=== PATIENT | male | born 1960 | race African-American/Black ===

== ENCOUNTER 2017-02-06 19:17 | Emergency (ER) | payer MEDICAID ==
[~2017-02-06] VITALS: Ht 180.3 cm; Wt 126.6 kg
[~2017-02-06 19:17] MED LIST: NKM
[2017-02-06] MEDS ORDERED: Solu-MEDROL 125mg Inj IVP ONE (19:30)
--- NOTE | 2017-02-06 19:35 | Emergency Room Report ---
History of Present Illness General Chief Complaint: Dyspnea/Respdistress Source: Patient Present Illness HPI Patient is a 56 -year-old male who presented after having increased difficulty breathing. Patient was noted to have recently quit smoking. Patient reported having increased difficulty breathing. The patient denied any fever. He reported having some sore throat. He denied any leg pain or swelling. Allergies: Coded Allergies: No Known Allergies (Unverified , 02/06/17) Patient History Past Medical History: see triage record Reviewed Nursing Documentation: PMH: Agreed, PSxH: Agreed Nursing Documentation-PMH Past Medical History: No Stated History Review of Systems All Other Systems: negative except mentioned in HPI Physical Exam Vital Signs Date Time Temp Pulse Resp B/P Pulse Ox O2 Delivery O2 Flow Rate FiO2 02/06/17 19:13 100.2 121 16 220/119 95 Room Air Sp02 EP Interpretation: reviewed, normal General Appearance: normal inspection, alert, moderate distress, obese Head: atraumatic ENT: normal ENT inspection, hearing grossly normal, normal voice Neck: normal inspection, full range of motion, supple, no bony tend Respiratory: normal inspection, no retraction, wheezing Cardiovascular #1: regular rate, rhythm, no edema Gastrointestinal: normal inspection, normal bowel sounds, non tender, soft, no guarding, no hernia Genitourinary: no CVA tenderness Musculoskeletal: normal inspection, back normal, normal range of motion Neurologic: normal inspection, alert, oriented x3, responsive, physics technician III-XII nml as tested, speech normal Psychiatric: normal inspection, judgement/insight normal, mood/affect normal Skin: normal inspection, normal color, no rash Medical Decision Making Diagnostic Impression: Primary Impression: UTI (urinary tract infection) Additional Impression: COPD (chronic obstructive pulmonary disease) with emphysema ER Course Patient is a 56 -year-old male who presented after having increased difficulty breathing. Differential included but was not limited to anemia, pneumonia, pneumothorax, myocardial infarction, pericardial effusion, congestive heart failure, acidosis. Because of complexity of patient's case laboratory testing and imaging studies were ordered.Patient noted have a normal white blood count. Patient noted have marked wheezing with difficulty breathing. Patient was given IV Solu-Medrol. Patient was given Rocephin for urinary tract infection. Btype naturietic peptide was noted to be elevated. Patient's troponin was negative. Chest x-ray one view interpreted by me showed a right lung scarring versus pneumonia.HMO from [facility] was contacted for transfer to [facility] doctor to facility Labs Test 02/06/17 19:30 02/06/17 20:45 White Blood Count 8.6 K/UL (4.8-10.8) Red Blood Count 5.26 M/UL (4.70-6.10) Hemoglobin 16.7 G/DL (14.2-18.0) Hematocrit 47.6 % (42.0-52.0) Mean Corpuscular Volume 90 FL (80-99) Mean Corpuscular Hemoglobin 31.8 PG (27.0-31.0) Mean Corpuscular Hemoglobin Concent 35.2 G/DL (32.0-36.0) Red Cell Distribution Width 13.3 % (11.6-14.8) Platelet Count 221 K/UL (150-450) Mean Platelet Volume 6.8 FL (6.5-10.1) Neutrophils (%) (Auto) 75.3 % (45.0-75.0) Lymphocytes (%) (Auto) 12.4 % (20.0-45.0) Monocytes (%) (Auto) 9.3 % (1.0-10.0) Eosinophils (%) (Auto) 0.2 % (0.0-3.0) Basophils (%) (Auto) 2.8 % (0.0-2.0) Sodium Level 137 mEQ/L (135-145) Potassium Level 4.3 mEQ/L (3.4-4.9) Chloride Level 98 mEQ/L (98-107) Carbon Dioxide Level 24 mEQ/L (20-30) Anion Gap 15 (5-15) Blood Urea Nitrogen 10 mg/dL (7-23) Creatinine 0.8 mg/dL (0.7-1.2) Estimat Glomerular Filtration Rate > 60 mL/min (>60) Glucose Level 107 mg/dL (74-106) Lactic Acid Level 0.90 mmol/L (0.66-2.22) Calcium Level 9.4 mg/dL (8.6-10.2) Total Bilirubin 1.2 mg/dL (0.0-1.2) Direct Bilirubin 0.2 mg/dL (0.1-0.3) Aspartate Amino Transf (AST/SGOT) 21 U/L (5-40) Alanine Aminotransferase (ALT/SGPT) 32 U/L (3-41) Alkaline Phosphatase 56 U/L (40-129) Total Creatine Kinase 66 U/L (38-174) Creatine Kinase MB 2.6 ng/mL (< 6.7) Creatine Kinase MB Relative Index 3.9 Troponin I < 0.30 ng/mL (<=0.30) Pro-B-Type Natriuretic Peptide 570 pg/mL (0-125) Total Protein 7.7 g/dL (6.6-8.7) Albumin 4.1 g/dL (3.5-5.2) Globulin 3.6 g/dL Albumin/Globulin Ratio 1.1 (1.0-2.7) Urine Color Brown Urine Appearance Slightly cloudy Urine pH 7 (4.5-8.0) Urine Specific Ackley 1.005 (1.005-1.035) Urine Protein 2+ (NEGATIVE) Urine Glucose (UA) Negative (NEGATIVE) Urine Ketones 1+ (NEGATIVE) Urine Occult Blood Negative (NEGATIVE) Urine Nitrite Negative (NEGATIVE) Urine Bilirubin Negative (NEGATIVE) Urine Urobilinogen 4 MG/DL (0.0-1.0) Urine Leukocyte Esterase 1+ (NEGATIVE) Urine RBC 0-2 /HPF (0 - 0) Urine WBC 20-30 /HPF (0 - 0) Urine Squamous Epithelial Cells None /LPF (NONE/OCC) Urine Bacteria Occasional /HPF (NONE) Last Vital Signs Date Time Temp Pulse Resp B/P Pulse Ox O2 Delivery O2 Flow Rate FiO2 02/06/17 19:13 100.2 121 16 220/119 95 Room Air Status: unchanged Disposition: ADMITTED INPATIENT Condition: Serious Abel Salas Feb 06, 2017 19:35
[2017-02-06 19:40] VITALS: BP 220/119
[2017-02-06] MEDS: DuoNeb 0.5-3(2.5)mg/3ml neb HHN SCH ×3 (19:45→19:48)
[2017-02-06 20:00] VITALS: BP 162/146
[2017-02-06 20:00] LABS: BASOPHILS % (AUTO) 2.8 % (0.0-2.0); EOSINOPHILS % (AUTO) 0.2 % (0.0-3.0); LYMPHOCYTES % (AUTO) 12.4 % (20.0-45.0); MEAN CORPUSCULAR HEMOGLOBIN 31.8 PG (27.0-31.0); MEAN CORPUSCULAR HGB CONC 35.2 G/DL (32.0-36.0); MEAN CORPUSCULAR VOLUME 90 FL (80-99); MEAN PLATELET VOLUME 6.8 FL (6.5-10.1); MONOCYTES % (AUTO) 9.3 % (1.0-10.0); NEUTROPHILS % (AUTO) 75.3 % (45.0-75.0); PLATELET COUNT 221 K/UL (150-450); RED BLOOD COUNT 5.26 M/UL (4.70-6.10); RED CELL DISTRIBUTION WIDTH 13.3 % (11.6-14.8); WHITE BLOOD COUNT 8.6 K/UL (4.8-10.8)
[2017-02-06 20:04] LABS: ALANINE AMINOTRANSFERASE 32 U/L (3-41); ALBUMIN/GLOBULIN RATIO 1.1 (1.0-2.7); ANION GAP 15 (5-15); ASPARTATE AMINO TRANSFERASE 21 U/L (5-40); CALCIUM 9.4 mg/dL (8.6-10.2); CARBON DIOXIDE 24 mEQ/L (20-30); CHLORIDE 98 mEQ/L (98-107); CREATININE 0.8 mg/dL (0.7-1.2); GLOMERULAR FILTRATION RATE > 60 mL/min (>60); HEMOLYSIS 2; POTASSIUM 4.3 mEQ/L (3.4-4.9); SODIUM 137 mEQ/L (135-145); TOTAL PROTEIN 7.7 g/dL (6.6-8.7)
[2017-02-06 20:41] LABS: TROPONIN I < 0.30 ng/mL (<=0.30)
[2017-02-06 20:45] LABS: CKMB 2.6 ng/mL (< 6.7)
[2017-02-06 20:55] LABS: BILIRUBIN,DIRECT 0.2 mg/dL (0.1-0.3)
[2017-02-06 21:00] VITALS: BP 154/84
[2017-02-06 21:45] LABS: APPEARANCE,URINE SLIGHTLY CLOUDY; KETONES,URINE 1+ (NEGATIVE); LEUKOCYTE ESTERASE ,URINE 1+ (NEGATIVE); NITRITE,URINE NEGATIVE (NEGATIVE); PH,URINE 7 (4.5-8.0); PROTEIN,URINE 2+ (NEGATIVE); UROBILINOGEN,URINE 4 MG/DL (0.0-1.0)
[2017-02-06 22:00] VITALS: BP 146/93
[2017-02-06] MEDS ORDERED: cefTRIAXone 1 GM in NS 55 ML IVPB ONE (22:00)
[2017-02-06 22:05] LABS: RBC,URINE 0-2 /HPF (0 - 0); WBC,URINE 20-30 /HPF (0 - 0)
[2017-02-06 22:06] LABS: BACTERIA,URINE OCCASIONAL /HPF
[2017-02-06] MEDS ORDERED: Morphine Sulfate 2mg/ml Inj IVP PRN (22:30)
[2017-02-06] MEDS ORDERED: Nitroglycerin Subl 0.4mg tab (Bottle Of 25) SL PRN (22:30)
[2017-02-06] MEDS ORDERED: Promethazine/Codeine 5ml UD ORAL PRN (22:30)
[2017-02-06] MEDS ORDERED: LORazepam Inj 2mg/ml 1ml IV PRN (22:30)
[2017-02-06] MEDS ORDERED: DuoNeb 0.5-3(2.5)mg/3ml neb HHN PRN (22:30)
[2017-02-06] MEDS ORDERED: Ketorolac 30mg Inj IV PRN (22:30)
[2017-02-06 23:00] VITALS: BP 145/88
[2017-02-07] MEDS ORDERED: Solu-MEDROL 125mg Inj IV SCH
[2017-02-07 00:45] VITALS: BP 156/81
[2017-02-07 00:53] VITALS: BP 156/81
[2017-02-07] MEDS ORDERED: Piperacillin/Tazobactam 2.25 GM in D5W 55 ML IV SCH (06:00)
[2017-02-07] MEDS ORDERED: NovoLOG Insulin Flexpen SUBQ SCH (06:30)
[2017-02-07] MEDS ORDERED: Heparin 5000 units/ml inj SUBQ SCH (09:00)
[2017-02-07] MEDS ORDERED: Theophylline ER 100mg ORAL SCH (09:00)
--- NOTE | 2017-02-07 10:20 | Diagnostic Imaging Report ---
Indication: SOB Technique: One view of the chest Comparison: none Findings: The heart is borderline enlarged. Lungs and pleural spaces are clear. Impression: Borderline cardiomegaly. No acute process
--- NOTE | 2017-02-08 15:48 | Cardiology Report ---
APPROVED REPORT EKG Measurement Heart [id number] Sinus tachycardia with fusion complexes Otherwise normal ECG
== END 2017-02-07 00:55 | disposition short-term general hospital (02) ==
LOC: EDBD 19:17 → EMR 19:55
DX: J44.9 Chronic obstructive pulmonary disease, unspecified (principal); J43.9 Emphysema, unspecified; N39.0 Urinary tract infection, site not specified; Z87.891 Personal history of nicotine dependence; R07.0 Pain in throat
CPT/HCPCS: 36415; 71010; 80053; 81003; 82248; 82550; 82553; 83605; 83880; 84484; 85025; 86710; 87040; 87086; 93005; 94640; 94664; 96360; 96374; 96375; 99285; J0696; J1885; J2930; J7620

== ENCOUNTER 2018-04-04 15:14 | Emergency (ER) | payer MEDICAID ==
[~2018-04-04] VITALS: Ht 180.3 cm; Wt 128.8 kg
[2018-04-04] MEDS ORDERED: Ampicillin/Sulbactam Sod 3 GM in NS 110 ML IVPB ONE (15:45)
[2018-04-04] MEDS ORDERED: Tetanus/Diptheria/Pertussis Vaccine 0.5ml Syr IM ONE (15:45)
--- NOTE | 2018-04-04 16:26 | Emergency Room Report ---
History of Present Illness General Chief Complaint: Animal Bite Source: Patient Present Illness HPI Patient presents emergency department today complaining of right upper thigh dog bite. Patient states that he was attacked by a dog after a altercation. The dog bit him in the right upper thigh. There is deep lacerations. This occurred 2 days ago. Bleeding is controlled. No other injuries were noted. Patient denies any fever chest pain shortness of breath. Patient states that he does not remember his last tetanus shot.No other modifying factors. No other associated signs and symptoms. No other complaints were noted. Allergies: Coded Allergies: No Known Allergies (Unverified , 02/06/17) Patient History Past Medical History: none Past Surgical History: none Pertinent Family History: none Social History: Denies: smoking, alcohol use, drug use Reviewed Nursing Documentation: PMH: Agreed; PSxH: Agreed Nursing Documentation-PMH Past Medical History: No Stated History Review of Systems All Other Systems: negative except mentioned in HPI Physical Exam Vital Signs Date Time Temp Pulse Resp B/P (MAP) Pulse Ox O2 Delivery O2 Flow Rate FiO2 04/04/18 15:22 98.8 94 18 179/102 95 Room Air 98.8 Sp02 EP Interpretation: reviewed, normal General Appearance: normal inspection, well appearing, no apparent distress, alert Head: atraumatic Eyes: bilateral eye normal inspection ENT: normal ENT inspection, hearing grossly normal, normal voice Neck: normal inspection, full range of motion, supple, no bony tend Respiratory: normal inspection, lungs clear, normal breath sounds, no respiratory distress, no retraction, no wheezing Cardiovascular #1: regular rate, rhythm, no edema Gastrointestinal: normal inspection, normal bowel sounds, non tender, soft, no guarding, no hernia Genitourinary: no CVA tenderness Musculoskeletal: back normal, normal range of motion, other - Right thigh laceration dog bite Neurologic: normal inspection, alert, responsive, speech normal Psychiatric: normal inspection, judgement/insight normal, mood/affect normal Skin: other - Right lower extremity dog bite laceration bleeding controlled over right thigh Medical Decision Making Diagnostic Impression: Primary Impression: Bite by animal ER Course Patient presents emergency department today complaining of dog bite to the right thigh 2 days ago. Differential considerations include muscle injury or tendon injury, blood vessel injury. Patient's exam does not show any evidence of deep tissue injury. No evidence of neurovascular involvement. However, the laceration is gaping a rather deep. Unfortunately because this has been greater than 2 days and is a dog bite has a high risk for infection I felt the patient's wound required healing by secondary intention. Wound was packed with wet-to-dry dressing. Patient was given instructions on how to care care for the wound. Patient's given a prescription for antibiotics. Patient was given one dose of Unasyn and will be given a prescription for Augmentin.Patient is advised to follow up with primary doctor in 2-3 days and return the emergency room for any worsening symptoms and as needed. Last Vital Signs Date Time Temp Pulse Resp B/P (MAP) Pulse Ox O2 Delivery O2 Flow Rate FiO2 04/04/18 15:22 98.8 94 18 179/102 95 Room Air 98.8 Status: improved Disposition: HOME, SELF-CARE Condition: Stable Scripts Amoxicillin/Potassium Clav 875-125* (AUGMENTIN 875-125 TABLET*) 1 Each Tablet 1 TAB ORAL TWICE A DAY for 10 Days, TAB Prov: Tremaine Marc MD 04/04/18 Referrals: NON PHYSICIAN (PCP) Tremaine Marc MD Apr 04, 2018 16:26
[2018-04-04] MEDS ORDERED: AUGMENTIN 875-1 EAC1 ORAL (16:27)
[2018-04-04] MEDS ORDERED: Unasyn 3gm Inj IM ONE (16:45)
[2018-04-04 16:46] VITALS: BP 158/98
[2018-04-04 17:52] VITALS: BP 158/98
== END 2018-04-04 16:58 | disposition home or self-care (01) ==
LOC: EMR 16:22
DX: S71.111A Laceration without foreign body, right thigh, initial encounter (principal); W54.0XXA Bitten by dog, initial encounter; Y92.9 Unspecified place or not applicable; Z23 Encounter for immunization
CPT/HCPCS: 90471; 90715; 96365; 96372; 99283; J0295

== ENCOUNTER 2019-05-08 12:38 | Inpatient (IN) | payer MEDICAID ==
[~2019-05-08] VITALS: Ht 180.3 cm; Wt 123.4 kg
[~2019-05-08 12:38] MED LIST changes: +AUGMENTIN 875-1 EAC1 ORAL
[2019-05-08 12:44] VITALS: BP 121/69
--- NOTE | 2019-05-08 12:48 | NUR ---
ED Nurse Note: pt brought in to ER by ambulance from home due to SOB. pt aao x4 and ambulatory but weak. skin think and edematous but pale. calm and cooperative. shallow and labored breathing noted. pt is on 4L/min via NC and saturating 98%-100%. 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
--- NOTE | 2019-05-08 13:39 | NUR ---
ED Nurse Note: x-ray at bedside.
--- NOTE | 2019-05-08 13:41 | Emergency Room Report ---
History of Present Illness General Chief Complaint: Dyspnea/Respdistress Source: Patient Present Illness HPI Patient presents emergency department today with acute onset of shortness of breath. Patient states that he has a history of weak heart and was recently hospitalized at an outside facility. He states that over the last 2 to 3 days he has had worsening shortness of breath especially with ambulation and exertion. He also has orthopnea and bilateral lower extreme swelling. He denies any fever nausea. He states that he does have a history of pneumonia. Denies any definite chest pain. Patient is unaware that he has any rhythm issues. No other complaints were noted. Symptoms are noted to be severe. Patient arrived here via EMS because of severity of symptoms requiring transport. No other modifying factors. No other associated signs and symptoms. No other complaints were noted. Allergies: Coded Allergies: No Known Allergies (Unverified , 02/06/17) Patient History Past Medical History: HTN, CAD, CHF, COPD Past Surgical History: none Pertinent Family History: none Social History: Reports: smoking, alcohol use Reviewed Nursing Documentation: PMH: Agreed; PSxH: Agreed Nursing Documentation-PMH Hx Cardiac Problems: Yes Hx COPD: Yes Review of Systems All Other Systems: negative except mentioned in HPI Physical Exam Vital Signs Date Time Temp Pulse Resp B/P (MAP) Pulse Ox O2 Delivery O2 Flow Rate FiO2 05/08/19 12:33 97.3 110 20 140/90 (107) 98 Room Air 05/08/19 12:44 4.0 Sp02 EP Interpretation: reviewed, normal General Appearance: alert, moderate distress, obese Head: atraumatic Eyes: bilateral eye normal inspection ENT: normal ENT inspection, hearing grossly normal, normal voice Neck: normal inspection, full range of motion, supple, no bony tend Respiratory: normal inspection, no retraction, decreased breath sounds, accessory muscle use, crackles - At the bases Cardiovascular #1: no edema, irregularly irregular, edema - Bilateral lower extremity Gastrointestinal: normal inspection, normal bowel sounds, non tender, soft, no guarding, no hernia Genitourinary: no CVA tenderness Musculoskeletal: back normal, normal range of motion, swelling - Bilateral lower extremity Neurologic: normal inspection, alert, responsive, speech normal Psychiatric: normal inspection, judgement/insight normal, mood/affect normal Skin: no rash Medical Decision Making Diagnostic Impression: Primary Impression: Dyspnea Additional Impressions: Respiratory distress Acute CHF ER Course Patient presents emergency department today complaining of shortness of breath. Differential diagnoses include acute pneumonia, CHF, acute coronary syndrome, pneumothorax, asthma, COPD flare, just to name a few. Given the severity of the patient's presentation I felt this is a highly complex patient. This patient required extensive workup. Patient laboratory work-up presentation is consistent to CHF. Patient was given Lasix. Given patient's presentation felt that patient require admission. Case was discussed with admitting physician . Pt will be placed on observation status. Labs Test 05/08/19 13:45 White Blood Count 10.9 K/UL (4.8-10.8) Red Blood Count 5.79 M/UL (4.70-6.10) Hemoglobin 16.6 G/DL (14.2-18.0) Hematocrit 52.7 % (42.0-52.0) Mean Corpuscular Volume 91 FL (80-99) Mean Corpuscular Hemoglobin 28.7 PG (27.0-31.0) Mean Corpuscular Hemoglobin Concent 31.6 G/DL (32.0-36.0) Red Cell Distribution Width 14.6 % (11.6-14.8) Platelet Count 233 K/UL (150-450) Mean Platelet Volume 6.5 FL (6.5-10.1) Neutrophils (%) (Auto) 73.4 % (45.0-75.0) Lymphocytes (%) (Auto) 17.2 % (20.0-45.0) Monocytes (%) (Auto) 7.1 % (1.0-10.0) Eosinophils (%) (Auto) 0.9 % (0.0-3.0) Basophils (%) (Auto) 1.3 % (0.0-2.0) Sodium Level 141 MMOL/L (136-145) Potassium Level 5.4 MMOL/L (3.5-5.1) Chloride Level 105 MMOL/L (98-107) Carbon Dioxide Level 25 MMOL/L (21-32) Anion Gap 11 mmol/L (5-15) Blood Urea Nitrogen 17 mg/dL (7-18) Creatinine 1.4 MG/DL (0.55-1.30) Estimat Glomerular Filtration Rate > 60 mL/min (>60) Glucose Level 119 MG/DL (74-106) Calcium Level 9.4 MG/DL (8.5-10.1) Total Bilirubin 4.3 MG/DL (0.2-1.0) Direct Bilirubin 1.8 MG/DL (0.0-0.3) Aspartate Amino Transf (AST/SGOT) 270 U/L (15-37) Alanine Aminotransferase (ALT/SGPT) 157 U/L (12-78) Alkaline Phosphatase 162 U/L (46-116) Total Creatine Kinase 159 U/L (26-308) Creatine Kinase MB 2.7 NG/ML (0.0-3.6) Creatine Kinase MB Relative Index 1.6 Troponin I 0.034 ng/mL (0.000-0.056) Pro-B-Type Natriuretic Peptide 4102 pg/mL (0-125) Total Protein 7.0 G/DL (6.4-8.2) Albumin 3.6 G/DL (3.4-5.0) Globulin 3.4 g/dL Albumin/Globulin Ratio 1.1 (1.0-2.7) EKG Diagnostic Results Rate: normal Rhythm: other - Irregularly irregular ST Segments: other - Nonspecific ST segment changes Rhythm Strip Diag. Results EP Interpretation: yes Rate: 99 Rhythm: other - Atrial fibrillation. No evidence of any other ectopy. No evidence of PVCs. Chest X-Ray Diagnostic Results Chest X-Ray Diagnostic Results : Chest X-Ray Ordered: Yes # of Views/Limited/Complete: 1 View Indication: Shortness of Breath EP Interpretation: No Impression: Other - Cardiomegaly Last Vital Signs Date Time Temp Pulse Resp B/P (MAP) Pulse Ox O2 Delivery O2 Flow Rate FiO2 05/08/19 12:44 103 31 Room Air 4.0 05/08/19 12:44 97.3 121/69 100 Status: improved Disposition: PLACE IN OBSERVATION Condition: Serious Tremaine Marc MD May 08, 2019 13:41
[2019-05-08 14:12] LABS: BASOPHILS % (AUTO) 1.3 % (0.0-2.0); EOSINOPHILS % (AUTO) 0.9 % (0.0-3.0); HEMATOCRIT 52.7 % (42.0-52.0); HEMOGLOBIN 16.6 G/DL (14.2-18.0); LYMPHOCYTES % (AUTO) 17.2 % (20.0-45.0); MEAN CORPUSCULAR VOLUME 91 FL (80-99); MONOCYTES % (AUTO) 7.1 % (1.0-10.0); NEUTROPHILS % (AUTO) 73.4 % (45.0-75.0); PLATELET COUNT 233 K/UL (150-450); RED BLOOD COUNT 5.79 M/UL (4.70-6.10); RED CELL DISTRIBUTION WIDTH 14.6 % (11.6-14.8); WHITE BLOOD COUNT 10.9 K/UL (4.8-10.8)
[2019-05-08 14:29] LABS: ANION GAP 11 mmol/L (5-15); BLOOD UREA NITROGEN 17 mg/dL (7-18); CALCIUM 9.4 MG/DL (8.5-10.1); CARBON DIOXIDE 25 MMOL/L (21-32); CHLORIDE 105 MMOL/L (98-107); CREATININE 1.4 MG/DL (0.55-1.30); POTASSIUM 5.4 MMOL/L (3.5-5.1); SODIUM 141 MMOL/L (136-145)
[2019-05-08 14:44] VITALS: BP 110/72
[2019-05-08 14:45] LABS: ALANINE AMINOTRANSFERASE 157 U/L (12-78); ALBUMIN 3.6 G/DL (3.4-5.0); ALBUMIN/GLOBULIN RATIO 1.1 (1.0-2.7); ALKALINE PHOSPHATASE 162 U/L (46-116); ASPARTATE AMINO TRANSFERASE 270 U/L (15-37); BILIRUBIN,DIRECT 1.8 MG/DL (0.0-0.3); BILIRUBIN,TOTAL 4.3 MG/DL (0.2-1.0); CKMB 2.7 NG/ML (0.0-3.6); CREATINE KINASE 159 U/L (26-308)
--- NOTE | 2019-05-08 15:05 | Diagnostic Imaging Report ---
Indication: Dyspnea Technique: One view of the chest Comparison: 02/06/2017 Findings: Body habitus limits evaluation. The heart is enlarged. There is borderline interstitial congestive change. There is central bronchial wall thickening. Impression: Cardiomegaly. Borderline interstitial congestion-correlate with clinical findings
--- NOTE | 2019-05-08 16:08 | NUR ---
ED Nurse Note: ERMD at bedside discussing with pt about treatment plan.
[2019-05-08] MEDS ORDERED: HYDROmorphone 1mg/ml Carpuject IVP PRN (16:30)
--- NOTE | 2019-05-08 16:34 | History and Physical ---
History of Present Illness General Date patient seen: May 08, 2019 Reason for Hospitalization: Dyspnea/Respdistress Present Illness HPI 58 year old male with pmh of CHF (recently diagnosed, unknown EF), COPD and HTN presented with complaints of acute onset SOB since last night. States he was admitted to OSH 2 weeks ago and was told he had a weak heart, started on a water pill and antiHTN medications (does not recall name), he has been complaint with water pill and antiHTN, however not with diet nor water restriction. Pt also complains of b/l LE swelling, ESCALERA and orthopnea, denies PND. Pt denies n/v/c/d, abdominal complaints, chest pain, urinary complaints, falls, headaches, blurry vision, fevers, chills or SOB. Allergies: Coded Allergies: No Known Allergies (Unverified , 02/06/17) Medication History Scheduled Amoxicillin/Potassium Clav 875-125* (Augmentin 875-125 Tablet*), 1 TAB ORAL TWICE A DAY No Known Medications* (NKM - No Known Medications*), 0 ., (Reported) Patient History History Provided By: Patient Healthcare decision maker Resuscitation status Advanced Directive on File Review of Systems ROS Narrative General ROS:~no weight loss or fever Psychological ROS:~no depression or mood changes, no memory loss Ophthalmic ROS:~no visual changes or eye irritation ENT ROS:~no nasal congestion, hearing loss, dizziness Allergy and Immunology ROS:~no allergic symptoms or urticaria Hematological and Lymphatic ROS:~no swollen glands, unusual bleeding or bruising Endocrine ROS:~no polyuria, polydipsia, weight changes, temperature intolerance Respiratory ROS:c/o shortness of breath, denies wheezing Cardiovascular ROS:c/o ESCALERA, orthopnea, Gastrointestinal ROS:~no abdominal pain, change in bowel habits, or black or bloody stools~c/o constipation~ Musculoskeletal ROS:~no myalgias or arthralgias, c/o BL LE edema Neurological ROS:~no TIA or stroke symptoms Dermatological ROS:~no new or changing skin lesions, rashes or pruritis Physical Exam Last 24 Hour Vital Signs Date Time Temp Pulse Resp B/P (MAP) Pulse Ox O2 Delivery O2 Flow Rate FiO2 05/08/19 14:44 98.1 99 18 110/72 100 Nasal Cannula 2.0 7/10/19 12:44 103 31 Room Air 4.0 05/08/19 12:44 97.3 105 18 121/69 100 Nasal Cannula 4.0 05/08/19 12:33 97.3 110 20 140/90 (107) 98 Room Air Laboratory Tests Test 05/08/19 13:45 White Blood Count 10.9 K/UL (4.8-10.8) H Red Blood Count 5.79 M/UL (4.70-6.10) Hemoglobin 16.6 G/DL (14.2-18.0) Hematocrit 52.7 % (42.0-52.0) H Mean Corpuscular Volume 91 FL (80-99) Mean Corpuscular Hemoglobin 28.7 PG (27.0-31.0) Mean Corpuscular Hemoglobin Concent 31.6 G/DL (32.0-36.0) L Red Cell Distribution Width 14.6 % (11.6-14.8) Platelet Count 233 K/UL (150-450) Mean Platelet Volume 6.5 FL (6.5-10.1) Neutrophils (%) (Auto) 73.4 % (45.0-75.0) Lymphocytes (%) (Auto) 17.2 % (20.0-45.0) L Monocytes (%) (Auto) 7.1 % (1.0-10.0) Eosinophils (%) (Auto) 0.9 % (0.0-3.0) Basophils (%) (Auto) 1.3 % (0.0-2.0) Sodium Level 141 MMOL/L (136-145) Potassium Level 5.4 MMOL/L (3.5-5.1) H Chloride Level 105 MMOL/L (98-107) Carbon Dioxide Level 25 MMOL/L (21-32) Anion Gap 11 mmol/L (5-15) Blood Urea Nitrogen 17 mg/dL (7-18) Creatinine 1.4 MG/DL (0.55-1.30) H Estimat Glomerular Filtration Rate > 60 mL/min (>60) Glucose Level 119 MG/DL (74-106) H Calcium Level 9.4 MG/DL (8.5-10.1) Total Bilirubin 4.3 MG/DL (0.2-1.0) H Direct Bilirubin 1.8 MG/DL (0.0-0.3) H Aspartate Amino Transf (AST/SGOT) 270 U/L (15-37) H Alanine Aminotransferase (ALT/SGPT) 157 U/L (12-78) H Alkaline Phosphatase 162 U/L (46-116) H Total Creatine Kinase 159 U/L (26-308) Creatine Kinase MB 2.7 NG/ML (0.0-3.6) Creatine Kinase MB Relative Index 1.6 Troponin I 0.034 ng/mL (0.000-0.056) Pro-B-Type Natriuretic Peptide 4102 pg/mL (0-125) H Total Protein 7.0 G/DL (6.4-8.2) Albumin 3.6 G/DL (3.4-5.0) Globulin 3.4 g/dL Albumin/Globulin Ratio 1.1 (1.0-2.7) Height (Feet): 5 Height (Inches): 10.00 Weight (Pounds): 250 Objective Narrative General appearance:~~alert, cooperative, mild distress, appears stated age Head:~~Normocephalic, without obvious abnormality, atraumatic Eyes:~~conjunctivae/corneas clear. PERRL, EOM's intact. Fundi benign Throat:~~Lips, mucosa, and tongue normal. Teeth and gums normal Neck:~~supple, symmetrical, trachea midline, no adenopathy, thyroid: not enlarged, symmetric, no tenderness/mass/nodules, no carotid bruit and no JVD Lungs:~~good air entry, mild wheezing, no crackles noted Heart:~~irregular, S1, S2 normal, no murmur, click, rub or gallop Abdomen:~~soft, non-tender. Bowel sounds normal. No masses, ~no organomegaly Extremities:~~extremities normal, atraumatic, +1 edema Pulses:~~2+ and symmetric Skin:~~Skin color, texture, turgor normal. No rashes or lesions Neurologic:~~Grossly normal Assessment/Plan Assessment/Plan: 58 year old male with pmh of CHF (recently diagnosed, unknown EF), COPD and HTN presented with complaints of acute onset SOB since last night admitted for CHF exacerbation. #acute on chronic CHF likely systolic dysfunction -Cardiology consulted -Cont IV lasix -NA restriction -Fluid restriction -strict I/O -daily weights -Cont metoprolol -admit to tele -serial troponins and EKG #MARI vs CKD - possible cardiorenal -CTM -Cont lasix #Transaminitis likely 2/2 hepatic congestion 2/2 CHF -cont lasix -CTM #COPD with mild exacerbation -pulmonary consulted -duonebs Q4PRN for SOB #HTN -cont metoprolol Angélica Meraz MD May 08, 2019 16:34
[2019-05-08 16:44] VITALS: BP 116/89
--- NOTE | 2019-05-08 17:18 | NUR ---
ED Nurse Note: CALLED FOR REPORT. PER ANNA ALMANZA TELE CN HAS NOT ASSIGNED NURSE YET. WILL CALL BACK IN 10 MINUTES REQUESTED.
--- NOTE | 2019-05-08 17:30 | NUR ---
ED Nurse Note: PER JEREMY, RN ROOM AND NURSE HAVE NOT BEEN ASSIGNED YET. THEY WILL CALL BACK.
--- NOTE | 2019-05-08 17:40 | NUR ---
ED Nurse Note: REPORT GIVEN TO ANNA LUNA. PER NURSE, ROOM WILL BE READY IN 10 MINUTES.
--- NOTE | 2019-05-08 17:50 | NUR ---
ED Nurse Note: pt left unit with 1 RN and 1 certified dialysis technician in stable condition.
--- NOTE | 2019-05-08 18:10 | NUR ---
NURSE NOTES: Patient transferred safely to from ER. Pt belongings verified. Phone at bedside. Pt on monitor is A-flutter 108. aware. Pt is in stable condition. A+Ox4, denies pain. Pt has SOB with exertion. IV site is patent and intact. Respirations are even. Pt is in stable condition at this time; admission orders in.
--- NOTE | 2019-05-08 18:29 | NUR ---
NURSE NOTES: Pt asking for breathing treatment. Spoke with Dr. Meraz who ordered Duoneb. She also ordered to change MD to christa Monte.
[2019-05-08] MEDS: Albuterol/Ipratropium 3ml neb HHN PRN (19:12)
--- NOTE | 2019-05-08 19:26 | NUR ---
HAND-OFF: Report given to ANNA Yeung. Pt is in stable condition; plan of care endorsed.
--- NOTE | 2019-05-08 19:30 | NUR ---
NURSE NOTES: Received report from Manjit Chávez RN. Patient in bed AAO X4 with no complaints of acute pain or distress noted at this time. Kept clean, dry, and comfortable in bed. IV line intact and patent SL, placed on continuous cardiac monitoring per protocol and noted A-flutter. Able to ambulate with minimal assist to the bathroom and offered urinal at bedside. On 2L NC, 02 sat at 93-94% with no S/S of resp. distress or SOB noted. Safety precaution in place; siderails X2 up, call light within reach, bed in lowest position, brakes and alarm on at all times. Needs and wants anticipated and attended, will continue plan of care and monitor for any changes noted.
[2019-05-08 20:00] VITALS: BP 108/78
--- NOTE | 2019-05-08 20:03 | NUR ---
NURSE NOTES: Noted K level at 5.4. Notified MD Mell. awaiting call back. Will continue to monitor.
--- NOTE | 2019-05-08 20:22 | General Progress Note ---
Advance Care Planning Advance Care Planning Advance Care Planning [facility] An independent Hospitalist group, where every patient is our [facility] Internal Medicine Hospitalist Advanced Care Planning Note Please contact us at Date of Discussion: A [id number] discussion with the pt regarding the patient's advanced care planning took place during this hospitalization on the above date. The discussion included the explanation and discussion of advance directives and associated forms/documents, as well as the patient's current code status. We also discussed at length the patient's medical conditions (both acute and chronic), general prognosis, treatment options, and goals of care. The following summarizes the discussion: Advance Care Planning/Goals of Care: - Will attempt to fill out an AD and/or POLST with the patient prior to discharge, if not already completed - Continue current evaluation and management of any acute and chronic medical issues - Will continue to support the patient/family - Will continue to discuss both short- and long-term goals of care DPOA-HC/Surrogate Decision Maker: None currently appointed Code Status: Full Code Advanced Care Planning Forms/Documents Completed: Deferred until later encounter/visit A total of 18 minutes was spent on this discussion, including counseling, answering questions, and completing, if any, pertinent advanced care planning forms/documents. Time of note may not reflect time of encounter. Angélica Meraz MD May 08, 2019 20:22
[2019-05-08 20:58] LABS: ANION GAP 8 mmol/L (5-15); BLOOD UREA NITROGEN 21 mg/dL (7-18); CARBON DIOXIDE 26 MMOL/L (21-32); CHLORIDE 105 MMOL/L (98-107); CREATININE 1.4 MG/DL (0.55-1.30); POTASSIUM 4.9 MMOL/L (3.5-5.1); SODIUM 139 MMOL/L (136-145)
[2019-05-08] MEDS: Heparin 5000 units/ml inj SUBQ SCH ×2 (21:00→21:10)
--- NOTE | 2019-05-08 21:00 | NUR ---
NURSE NOTES: BMP redrawn. K levels at 4.9. No new orders
[2019-05-08 21:02] LABS: ALANINE AMINOTRANSFERASE 142 U/L (12-78); ALBUMIN 3.4 G/DL (3.4-5.0); ALKALINE PHOSPHATASE 135 U/L (46-116); ASPARTATE AMINO TRANSFERASE 219 U/L (15-37); BILIRUBIN,DIRECT 1.1 MG/DL (0.0-0.3)
[2019-05-08] MEDS: Metoprolol Tartrate 12.5mg TAB ORAL SCH (21:08)
[2019-05-08] MEDS: Zolpidem 5mg tab ORAL PRN (22:13)
[2019-05-08] MEDS ORDERED: POTASSIUM99 M3 PO (22:52)
[2019-05-08] MEDS ORDERED: CARVEDILOL3.125 MG ORAL (22:52)
[2019-05-08] MEDS ORDERED: FUROSEMIDE20 M1 ORAL (22:52)
[2019-05-08] MEDS ORDERED: SPIRONOLACTONE25 MG ORAL (22:52)
[2019-05-09] VITALS: BP 111/71
[2019-05-09] MEDS: Albuterol/Ipratropium 3ml neb HHN PRN ×4 (02:07→20:38)
[2019-05-09 04:00] VITALS: BP 121/71
[2019-05-09 07:00] LABS: BASOPHILS % (AUTO) 1.2 % (0.0-2.0); EOSINOPHILS % (AUTO) 0.1 % (0.0-3.0); HEMATOCRIT 49.1 % (42.0-52.0); LYMPHOCYTES % (AUTO) 12.1 % (20.0-45.0); MEAN CORPUSCULAR VOLUME 91 FL (80-99); MONOCYTES % (AUTO) 8.2 % (1.0-10.0); NEUTROPHILS % (AUTO) 78.4 % (45.0-75.0); PLATELET COUNT 231 K/UL (150-450); RED BLOOD COUNT 5.42 M/UL (4.70-6.10); RED CELL DISTRIBUTION WIDTH 15.2 % (11.6-14.8); WHITE BLOOD COUNT 11.7 K/UL (4.8-10.8)
[2019-05-09 07:34] LABS: BLOOD UREA NITROGEN 26 mg/dL (7-18); CALCIUM 9.2 MG/DL (8.5-10.1); CARBON DIOXIDE 22 MMOL/L (21-32); CREATININE 1.6 MG/DL (0.55-1.30)
--- NOTE | 2019-05-09 07:37 | NUR ---
HAND-OFF: Report given to Sandeep Peña RN. Patient in bed with no S/S of distress. Endorsed plan of care.
--- NOTE | 2019-05-09 07:38 | NUR ---
NURSE NOTES: Received patient in bed. In no apparent distress. Awake, alert, on nasal cannula at 2LPM. Denies any pain. Call light within reach. Will continue plan of care.
[2019-05-09 07:45] LABS: CHLORIDE 105 MMOL/L (98-107); POTASSIUM 5.3 MMOL/L (3.5-5.1); SODIUM 137 MMOL/L (136-145)
[2019-05-09 08:00] VITALS: BP 136/79
[2019-05-09] MEDS: Heparin 5000 units/ml inj SUBQ SCH (09:00)
[2019-05-09] MEDS: Metoprolol Tartrate 12.5mg TAB ORAL SCH (09:07)
[2019-05-09 12:00] VITALS: BP 123/86
--- NOTE | 2019-05-09 13:07 | NUR ---
*-* INSURANCE *-* ALL CLINICALS AND REVIEWS HAVE BEEN FAXED TO: [employer] F:[phone]
--- NOTE | 2019-05-09 13:53 | NUR ---
CASE MANAGEMENT: INITIAL REVIEW 58 YO M BIBA FROM HOME CC: DYSPNEA PMHx: HTN. CAD. CHF. COPD. SI:A FIB T 97.3 HR 110 RR 20 B/P 140/90 SATS 98% ON RA WBC 10.9 K 5.4 CR 1.4 GLU 119 TBILI 4.3 DBILI 1.8 AST 270 ALT 157 ALP 162 BNP 4102 IS: ASA PO X1 LASIX IV X1 CXR Impression: Cardiomegaly. Borderline interstitial congestion-correlate with clinical findings. PATIENT ADMITTED TO TELE 05/08/2019 @ 1556 DCP: PATIENT TO BE DISCHARGED TO HOME ONCE MEDICALLY CLEARED. PLAN OF CARE: -Cardiology consulted -Cont IV lasix -NA restriction -Fluid restriction -strict I/O -daily weights -Cont metoprolol -admit to tele -serial troponins and EKG 05/09/2019 SI:A FIB T 98.4 HR 56 RR 25 B/P 123/86 SATS 98% ON 2L/NC WBC 11.7 K 5.3 BUN 26 CR 1.6 GLU 112 IS: LASIX IV QD LOPRESSOR PO Q12H TELE STATUS DCP: PATIENT TO BE DISCHARGED TO HOME ONCE MEDICALLY CLEARED. Addendum: 05/10/19 at 0828 by Fransisca Santiago CM INTERQUAL
[2019-05-09 16:00] VITALS: BP 129/97
--- NOTE | 2019-05-09 16:00 | Cardiac Electrophysiology PN ---
Subjective Subjective [id number] Objective Last 24 Hour Vital Signs Date Time Temp Pulse Resp B/P (MAP) Pulse Ox O2 Delivery O2 Flow Rate FiO2 05/09/19 12:50 90 24 98 Nasal Cannula 2.0 28 05/09/19 12:42 92 28 96 Nasal Cannula 2.0 28 05/09/19 12:00 98.4 56 25 123/86 (98) 92 05/09/19 11:40 88 05/09/19 09:07 84 136/79 05/09/19 09:00 Nasal Cannula 2.0 05/09/19 08:12 84 22 98 Nasal Cannula 2.0 28 05/09/19 08:02 84 24 96 Nasal Cannula 2.0 28 05/09/19 08:01 96 Nasal Cannula 2.0 28 05/09/19 08:00 84 24 96 Nasal Cannula 2.0 28 05/09/19 08:00 98.4 60 19 136/79 (98) 99 05/09/19 07:38 91 05/09/19 04:00 98.0 67 24 121/71 (88) 100 05/09/19 04:00 90 05/09/19 02:20 78 18 99 Nasal Cannula 2.0 28 05/09/19 02:08 81 18 97 Nasal Cannula 2.0 28 05/09/19 00:00 98.1 73 20 111/71 (84) 97 05/09/19 00:00 87 05/08/19 21:08 109 108/78 05/08/19 21:00 Nasal Cannula 2.0 05/08/19 20:00 98.3 109 20 108/78 (88) 97 05/08/19 20:00 104 05/08/19 19:12 67 18 97 Nasal Cannula 2.0 28 05/08/19 19:12 97 Nasal Cannula 2.0 28 05/08/19 19:12 67 18 97 Nasal Cannula 2.0 28 05/08/19 18:18 Room Air 05/08/19 17:50 98.1 97 18 131/82 97 Nasal Cannula 2.0 05/08/19 16:44 98.1 98 18 116/89 100 Nasal Cannula 2.0 Intake and Output 05/08/19 05/09/19 19:00 07:00 Intake Total 0 ml Output Total 801 ml Balance 0 ml -801 ml Intake Oral 0 ml Output Urine Total 800 ml Emesis 1 ml Laboratory Tests Test 05/08/19 20:15 05/09/19 06:24 Sodium Level 139 MMOL/L (136-145) 137 MMOL/L (136-145) Potassium Level 4.9 MMOL/L (3.5-5.1) 5.3 MMOL/L (3.5-5.1) H Chloride Level 105 MMOL/L (98-107) 105 MMOL/L (98-107) Carbon Dioxide Level 26 MMOL/L (21-32) 22 MMOL/L (21-32) Anion Gap 8 mmol/L (5-15) Blood Urea Nitrogen 21 mg/dL (7-18) H 26 mg/dL (7-18) H Creatinine 1.4 MG/DL (0.55-1.30) H 1.6 MG/DL (0.55-1.30) H Estimat Glomerular Filtration Rate > 60 mL/min (>60) 53.7 mL/min (>60) Glucose Level 136 MG/DL (74-106) H 112 MG/DL (74-106) H Calcium Level 9.0 MG/DL (8.5-10.1) 9.2 MG/DL (8.5-10.1) Total Bilirubin 3.0 MG/DL (0.2-1.0) H Direct Bilirubin 1.1 MG/DL (0.0-0.3) H Aspartate Amino Transf (AST/SGOT) 219 U/L (15-37) H Alanine Aminotransferase (ALT/SGPT) 142 U/L (12-78) H Alkaline Phosphatase 135 U/L (46-116) H Troponin I 0.040 ng/mL (0.000-0.056) Total Protein 6.0 G/DL (6.4-8.2) L Albumin 3.4 G/DL (3.4-5.0) White Blood Count 11.7 K/UL (4.8-10.8) H Red Blood Count 5.42 M/UL (4.70-6.10) Hemoglobin 16.0 G/DL (14.2-18.0) Hematocrit 49.1 % (42.0-52.0) Mean Corpuscular Volume 91 FL (80-99) Mean Corpuscular Hemoglobin 29.4 PG (27.0-31.0) Mean Corpuscular Hemoglobin Concent 32.5 G/DL (32.0-36.0) Red Cell Distribution Width 15.2 % (11.6-14.8) H Platelet Count 231 K/UL (150-450) Mean Platelet Volume 6.3 FL (6.5-10.1) L Neutrophils (%) (Auto) 78.4 % (45.0-75.0) H Lymphocytes (%) (Auto) 12.1 % (20.0-45.0) L Monocytes (%) (Auto) 8.2 % (1.0-10.0) Eosinophils (%) (Auto) 0.1 % (0.0-3.0) Basophils (%) (Auto) 1.2 % (0.0-2.0) Vipul Stock MD May 09, 2019 16:00
--- NOTE | 2019-05-09 16:33 | NUR ---
P.T EVALUATION: LATE ENTRY 929 P.T EVALUATION COMPLETED. BASED ON P.T EVALUATION, PATIENT IS BASELINE INDEPENDENT IN FUNCTIONAL MOBILITIES THEREFORE SKILLED P.T SERVICE IS NOT WARRANTED. PATIENT EDUCATED ON ENERGY CONSERVATION AND PROPER BREATHING TECH I.E PLB AND DEEP BREATHING TECH TO MANAGE FATIGUE AND SOB WITH GOOD RETURN DEMONSTRATION. NO FURTHER P.T FOLLOW UP NEEDED. D/C P.T SERVICES. Addendum: 05/09/19 at 1633 by YOAN BALLESTEROS PT Amended: Links added.
[2019-05-09] MEDS: HydrALAZINE 10mg Tab ORAL SCH (17:06)
[2019-05-09] MEDS: Eliquis 5mg tablet ORAL SCH (17:06)
--- NOTE | 2019-05-09 17:45 | Consultation ---
DATE OF CONSULTATION: 05/09/2019 CARDIOLOGY CONSULTATION CONSULTING PHYSICIAN: Vipul Stock M.D. REFERRING PHYSICIAN: Esteban Valladares M.D. REASON FOR CONSULTATION: Congestive heart failure and atrial flutter. HISTORY OF PRESENT ILLNESS: The patient is a 58-year-old gentleman with history of hypertension and congestive heart failure who was diagnosed about 2 years ago as well as history of COPD presented to emergency room with acute onset of shortness of breath. The patient apparently was admitted to an outside facility about 2 weeks ago and was told he had weak heart and was started on a water pill and a blood pressure medication. The patient presented to emergency room with increased bilateral lower extremity edema and was also found to be in atrial flutter with rapid ventricular response. A Cardiology consultation was requested for further evaluation and management. REVIEW OF SYSTEMS: Negative other than what was mentioned in history of present illness. PAST MEDICAL HISTORY: As mentioned above. FAMILY HISTORY: Noncontributory. SOCIAL HISTORY: Denies smoking or drinking alcohol. PHYSICAL EXAMINATION: VITAL SIGNS: Show blood pressure of 122/86, pulse is 110, respirations 18, and he is afebrile. HEAD AND NECK: Shows no JVD. LUNGS: Clear. CARDIOVASCULAR: Shows irregular S1 and S2 with no gallop. ABDOMEN: Soft. EXTREMITIES: 2+ pitting edema. LABORATORY AND DIAGNOSTIC DATA: His EKG showed atrial flutter with rapid ventricular response, rate 110. Labs show white count of 11.7, hemoglobin of 16, hematocrit of 49, and platelet count is 231. Sodium is 137, potassium 5.3, BUN 26, creatinine 1.6. His troponin negative x2. His BNP is . His echocardiogram is still pending. ASSESSMENT AND PLAN: 1. Exacerbation of congestive heart failure. We will get an echocardiogram for further evaluation. In the meantime, increase the Lasix to 40 mg IV b.i.d. Change metoprolol to Coreg. I will add hydralazine and nitrates to his medical regimen and avoid GLORIA inhibitors and Aldactone in view of rise in creatinine to 1.6. 2. Hypertension. 3. Heart failure therapy. 4. Renal failure. Creatinine 1.6. 5. Hyperbilirubinemia, could be secondary to heart failure. 6. Atrial flutter with rapid ventricular response. Maximize his Coreg and start him on anticoagulation. 7. COPD, on nebulizers. Thank you very much for allowing me to participate in the care of this patient. Please do not hesitate to contact me for any questions regarding my evaluation. Vipul Stock M.D. DR: DAYLIN JOB#: [id number] CC:
--- NOTE | 2019-05-09 19:28 | NUR ---
HAND-OFF: Report given to ANNA MOSS.
[2019-05-09 20:00] VITALS: BP 151/99
--- NOTE | 2019-05-09 20:26 | General Progress Note ---
Assessment/Plan Assessment/Plan: 58 year old male with pmh of CHF (recently diagnosed, unknown EF), COPD and HTN presented with complaints of acute onset SOB since last night admitted for CHF exacerbation. #acute on chronic CHF likely systolic dysfunction -Cardiology consulted -Cont IV lasix - increased to 40mg IV BID -pending ECHO -NA restriction -Fluid restriction -strict I/O -daily weights -Cont Coreg -Cont to tele -serial troponins and EKG - unremarkable #MARI vs CKD - possible cardiorenal -CTM -Cont lasix -avoid aceI #Transaminitis likely 2/2 hepatic congestion 2/2 CHF -cont lasix -CTM #COPD with mild exacerbation -pulmonary consulted -duonebs Q4PRN for SOB #HTN -cont metoprolol Code: [employer] Manager of note may not reflect time of encounter Subjective Date patient seen: May 09, 2019 Allergies: Coded Allergies: No Known Allergies (Unverified , 02/06/17) Subjective No acute overnight events, states SOB has improved, has no complaints. Objective Last 24 Hour Vital Signs Date Time Temp Pulse Resp B/P (MAP) Pulse Ox O2 Delivery O2 Flow Rate FiO2 05/09/19 17:06 129/97 05/09/19 16:00 98.5 108 17 129/97 (108) 97 05/09/19 15:32 99 05/09/19 12:50 90 24 98 Nasal Cannula 2.0 28 05/09/19 12:42 92 28 96 Nasal Cannula 2.0 28 05/09/19 12:00 98.4 56 25 123/86 (98) 92 05/09/19 11:40 88 05/09/19 09:07 84 136/79 05/09/19 09:00 Nasal Cannula 2.0 05/09/19 08:12 84 22 98 Nasal Cannula 2.0 28 05/09/19 08:02 84 24 96 Nasal Cannula 2.0 28 05/09/19 08:01 96 Nasal Cannula 2.0 28 05/09/19 08:00 84 24 96 Nasal Cannula 2.0 28 05/09/19 08:00 98.4 60 19 136/79 (98) 99 05/09/19 07:38 91 05/09/19 04:00 98.0 67 24 121/71 (88) 100 05/09/19 04:00 90 05/09/19 02:20 78 18 99 Nasal Cannula 2.0 28 05/09/19 02:08 81 18 97 Nasal Cannula 2.0 28 05/09/19 00:00 98.1 73 20 111/71 (84) 97 05/09/19 00:00 87 05/08/19 21:08 109 108/78 05/08/19 21:00 Nasal Cannula 2.0 Intake and Output 05/08/19 05/09/19 19:00 07:00 Intake Total 0 ml Output Total 801 ml Balance 0 ml -801 ml Intake Oral 0 ml Output Urine Total 800 ml Emesis 1 ml Laboratory Tests 05/09/19 06:24: White Blood Count 11.7H, Red Blood Count 5.42, Hemoglobin 16.0, Hematocrit 49.1 , Mean Corpuscular Volume 91, Mean Corpuscular Hemoglobin 29.4, Mean Corpuscular Hemoglobin Concent 32.5, Red Cell Distribution Width 15.2H, Platelet Count 231, Mean Platelet Volume 6.3L, Neutrophils (%) (Auto) 78.4H, Lymphocytes (%) (Auto) 12.1L, Monocytes (%) (Auto) 8.2, Eosinophils (%) (Auto) 0.1, Basophils (%) (Auto) 1.2, Sodium Level 137, Potassium Level 5.3H, Chloride Level 105, Carbon Dioxide Level 22, Blood Urea Nitrogen 26H, Creatinine 1.6H, Estimat Glomerular Filtration Rate 53.7, Glucose Level 112H, Calcium Level 9.2 Height (Feet): 5 Height (Inches): 11.00 Weight (Pounds): 272 Objective General appearance: alert, cooperative, no distress, appears stated age Head: Normocephalic, without obvious abnormality, atraumatic Eyes: conjunctivae/corneas clear. PERRL, EOM's intact. Fundi benign Throat: Lips, mucosa, and tongue normal. Teeth and gums normal Neck: supple, symmetrical, trachea midline, no adenopathy, thyroid: not enlarged, symmetric, no tenderness/mass/nodules, no carotid bruit and no JVD Lungs: clear to auscultation bilaterally Heart: regular rate and rhythm, S1, S2 normal, no murmur, click, rub or gallop Abdomen: soft, non-tender. Bowel sounds normal. No masses, no organomegaly Extremities: extremities normal, atraumatic, no cyanosis, +2 edema Pulses: 2+ and symmetric Skin: Skin color, texture, turgor normal. No rashes or lesions Neurologic: Grossly normal Angélica Meraz MD May 09, 2019 20:26
--- NOTE | 2019-05-09 20:40 | NUR ---
NURSE NOTES: received pt from day shift nurse, airborne isolation in place. no acute distress noted, no c/o pain. education provided to pt about using call light when needing help, pt verbalized understanding. safety precaution in place: bed locked and lowest position, bed side rail up x2, call light and personal belongings within reach, will continue to monitor for any change of condition. Addendum: 05/10/19 at 0258 by Roslyn Acuña RN sputum collection pending, pt said she has no sputum. explained pt the importance of sputum collection, pt verbalized understanding.
[2019-05-09] MEDS: Carvedilol 12.5mg tab ORAL SCH (21:45)
[2019-05-09] MEDS: Zolpidem 5mg tab ORAL PRN (22:27)
[2019-05-10] VITALS: BP 145/99
--- NOTE | 2019-05-10 | NUR ---
NURSE NOTES: pt sleeping, no change in condition. will continue to monitor for any change in condition.
[2019-05-10] MEDS: HydrALAZINE 10mg Tab ORAL SCH ×4 (01:08→20:54)
[2019-05-10 04:00] VITALS: BP 129/90
--- NOTE | 2019-05-10 04:00 | NUR ---
NURSE NOTES: pt sleeping, no change in condition. will continue to monitor for any change in condition.
--- NOTE | 2019-05-10 06:45 | NUR ---
NURSE NOTES: pt remains stable, no acute distress, no change of condition, fall precaution in place: bed locked and lowest position, bedside rail x2, call light and personal belongings within reach. all needs met during my shift. will endorse plan of care to incoming nurse.
--- NOTE | 2019-05-10 07:30 | NUR ---
NURSE NOTES: Pt in bed awake and AOx4. Pt on 2L oxygen. Pt on banker mason no signs of cardiac or respiratory distress. IV patent and intact. Bed is locked and in lowest position. Call light is within reach. Will continue to follow plan of care and monitor lab values.
--- NOTE | 2019-05-10 07:38 | NUR ---
HAND-OFF: Report given to ANNA Perales.
[2019-05-10 07:41] LABS: ALANINE AMINOTRANSFERASE 223 U/L (12-78); ALBUMIN 3.9 G/DL (3.4-5.0); ALBUMIN/GLOBULIN RATIO 1.1 (1.0-2.7); ALKALINE PHOSPHATASE 145 U/L (46-116); ANION GAP 12 mmol/L (5-15); ASPARTATE AMINO TRANSFERASE 248 U/L (15-37); BILIRUBIN,TOTAL 3.9 MG/DL (0.2-1.0); BLOOD UREA NITROGEN 37 mg/dL (7-18); CALCIUM 9.4 MG/DL (8.5-10.1); CARBON DIOXIDE 24 MMOL/L (21-32); CHLORIDE 101 MMOL/L (98-107); CREATININE 2.6 MG/DL (0.55-1.30); SODIUM 136 MMOL/L (136-145)
[2019-05-10 07:44] LABS: POTASSIUM 7.6 MMOL/L (3.5-5.1)
--- NOTE | 2019-05-10 07:45 | NUR ---
NURSE NOTES: potassium lab 7.6, notified Dr. Meraz. Per doctor repeat test.
[2019-05-10 07:47] LABS: BILIRUBIN,DIRECT 1.9 MG/DL (0.0-0.3)
[2019-05-10 08:51] VITALS: BP 125/88
[2019-05-10] MEDS ORDERED: Calcium Gluconate 1gm/10ml vial IVP SCH (09:15)
[2019-05-10] MEDS ORDERED: Insulin Human Regular 100units/ml 3ml IV SCH (09:15)
[2019-05-10] MEDS ORDERED: Sodium Polystyrene Sulfonate 15gm Powder ORAL SCH ×2 (09:15→12:30)
--- NOTE | 2019-05-10 09:44 | NUR ---
CASE MANAGEMENT: REVIEW 05/10/2019 SI:A FIB T 97 HR 95 RR 20 B/P 129/90 SATS 96% ON 2L/NC K 7.6 AND 7.3 BUN 37 CR 2.6 TBILI 3.9 DBILI 1.9 AST 248 ALT 23 ALP 145 BNP 4772 IS: LASIX IV BID LOPRESSOR PO Q12H COREG PO Q12H ELIQUIS PO BID IMDUR PO QD INSULIN REGULAR IV X1 CALCIUM GLUCONATE IV X1 HYDRALAZINE PO Q6H TELE STATUS DCP: PATIENT TO BE DISCHARGED TO HOME ONCE MEDICALLY CLEARED. PLAN OF CARE 2D ECHO
--- NOTE | 2019-05-10 09:49 | NUR ---
INSURANCE REVIEWS FAXED TO [facility] Metcalf:[phone]
[2019-05-10] MEDS: Imdur 30mg tab ORAL SCH (10:36)
[2019-05-10] MEDS: Carvedilol 12.5mg tab ORAL SCH ×2 (10:36→20:55)
[2019-05-10] MEDS: Eliquis 5mg tablet ORAL SCH ×2 (10:37→17:40)
--- NOTE | 2019-05-10 11:15 | NUR ---
NURSE NOTES: pt refuse Garcia.
--- NOTE | 2019-05-10 11:45 | NUR ---
NURSE NOTES: Dr. Villareal spoke to pt about the cao insertion, pt agreed.
[2019-05-10 12:00] VITALS: BP 125/80
--- NOTE | 2019-05-10 12:19 | NUR ---
NURSE NOTES: pt refusing cao "he feels uncomfortable with it, he says friends are coming to visit and he doesn't want to be without an underware while his hospital stay or have the catheter showing.
--- NOTE | 2019-05-10 12:29 | Consultation ---
Consult Note Consult Note asked to eval for rising serum Cr and hyperkalemia patient examined discussed with RESERVE OFFICER: Patient presents emergency department today with acute onset of shortness of breath. Patient states that he has a history of weak heart and was recently hospitalized at an outside facility. He states that over the last 2 to 3 days he has had worsening shortness of breath especially with ambulation and exertion. He also has orthopnea and bilateral lower extreme swelling. He denies any fever nausea. He states that he does have a history of pneumonia. Denies any definite chest pain. Patient is unaware that he has any rhythm issues. No other complaints were noted. Symptoms are noted to be severe. Patient arrived here via EMS because of severity of symptoms requiring transport. No other modifying factors. No other associated signs and symptoms. No other complaints were noted. No Known Allergies (Unverified , 02/06/17) Past Medical History: HTN, CAD, CHF, COPD Social History: Reports: smoking, alcohol use Reviewed Nursing Documentation: PMH: Agreed; PSxH: Agreed Hx Cardiac Problems: Yes Hx COPD: Yes . Assessment/Plan Acute renal failure- HyperKalemia ?Underlying CKD Cardiomyopathy Low Ej fx 30% Obesity abnormal elevated LFTs Plan: Garcia Kayexelate Optimize cardiac and pulmonary status Kidney and Liver HARLEEN Urine studies monitor Lytes avoid Nephrotoxics Javier Villareal MD May 10, 2019 12:29
--- NOTE | 2019-05-10 12:31 | NUR ---
NURSE NOTES: pt spoke to DIRECTOR OF EMPLOYER SERVICES [employer], she convinced pt to have aco insertion.
[2019-05-10] MEDS: Metoclopramide 10mg/2ml Inj IVP SCH ×2 (13:22→20:54)
[2019-05-10 14:49] LABS: APPEARANCE,URINE CLEAR; BILIRUBIN, URINE NEGATIVE (NEGATIVE); COLOR,URINE PALE YELLOW; GLUCOSE, URINE (UA) NEGATIVE (NEGATIVE); KETONES,URINE NEGATIVE (NEGATIVE); LEUKOCYTE ESTERASE ,URINE 1+ (NEGATIVE); NITRITE,URINE NEGATIVE (NEGATIVE); PH,URINE 5 (4.5-8.0); PROTEIN,URINE NEGATIVE (NEGATIVE); UROBILINOGEN,URINE NORMAL MG/DL (0.0-1.0)
--- NOTE | 2019-05-10 15:06 | Diagnostic Imaging Report ---
Indication:Elevated Bun and Creatinine. Technique: Grayscale and duplex Doppler imaging of the kidneys performed. Comparison: None Findings: The size, contour, and echogenicity of both kidneys are within normal limits. There is no hydronephrosis. The IVC and urinary bladder are unremarkable. Garcia catheter is present. Right kidney is 11.4 cm in length and the left 10.9 cm in length. IMPRESSION: Negative evaluation
--- NOTE | 2019-05-10 15:33 | Cardiology Report ---
APPROVED REPORT EXAM: Two-dimensional and M-mode echocardiogram with Doppler and color Doppler. INDICATION Congestive Heart Failure M-Mode DIMENSIONS IVSd1.7 (0.7-1.1cm)Left Atrium (MM)3.6 (1.6-4.0cm) LVDd5.2 (3.5-5.6cm)Aortic Root2.8 (2.0-3.7cm) PWd1.5 (0.7-1.1cm)Aortic Cusp Exc.1.9 (1.5-2.0cm) IVSs1.9 cm LVDs4.2 (2.5-4.0cm) PWs1.3 cm Technically difficult study due to poor acoustic windows. Study quality precludes accurate assessment of regional wall motion. Normal left ventricular chamber size. Global left ventricular hypokinesis. Left ventricular ejection fraction is estimated to be 30%. Diastolic septal flattening suggestive of right ventricular volume/pressure overload. Mild left ventricular hypertrophy. Anterior Echo-free space, may be due to pericardial fat or effusion. Severe right atrial enlargement. Moderate right ventricular enlargement with reduced RV systolic function. Left atrial chamber size is within normal limits. Focal aortic valve sclerosis with adequate cusp excursion. Mildly thickened mitral valve leaflets with normal excursion. Mild mitral annulus and aortic root calcification. Pulmonic valve not well visualized. Normal tricuspid valve structure. IVC dilated at 2.6 cm without physiological collapse, estimated RAP is 15 mmHg. A color flow and spectral Doppler study was performed and revealed: No aortic regurgitation. Mild mitral regurgitation. Left ventricular diastolic function could not be determined due to A-Fib. Trace tricuspid regurgitation. Tricuspid systolic velocities suggests peak right ventricular systolic pressure of 40 mmHg, consistent with mild pulmonary hypertension. No pulmonic regurgitation present.
[2019-05-10 16:00] VITALS: BP 111/80
--- NOTE | 2019-05-10 16:04 | Cardiology Report ---
APPROVED REPORT EKG Measurement Heart [id number] Atrial flutter with variable AV block Rightward axis Nonspecific T wave abnormality Prolonged QT Abnormal ECG
[2019-05-10] MEDS: Albuterol/Ipratropium 3ml neb HHN PRN ×2 (16:55→21:27)
--- NOTE | 2019-05-10 17:29 | Cardiac Electrophysiology PN ---
Assessment/Plan Assessment/Plan 1. Exacerbation of CHF. Echocardiogram EF 30%. On Lasix 40 mg IV b.i.d, Coreg 12.5 bid, hydralazine 10 bid and Imdur 30 daily . Avoid GLORIA inhibitors and Aldactone in view of renal failure and hyperkalemia 2. Hypertension. 3. Heart failure therapy. 4. Acute Renal failure. Creatinine 2.6. 5. Hyperbilirubinemia, could be secondary to heart failure. 6. Atrial flutter with rapid ventricular response. On Coreg 7. COPD, on nebulizers. 8. Hyperkalemia K 7.6! Got Kayoxalate and Lasix and D50 and insulin DW RN Subjective Subjective Diuresing well with the new Garcia. In atrial fib rate 98. Objective Last 24 Hour Vital Signs Date Time Temp Pulse Resp B/P (MAP) Pulse Ox O2 Delivery O2 Flow Rate FiO2 05/10/19 17:02 94 22 98 Room Air 21 05/10/19 16:50 90 22 96 Room Air 21 05/10/19 16:00 98.5 66 20 111/80 (90) 98 05/10/19 16:00 88 05/10/19 12:45 Nasal Cannula 2.0 05/10/19 12:00 96.6 71 20 125/80 (95) 98 05/10/19 12:00 92 05/10/19 11:51 125/80 05/10/19 10:36 125/88 05/10/19 10:36 57 125/88 05/10/19 09:00 Nasal Cannula 2.0 05/10/19 08:51 97.6 57 18 125/88 (100) 92 05/10/19 08:00 70 05/10/19 07:00 60 16 96 Nasal Cannula 2.0 28 05/10/19 07:00 96 Nasal Cannula 2.0 28 05/10/19 05:43 129/90 05/10/19 04:00 79 05/10/19 04:00 97.0 95 20 129/90 (103) 96 05/10/19 01:08 129/91 05/10/19 00:00 99 05/10/19 00:00 98.0 109 19 145/99 (114) 98 05/09/19 21:45 111 151/99 05/09/19 21:00 Nasal Cannula 2.0 05/09/19 20:44 111 24 97 Nasal Cannula 2.0 28 05/09/19 20:35 118 24 98 Nasal Cannula 2.0 28 05/09/19 20:34 98 Nasal Cannula 2.0 28 05/09/19 20:33 118 24 98 Nasal Cannula 2.0 28 05/09/19 20:00 113 05/09/19 20:00 97.3 118 19 151/99 (116) 99 Intake and Output 05/09/19 05/10/19 19:00 07:00 Intake Total 200 ml Balance 200 ml Intake Oral 200 ml # Voids 2 Laboratory Tests Test 05/10/19 05:50 05/10/19 08:05 05/10/19 14:00 Sodium Level 136 MMOL/L (136-145) Potassium Level 7.6 MMOL/L (3.5-5.1) *H 7.3 MMOL/L (3.5-5.1) *H Chloride Level 101 MMOL/L (98-107) Carbon Dioxide Level 24 MMOL/L (21-32) Anion Gap 12 mmol/L (5-15) Blood Urea Nitrogen 37 mg/dL (7-18) H Creatinine 2.6 MG/DL (0.55-1.30) #H Estimat Glomerular Filtration Rate 30.7 mL/min (>60) Glucose Level 78 MG/DL (74-106) Calcium Level 9.4 MG/DL (8.5-10.1) Total Bilirubin 3.9 MG/DL (0.2-1.0) H Direct Bilirubin 1.9 MG/DL (0.0-0.3) H Aspartate Amino Transf (AST/SGOT) 248 U/L (15-37) H Alanine Aminotransferase (ALT/SGPT) 223 U/L (12-78) H Alkaline Phosphatase 145 U/L (46-116) H Pro-B-Type Natriuretic Peptide 4772 pg/mL (0-125) H Total Protein 7.5 G/DL (6.4-8.2) Albumin 3.9 G/DL (3.4-5.0) Globulin 3.6 g/dL Albumin/Globulin Ratio 1.1 (1.0-2.7) Urine Color Pale yellow Urine Appearance Clear Urine pH 5 (4.5-8.0) Urine Specific Goodwin 1.015 (1.005-1.035) Urine Protein Negative (NEGATIVE) Urine Glucose (UA) Negative (NEGATIVE) Urine Ketones Negative (NEGATIVE) Urine Blood 5+ (NEGATIVE) H Urine Nitrite Negative (NEGATIVE) Urine Bilirubin Negative (NEGATIVE) Urine Urobilinogen Normal MG/DL (0.0-1.0) Urine Leukocyte Esterase 1+ (NEGATIVE) H Urine RBC 5-10 /HPF (0 - 0) H Urine WBC 0-2 /HPF (0 - 0) Urine Squamous Epithelial Cells Occasional /LPF Urine Bacteria Occasional /HPF (NONE) Objective HEAD AND NECK: Shows no JVD. LUNGS: Clear. CARDIOVASCULAR: Shows irregular S1 and S2 with no gallop. ABDOMEN: Soft. EXTREMITIES: 2+ pitting edema. Vipul Stock MD May 10, 2019 17:29
--- NOTE | 2019-05-10 17:40 | NUR ---
NURSE NOTES: per doctor Bebo, change hydralazine to 10mg BID PO starting today.
--- NOTE | 2019-05-10 19:12 | NUR ---
pt just had 13 beats of VTACH, and was reported to Dr. De La Paz.
--- NOTE | 2019-05-10 19:31 | General Progress Note ---
Assessment/Plan Assessment/Plan: 58 year old male with pmh of CHF (recently diagnosed, unknown EF), COPD and HTN presented with complaints of acute onset SOB since last night admitted for CHF exacerbation. #acute on chronic CHF likely systolic dysfunction -Cardiology consult appreciated -Cont IV lasix - increased to 40mg IV BID -ECHO reviewed -NA restriction -Fluid restriction -strict I/O -daily weights -Cont Coreg -Cont to tele -serial troponins and EKG - unremarkable #MARI vs CKD - possible cardiorenal -CTM -Cont lasix -avoid layla -Nephrology consulted -Creatinine trending up -cao ordered #Hyperkalemia -kayaxalate, albuterol, lasix and insulin given -pending repeat -ctm -nephrology consulted #Transaminitis likely 2/2 hepatic congestion 2/2 CHF -cont lasix -CTM #COPD with mild exacerbation -pulmonary consulted -duonebs Q4PRN for SOB #HTN -cont metoprolol Code: Pump Installer of note may not reflect time of encounter Subjective Date patient seen: May 10, 2019 ROS Limited/Unobtainable: No Allergies: Coded Allergies: No Known Allergies (Unverified , 02/06/17) Subjective No acute overnight events, states SOB has improved, has no complaints. Hyperkalemia and worsening renal function, kayexalate, albuterol, lasix and CaGluc given, nephrology consulted, cao ordered Objective Last 24 Hour Vital Signs Date Time Temp Pulse Resp B/P (MAP) Pulse Ox O2 Delivery O2 Flow Rate FiO2 05/10/19 17:02 94 22 98 Room Air 21 05/10/19 16:50 90 22 96 Room Air 21 05/10/19 16:00 98.5 66 20 111/80 (90) 98 05/10/19 16:00 88 05/10/19 12:45 Nasal Cannula 2.0 05/10/19 12:00 96.6 71 20 125/80 (95) 98 05/10/19 12:00 92 05/10/19 11:51 125/80 05/10/19 10:36 125/88 05/10/19 10:36 57 125/88 05/10/19 09:00 Nasal Cannula 2.0 05/10/19 08:51 97.6 57 18 125/88 (100) 92 05/10/19 08:00 70 05/10/19 07:00 60 16 96 Nasal Cannula 2.0 28 05/10/19 07:00 96 Nasal Cannula 2.0 28 05/10/19 05:43 129/90 05/10/19 04:00 79 05/10/19 04:00 97.0 95 20 129/90 (103) 96 05/10/19 01:08 129/91 05/10/19 00:00 99 05/10/19 00:00 98.0 109 19 145/99 (114) 98 05/09/19 21:45 111 151/99 05/09/19 21:00 Nasal Cannula 2.0 05/09/19 20:44 111 24 97 Nasal Cannula 2.0 28 05/09/19 20:35 118 24 98 Nasal Cannula 2.0 28 05/09/19 20:34 98 Nasal Cannula 2.0 28 05/09/19 20:33 118 24 98 Nasal Cannula 2.0 28 05/09/19 20:00 113 05/09/19 20:00 97.3 118 19 151/99 (116) 99 Intake and Output 05/09/19 05/10/19 19:00 07:00 Intake Total 200 ml Balance 200 ml Intake Oral 200 ml # Voids 2 Laboratory Tests 05/10/19 05:50: Sodium Level 136, Potassium Level 7.6*H, Chloride Level 101, Carbon Dioxide Level 24, Anion Gap 12, Blood Urea Nitrogen 37H, Creatinine 2.6#H, Estimat Glomerular Filtration Rate 30.7, Glucose Level 78, Calcium Level 9.4, Total Bilirubin 3.9H, Direct Bilirubin 1.9H, Aspartate Amino Transf (AST/SGOT) 248H, Alanine Aminotransferase (ALT/SGPT) 223H, Alkaline Phosphatase 145H, Pro-B-Type Natriuretic Peptide 4772H, Total Protein 7.5, Albumin 3.9, Globulin 3.6, Albumin /Globulin Ratio 1.1 05/10/19 08:05: Potassium Level 7.3*H 05/10/19 14:00: Urine Color Pale yellow, Urine Appearance Clear, Urine pH 5, Urine Specific [place] 1.015, Urine Protein Negative, Urine Glucose (UA) Negative, Urine Ketones Negative, Urine Blood 5+H, Urine Nitrite Negative, Urine Bilirubin Negative, Urine Urobilinogen Normal, Urine Leukocyte Esterase 1+H, Urine RBC 5- 10H, Urine WBC 0-2, Urine Squamous Epithelial Cells Occasional, Urine Bacteria Occasional Height (Feet): 5 Height (Inches): 11.00 Weight (Pounds): 272 Objective General appearance: alert, cooperative, no distress, appears stated age Head: Normocephalic, without obvious abnormality, atraumatic Eyes: conjunctivae/corneas clear. PERRL, EOM's intact. Fundi benign Throat: Lips, mucosa, and tongue normal. Teeth and gums normal Neck: supple, symmetrical, trachea midline, no adenopathy, thyroid: not enlarged, symmetric, no tenderness/mass/nodules, no carotid bruit and no JVD Lungs: clear to auscultation bilaterally Heart: regular rate and rhythm, S1, S2 normal, no murmur, click, rub or gallop Abdomen: soft, non-tender. Bowel sounds normal. No masses, no organomegaly Extremities: extremities normal, atraumatic, no cyanosis, +2 edema Pulses: 2+ and symmetric Skin: Skin color, texture, turgor normal. No rashes or lesions Neurologic: Grossly normal Angélica Meraz MD May 10, 2019 19:31
--- NOTE | 2019-05-10 19:33 | NUR ---
NURSE NOTES: Report received from ANNA Perales. Pt is in stable condition lying comfortably in bed. Bed in the lowest position, bed brakes engaged, side rails up x 3 and call light within reach. Will continue to monitor.
--- NOTE | 2019-05-10 19:59 | NUR ---
HAND-OFF: Report given to Yamini CASTILLO pt in stable condition. new Iv was inserted 18g on R F/A.
[2019-05-10 20:00] VITALS: BP 108/56
[2019-05-10 20:13] LABS: ANION GAP 12 mmol/L (5-15); BLOOD UREA NITROGEN 44 mg/dL (7-18); CALCIUM 7.3 MG/DL (8.5-10.1); CARBON DIOXIDE 22 MMOL/L (21-32); CHLORIDE 103 MMOL/L (98-107); CREATININE 2.2 MG/DL (0.55-1.30); POTASSIUM 3.8 MMOL/L (3.5-5.1); SODIUM 137 MMOL/L (136-145)
[2019-05-10] MEDS: Zolpidem 5mg tab ORAL PRN (20:53)
[2019-05-10] MEDS: Pantoprazole Inj IVP SCH (20:54)
--- NOTE | 2019-05-10 22:17 | CDS Physician Query ---
PLEASE COMPLETE DOCUMENT BEFORE SIGNING Dear Dr. Meraz Date: 05/10/19 CDS Name: Ovidioangiedavis Exercise your independent professional judgment when responding to the query. Questions asked do not imply a particular answer is desired or expected. We greatly appreciate your clarification on this issue. MARI VS CKD is documented in H&P and PNs. Creatinine level since admission: 05/08/19: 1.4 05/09/19: 1.6 05/10/19: 2.2, 2.6 Please clarify if patient has: [ ] MARI [ ] CKD [ ] MARI on CKD Present on Admission: [ ] Yes [ ] No [ ] Clinically Undeterminable Physician signature Date Please also document in your Progress Notes and/or Discharge Summary and indicate if the condition was present on admission. ROSA
[2019-05-11] VITALS: BP 110/59
[2019-05-11 04:00] VITALS: BP 123/57
[2019-05-11] MEDS: Metoclopramide 10mg/2ml Inj IVP SCH (05:24)
--- NOTE | 2019-05-11 07:44 | NUR ---
NURSE NOTES: notified of frequent PVCs. notified of pt refusing cao.
--- NOTE | 2019-05-11 07:46 | NUR ---
HAND-OFF: Report given to ANNA Perales. Plan of care endorsed.
[2019-05-11 07:52] LABS: CREATINE KINASE 76 U/L (26-308); GAMMA GLUTAMYL TRANSPEPTIDASE 401 U/L (5-85); PHOSPHORUS 4.3 MG/DL (2.5-4.9)
[2019-05-11 08:00] VITALS: BP 123/74
[2019-05-11 08:02] LABS: ALANINE AMINOTRANSFERASE 720 U/L (12-78); ALBUMIN 3.1 G/DL (3.4-5.0); ALKALINE PHOSPHATASE 114 U/L (46-116); ANION GAP 10 mmol/L (5-15); ASPARTATE AMINO TRANSFERASE 780 U/L (15-37); BILIRUBIN,TOTAL 2.4 MG/DL (0.2-1.0); BLOOD UREA NITROGEN 43 mg/dL (7-18); CALCIUM 8.7 MG/DL (8.5-10.1); CARBON DIOXIDE 26 MMOL/L (21-32); CHLORIDE 101 MMOL/L (98-107); POTASSIUM 3.6 MMOL/L (3.5-5.1); SODIUM 137 MMOL/L (136-145)
[2019-05-11 08:04] LABS: BILIRUBIN,DIRECT 1.3 MG/DL (0.0-0.3)
--- NOTE | 2019-05-11 08:19 | NUR ---
pt. is awake and just had breakfast. Last BM today. Bed is locked and in lowest position. Call light with in reach. phototypesetting equipment monitor on pt is not on any cardiac or respiratory distress. Pt is complaining that cao was bothering when he used the restroom so he attempted to pull it out during director diabetes and it was painful. Nurse advised pt not to pull out cao because it will continue to cause him pain. Cao is still in place but pt insists on not having cao catheter and wants it removed WICHO. He claims that ever since cao insertion he is urinating less.
[2019-05-11 08:29] LABS: CHOLESTEROL 110 MG/DL (< 200); HDL CHOLESTEROL 36 MG/DL (40-60); TRIGLYCERIDES 61 MG/DL (30-150)
[2019-05-11] MEDS: Carvedilol 12.5mg tab ORAL SCH ×2 (09:25→21:54)
[2019-05-11] MEDS: Pantoprazole Inj IVP SCH (09:25)
[2019-05-11] MEDS: Eliquis 5mg tablet ORAL SCH ×2 (09:25→17:46)
[2019-05-11] MEDS: Imdur 30mg tab ORAL SCH (09:26)
[2019-05-11] MEDS: HydrALAZINE 10mg Tab ORAL SCH ×3 (09:26→21:54)
[2019-05-11] MEDS ORDERED: HYDROmorphone 1mg/ml Carpuject IVP PRN (10:40)
--- NOTE | 2019-05-11 10:42 | Nephrology Progress Note ---
Assessment/Plan Problem List: (1) MARI (acute kidney injury) (2) Hyperkalemia (3) Cardiomyopathy (4) Elevated LFTs Assessment: likely hepatic congestion Assessment Acute renal failure- Cr lower HyperKalemia- resolved ?Underlying CKD Cardiomyopathy Low Ej fx 30% Obesity abnormal elevated LFTs Plan Plan: add flomax DC Garcia per request Kayexelate as needed Optimize cardiac and pulmonary status Kidney and Liver HARLEEN Urine studies monitor Lytes avoid Nephrotoxics Subjective ROS Limited/Unobtainable: No Constitutional: Reports: malaise Objective Objective Last 24 Hour Vital Signs Date Time Temp Pulse Resp B/P (MAP) Pulse Ox O2 Delivery O2 Flow Rate FiO2 05/11/19 09:26 123/74 05/11/19 09:26 123/74 05/11/19 09:25 65 123/74 05/11/19 08:19 97 Nasal Cannula 2.0 28 05/11/19 08:19 65 20 97 Nasal Cannula 2.0 28 05/11/19 08:00 98.2 62 20 123/74 (90) 96 05/11/19 05:54 98.0 05/11/19 04:00 100 05/11/19 04:00 98.0 103 20 123/57 (79) 97 05/11/19 00:00 98.3 80 19 110/59 (76) 96 05/11/19 00:00 94 05/10/19 21:36 92 22 98 Nasal Cannula 2.0 28 05/10/19 21:30 97 Room Air 2.0 28 05/10/19 21:29 89 20 95 Nasal Cannula 2.0 28 05/10/19 21:27 88 20 95 Room Air 21 05/10/19 21:00 Nasal Cannula 2.0 05/10/19 20:55 105 97/63 05/10/19 20:54 97/63 05/10/19 20:00 97.3 78 19 108/56 (73) 94 05/10/19 20:00 89 05/10/19 17:02 94 22 98 Room Air 21 05/10/19 16:50 90 22 96 Room Air 21 05/10/19 16:00 98.5 66 20 111/80 (90) 98 05/10/19 16:00 88 05/10/19 12:45 Nasal Cannula 2.0 05/10/19 12:00 96.6 71 20 125/80 (95) 98 05/10/19 12:00 92 05/10/19 11:51 125/80 Intake and Output 05/10/19 05/11/19 18:59 06:59 Intake Total 260 ml Output Total 1210 ml 700 ml Balance -950 ml -700 ml Intake Oral 260 ml Output Urine Total 1210 ml 700 ml Laboratory Tests 05/10/19 14:00: Urine Color Pale yellow, Urine Appearance Clear, Urine pH 5, Urine Specific [place] 1.015, Urine Protein Negative, Urine Glucose (UA) Negative, Urine Ketones Negative, Urine Blood 5+H, Urine Nitrite Negative, Urine Bilirubin Negative, Urine Urobilinogen Normal, Urine Leukocyte Esterase 1+H, Urine RBC 5- 10H, Urine WBC 0-2, Urine Squamous Epithelial Cells Occasional, Urine Bacteria Occasional 05/10/19 19:55: Sodium Level 137, Potassium Level 3.8, Chloride Level 103, Carbon Dioxide Level 22, Anion Gap 12, Blood Urea Nitrogen 44H, Creatinine 2.2H, Estimat Glomerular Filtration Rate 37.2, Glucose Level 141H, Calcium Level 7.3#L 05/11/19 06:00: Urine Eosinophils [Pending] 05/11/19 06:49: Sodium Level 137, Potassium Level 3.6, Chloride Level 101, Carbon Dioxide Level 26, Anion Gap 10, Blood Urea Nitrogen 43H, Creatinine 2.0H, Estimat Glomerular Filtration Rate 41.6, Glucose Level 178H, Calcium Level 8.7, Hemoglobin A1c 6.2H , Uric Acid 13.9H, Phosphorus Level 4.3, Magnesium Level 1.7L, Total Bilirubin 2.4H, Direct Bilirubin 1.3H, Gamma Glutamyl Transpeptidase 401H, Aspartate Amino Transf (AST/SGOT) 780H, Alanine Aminotransferase (ALT/SGPT) 720H, Alkaline Phosphatase 114, Ammonia 43H, Total Creatine Kinase 76, C-Reactive Protein, Quantitative 3.5H, Pro-B-Type Natriuretic Peptide 1164H, Total Protein 6.3L, Albumin 3.1L, Globulin 3.2, Albumin/Globulin Ratio 1.0, Triglycerides Level 61, Cholesterol Level 110, LDL Cholesterol 63, HDL Cholesterol 36L, Cholesterol/HDL Ratio 3.1L, Lipase 150 05/11/19 08:17: Arterial Blood pH 7.405, Arterial Blood Partial Pressure CO2 40.0, Arterial Blood Partial Pressure O2 101.0H, Arterial Blood HCO3 24.5, Arterial Blood Oxygen Saturation 97.1, Arterial Blood Base Excess -0.1, Colin Test Positive Height (Feet): 5 Height (Inches): 11.00 Weight (Pounds): 272 General Appearance: no apparent distress Cardiovascular: normal rate Respiratory/Chest: decreased breath sounds Abdomen: distended Extremities: pitting Javier Villareal MD May 11, 2019 10:42
[2019-05-11 12:00] VITALS: BP 109/51
--- NOTE | 2019-05-11 12:15 | NUR ---
NURSE NOTES: pt continuously keeps folding arm preventing Magnesium to run. Due to this the 2nd bag hasn't been started. When attempting to pull out 2nd bag of Mg from the pixes it wasn't available anymore. So I, non-admit 2nd bag of Mg because 1st is still running AAand reentered a 1 time order of Mg to administer once 1st bag is finished. Advised Pharmacy of situation.
--- NOTE | 2019-05-11 12:30 | NUR ---
Pt wants cao DC, he does not want cao he complains that it hurts, Dr. Villareal was notified and spoke to pt. he advised pt to keep cao for another day but pt. refused.
--- NOTE | 2019-05-11 12:44 | NUR ---
CASE MANAGEMENT: REVIEW 05/11/2019 SI:A FIB T 98 HR 103 RR 20 B/P 123/57 SATS 97% ON 2L/NC BUN 43 CR 2 GLU 178 TBILI 2.4 DBILI 1.3 AST 780 ALT 720 AMMONIA 43 BNP 1164 ABGs pO2 101 IS: LASIX IV BID LOPRESSOR PO Q12H COREG PO Q12H ELIQUIS PO BID IMDUR PO QD PROTONIX PO Q12H MAG SULFATE IV Q12H HYDRALAZINE PO Q8H TELE STATUS DCP: PATIENT TO BE DISCHARGED TO HOME ONCE MEDICALLY CLEARED. PLAN OF CARE 2D ECHO >> EF 30% US ABD NPO FLUID RESTRICTION
--- NOTE | 2019-05-11 14:14 | Cardiac Electrophysiology PN ---
Assessment/Plan Assessment/Plan 1. Exacerbation of CHF with EF 30%. On Lasix 40 mg IV b.i.d, Coreg 12.5 bid, hydralazine 10 bid and Imdur 30 daily . Avoid GLORIA inhibitors and Aldactone in view of renal failure and hyperkalemia 2. 13 beats of nonsustained VT at 19.05 on 05/10/19 Due to CMP 2. Hypertension. 3. Heart failure therapy. 4. Acute Renal failure. Creatinine 2.6. Improved to 2.0 5. Hyperbilirubinemia, could be secondary to heart failure. 6. Atrial flutter with rapid ventricular response. On Coreg 7. COPD, on nebulizers. 8. Hyperkalemia K 7.6! Got Kayoxalate and Lasix and D50 and insulin DW RN Subjective Subjective Diuresing well. Garcia removed today. In atrial flutter rate 80s. Objective Last 24 Hour Vital Signs Date Time Temp Pulse Resp B/P (MAP) Pulse Ox O2 Delivery O2 Flow Rate FiO2 05/11/19 13:17 109/51 05/11/19 12:00 98.3 61 20 109/51 (70) 95 05/11/19 12:00 92 05/11/19 09:26 123/74 05/11/19 09:26 123/74 05/11/19 09:25 65 123/74 05/11/19 08:19 97 Nasal Cannula 2.0 28 05/11/19 08:19 65 20 97 Nasal Cannula 2.0 28 05/11/19 08:00 98.2 62 20 123/74 (90) 96 05/11/19 08:00 117 05/11/19 05:54 98.0 05/11/19 04:00 100 05/11/19 04:00 98.0 103 20 123/57 (79) 97 05/11/19 00:00 98.3 80 19 110/59 (76) 96 05/11/19 00:00 94 05/10/19 21:36 92 22 98 Nasal Cannula 2.0 28 05/10/19 21:30 97 Room Air 2.0 28 05/10/19 21:29 89 20 95 Nasal Cannula 2.0 28 05/10/19 21:27 88 20 95 Room Air 21 05/10/19 21:00 Nasal Cannula 2.0 05/10/19 20:55 105 97/63 05/10/19 20:54 97/63 05/10/19 20:00 97.3 78 19 108/56 (73) 94 05/10/19 20:00 89 05/10/19 17:02 94 22 98 Room Air 21 05/10/19 16:50 90 22 96 Room Air 21 05/10/19 16:00 98.5 66 20 111/80 (90) 98 05/10/19 16:00 88 Intake and Output 05/10/19 05/11/19 19:00 07:00 Intake Total 260 ml 120 ml Output Total 1210 ml 700 ml Balance -950 ml -580 ml Intake Oral 260 ml 120 ml Output Urine Total 1210 ml 700 ml Laboratory Tests Test 05/10/19 19:55 05/11/19 06:00 05/11/19 06:49 05/11/19 08:17 Sodium Level 137 MMOL/L (136-145) 137 MMOL/L (136-145) Potassium Level 3.8 MMOL/L (3.5-5.1) 3.6 MMOL/L (3.5-5.1) Chloride Level 103 MMOL/L (98-107) 101 MMOL/L (98-107) Carbon Dioxide Level 22 MMOL/L (21-32) 26 MMOL/L (21-32) Anion Gap 12 mmol/L (5-15) 10 mmol/L (5-15) Blood Urea Nitrogen 44 mg/dL (7-18) H 43 mg/dL (7-18) H Creatinine 2.2 MG/DL (0.55-1.30) H 2.0 MG/DL (0.55-1.30) H Estimat Glomerular Filtration Rate 37.2 mL/min (>60) 41.6 mL/min (>60) Glucose Level 141 MG/DL (74-106) H 178 MG/DL (74-106) H Calcium Level 7.3 MG/DL (8.5-10.1) #L 8.7 MG/DL (8.5-10.1) Urine Eosinophils None seen (NONE SEEN) Hemoglobin A1c 6.2 % (4.3-6.0) H Uric Acid 13.9 MG/DL (2.6-7.2) H Phosphorus Level 4.3 MG/DL (2.5-4.9) Magnesium Level 1.7 MG/DL (1.8-2.4) L Total Bilirubin 2.4 MG/DL (0.2-1.0) H Direct Bilirubin 1.3 MG/DL (0.0-0.3) H Gamma Glutamyl Transpeptidase 401 U/L (5-85) H Aspartate Amino Transf (AST/SGOT) 780 U/L (15-37) H Alanine Aminotransferase (ALT/SGPT) 720 U/L (12-78) H Alkaline Phosphatase 114 U/L (46-116) Ammonia 43 umol/L (11-32) H Total Creatine Kinase 76 U/L (26-308) C-Reactive Protein, Quantitative 3.5 mg/dL (0.00-0.90) H Pro-B-Type Natriuretic Peptide 1164 pg/mL (0-125) H Total Protein 6.3 G/DL (6.4-8.2) L Albumin 3.1 G/DL (3.4-5.0) L Globulin 3.2 g/dL Albumin/Globulin Ratio 1.0 (1.0-2.7) Triglycerides Level 61 MG/DL (30-150) Cholesterol Level 110 MG/DL (< 200) LDL Cholesterol 63 mg/dL (<100) HDL Cholesterol 36 MG/DL (40-60) L Cholesterol/HDL Ratio 3.1 (3.3-4.4) L Lipase 150 U/L (73-393) Arterial Blood pH 7.405 (7.350-7.450) Arterial Blood Partial Pressure CO2 40.0 mmHg (35.0-45.0) Arterial Blood Partial Pressure O2 101.0 mmHg (75.0-100.0) H Arterial Blood HCO3 24.5 mmol/L (22.0-26.0) Arterial Blood Oxygen Saturation 97.1 % (95-100) Arterial Blood Base Excess -0.1 (-2-2) Colin Test Positive Objective HEAD AND NECK: Shows no JVD. LUNGS: Clear. CARDIOVASCULAR: Shows irregular S1 and S2 with no gallop. ABDOMEN: Soft. EXTREMITIES: 2+ pitting edema. Vipul Stock MD May 11, 2019 14:14
[2019-05-11] MEDS: Albuterol/Ipratropium 3ml neb HHN PRN ×2 (15:09→20:53)
[2019-05-11 16:00] VITALS: BP 102/61
--- NOTE | 2019-05-11 19:40 | NUR ---
HAND-OFF: Report given to Roslyn Barragan, pt in stable condition, NPO after midnigt may have ABD US tomorrow.
--- NOTE | 2019-05-11 19:45 | NUR ---
NURSE NOTES: pt in bed watching tv. family at bedside, education provided about NPO after midnight, pt verbalized understanding. no acute distress noted, no c/o pain. fall precaution in place: bed locked and lowest position, call light and personal belonging within reach, will continue to monitor pt for any change in condition.
[2019-05-11 20:00] VITALS: BP 125/81
[2019-05-11] MEDS: Zolpidem 5mg tab ORAL PRN (21:57)
--- NOTE | 2019-05-11 22:33 | General Progress Note ---
Assessment/Plan Assessment/Plan: 58 year old male with pmh of CHF (recently diagnosed, unknown EF), COPD and HTN presented with complaints of acute onset SOB since last night admitted for CHF exacerbation. #acute on chronic CHF likely systolic dysfunction -Cardiology consult appreciated -Cont IV lasix - increased to 40mg IV BID -ECHO reviewed -NA restriction -Fluid restriction -strict I/O -daily weights -Cont Coreg, imdur -Cont to tele -serial troponins and EKG - unremarkable #MARI vs CKD - possible cardiorenal - improved -CTM -Cont lasix -avoid layla -Nephrology consulted -Creatinine improved -dc cao #Hyperkalemia - resolved -kayaxalate, albuterol, lasix and insulin given -ctm -nephrology consulted #Transaminitis likely 2/2 hepatic congestion 2/2 CHF -cont lasix -CTM -GI consulted -pending abd us #COPD with mild exacerbation -pulmonary consulted -duonebs Q4PRN for SOB #HTN -cont metoprolol Code: Installer Molding And Trim of note may not reflect time of encounter Subjective Date patient seen: May 11, 2019 Allergies: Coded Allergies: No Known Allergies (Unverified , 02/06/17) All Systems: reviewed and negative except above Subjective No acute overnight events, states SOB has improved, has no complaints. Hyperkalemia improved, requesting to have cao removed 2/2 discomfort Objective Last 24 Hour Vital Signs Date Time Temp Pulse Resp B/P (MAP) Pulse Ox O2 Delivery O2 Flow Rate FiO2 05/11/19 21:54 125/81 05/11/19 21:54 88 125/81 05/11/19 21:02 88 18 97 Room Air 21 05/11/19 21:00 95 Nasal Cannula 2.0 28 05/11/19 20:57 96 18 95 Room Air 21 05/11/19 20:53 96 18 95 Room Air 21 05/11/19 20:00 98.2 92 19 125/81 (96) 97 05/11/19 16:00 98.2 57 18 102/61 (75) 98 05/11/19 16:00 86 05/11/19 15:16 90 22 99 Nasal Cannula 2.0 28 05/11/19 15:00 84 22 97 Nasal Cannula 2.0 05/11/19 13:17 109/51 05/11/19 12:00 98.3 61 20 109/51 (70) 95 05/11/19 12:00 92 05/11/19 09:26 123/74 05/11/19 09:26 123/74 05/11/19 09:25 65 123/74 05/11/19 09:00 Nasal Cannula 2.0 05/11/19 08:19 97 Nasal Cannula 2.0 28 05/11/19 08:19 65 20 97 Nasal Cannula 2.0 28 05/11/19 08:00 98.2 62 20 123/74 (90) 96 05/11/19 08:00 117 05/11/19 05:54 98.0 05/11/19 04:00 100 05/11/19 04:00 98.0 103 20 123/57 (79) 97 05/11/19 00:00 98.3 80 19 110/59 (76) 96 05/11/19 00:00 94 Intake and Output 05/10/19 05/11/19 19:00 07:00 Intake Total 260 ml 120 ml Output Total 1210 ml 700 ml Balance -950 ml -580 ml Intake Oral 260 ml 120 ml Output Urine Total 1210 ml 700 ml Laboratory Tests 05/11/19 06:00: Urine Eosinophils None seen 05/11/19 06:49: Sodium Level 137, Potassium Level 3.6, Chloride Level 101, Carbon Dioxide Level 26, Anion Gap 10, Blood Urea Nitrogen 43H, Creatinine 2.0H, Estimat Glomerular Filtration Rate 41.6, Glucose Level 178H, Hemoglobin A1c 6.2H, Uric Acid 13.9H, Calcium Level 8.7, Phosphorus Level 4.3, Magnesium Level 1.7L, Total Bilirubin 2.4H, Direct Bilirubin 1.3H, Gamma Glutamyl Transpeptidase 401H, Aspartate Amino Transf (AST/SGOT) 780H, Alanine Aminotransferase (ALT/SGPT) 720H, Alkaline Phosphatase 114, Ammonia 43H, Total Creatine Kinase 76, C-Reactive Protein, Quantitative 3.5H, Pro-B-Type Natriuretic Peptide 1164H, Total Protein 6.3L, Albumin 3.1L, Globulin 3.2, Albumin/Globulin Ratio 1.0, Triglycerides Level 61, Cholesterol Level 110, LDL Cholesterol 63, HDL Cholesterol 36L, Cholesterol/HDL Ratio 3.1L, Lipase 150 05/11/19 08:17: Arterial Blood pH 7.405, Arterial Blood Partial Pressure CO2 40.0, Arterial Blood Partial Pressure O2 101.0H, Arterial Blood HCO3 24.5, Arterial Blood Oxygen Saturation 97.1, Arterial Blood Base Excess -0.1, Colin Test Positive Height (Feet): 5 Height (Inches): 11.00 Weight (Pounds): 272 Objective General appearance: alert, cooperative, no distress, appears stated age Head: Normocephalic, without obvious abnormality, atraumatic Eyes: conjunctivae/corneas clear. PERRL, EOM's intact. Fundi benign Throat: Lips, mucosa, and tongue normal. Teeth and gums normal Neck: supple, symmetrical, trachea midline, no adenopathy, thyroid: not enlarged, symmetric, no tenderness/mass/nodules, no carotid bruit and no JVD Lungs: clear to auscultation bilaterally Heart: regular rate and rhythm, S1, S2 normal, no murmur, click, rub or gallop Abdomen: soft, non-tender. Bowel sounds normal. No masses, no organomegaly Extremities: extremities normal, atraumatic, no cyanosis, +2 edema Pulses: 2+ and symmetric Skin: Skin color, texture, turgor normal. No rashes or lesions Neurologic: Grossly normal Angélica Meraz MD May 11, 2019 22:33
[2019-05-12] VITALS: BP 132/80
--- NOTE | 2019-05-12 00:24 | NUR ---
NURSE NOTES: pt sleeping, no change in condition. will continue to monitor for any change in condition.
[2019-05-12 04:00] VITALS: BP 125/75
--- NOTE | 2019-05-12 04:00 | NUR ---
NURSE NOTES: pt stable, no change in condition. will continue to monitor for any change in condition.
[2019-05-12] MEDS: HydrALAZINE 10mg Tab ORAL SCH ×3 (06:00→21:01)
--- NOTE | 2019-05-12 06:54 | NUR ---
NURSE NOTES: 06:30 AM pt experienced A Flutter with 16 beat run of ventricular tachycardia, Dr Stock aware, no new orders received. pt remains stable, no change in condition. pt NPO. fall precautions in place: bed locked and lowest position. bedside rail up x 2, call light and personal belongings within pt's reach. all needs met during my shift. will endorse plan of care to incoming nurse.
--- NOTE | 2019-05-12 07:12 | NUR ---
HAND-OFF: Report given to ANNA Perales.
--- NOTE | 2019-05-12 07:39 | NUR ---
NURSE NOTES: pt, sleeping and has been NPO since 05/11 because he will have a ABD US this morning. Pt on quality assurance monitor body no signs of cardiac or respiratory distress at this time. Bed is locked and in lowest position. Call light is within reach. Will continue plan of care
--- NOTE | 2019-05-12 07:46 | NUR ---
NURSE NOTES: Called US @ Ext 106 to confirm Ultra sound will be done this morning for pt. but was unable to leave message. Will follow continue to follow up. Pt is aware that study may delayed for tomorrow if technicians are not here today.
[2019-05-12 07:52] LABS: BASOPHILS % (AUTO) 1.3 % (0.0-2.0); EOSINOPHILS % (AUTO) 1.3 % (0.0-3.0); HEMATOCRIT 44.1 % (42.0-52.0); HEMOGLOBIN 14.4 G/DL (14.2-18.0); LYMPHOCYTES % (AUTO) 16.1 % (20.0-45.0); MEAN CORPUSCULAR VOLUME 91 FL (80-99); MONOCYTES % (AUTO) 13.7 % (1.0-10.0); NEUTROPHILS % (AUTO) 67.8 % (45.0-75.0); PLATELET COUNT 189 K/UL (150-450); RED BLOOD COUNT 4.86 M/UL (4.70-6.10); WHITE BLOOD COUNT 9.7 K/UL (4.8-10.8)
[2019-05-12 08:13] VITALS: BP 125/75
[2019-05-12 08:18] LABS: ANION GAP 8 mmol/L (5-15); BLOOD UREA NITROGEN 32 mg/dL (7-18); CALCIUM 8.5 MG/DL (8.5-10.1); CARBON DIOXIDE 28 MMOL/L (21-32); CHLORIDE 106 MMOL/L (98-107); CREATININE 1.4 MG/DL (0.55-1.30); POTASSIUM 4.1 MMOL/L (3.5-5.1); SODIUM 142 MMOL/L (136-145)
[2019-05-12 08:22] LABS: ALANINE AMINOTRANSFERASE 497 U/L (12-78); ALBUMIN 2.8 G/DL (3.4-5.0); ALBUMIN/GLOBULIN RATIO 0.8 (1.0-2.7); ALKALINE PHOSPHATASE 119 U/L (46-116); ANION GAP 8 mmol/L (5-15); ASPARTATE AMINO TRANSFERASE 272 U/L (15-37); BILIRUBIN,TOTAL 1.8 MG/DL (0.2-1.0); BLOOD UREA NITROGEN 31 mg/dL (7-18); CALCIUM 8.5 MG/DL (8.5-10.1); CARBON DIOXIDE 28 MMOL/L (21-32); CHLORIDE 105 MMOL/L (98-107); CREATININE 1.4 MG/DL (0.55-1.30); PHOSPHORUS 2.4 MG/DL (2.5-4.9); SODIUM 141 MMOL/L (136-145)
[2019-05-12 08:24] LABS: CREATINE KINASE 55 U/L (26-308); GAMMA GLUTAMYL TRANSPEPTIDASE 359 U/L (5-85)
[2019-05-12 08:26] LABS: BILIRUBIN,DIRECT 0.9 MG/DL (0.0-0.3)
[2019-05-12] MEDS: Albuterol/Ipratropium 3ml neb HHN PRN ×2 (08:46→20:47)
[2019-05-12] MEDS: Carvedilol 12.5mg tab ORAL SCH ×2 (09:43→20:21)
[2019-05-12] MEDS: Imdur 30mg tab ORAL SCH (09:43)
[2019-05-12] MEDS: Eliquis 5mg tablet ORAL SCH ×2 (09:43→18:42)
[2019-05-12 12:00] VITALS: BP 105/63
--- NOTE | 2019-05-12 12:26 | NUR ---
per Doctor Javan Berg to DC pt with home meds. since pt wants to go home and there is no tech to do Hida scan.
--- NOTE | 2019-05-12 13:38 | Nephrology Progress Note ---
Assessment/Plan Problem List: (1) MARI (acute kidney injury) (2) Hyperkalemia (3) Cardiomyopathy (4) Elevated LFTs Assessment: likely hepatic congestion Assessment Acute renal failure- Cr lower HyperKalemia- resolved ?Underlying CKD Cardiomyopathy Low Ej fx 30% Obesity abnormal elevated LFTs Plan Plan: add flomax DC Garcia per request Kayexelate as needed Optimize cardiac and pulmonary status Kidney and Liver HARLEEN Urine studies monitor Lytes avoid Nephrotoxics Subjective ROS Limited/Unobtainable: No Constitutional: Reports: malaise Objective Objective Last 24 Hour Vital Signs Date Time Temp Pulse Resp B/P (MAP) Pulse Ox O2 Delivery O2 Flow Rate FiO2 05/12/19 09:43 125/75 05/12/19 09:43 86 125/75 05/12/19 09:00 Nasal Cannula 2.0 05/12/19 08:47 86 18 98 Room Air 21 05/12/19 08:47 97 20 83 Room Air 21 05/12/19 08:13 98.1 72 18 125/75 (92) 98 05/12/19 08:00 86 05/12/19 07:55 95 Nasal Cannula 2.0 28 05/12/19 07:55 86 18 95 Room Air 21 05/12/19 06:00 125/75 05/12/19 04:00 106 05/12/19 04:00 98.2 70 19 125/75 (92) 98 05/12/19 00:00 95 05/12/19 00:00 98.3 89 20 132/80 (97) 95 05/11/19 21:54 125/81 05/11/19 21:54 88 125/81 05/11/19 21:02 88 18 97 Room Air 21 05/11/19 21:00 95 Nasal Cannula 2.0 28 05/11/19 21:00 Nasal Cannula 2.0 05/11/19 20:57 96 18 95 Room Air 21 05/11/19 20:53 96 18 95 Room Air 21 05/11/19 20:00 98.2 92 19 125/81 (96) 97 05/11/19 20:00 94 05/11/19 16:00 98.2 57 18 102/61 (75) 98 05/11/19 16:00 86 05/11/19 15:16 90 22 99 Nasal Cannula 2.0 28 05/11/19 15:00 84 22 97 Nasal Cannula 2.0 28 Intake and Output 05/11/19 05/12/19 18:59 06:59 Intake Total 1180 ml Output Total 600 ml Balance 1180 ml -600 ml Intake Oral 1180 ml Output Urine Total 600 ml # Voids 3 5 # Bowel Movements 1 Laboratory Tests 05/12/19 07:30: White Blood Count 9.7, Red Blood Count 4.86, Hemoglobin 14.4, Hematocrit 44.1, Mean Corpuscular Volume 91, Mean Corpuscular Hemoglobin 29.6, Mean Corpuscular Hemoglobin Concent 32.6, Red Cell Distribution Width 16.0H, Platelet Count 189, Mean Platelet Volume 6.2L, Neutrophils (%) (Auto) 67.8, Lymphocytes (%) (Auto) 16.1L, Monocytes (%) (Auto) 13.7H, Eosinophils (%) (Auto) 1.3, Basophils (%) ( Auto) 1.3, Sodium Level 142, Potassium Level 4.1, Chloride Level 106, Carbon Dioxide Level 28, Anion Gap 8, Blood Urea Nitrogen 32H, Creatinine 1.4H, Estimat Glomerular Filtration Rate > 60, Glucose Level 134H, Uric Acid 10.2H, Calcium Level 8.5, Phosphorus Level 2.4L, Magnesium Level 2.0, Total Bilirubin 1.8H, Direct Bilirubin 0.9H, Gamma Glutamyl Transpeptidase 359H, Aspartate Amino Transf (AST/SGOT) 272H, Alanine Aminotransferase (ALT/SGPT) 497H, Alkaline Phosphatase 119H, Total Creatine Kinase 55, C-Reactive Protein, Quantitative 2.7H, Pro-B-Type Natriuretic Peptide 793H, Total Protein 6.1L, Albumin 2.8L, Globulin 3.3, Albumin/Globulin Ratio 0.8L Height (Feet): 5 Height (Inches): 11.00 Weight (Pounds): 272 General Appearance: no apparent distress Cardiovascular: normal rate Respiratory/Chest: lungs clear Javier Villareal MD May 12, 2019 13:38
--- NOTE | 2019-05-12 14:00 | NUR ---
Tech will come in to do Hida scan but pt needs to be NPO 4-5 hrs. He will be by around 1700.
[2019-05-12 14:32] VITALS: BP 110/73
--- NOTE | 2019-05-12 15:30 | NUR ---
Pt, urine is pink in color due to pt trying to pull cao out yesterday. STEREO OPERATOR Vuu was notified today.
--- NOTE | 2019-05-12 15:32 | General Progress Note ---
Assessment/Plan Assessment/Plan: 58 year old male with pmh of CHF (recently diagnosed, unknown EF), COPD and HTN presented with complaints of acute onset SOB since last night admitted for CHF exacerbation. #acute on chronic CHF systolic dysfunction (EF30%) -Cardiology consult appreciated -Cont IV lasix 40mg BID -ECHO reviewed -NA restriction -Fluid restriction -strict I/O -daily weights -Cont Coreg, imdur -Cont to tele -serial troponins and EKG - unremarkable #MARI - possible cardiorenal - improved -CTM -Cont lasix -avoid layla -Nephrology consulted -Creatinine improved -dc cao #Hyperkalemia - resolved -kayaxalate, albuterol, lasix and insulin given -ctm -nephrology consulted #Transaminitis likely 2/2 hepatic congestion 2/2 CHF - improving -cont lasix -CTM -GI consult appreciated -abd us #COPD with mild exacerbation -pulmonary consult appreciated -duonebs Q4PRN for SOB #HTN -cont metoprolol Code: Nurse Head of note may not reflect time of encounter Subjective Date patient seen: May 12, 2019 Allergies: Coded Allergies: No Known Allergies (Unverified , 02/06/17) Subjective No acute overnight events, states SOB has improved, has no complaints. Hyperkalemia and renal function improved, LFT trending down Objective Last 24 Hour Vital Signs Date Time Temp Pulse Resp B/P (MAP) Pulse Ox O2 Delivery O2 Flow Rate FiO2 05/12/19 14:32 110/73 (85) 05/12/19 14:29 110/73 05/12/19 12:00 98.3 68 20 105/63 (77) 97 05/12/19 09:43 125/75 05/12/19 09:43 86 125/75 05/12/19 09:00 Nasal Cannula 2.0 05/12/19 08:47 86 18 98 Room Air 21 05/12/19 08:47 97 20 83 Room Air 21 05/12/19 08:13 98.1 72 18 125/75 (92) 98 05/12/19 08:00 86 05/12/19 07:55 95 Nasal Cannula 2.0 28 05/12/19 07:55 86 18 95 Room Air 21 05/12/19 06:00 125/75 05/12/19 04:00 106 05/12/19 04:00 98.2 70 19 125/75 (92) 98 05/12/19 00:00 95 05/12/19 00:00 98.3 89 20 132/80 (97) 95 05/11/19 21:54 125/81 05/11/19 21:54 88 125/81 05/11/19 21:02 88 18 97 Room Air 21 05/11/19 21:00 95 Nasal Cannula 2.0 28 05/11/19 21:00 Nasal Cannula 2.0 05/11/19 20:57 96 18 95 Room Air 21 05/11/19 20:53 96 18 95 Room Air 21 05/11/19 20:00 98.2 92 19 125/81 (96) 97 05/11/19 20:00 94 05/11/19 16:00 98.2 57 18 102/61 (75) 98 05/11/19 16:00 86 Intake and Output 05/11/19 05/12/19 18:59 06:59 Intake Total 1180 ml Output Total 600 ml Balance 1180 ml -600 ml Intake Oral 1180 ml Output Urine Total 600 ml # Voids 3 5 # Bowel Movements 1 Laboratory Tests 05/12/19 07:30: White Blood Count 9.7, Red Blood Count 4.86, Hemoglobin 14.4, Hematocrit 44.1, Mean Corpuscular Volume 91, Mean Corpuscular Hemoglobin 29.6, Mean Corpuscular Hemoglobin Concent 32.6, Red Cell Distribution Width 16.0H, Platelet Count 189, Mean Platelet Volume 6.2L, Neutrophils (%) (Auto) 67.8, Lymphocytes (%) (Auto) 16.1L, Monocytes (%) (Auto) 13.7H, Eosinophils (%) (Auto) 1.3, Basophils (%) ( Auto) 1.3, Sodium Level 142, Potassium Level 4.1, Chloride Level 106, Carbon Dioxide Level 28, Anion Gap 8, Blood Urea Nitrogen 32H, Creatinine 1.4H, Estimat Glomerular Filtration Rate > 60, Glucose Level 134H, Uric Acid 10.2H, Calcium Level 8.5, Phosphorus Level 2.4L, Magnesium Level 2.0, Total Bilirubin 1.8H, Direct Bilirubin 0.9H, Gamma Glutamyl Transpeptidase 359H, Aspartate Amino Transf (AST/SGOT) 272H, Alanine Aminotransferase (ALT/SGPT) 497H, Alkaline Phosphatase 119H, Total Creatine Kinase 55, C-Reactive Protein, Quantitative 2.7H, Pro-B-Type Natriuretic Peptide 793H, Total Protein 6.1L, Albumin 2.8L, Globulin 3.3, Albumin/Globulin Ratio 0.8L 05/12/19 13:48: Urine Eosinophils None seen Height (Feet): 5 Height (Inches): 11.00 Weight (Pounds): 272 Objective General appearance: alert, cooperative, no distress, appears stated age Head: Normocephalic, without obvious abnormality, atraumatic Eyes: conjunctivae/corneas clear. PERRL, EOM's intact. Fundi benign Throat: Lips, mucosa, and tongue normal. Teeth and gums normal Neck: supple, symmetrical, trachea midline, no adenopathy, thyroid: not enlarged, symmetric, no tenderness/mass/nodules, no carotid bruit and no JVD Lungs: clear to auscultation bilaterally Heart: regular rate and rhythm, S1, S2 normal, no murmur, click, rub or gallop Abdomen: soft, non-tender. Bowel sounds normal. No masses, no organomegaly Extremities: extremities normal, atraumatic, no cyanosis, +2 edema Pulses: 2+ and symmetric Skin: Skin color, texture, turgor normal. No rashes or lesions Neurologic: Grossly normal Angélica Meraz MD May 12, 2019 15:32
--- NOTE | 2019-05-12 18:10 | NUR ---
pt unable to stay in bed for Hida scan, she is too agitated and crying. doct. Javan ordered 1 dose of ativan 1mg IV stat. Pt family and automotive service technician will bring pt down to continue scan once she is less agitated.
--- NOTE | 2019-05-12 18:47 | Cardiac Electrophysiology PN ---
Assessment/Plan Assessment/Plan 1. Exacerbation of CHF with EF 30%. On Lasix 40 mg IV bid, Coreg 12.5 bid, hydralazine 10 bid and Imdur 30 daily . Avoid GLORIA inhibitors and Aldactone in view of renal failure and hyperkalemia 2. 13 beats of nonsustained VT at 19.05 on 05/10/19 and 16 beats at 6.30 today Due to CMP. May need cardiac cath 2. Hypertension. 3. Heart failure therapy. 4. Acute Renal failure. Creatinine 2.6. Improved to 1.4 5. Hyperbilirubinemia, could be secondary to heart failure. 6. Atrial flutter with rapid ventricular response. On Coreg and Eliquis 5 bid May benefit from ablation 7. COPD, on nebulizers. 8. Hyperkalemia resolved after Kayoxalate DW RN Subjective Subjective Diuresing well. In atrial flutter rate 80s.Had another 16 beats of VT today Objective Last 24 Hour Vital Signs Date Time Temp Pulse Resp B/P (MAP) Pulse Ox O2 Delivery O2 Flow Rate FiO2 05/12/19 14:32 110/73 (85) 05/12/19 14:29 110/73 05/12/19 12:00 98.3 68 20 105/63 (77) 97 05/12/19 12:00 72 05/12/19 09:43 125/75 05/12/19 09:43 86 125/75 05/12/19 09:00 Nasal Cannula 2.0 05/12/19 08:47 86 18 98 Room Air 21 05/12/19 08:47 97 20 83 Room Air 21 05/12/19 08:13 98.1 72 18 125/75 (92) 98 05/12/19 08:00 86 05/12/19 07:55 95 Nasal Cannula 2.0 28 05/12/19 07:55 86 18 95 Room Air 21 05/12/19 06:00 125/75 05/12/19 04:00 106 05/12/19 04:00 98.2 70 19 125/75 (92) 98 05/12/19 00:00 95 05/12/19 00:00 98.3 89 20 132/80 (97) 95 05/11/19 21:54 125/81 05/11/19 21:54 88 125/81 05/11/19 21:02 88 18 97 Room Air 21 05/11/19 21:00 95 Nasal Cannula 2.0 28 05/11/19 21:00 Nasal Cannula 2.0 05/11/19 20:57 96 18 95 Room Air 21 05/11/19 20:53 96 18 95 Room Air 21 05/11/19 20:00 98.2 92 19 125/81 (96) 97 05/11/19 20:00 94 Intake and Output 05/11/19 05/12/19 19:00 07:00 Intake Total 1060 ml Output Total 600 ml Balance 1060 ml -600 ml Intake Oral 1060 ml Output Urine Total 600 ml # Voids 3 5 # Bowel Movements 1 Laboratory Tests Test 05/12/19 07:30 05/12/19 13:48 White Blood Count 9.7 K/UL (4.8-10.8) Red Blood Count 4.86 M/UL (4.70-6.10) Hemoglobin 14.4 G/DL (14.2-18.0) Hematocrit 44.1 % (42.0-52.0) Mean Corpuscular Volume 91 FL (80-99) Mean Corpuscular Hemoglobin 29.6 PG (27.0-31.0) Mean Corpuscular Hemoglobin Concent 32.6 G/DL (32.0-36.0) Red Cell Distribution Width 16.0 % (11.6-14.8) H Platelet Count 189 K/UL (150-450) Mean Platelet Volume 6.2 FL (6.5-10.1) L Neutrophils (%) (Auto) 67.8 % (45.0-75.0) Lymphocytes (%) (Auto) 16.1 % (20.0-45.0) L Monocytes (%) (Auto) 13.7 % (1.0-10.0) H Eosinophils (%) (Auto) 1.3 % (0.0-3.0) Basophils (%) (Auto) 1.3 % (0.0-2.0) Sodium Level 142 MMOL/L (136-145) Potassium Level 4.1 MMOL/L (3.5-5.1) Chloride Level 106 MMOL/L (98-107) Carbon Dioxide Level 28 MMOL/L (21-32) Anion Gap 8 mmol/L (5-15) Blood Urea Nitrogen 32 mg/dL (7-18) H Creatinine 1.4 MG/DL (0.55-1.30) H Estimat Glomerular Filtration Rate > 60 mL/min (>60) Glucose Level 134 MG/DL (74-106) H Uric Acid 10.2 MG/DL (2.6-7.2) H Calcium Level 8.5 MG/DL (8.5-10.1) Phosphorus Level 2.4 MG/DL (2.5-4.9) L Magnesium Level 2.0 MG/DL (1.8-2.4) Total Bilirubin 1.8 MG/DL (0.2-1.0) H Direct Bilirubin 0.9 MG/DL (0.0-0.3) H Gamma Glutamyl Transpeptidase 359 U/L (5-85) H Aspartate Amino Transf (AST/SGOT) 272 U/L (15-37) H Alanine Aminotransferase (ALT/SGPT) 497 U/L (12-78) H Alkaline Phosphatase 119 U/L (46-116) H Total Creatine Kinase 55 U/L (26-308) C-Reactive Protein, Quantitative 2.7 mg/dL (0.00-0.90) H Pro-B-Type Natriuretic Peptide 793 pg/mL (0-125) H Total Protein 6.1 G/DL (6.4-8.2) L Albumin 2.8 G/DL (3.4-5.0) L Globulin 3.3 g/dL Albumin/Globulin Ratio 0.8 (1.0-2.7) L Urine Eosinophils None seen (NONE SEEN) Objective HEAD AND NECK: No JVD. LUNGS: Clear. CARDIOVASCULAR: Shows irregular S1 and S2 with no gallop. ABDOMEN: Soft. EXTREMITIES: 2+ pitting edema. Vipul Stock MD May 12, 2019 18:47
--- NOTE | 2019-05-12 19:27 | NUR ---
NURSE NOTES: Received report from ANNA perez. Patient seen in bed in leach position. On oxygen 2L/min via NC. no acute respiratory distress is noted. IV site is to right wrist and is intact. Patient is alert, verbally responsive able to make needs known. Denies any pain at this time. Bed is in lowest position. Call light is within easy reach while in bed. Will continue to monitor.
[2019-05-12 20:00] VITALS: BP 130/82
--- NOTE | 2019-05-12 20:41 | NUR ---
HAND-OFF: Report given to Charis CASTILLO. new order of lasic 40mg inputed per Dr. De La Paz's T/O.
[2019-05-12] MEDS ORDERED: Furosemide 40mg tab ORAL SCH (20:45)
[2019-05-13] VITALS: BP 128/75
[2019-05-13 04:00] VITALS: BP 120/70
[2019-05-13] MEDS: HydrALAZINE 10mg Tab ORAL SCH ×3 (05:21→20:45)
[2019-05-13 07:23] LABS: PHOSPHORUS 2.5 MG/DL (2.5-4.9)
--- NOTE | 2019-05-13 07:30 | NUR ---
NURSE NOTES: Received report from ANNA Staples. Patient is AAO x 4. Patient is sitting in chair. Patient is on room air. No acute respiratory distress is noted. New IV on right hand 22 g. Patient denies any pain at this time. Patient on campus monitor. Call light is within easy reach while in bed. Will continue to monitor.
--- NOTE | 2019-05-13 07:37 | NUR ---
NURSE NOTES: Report given to ANNA Benton
[2019-05-13 08:00] VITALS: BP_SYST 120; BP_SYST 130; BP_DIAS 70; BP_DIAS 90
[2019-05-13] MEDS: Albuterol/Ipratropium 3ml neb HHN PRN ×3 (08:48→21:09)
[2019-05-13] MEDS: Furosemide 40mg tab ORAL SCH (09:01)
[2019-05-13] MEDS: Eliquis 5mg tablet ORAL SCH ×2 (09:01→18:07)
[2019-05-13] MEDS: Imdur 30mg tab ORAL SCH ×2 (09:02→09:58)
[2019-05-13] MEDS: Carvedilol 12.5mg tab ORAL SCH ×3 (09:03→20:44)
--- NOTE | 2019-05-13 10:36 | GI Initial Consult Note ---
History of Present Illness General Date patient seen: May 13, 2019 Time patient seen: 10:31 Reason for Hospitalization: Dyspnea/Respdistress Referring physician: TAMMY Reason for Consultation: ABRNORMAL LFTs Present Illness HPI Patient presents emergency department today with acute onset of shortness of breath. Patient states that he has a history of weak heart and was recently hospitalized at an outside facility. He states that over the last 2 to 3 days he has had worsening shortness of breath especially with ambulation and exertion. He also has orthopnea and bilateral lower extreme swelling. He denies any fever nausea. He states that he does have a history of pneumonia. Denies any definite chest pain. Patient is unaware that he has any rhythm issues. No other complaints were noted. Symptoms are noted to be severe. Patient arrived here via EMS because of severity of symptoms requiring transport. No other modifying factors. No other associated signs and symptoms. No other complaints were noted. GI consulted for abnormal LFTs. Patient seen, awake alert and oriented x4 no apparent distress. Denies any abdominal pain. Had complaint of nausea secondary to narcotic administration, Which is improved. Denies any vomiting. Denies any constipation or diarrhea. Patient initially admitted for shortness of breath. Patient has no history of endoscopic or colonoscopy. Patient presents today with a AST of 272, ALT of 497, total bilirubin 1.8, total alkaline phosphatase of 119. Patient denies any heavy EtOH use, states she has a social drinker. Home Meds Active Scripts Amoxicillin/Potassium Clav 875-125* (AUGMENTIN 875-125 TABLET*) 1 Each Tablet, 1 TAB ORAL TWICE A DAY for 10 Days, TAB Prov:Tremaine Marc MD 04/04/18 Reported Medications Furosemide* (LASIX*) 20 Mg Tablet, ORAL DAILY, TAB 05/08/19 Spironolactone* (ALDACTONE*) 25 Mg Tablet, 25 MG ORAL DAILY, TAB 05/08/19 Carvedilol* (CARVEDILOL*) 3.125 Mg Tablet, 3.125 MG ORAL EVERY 12 HOURS, TAB 05/08/19 Potassium Gluconate (POTASSIUM) 99 Mg Tablet, 25 MG PO DAILY, TAB 05/08/19 No Known Medications* (NKM - No Known Medications*) ., 0 ., 0 Refills 02/06/17 Med list reviewed/reconciled: Yes Allergies: Coded Allergies: No Known Allergies (Unverified , 02/06/17) Patient History History Provided By: Patient, Medical Record PMH Narrative Past Medical History: HTN, CAD, CHF, COPD Past Surgical History: none Pertinent Family History: none Social History: Reports: smoking, alcohol use Reviewed Nursing Documentation: PMH: Agreed; PSxH: Agreed Nursing Documentation-PMH Hx Cardiac Problems: Yes Hx COPD: Yes Social History: Reports: alcohol use - social Review of Systems All Other Systems: negative except mentioned in HPI Physical Exam Vital Signs Date Time Temp Pulse Resp B/P (MAP) Pulse Ox O2 Delivery O2 Flow Rate FiO2 05/09/19 07:38 91 05/09/19 08:00 98.4 19 136/79 (98) 99 05/09/19 08:00 Nasal Cannula 2.0 28 Sp02 EP Interpretation: reviewed, normal Labs Laboratory Tests Test 05/12/19 13:48 05/13/19 06:25 Urine Eosinophils None seen (NONE SEEN) Phosphorus Level 2.5 MG/DL (2.5-4.9) Magnesium Level 1.8 MG/DL (1.8-2.4) General Appearance: well appearing, no apparent distress, alert Head: normocephalic EENT: PERRL/EOMI, normal ENT inspection Neck: supple Respiratory: normal breath sounds, no respiratory distress Cardiovascular: normal rate Gastrointestinal: normal inspection, non tender, soft, normal bowel sounds, non -distended Rectal: deferred Genitourinary: deferred Musculoskeletal: normal inspection, back normal Neurologic: normal inspection, alert, oriented x3, responsive Psychiatric: normal inspection, judgement/insight normal, memory normal Skin: normal inspection, normal color, no rash, warm/dry, palpation normal, well hydrated Lymphatic: normal inspection, no adenopathy Current Medications Current Medications Medications (Trade) Dose Ordered Sig/Chitra Route PRN Reason Start Time Stop Time Status Last Admin Dose Admin Acetaminophen (Tylenol) 650 mg Q4H PRN ORAL Mild Pain (Pain Scale 1-3) 05/08/19 16:30 06/07/19 16:29 05/08/19 22:36 Albuterol/ Ipratropium (Albuterol/ Ipratropium) 3 ml Q4H PRN HHN Shortness of Breath 05/09/19 13:00 05/14/19 12:59 05/13/19 08:48 Apixaban (Eliquis) 5 mg BID ORAL 05/09/19 18:00 06/08/19 17:59 05/13/19 09:01 Carvedilol (Coreg) 12.5 mg EVERY 12 HOURS ORAL 05/09/19 21:00 06/08/19 20:59 05/13/19 09:58 Dextrose (Dextrose 50%) 25 ml Q30M PRN IV Hypoglycemia 05/08/19 16:30 06/07/19 16:29 Dextrose (Dextrose 50%) 50 ml Q30M PRN IV Hypoglycemia 05/08/19 16:30 06/07/19 16:29 Furosemide (Lasix) 40 mg DAILY ORAL 05/13/19 09:00 06/12/19 08:59 05/13/19 09:01 Hydralazine HCl (Apresoline) 10 mg Q8HR ORAL 05/11/19 14:00 06/09/19 20:59 05/13/19 05:21 Hydromorphone HCl (Dilaudid) 1 mg Q6H PRN IVP Severe Pain (Pain Scale 7-10) 05/11/19 10:40 05/18/19 10:39 05/13/19 05:27 Isosorbide Mononitrate (Imdur) 30 mg DAILY ORAL 05/10/19 09:00 06/09/19 08:59 05/13/19 09:58 Ondansetron HCl (Zofran) 4 mg Q6H PRN IVP Nausea & Vomiting 05/09/19 18:00 06/08/19 17:59 05/13/19 05:25 Pantoprazole (Protonix) 40 mg EVERY 12 HOURS ORAL 05/11/19 21:00 06/10/19 20:59 05/13/19 09:01 Zolpidem Tartrate (Ambien) 5 mg HSPRN PRN ORAL Insomnia 05/08/19 22:15 05/15/19 22:14 05/11/19 21:57 GI: Plan Problems: (1) Hepatitis (2) Elevated LFTs Plan Possible elevated LFTs secondary to hepatic congestion Obtain abdominal ultrasound to rule out any biliary obstruction Okay to advance diet after imaging study We will obtain a hepatitis panel PPI Zofran as needed Follow labs Discussed with Dr. Santos. Thank you for this patient referral, we will follow. The patient was seen and examined at bedside and all new and available data was reviewed in the patients chart. I agree with the above findings, impression and plan. (Patient seen earlier today. Signature stamp does not reflect patient encounter time.). - MD Jaja WallaceV[facility] PhoenixDarrius COOPER May 13, 2019 10:36
--- NOTE | 2019-05-13 10:41 | NUR ---
INSURANCE REVIEWS FAXED TO [facility] F:[phone] Addendum: 05/14/19 at 1519 by LUIZ GIPSON LVN LVN [facility] T: [phone] [id number] F: [phone] [facility] T: [phone] [id number] F: [phone]
--- NOTE | 2019-05-13 11:17 | Nephrology Progress Note ---
Assessment/Plan Problem List: (1) MARI (acute kidney injury) (2) Hyperkalemia (3) Cardiomyopathy (4) Elevated LFTs Assessment: likely hepatic congestion (5) Nonsustained ventricular tachycardia Assessment Acute renal failure- Cr lower HyperKalemia- resolved ?Underlying CKD Cardiomyopathy Low Ej fx 30% Obesity abnormal elevated LFTs Plan Plan: add flomax DC Garcia per request Kayexelate as needed Optimize cardiac and pulmonary status Kidney and Liver HARLEEN Urine studies monitor Lytes avoid Nephrotoxics up dose hydralazine Subjective ROS Limited/Unobtainable: No Constitutional: Reports: malaise Objective Objective Last 24 Hour Vital Signs Date Time Temp Pulse Resp B/P (MAP) Pulse Ox O2 Delivery O2 Flow Rate FiO2 05/13/19 09:58 130/90 05/13/19 09:58 72 130/90 05/13/19 09:00 Nasal Cannula 2.0 05/13/19 08:58 72 21 100 Room Air 21 05/13/19 08:48 72 24 97 Room Air 21 05/13/19 08:00 97.6 88 20 130/90 (103) 97 05/13/19 07:52 86 05/13/19 07:25 59 17 98 Room Air 21 05/13/19 07:25 Room Air 21 05/13/19 05:21 120/70 05/13/19 04:00 97.9 90 18 120/70 (87) 97 05/13/19 03:26 90 05/13/19 00:00 98.0 98 19 128/75 (92) 98 05/12/19 23:29 98 05/12/19 21:01 130/80 05/12/19 21:00 Nasal Cannula 2.0 05/12/19 20:51 102 18 100 Nasal Cannula 2.0 28 05/12/19 20:48 98 Nasal Cannula 2.0 28 05/12/19 20:40 98 20 98 Nasal Cannula 2.0 28 05/12/19 20:21 95 130/82 05/12/19 20:03 89 05/12/19 20:00 98.1 95 19 130/82 (98) 97 05/12/19 20:00 98 18 98 Room Air 21 05/12/19 16:00 75 05/12/19 14:32 110/73 (85) 05/12/19 14:29 110/73 7/14/19 12:00 98.3 68 20 105/63 (77) 97 05/12/19 12:00 72 Intake and Output 05/12/19 05/13/19 19:00 07:00 Intake Total 140 ml 600 ml Output Total 350 ml Balance -210 ml 600 ml Intake Oral 140 ml 600 ml Output Urine Total 350 ml # Voids 3 5 # Bowel Movements 1 Laboratory Tests 05/12/19 13:48: Urine Eosinophils None seen 05/13/19 06:25: Phosphorus Level 2.5, Magnesium Level 1.8 Height (Feet): 5 Height (Inches): 11.00 Weight (Pounds): 272 General Appearance: no apparent distress Respiratory/Chest: decreased breath sounds Abdomen: distended Extremities: moderate edema Javier Villareal MD May 13, 2019 11:17
--- NOTE | 2019-05-13 11:34 | NUR ---
RD ASSESSMENT & RECOMMENDATIONS SEE CARE ACTIVITY FOR COMPLETE ASSESSMENT DAILY ESTIMATED NEEDS: Needs based on cardiac 89.5kg adj 20-25 kcals/kg 3211-2055 total kcals 1-1.2 g protein/kg 90-107 g total protein Fluid per MD, on lasix NUTRITION DIAGNOSIS: Decreased sodium needs r/t CHF and AKF as evidenced by pt adm w. BL LE edema, elev BNP (now 793), elev Creat now trending down (1.4). (CURRENT DIET:NPO for [facility] US) PO DIET RECOMMENDATIONS-->> As ABLE LOW NA/ LOW FAT diet ADDITIONAL RECOMMENDATIONS: 1) Fluid per MD-> on 1.2 L restriction 2) Check lytes daily on lasix 3) Obtain daily STANDING WEIGHTS on lasix 4) A1C 6.2-> rec NISS + accuchceks
--- NOTE | 2019-05-13 11:41 | Diagnostic Imaging Report ---
Indication: Abdominal pain, abnormal liver function tests Technique: Maguire-scale and duplex images of the upper abdomen were obtained Comparison: Findings: Gallbladder demonstrates mild wall thickening, measuring up to 5 mm in diameter. It is incompletely distended, however. No stones. No pericholecystic fluid Sonographic Yeager's sign is negative. Common bile duct measures 4 mm in diameter. No intrahepatic biliary ductal dilatation. Liver is slightly enlarged, demonstrates normal echogenicity, no focal abnormality. No surface nodularity Portal vein and hepatic veins are patent. Pancreas is unremarkable. Spleen is unremarkable. Left kidney measures 11.8 cm in length. Right kidney measures 11.4 cm length. Both kidneys demonstrate normal echogenicity. There is no hydronephrosis. No focal abnormality . Abdominal aorta is partially obscured by bowel gas, visualized portions are non-aneurysmal . There is incidental finding of a right pleural effusion Impression: No gallstones. However, there is mild gallbladder wall thickening. Suspect artifact of under distention, could also be due to adjacent hepatocellular disease. Possibility of acute acalculous cholecystitis also be considered. Consider hepatobiliary nuclear scan for further evaluation if clinically indicated Negative for dilated bile ducts Right pleural effusion incidentally noted Note suboptimal visualization of the abdominal aorta
[2019-05-13 12:00] VITALS: BP 122/89
--- NOTE | 2019-05-13 12:14 | NUR ---
CASE MANAGEMENT:REVIEW 05/12/19 SI: AC/CHR CHF. MARI. COPD 98.1 72 18 125/75 98% ON RA BUN+31 CR+1.4 PHOS-2.4 TBILI+1.8 DBILI+0.9 AST/ALT+272/497 IS: LASIX PO X1 PROTONIX PO Q12 HYDRALAZINE PO Q8HR IMDUR PO QD COREG PO Q12 ELIQUIS PO BID DUONEB HHN Q4HRS PRN : TELEMETRY PLAN: ABDOMINAL US 05/13/19 SI: AC/CHR CHF. MARI. COPD. AFIB 97.6 88 20 130/90 100% ON RA IS: HYDRALAZINE PO Q8HRS LASIX PO QD PROTONIX PO Q1 IMDUR PO QD COREG PO Q12 ELIQUIS PO BID DUONEB HHN Q4HRS PRN IV DILAUDID Q6HRS PRN : TELEMETRY DCP: FROM HOME
--- NOTE | 2019-05-13 13:39 | General Progress Note ---
Assessment/Plan Assessment/Plan: Assessment/Plan: 58 year old male with pmh of CHF (recently diagnosed, unknown EF), COPD and HTN presented with complaints of acute onset SOB since last night admitted for CHF exacerbation. #acute on chronic CHF systolic dysfunction (EF30%) -Cardiology consult appreciated - PO lasix started 05/13 -ECHO reviewed -NA restriction -Fluid restriction -strict I/O -daily weights -Cont Coreg, imdur -Cont to tele -serial troponins and EKG - unremarkable #MARI - possible cardiorenal - improved -CTM -Cont lasix -avoid layla -Nephrology consulted -Creatinine improved #Hyperkalemia - resolved -kayaxalate, albuterol, lasix and insulin given -ctm -nephrology consulted #Transaminitis likely 2/2 hepatic congestion 2/2 CHF - improving -cont lasix oral dose -CTM -GI consult appreciated -abd us was cancelled and pending follow up LFT's in AM, will discuss the need for US new order with GI service. Hepatitis panel in AM - Negative history of alcohol, and most likely hepatic congestion due to CHF is the etiology. #COPD with mild exacerbation -pulmonary consult appreciated -duonebs Q4PRN for SOB #HTN -cont carvedilol and imdur - Suspect orthostatic hypotension as the patient is having lightheadedness after medications. - Add orthostatics q shift Code: Truss Designer of note may not reflect time of encounter Subjective ROS Limited/Unobtainable: No Constitutional: Reports: malaise Cardiovascular: Reports: lightheadedness Respiratory: Reports: no symptoms Gastrointestinal/Abdominal: Reports: no symptoms Genitourinary: Reports: no symptoms Neurologic/Psychiatric: Reports: no symptoms Hematologic/Lymphatic: Reports: no symptoms Allergies: Coded Allergies: No Known Allergies (Unverified , 02/06/17) Objective Last 24 Hour Vital Signs Date Time Temp Pulse Resp B/P (MAP) Pulse Ox O2 Delivery O2 Flow Rate FiO2 05/13/19 09:58 130/90 05/13/19 09:58 72 130/90 05/13/19 09:00 Nasal Cannula 2.0 05/13/19 08:58 72 21 100 Room Air 21 05/13/19 08:48 72 24 97 Room Air 21 05/13/19 08:00 97.6 88 20 130/90 (103) 97 05/13/19 07:52 86 05/13/19 07:25 59 17 98 Room Air 21 05/13/19 07:25 Room Air 21 05/13/19 05:21 120/70 05/13/19 04:00 97.9 90 18 120/70 (87) 97 05/13/19 03:26 90 05/13/19 00:00 98.0 98 19 128/75 (92) 98 05/12/19 23:29 98 05/12/19 21:01 130/80 05/12/19 21:00 Nasal Cannula 2.0 05/12/19 20:51 102 18 100 Nasal Cannula 2.0 28 05/12/19 20:48 98 Nasal Cannula 2.0 28 05/12/19 20:40 98 20 98 Nasal Cannula 2.0 28 05/12/19 20:21 95 130/82 05/12/19 20:03 89 05/12/19 20:00 98.1 95 19 130/82 (98) 97 05/12/19 20:00 98 18 98 Room Air 21 05/12/19 16:00 75 05/12/19 14:32 110/73 (85) 05/12/19 14:29 110/73 Intake and Output 05/12/19 05/13/19 18:59 06:59 Intake Total 140 ml 600 ml Output Total 350 ml Balance -210 ml 600 ml Intake Oral 140 ml 600 ml Output Urine Total 350 ml # Voids 3 5 # Bowel Movements 1 Laboratory Tests 05/12/19 13:48: Urine Eosinophils None seen 05/13/19 06:25: Phosphorus Level 2.5, Magnesium Level 1.8 Height (Feet): 5 Height (Inches): 11.00 Weight (Pounds): 272 General Appearance: WD/WN EENT: PERRL/EOMI Neck: non-tender Cardiovascular: normal peripheral pulses, normal rate Respiratory/Chest: chest wall non-tender, lungs clear Abdomen: normal bowel sounds Extremities: normal range of motion Edema: mild edema, pitting Neurologic: local driver II-XII grossly normal Skin: normal pigmentation Ermias Epps MD May 13, 2019 13:38
[2019-05-13 16:00] VITALS: BP 120/52
--- NOTE | 2019-05-13 17:48 | Cardiac Electrophysiology PN ---
Assessment/Plan Assessment/Plan 1. Exacerbation of CHF with EF 30%. On Lasix 40 mg IV daily, Coreg 12.5 bid, hydralazine 20 tid and Imdur 30 daily . Avoid GLORIA inhibitors and Aldactone in view of renal failure and hyperkalemia 2. 13 beats of nonsustained VT at 19.05 on 05/10/19 and 16 beats at 6.30 on Due to CMP. Will transfer for cardiac cath 2. Hypertension. 3. Heart failure therapy. 4. Acute Renal failure. Creatinine 2.6. Improved to 1.4 5. Hyperbilirubinemia, could be secondary to heart failure. 6. Atrial flutter with rapid ventricular response. On Coreg and Eliquis 5 bid May benefit from ablation 7. COPD, on nebulizers. 8. Hyperkalemia resolved after Kayoxalate DW RN Subjective Subjective Diuresing well. In atrial flutter rate 80s. No more VT overnight Objective Last 24 Hour Vital Signs Date Time Temp Pulse Resp B/P (MAP) Pulse Ox O2 Delivery O2 Flow Rate FiO2 05/13/19 16:00 98.5 89 20 120/52 (74) 98 05/13/19 15:14 88 23 97 Room Air 21 05/13/19 12:00 97.8 84 20 122/89 (100) 97 05/13/19 11:48 81 05/13/19 09:58 130/90 05/13/19 09:58 72 130/90 05/13/19 09:00 Nasal Cannula 2.0 05/13/19 08:58 72 21 100 Room Air 21 05/13/19 08:48 72 24 97 Room Air 21 05/13/19 08:00 97.6 88 20 130/90 (103) 97 05/13/19 07:52 86 05/13/19 07:25 59 17 98 Room Air 21 05/13/19 07:25 Room Air 21 05/13/19 05:21 120/70 05/13/19 04:00 97.9 90 18 120/70 (87) 97 05/13/19 03:26 90 05/13/19 00:00 98.0 98 19 128/75 (92) 98 05/12/19 23:29 98 05/12/19 21:01 130/80 05/12/19 21:00 Nasal Cannula 2.0 05/12/19 20:51 102 18 100 Nasal Cannula 2.0 28 05/12/19 20:48 98 Nasal Cannula 2.0 28 05/12/19 20:40 98 20 98 Nasal Cannula 2.0 28 05/12/19 20:21 95 130/82 05/12/19 20:03 89 05/12/19 20:00 98.1 95 19 130/82 (98) 97 05/12/19 20:00 98 18 98 Room Air 21 Intake and Output 05/12/19 05/13/19 18:59 06:59 Intake Total 140 ml 600 ml Output Total 350 ml Balance -210 ml 600 ml Intake Oral 140 ml 600 ml Output Urine Total 350 ml # Voids 3 5 # Bowel Movements 1 Laboratory Tests Test 05/13/19 06:25 Phosphorus Level 2.5 MG/DL (2.5-4.9) Magnesium Level 1.8 MG/DL (1.8-2.4) Objective HEAD AND NECK: No JVD. LUNGS: Clear. CARDIOVASCULAR: Shows irregular S1 and S2 with no gallop. ABDOMEN: Soft. EXTREMITIES: 2+ pitting edema. Vipul Stock MD May 13, 2019 17:47
--- NOTE | 2019-05-13 17:50 | NUR ---
NURSE NOTES: Spoke with Dr. Stock about the need for patient to have cardiac cath in the near future. A possible location is [facility]. Will endorsed to night shift manager nurse and charge nurse the need for case management to be invovled for the possible transfer.
--- NOTE | 2019-05-13 19:30 | NUR ---
HAND-OFF: Report given to ANNA Moe. Endorsed about the plan for possible transfer facility for cardiac cath.
--- NOTE | 2019-05-13 19:35 | NUR ---
NURSE NOTES: patient received. patient in no acute distress at this time. patient complains of no pain at this time. patient awake alert and oriented x4. patient IV intact patent and asymptomatic. patient on RA and sating 100%. urinal at bedside. patient skin intact. patient ambulatory and steady gait. patient bed in lowest position and locked. call light within reach. bed alarm on. will continue to monitor.
[2019-05-13 20:00] VITALS: BP 117/81
[2019-05-13] MEDS: Zolpidem 5mg tab ORAL PRN (20:48)
[2019-05-14] VITALS: BP 118/79
[2019-05-14 04:00] VITALS: BP 127/83
[2019-05-14] MEDS: HydrALAZINE 10mg Tab ORAL SCH ×2 (05:56→14:18)
[2019-05-14 07:15] LABS: EOSINOPHILS % (AUTO) 2.6 % (0.0-3.0); HEMATOCRIT 46.6 % (42.0-52.0); LYMPHOCYTES % (AUTO) 19.6 % (20.0-45.0); MEAN CORPUSCULAR VOLUME 93 FL (80-99); MONOCYTES % (AUTO) 15.2 % (1.0-10.0); NEUTROPHILS % (AUTO) 59.6 % (45.0-75.0); PLATELET COUNT 189 K/UL (150-450); RED BLOOD COUNT 5.03 M/UL (4.70-6.10); RED CELL DISTRIBUTION WIDTH 15.8 % (11.6-14.8); WHITE BLOOD COUNT 7.3 K/UL (4.8-10.8)
--- NOTE | 2019-05-14 07:26 | NUR ---
HAND-OFF: Report given to dorina warner.
--- NOTE | 2019-05-14 07:39 | NUR ---
NURSE NOTES: Patient is oriented x4. Patient is sitting at side of bed, eating breakfast. Side rails are upx2, bed is locked, and call light is within reach. Patient is on room air. No reports of discomfort at the moment. Will continue to monitor.
[2019-05-14 07:57] LABS: ALANINE AMINOTRANSFERASE 378 U/L (12-78); ALBUMIN 3.2 G/DL (3.4-5.0); ALBUMIN/GLOBULIN RATIO 0.8 (1.0-2.7); ALKALINE PHOSPHATASE 127 U/L (46-116); ANION GAP 7 mmol/L (5-15); ASPARTATE AMINO TRANSFERASE 158 U/L (15-37); BILIRUBIN,TOTAL 2.1 MG/DL (0.2-1.0); BLOOD UREA NITROGEN 18 mg/dL (7-18); CARBON DIOXIDE 27 MMOL/L (21-32); CHLORIDE 105 MMOL/L (98-107); CREATININE 1.3 MG/DL (0.55-1.30); PHOSPHORUS 2.5 MG/DL (2.5-4.9); POTASSIUM 4.1 MMOL/L (3.5-5.1); SODIUM 139 MMOL/L (136-145)
[2019-05-14 08:00] VITALS: BP 117/74
[2019-05-14] MEDS: Carvedilol 12.5mg tab ORAL SCH (08:36)
[2019-05-14] MEDS: Eliquis 5mg tablet ORAL SCH ×3 (08:37→18:00)
[2019-05-14] MEDS: Imdur 30mg tab ORAL SCH (08:37)
[2019-05-14] MEDS: Furosemide 40mg tab ORAL SCH (08:37)
[2019-05-14] MEDS: Albuterol/Ipratropium 3ml neb HHN PRN ×2 (08:50→14:20)
--- NOTE | 2019-05-14 08:53 | GI Progress Note ---
Assessment/Plan Problems: (1) Hepatitis ICD Codes: K75.9 - Inflammatory liver disease, unspecified SNOMED: 922987856 (2) Elevated LFTs ICD Codes: R94.5 - Abnormal results of liver function studies SNOMED: 138886726, 894217566 (3) Respiratory distress ICD Codes: R06.03 - Acute respiratory distress SNOMED: 101100943 Status: stable, unchanged Status Narrative Discussed with Dr. Santos Assessment/Plan Abdominal ultrasound reviewed noted with mild gallbladder wall thickening with the possibility of acute a calculus cholecystitis. Negative for dilated ducts. Possible elevated LFTs secondary to hepatic congestion follow up hepatitis panel advance diet as tolerated PPI Zofran as needed Follow labs The patient was seen and examined at bedside and all new and available data was reviewed in the patients chart. I agree with the above findings, impression and plan. (Patient seen earlier today. Signature stamp does not reflect patient encounter time.). - Peter Santos MD Subjective Subjective Nauseated Objective Last 24 Hour Vital Signs Date Time Temp Pulse Resp B/P (MAP) Pulse Ox O2 Delivery O2 Flow Rate FiO2 05/14/19 08:37 117/74 05/14/19 08:36 90 117/74 05/14/19 05:56 127/83 05/14/19 04:00 98.4 95 18 127/83 (98) 98 05/14/19 04:00 91 05/14/19 00:00 97.6 96 18 118/79 (92) 96 05/14/19 00:00 89 05/13/19 21:06 71 20 97 Room Air 21 05/13/19 21:00 100 99 109 05/13/19 21:00 Nasal Cannula 2.0 05/13/19 20:45 120/52 05/13/19 20:44 89 120/52 05/13/19 20:05 89 20 98 Room Air 21 05/13/19 20:05 97 Nasal Cannula 2.0 28 05/13/19 20:00 94 05/13/19 20:00 98.0 100 18 117/81 (93) 96 05/13/19 16:00 98.5 89 20 120/52 (74) 98 05/13/19 15:40 93 05/13/19 15:14 88 23 97 Room Air 21 7/15/19 12:00 97.8 84 20 122/89 (100) 97 05/13/19 11:48 81 05/13/19 09:58 130/90 05/13/19 09:58 72 130/90 05/13/19 09:00 Nasal Cannula 2.0 05/13/19 08:58 72 21 100 Room Air 21 Intake and Output 05/13/19 05/14/19 19:00 07:00 Intake Total 1080 ml Balance 1080 ml Intake Oral 1080 ml # Voids 6 4 Laboratory Tests Test 05/14/19 06:32 White Blood Count 7.3 K/UL (4.8-10.8) Red Blood Count 5.03 M/UL (4.70-6.10) Hemoglobin 15.0 G/DL (14.2-18.0) Hematocrit 46.6 % (42.0-52.0) Mean Corpuscular Volume 93 FL (80-99) Mean Corpuscular Hemoglobin 29.8 PG (27.0-31.0) Mean Corpuscular Hemoglobin Concent 32.1 G/DL (32.0-36.0) Red Cell Distribution Width 15.8 % (11.6-14.8) H Platelet Count 189 K/UL (150-450) Mean Platelet Volume 6.2 FL (6.5-10.1) L Neutrophils (%) (Auto) 59.6 % (45.0-75.0) Lymphocytes (%) (Auto) 19.6 % (20.0-45.0) L Monocytes (%) (Auto) 15.2 % (1.0-10.0) H Eosinophils (%) (Auto) 2.6 % (0.0-3.0) Basophils (%) (Auto) 3.0 % (0.0-2.0) H Sodium Level 139 MMOL/L (136-145) Potassium Level 4.1 MMOL/L (3.5-5.1) Chloride Level 105 MMOL/L (98-107) Carbon Dioxide Level 27 MMOL/L (21-32) Anion Gap 7 mmol/L (5-15) Blood Urea Nitrogen 18 mg/dL (7-18) Creatinine 1.3 MG/DL (0.55-1.30) Estimat Glomerular Filtration Rate > 60 mL/min (>60) Glucose Level 163 MG/DL (74-106) H Calcium Level 9.0 MG/DL (8.5-10.1) Phosphorus Level 2.5 MG/DL (2.5-4.9) Magnesium Level 1.8 MG/DL (1.8-2.4) Total Bilirubin 2.1 MG/DL (0.2-1.0) H Direct Bilirubin 1.0 MG/DL (0.0-0.3) H Aspartate Amino Transf (AST/SGOT) 158 U/L (15-37) H Alanine Aminotransferase (ALT/SGPT) 378 U/L (12-78) H Alkaline Phosphatase 127 U/L (46-116) H Total Protein 7.0 G/DL (6.4-8.2) Albumin 3.2 G/DL (3.4-5.0) L Globulin 3.8 g/dL Albumin/Globulin Ratio 0.8 (1.0-2.7) L Hepatitis A IgM Antibody Pending Hepatitis B Surface Antigen Pending Hepatitis B Core IgM Antibody Pending Hepatitis C Antibody Pending Height (Feet): 5 Height (Inches): 11.00 Weight (Pounds): 272 General Appearance: WD/WN, no apparent distress, alert Cardiovascular: normal rate Respiratory/Chest: normal breath sounds, no respiratory distress Abdominal Exam: normal bowel sounds, non tender, soft Extremities: normal range of motion, non-tender Batool Wilkinson NP May 14, 2019 08:53
--- NOTE | 2019-05-14 10:34 | Nephrology Progress Note ---
Assessment/Plan Problem List: (1) MARI (acute kidney injury) (2) Hyperkalemia (3) Cardiomyopathy (4) Elevated LFTs Assessment: likely hepatic congestion (5) Nonsustained ventricular tachycardia Assessment Acute renal failure- Cr lower HyperKalemia- resolved ?Underlying CKD Cardiomyopathy Low Ej fx 30% Obesity abnormal elevated LFTs Plan Plan: mag IV add flomax DC Garcia per request Kayexelate as needed Optimize cardiac and pulmonary status Kidney and Liver HARLEEN Urine studies monitor Lytes avoid Nephrotoxics up dose hydralazine Subjective ROS Limited/Unobtainable: No Constitutional: Reports: malaise Objective Objective Last 24 Hour Vital Signs Date Time Temp Pulse Resp B/P (MAP) Pulse Ox O2 Delivery O2 Flow Rate FiO2 05/14/19 09:00 90 89 76 05/14/19 08:51 71 22 100 Room Air 05/14/19 08:50 97 Nasal Cannula 2.0 28 05/14/19 08:50 78 22 97 Room Air 05/14/19 08:45 76 22 97 Room Air 05/14/19 08:37 117/74 05/14/19 08:36 90 117/74 05/14/19 08:15 Nasal Cannula 2.0 05/14/19 08:00 98.2 90 18 117/74 (88) 97 05/14/19 08:00 88 05/14/19 05:56 127/83 05/14/19 04:00 98.4 95 18 127/83 (98) 98 05/14/19 04:00 91 05/14/19 00:00 97.6 96 18 118/79 (92) 96 05/14/19 00:00 89 05/13/19 21:06 71 20 97 Room Air 21 05/13/19 21:00 100 99 109 05/13/19 21:00 Nasal Cannula 2.0 05/13/19 20:45 120/52 05/13/19 20:44 89 120/52 05/13/19 20:05 89 20 98 Room Air 21 05/13/19 20:05 97 Nasal Cannula 2.0 28 05/13/19 20:00 94 05/13/19 20:00 98.0 100 18 117/81 (93) 96 05/13/19 16:00 98.5 89 20 120/52 (74) 98 05/13/19 15:40 93 05/13/19 15:14 88 23 97 Room Air 21 05/13/19 12:00 97.8 84 20 122/89 (100) 97 05/13/19 11:48 81 Intake and Output 05/13/19 05/14/19 19:00 07:00 Intake Total 1080 ml Balance 1080 ml Intake Oral 1080 ml # Voids 6 4 Laboratory Tests 05/14/19 06:32: White Blood Count 7.3, Red Blood Count 5.03, Hemoglobin 15.0, Hematocrit 46.6, Mean Corpuscular Volume 93, Mean Corpuscular Hemoglobin 29.8, Mean Corpuscular Hemoglobin Concent 32.1, Red Cell Distribution Width 15.8H, Platelet Count 189, Mean Platelet Volume 6.2L, Neutrophils (%) (Auto) 59.6, Lymphocytes (%) (Auto) 19.6L, Monocytes (%) (Auto) 15.2H, Eosinophils (%) (Auto) 2.6, Basophils (%) ( Auto) 3.0H, Sodium Level 139, Potassium Level 4.1, Chloride Level 105, Carbon Dioxide Level 27, Anion Gap 7, Blood Urea Nitrogen 18, Creatinine 1.3, Estimat Glomerular Filtration Rate > 60, Glucose Level 163H, Calcium Level 9.0, Phosphorus Level 2.5, Magnesium Level 1.8, Total Bilirubin 2.1H, Direct Bilirubin 1.0H, Aspartate Amino Transf (AST/SGOT) 158H, Alanine Aminotransferase (ALT/SGPT) 378H, Alkaline Phosphatase 127H, Total Protein 7.0, Albumin 3.2L, Globulin 3.8, Albumin/Globulin Ratio 0.8L, Hepatitis A IgM Antibody [Pending], Hepatitis B Surface Antigen [Pending], Hepatitis B Core IgM Antibody [Pending], Hepatitis C Antibody [Pending] Height (Feet): 5 Height (Inches): 11.00 Weight (Pounds): 272 General Appearance: no apparent distress Respiratory/Chest: decreased breath sounds Abdomen: distended Extremities: moderate edema Objective no change Javier Villareal MD May 14, 2019 10:33
[2019-05-14 12:00] VITALS: BP 116/69
--- NOTE | 2019-05-14 12:16 | Cardiac Electrophysiology PN ---
Assessment/Plan Assessment/Plan 1. Exacerbation of CHF with EF 30%. On Lasix 40 mg IV daily, Coreg 12.5 bid, hydralazine 20 tid and Imdur 30 daily . Avoid GLORIA inhibitors and Aldactone in view of renal failure and hyperkalemia 2. 13 beats of nonsustained VT at 19.05 on 05/10/19 and 16 beats at 6.30 on Has had multiple runs of 10-12 beats overnight. Awaiting insurance authorization for transfer for cardiac cath and EP study Patient is agreeable 3. Atrial flutter with rapid ventricular response. On Coreg and Eliquis 5 bid May benefit from EPS and ablation 4. Hypertension. . 5. Acute Renal failure. Creatinine 2.6. Improved to 1.3 6. Hyperbilirubinemia, could be secondary to hepatic congestion due to heart failure. 7. COPD, on nebulizers. 8. Hyperkalemia resolved after Kayoxalate KATY RN,Case management, Dr Villareal and Dr. Epps Subjective Subjective Diuresing well. In atrial flutter rate 80s. Continues with frequent VTs overnight up to 12 beats Awaiting insurance authorization for transfer for cardiac cath and possible EP study Objective Last 24 Hour Vital Signs Date Time Temp Pulse Resp B/P (MAP) Pulse Ox O2 Delivery O2 Flow Rate FiO2 05/14/19 09:00 90 89 76 05/14/19 08:51 71 22 100 Room Air 21 05/14/19 08:50 97 Nasal Cannula 2.0 28 05/14/19 08:50 78 22 97 Room Air 21 05/14/19 08:45 76 22 97 Room Air 21 05/14/19 08:37 117/74 05/14/19 08:36 90 117/74 05/14/19 08:15 Nasal Cannula 2.0 05/14/19 08:00 98.2 90 18 117/74 (88) 97 05/14/19 08:00 88 05/14/19 05:56 127/83 05/14/19 04:00 98.4 95 18 127/83 (98) 98 05/14/19 04:00 91 05/14/19 00:00 97.6 96 18 118/79 (92) 96 05/14/19 00:00 89 05/13/19 21:06 71 20 97 Room Air 21 05/13/19 21:00 100 99 109 05/13/19 21:00 Nasal Cannula 2.0 05/13/19 20:45 120/52 05/13/19 20:44 89 120/52 05/13/19 20:05 89 20 98 Room Air 21 05/13/19 20:05 97 Nasal Cannula 2.0 28 05/13/19 20:00 94 05/13/19 20:00 98.0 100 18 117/81 (93) 96 05/13/19 16:00 98.5 89 20 120/52 (74) 98 05/13/19 15:40 93 05/13/19 15:14 88 23 97 Room Air 21 Intake and Output 05/13/19 05/14/19 19:00 07:00 Intake Total 1080 ml Balance 1080 ml Intake Oral 1080 ml # Voids 6 4 Laboratory Tests Test 05/14/19 06:32 White Blood Count 7.3 K/UL (4.8-10.8) Red Blood Count 5.03 M/UL (4.70-6.10) Hemoglobin 15.0 G/DL (14.2-18.0) Hematocrit 46.6 % (42.0-52.0) Mean Corpuscular Volume 93 FL (80-99) Mean Corpuscular Hemoglobin 29.8 PG (27.0-31.0) Mean Corpuscular Hemoglobin Concent 32.1 G/DL (32.0-36.0) Red Cell Distribution Width 15.8 % (11.6-14.8) H Platelet Count 189 K/UL (150-450) Mean Platelet Volume 6.2 FL (6.5-10.1) L Neutrophils (%) (Auto) 59.6 % (45.0-75.0) Lymphocytes (%) (Auto) 19.6 % (20.0-45.0) L Monocytes (%) (Auto) 15.2 % (1.0-10.0) H Eosinophils (%) (Auto) 2.6 % (0.0-3.0) Basophils (%) (Auto) 3.0 % (0.0-2.0) H Sodium Level 139 MMOL/L (136-145) Potassium Level 4.1 MMOL/L (3.5-5.1) Chloride Level 105 MMOL/L (98-107) Carbon Dioxide Level 27 MMOL/L (21-32) Anion Gap 7 mmol/L (5-15) Blood Urea Nitrogen 18 mg/dL (7-18) Creatinine 1.3 MG/DL (0.55-1.30) Estimat Glomerular Filtration Rate > 60 mL/min (>60) Glucose Level 163 MG/DL (74-106) H Calcium Level 9.0 MG/DL (8.5-10.1) Phosphorus Level 2.5 MG/DL (2.5-4.9) Magnesium Level 1.8 MG/DL (1.8-2.4) Total Bilirubin 2.1 MG/DL (0.2-1.0) H Direct Bilirubin 1.0 MG/DL (0.0-0.3) H Gamma Glutamyl Transpeptidase 382 U/L (5-85) H Aspartate Amino Transf (AST/SGOT) 158 U/L (15-37) H Alanine Aminotransferase (ALT/SGPT) 378 U/L (12-78) H Alkaline Phosphatase 127 U/L (46-116) H Total Protein 7.0 G/DL (6.4-8.2) Albumin 3.2 G/DL (3.4-5.0) L Globulin 3.8 g/dL Albumin/Globulin Ratio 0.8 (1.0-2.7) L Hepatitis A IgM Antibody Pending Hepatitis B Surface Antigen Pending Hepatitis B Core IgM Antibody Pending Hepatitis C Antibody Pending Objective HEAD AND NECK: No JVD. LUNGS: Clear. CARDIOVASCULAR: Shows irregular S1 and S2 with no gallop. ABDOMEN: Soft. EXTREMITIES: 2+ pitting edema. Vipul Stock MD May 14, 2019 12:16
--- NOTE | 2019-05-14 14:39 | Consultation ---
History of Present Illness General Date patient seen: May 14, 2019 Reason for Hospitalization: Dyspnea/Respdistress Present Illness HPI This is a very pleasant 4-year-old male who presented to [facility] with complaints of shortness of breath and respiratory insufficiency and was admitted for care and management. During admission identified to have a leukocytosis abnormal LFTs and initial work-up began by gastroenterology. Leukocytosis improved but LFTs remain elevated. Ultrasound performed identifying no gallstones but gallbladder wall thickening. Surgery was called to evaluate and assist with care and evaluation of possible acalculous cholecystitis. Patient seen, patient evaluate, chart reviewed. Patient denies any nausea vomiting fever chills. Patient denies any abdominal pain. tolerating diet. passing flatus Allergies: Coded Allergies: No Known Allergies (Unverified , 02/06/17) Medication History Scheduled Amoxicillin/Potassium Clav 875-125* (Augmentin 875-125 Tablet*), 1 TAB ORAL TWICE A DAY Carvedilol* (Carvedilol*), 3.125 MG ORAL EVERY 12 HOURS, (Reported) Furosemide* (Lasix*), Unknown Dose ORAL DAILY, (Reported) No Known Medications* (NKM - No Known Medications*), 0 ., (Reported) Potassium Gluconate (Potassium), 25 MG PO DAILY, (Reported) Spironolactone* (Aldactone*), 25 MG ORAL DAILY, (Reported) Patient History History Provided By: Medical Record, PMD Healthcare decision maker Resuscitation status Full Code Advanced Directive on File No Past Medical/Surgical History Past Medical/Surgical History: (1) Dyspnea (2) Acute CHF (3) MARI (acute kidney injury) (4) Hyperkalemia (5) Cardiomyopathy (6) Elevated LFTs (7) Hepatitis (8) Nonsustained ventricular tachycardia (9) Respiratory distress Review of Systems Review of Symptoms General ROS: no weight loss or fever Psychological ROS: no depression or mood changes, no memory loss Ophthalmic ROS: no visual changes or eye irritation ENT ROS: no nasal congestion, hearing loss, dizziness Allergy and Immunology ROS: no allergic symptoms or urticaria Hematological and Lymphatic ROS: no swollen glands, unusual bleeding or bruising Endocrine ROS: no polyuria, polydipsia, weight changes, temperature intolerance Respiratory ROS: no cough, shortness of breath, or wheezing Cardiovascular ROS: no chest pain or dyspnea on exertion Gastrointestinal ROS: denies abdominal pain, no bright red blood in stool. Musculoskeletal ROS: no myalgias or arthralgias Neurological ROS: no TIA or stroke symptoms Dermatological ROS: no new or changing skin lesions, rashes or pruritis Physical Exam Physical Exam General appearance: alert, cooperative, no distress, appears stated age Head: Normocephalic, without obvious abnormality, atraumatic Eyes: conjunctivae/corneas clear. PERRL, EOM's intact. Fundi benign Throat: Lips, mucosa, and tongue normal. Teeth and gums normal Neck: supple, symmetrical, trachea midline, no adenopathy, thyroid: not enlarged, symmetric, no tenderness/mass/nodules, no carotid bruit and no JVD Lungs: clear to auscultation bilaterally Heart: regular rate and rhythm, S1, S2 normal, no murmur, click, rub or gallop Abdomen: soft, non-tender. Bowel sounds normal. No masses, no organomegaly Extremities: extremities normal, atraumatic, no cyanosis or edema Pulses: 2+ and symmetric Skin: Skin color, texture, turgor normal. No rashes or lesions Neurologic: Grossly normal Last 24 Hour Vital Signs Date Time Temp Pulse Resp B/P (MAP) Pulse Ox O2 Delivery O2 Flow Rate FiO2 05/14/19 14:21 70 20 100 Room Air 05/14/19 14:18 132/78 05/14/19 14:15 72 26 97 Room Air 05/14/19 12:00 98.5 73 18 116/69 (85) 98 05/14/19 09:00 90 89 76 05/14/19 08:51 71 22 100 Room Air 05/14/19 08:50 97 Nasal Cannula 2.0 28 05/14/19 08:50 78 22 97 Room Air 05/14/19 08:45 76 22 97 Room Air 05/14/19 08:37 117/74 05/14/19 08:36 90 117/74 05/14/19 08:15 Nasal Cannula 2.0 05/14/19 08:00 98.2 90 18 117/74 (88) 97 05/14/19 08:00 88 05/14/19 05:56 127/83 05/14/19 04:00 98.4 95 18 127/83 (98) 98 05/14/19 04:00 91 05/14/19 00:00 97.6 96 18 118/79 (92) 96 05/14/19 00:00 89 05/13/19 21:06 71 20 97 Room Air 21 05/13/19 21:00 100 99 109 05/13/19 21:00 Nasal Cannula 2.0 05/13/19 20:45 120/52 05/13/19 20:44 89 120/52 05/13/19 20:05 89 20 98 Room Air 21 05/13/19 20:05 97 Nasal Cannula 2.0 28 05/13/19 20:00 94 05/13/19 20:00 98.0 100 18 117/81 (93) 96 05/13/19 16:00 98.5 89 20 120/52 (74) 98 05/13/19 15:40 93 05/13/19 15:14 88 23 97 Room Air 21 Intake and Output 05/13/19 05/14/19 19:00 07:00 Intake Total 1080 ml Balance 1080 ml Intake Oral 1080 ml # Voids 6 4 Laboratory Tests Test 05/14/19 06:32 White Blood Count 7.3 K/UL (4.8-10.8) Red Blood Count 5.03 M/UL (4.70-6.10) Hemoglobin 15.0 G/DL (14.2-18.0) Hematocrit 46.6 % (42.0-52.0) Mean Corpuscular Volume 93 FL (80-99) Mean Corpuscular Hemoglobin 29.8 PG (27.0-31.0) Mean Corpuscular Hemoglobin Concent 32.1 G/DL (32.0-36.0) Red Cell Distribution Width 15.8 % (11.6-14.8) H Platelet Count 189 K/UL (150-450) Mean Platelet Volume 6.2 FL (6.5-10.1) L Neutrophils (%) (Auto) 59.6 % (45.0-75.0) Lymphocytes (%) (Auto) 19.6 % (20.0-45.0) L Monocytes (%) (Auto) 15.2 % (1.0-10.0) H Eosinophils (%) (Auto) 2.6 % (0.0-3.0) Basophils (%) (Auto) 3.0 % (0.0-2.0) H Sodium Level 139 MMOL/L (136-145) Potassium Level 4.1 MMOL/L (3.5-5.1) Chloride Level 105 MMOL/L (98-107) Carbon Dioxide Level 27 MMOL/L (21-32) Anion Gap 7 mmol/L (5-15) Blood Urea Nitrogen 18 mg/dL (7-18) Creatinine 1.3 MG/DL (0.55-1.30) Estimat Glomerular Filtration Rate > 60 mL/min (>60) Glucose Level 163 MG/DL (74-106) H Calcium Level 9.0 MG/DL (8.5-10.1) Phosphorus Level 2.5 MG/DL (2.5-4.9) Magnesium Level 1.8 MG/DL (1.8-2.4) Total Bilirubin 2.1 MG/DL (0.2-1.0) H Direct Bilirubin 1.0 MG/DL (0.0-0.3) H Gamma Glutamyl Transpeptidase 382 U/L (5-85) H Aspartate Amino Transf (AST/SGOT) 158 U/L (15-37) H Alanine Aminotransferase (ALT/SGPT) 378 U/L (12-78) H Alkaline Phosphatase 127 U/L (46-116) H Total Protein 7.0 G/DL (6.4-8.2) Albumin 3.2 G/DL (3.4-5.0) L Globulin 3.8 g/dL Albumin/Globulin Ratio 0.8 (1.0-2.7) L Hepatitis A IgM Antibody Pending Hepatitis B Surface Antigen Pending Hepatitis B Core IgM Antibody Pending Hepatitis C Antibody Pending Height (Feet): 5 Height (Inches): 11.00 Weight (Pounds): 272 Medications Current Medications Medications (Trade) Dose Ordered Sig/Chitra Route PRN Reason Start Time Stop Time Status Last Admin Dose Admin Acetaminophen (Tylenol) 650 mg Q4H PRN ORAL Mild Pain (Pain Scale 1-3) 05/08/19 16:30 06/07/19 16:29 05/08/19 22:36 Apixaban (Eliquis) 5 mg BID ORAL 05/09/19 18:00 06/08/19 17:59 05/14/19 08:37 Carvedilol (Coreg) 12.5 mg EVERY 12 HOURS ORAL 05/09/19 21:00 8/10/19 20:59 05/14/19 08:36 Dextrose (Dextrose 50%) 25 ml Q30M PRN IV Hypoglycemia 05/08/19 16:30 06/07/19 16:29 Dextrose (Dextrose 50%) 50 ml Q30M PRN IV Hypoglycemia 05/08/19 16:30 06/07/19 16:29 Furosemide (Lasix) 40 mg DAILY ORAL 05/13/19 09:00 06/12/19 08:59 05/14/19 08:37 Hydralazine HCl (Apresoline) 20 mg Q8HR ORAL 05/13/19 14:00 06/09/19 20:59 05/14/19 14:18 Hydromorphone HCl (Dilaudid) 1 mg Q6H PRN IVP Severe Pain (Pain Scale 7-10) 05/11/19 10:40 05/18/19 10:39 05/13/19 05:27 Isosorbide Mononitrate (Imdur) 30 mg DAILY ORAL 05/10/19 09:00 06/09/19 08:59 05/14/19 08:37 Ondansetron HCl (Zofran) 4 mg Q6H PRN IVP Nausea & Vomiting 05/09/19 18:00 06/08/19 17:59 05/13/19 05:25 Pantoprazole (Protonix) 40 mg DAILY ORAL 05/15/19 09:00 06/10/19 20:59 Zolpidem Tartrate (Ambien) 5 mg HSPRN PRN ORAL Insomnia 05/08/19 22:15 05/15/19 22:14 05/13/19 20:48 Assessment/Plan Problem List: (1) MARI (acute kidney injury) ICD Codes: N17.9 - Acute kidney failure, unspecified SNOMED: 9510062, 34498624 (2) Hyperkalemia ICD Codes: E87.5 - Hyperkalemia SNOMED: 71849544 (3) Cardiomyopathy ICD Codes: I42.9 - Cardiomyopathy, unspecified SNOMED: 11708909 (4) Elevated LFTs Assessment & Plan: 58 year old male with abnormal LFT's afebrile, HD stable, no abdominal pain no n/v/f/c exam benign US noted and likely artifact Impression: No gallstones. However, there is mild gallbladder wall thickening. Suspect artifact of under distention, could also be due to adjacent hepatocellular disease. Possibility of acute acalculous cholecystitis also be considered. Consider hepatobiliary nuclear scan for further evaluation if clinically indicated Negative for dilated bile ducts Right pleural effusion incidentally noted Note suboptimal visualization of the abdominal aorta No acute surgical intervention planned okay for diet trend labs ?hepatitis pending labs thank you will follow with recs ICD Codes: R94.5 - Abnormal results of liver function studies SNOMED: 085973935, 773102506 (5) Hepatitis ICD Codes: K75.9 - Inflammatory liver disease, unspecified SNOMED: 992712497 (6) Nonsustained ventricular tachycardia ICD Codes: I47.2 - Ventricular tachycardia SNOMED: 866707409 (7) Respiratory distress ICD Codes: R06.03 - Acute respiratory distress SNOMED: 109701062 (8) Dyspnea ICD Codes: R06.00 - Dyspnea, unspecified SNOMED: 152174568 (9) Acute CHF ICD Codes: I50.9 - Heart failure, unspecified SNOMED: 91951319 Jayden Ochoa May 14, 2019 14:39
--- NOTE | 2019-05-14 14:57 | General Progress Note ---
Assessment/Plan Status: stable, unchanged Assessment/Plan: Assessment/Plan: 58 year old male with pmh of CHF (recently diagnosed, unknown EF), COPD and HTN presented with complaints of acute onset SOB since last night admitted for CHF exacerbation. #acute on chronic CHF systolic dysfunction (EF30%) -Cardiology consult appreciated and discussed today with Dr. chauhan regarding the NEED for Cardiac CATH and EP study this admission. NOT AVAILABLE at this Hospital and CM notified and working on HMO approval. - PO lasix started 05/13 -ECHO reviewed -NA restriction -Fluid restriction -strict I/O -daily weights -Cont Coreg, imdur, hydralazine -Cont to tele -serial troponins and EKG - unremarkable #MARI - possible cardiorenal - improved -CTM -Cont lasix -avoid layla -Nephrology consulted -Creatinine improved #Hyperkalemia - resolved -kayaxalate, albuterol, lasix and insulin given -ctm -nephrology consulted #Transaminitis likely 2/2 hepatic congestion 2/2 CHF - improving -cont lasix oral dose -CTM -GI consult appreciated -abd us witth possible artifact per Dr. Muse ( surgery ) consultation for possible achalculous cholecystitis. - Hepatitis panel PENDING - Trend LFT's, etiology not found yet. CHF related, hepatic congestion vs intrinsic liver disease. Will defer final work up of HIDA to GI service. #COPD with mild exacerbation -pulmonary consult appreciated -duonebs Q4PRN for SOB #HTN -cont carvedilol and imdur - Suspect orthostatic hypotension as the patient is having lightheadedness after medications. - orthostatics q shift Code: Registered Radiation Therapist of note may not reflect time of encounter Subjective ROS Limited/Unobtainable: No Constitutional: Reports: no symptoms HEENT: Reports: no symptoms Cardiovascular: Reports: palpitations Gastrointestinal/Abdominal: Reports: no symptoms, abdomen distended Genitourinary: Reports: no symptoms Neurologic/Psychiatric: Reports: no symptoms Endocrine: Reports: no symptoms Hematologic/Lymphatic: Reports: no symptoms Allergies: Coded Allergies: No Known Allergies (Unverified , 02/06/17) Objective Last 24 Hour Vital Signs Date Time Temp Pulse Resp B/P (MAP) Pulse Ox O2 Delivery O2 Flow Rate FiO2 05/14/19 14:21 70 20 100 Room Air 21 7/16/19 14:18 132/78 05/14/19 14:15 72 26 97 Room Air 21 05/14/19 12:00 88 05/14/19 12:00 98.5 73 18 116/69 (85) 98 05/14/19 09:00 90 89 76 05/14/19 08:51 71 22 100 Room Air 21 05/14/19 08:50 97 Nasal Cannula 2.0 28 05/14/19 08:50 78 22 97 Room Air 21 05/14/19 08:45 76 22 97 Room Air 21 05/14/19 08:37 117/74 05/14/19 08:36 90 117/74 05/14/19 08:15 Nasal Cannula 2.0 05/14/19 08:00 98.2 90 18 117/74 (88) 97 05/14/19 08:00 88 05/14/19 05:56 127/83 05/14/19 04:00 98.4 95 18 127/83 (98) 98 05/14/19 04:00 91 05/14/19 00:00 97.6 96 18 118/79 (92) 96 05/14/19 00:00 89 05/13/19 21:06 71 20 97 Room Air 21 05/13/19 21:00 100 99 109 05/13/19 21:00 Nasal Cannula 2.0 05/13/19 20:45 120/52 05/13/19 20:44 89 120/52 05/13/19 20:05 89 20 98 Room Air 21 05/13/19 20:05 97 Nasal Cannula 2.0 28 05/13/19 20:00 94 05/13/19 20:00 98.0 100 18 117/81 (93) 96 05/13/19 16:00 98.5 89 20 120/52 (74) 98 05/13/19 15:40 93 05/13/19 15:14 88 23 97 Room Air 21 Intake and Output 05/13/19 05/14/19 18:59 06:59 Intake Total 1080 ml Balance 1080 ml Intake Oral 1080 ml # Voids 6 4 Laboratory Tests 05/14/19 06:32: White Blood Count 7.3, Red Blood Count 5.03, Hemoglobin 15.0, Hematocrit 46.6, Mean Corpuscular Volume 93, Mean Corpuscular Hemoglobin 29.8, Mean Corpuscular Hemoglobin Concent 32.1, Red Cell Distribution Width 15.8H, Platelet Count 189, Mean Platelet Volume 6.2L, Neutrophils (%) (Auto) 59.6, Lymphocytes (%) (Auto) 19.6L, Monocytes (%) (Auto) 15.2H, Eosinophils (%) (Auto) 2.6, Basophils (%) ( Auto) 3.0H, Sodium Level 139, Potassium Level 4.1, Chloride Level 105, Carbon Dioxide Level 27, Anion Gap 7, Blood Urea Nitrogen 18, Creatinine 1.3, Estimat Glomerular Filtration Rate > 60, Glucose Level 163H, Calcium Level 9.0, Phosphorus Level 2.5, Magnesium Level 1.8, Total Bilirubin 2.1H, Direct Bilirubin 1.0H, Gamma Glutamyl Transpeptidase 382H, Aspartate Amino Transf (AST/ SGOT) 158H, Alanine Aminotransferase (ALT/SGPT) 378H, Alkaline Phosphatase 127H , Total Protein 7.0, Albumin 3.2L, Globulin 3.8, Albumin/Globulin Ratio 0.8L, Hepatitis A IgM Antibody [Pending], Hepatitis B Surface Antigen [Pending], Hepatitis B Core IgM Antibody [Pending], Hepatitis C Antibody [Pending] Height (Feet): 5 Height (Inches): 11.00 Weight (Pounds): 272 General Appearance: WD/WN EENT: PERRL/EOMI Neck: non-tender Cardiovascular: regular rhythm, tachycardia Respiratory/Chest: normal breath sounds Abdomen: normal bowel sounds, distended Neurologic: hose inspector II-XII grossly normal Ermias Epps MD May 14, 2019 14:57
--- NOTE | 2019-05-14 15:19 | NUR ---
CASE MANAGEMENT:REVIEW 05/14/19 SI: AC/CHR CHF. MARI. COPD. AFIB/FLUTTER RUNS OF SVT 98.5 73 18 116/69 98% ON RA IS: HYDRALAZINE PO Q8HRS LASIX PO QD PROTONIX PO Q1 IMDUR PO QD COREG PO Q12 ELIQUIS PO BID DUONEB HHN Q4HRS PRN IV DILAUDID Q6HRS PRN : TELEMETRY DCP: FROM HOME PLAN: TRANSFER TO HIGHER LEVEL OF CARE FOR CARDIAC CATH AND POSSIBLE ABLATION
--- NOTE | 2019-05-14 15:23 | NUR ---
TRANSFER UPDATE ORDER TO TRANSFER TO HIGHER LEVEL OF CARE NOTED SPOKE WITH DON RAMIREZ T: [phone] [id number] WITH [facility] AND ALSO DON CALDERON T: [phone] WITH [facility] ASHLEY AND [facility] HAVE BEEN WORKING ON SECURING AN ACCEPTING PHYSICIAN AND A BED AT A CONTRACTED HOSPITAL AWAIT CALL BACK REGARDING ARRANGEMENTS
[2019-05-14 16:00] VITALS: BP 138/94
[2019-05-14] MEDS ORDERED: ISOSORBIDE MONO30 M1 ORAL (17:39)
[2019-05-14] MEDS ORDERED: APRESOLINE10 MG ORAL (17:39)
[2019-05-14] MEDS ORDERED: COREG12.5 MG ORAL (17:39)
[2019-05-14] MEDS ORDERED: PANTOPRAZOLE SO40 MG ORAL (17:39)
[2019-05-14] MEDS ORDERED: FUROSEMIDE40 MG ORAL (17:39)
--- NOTE | 2019-05-14 17:49 | Discharge Summary ---
Discharge Summary Hospital Course Date of Admission May 08, 2019 at 16:33 Date of Discharge May 14, 2019 Admitting Diagnosis ATRIAL FIBRILATION HPI Jose Quinones is a 58 year old male who was admitted on May 08, 2019 at 16:33 for Atrial Fibrilation Hospital Course Assessment/Plan: 58 year old male with pmh of CHF (recently diagnosed, unknown EF), COPD and HTN presented with complaints of acute onset SOB admitted for CHF exacerbation. #acute on chronic CHF systolic dysfunction (EF30%) -Cardiology consult with Dr. Vipul Stock appreciated and discussed today regarding the NEED for Cardiac CATH and EP study this admission. NOT AVAILABLE at this Hospital and CM notified and working on HMO approval. Transfer to [facility] was approved and Dr. Stock is aware and should follow up with cardiology care in the [facility]. - PO lasix started 05/13 and tolering. -NA restriction -Fluid restriction -strict I/O -daily weights -Cont Coreg, imdur, hydralazine which he is tolerating after a bit of lightheadedness- now resolved. -Cont to telemetry -serial troponins and EKG - unremarkable #MARI - possible cardiorenal - improved -CTM -Cont lasix -avoid layla, avoid spironolactone -Nephrology consulted -Creatinine improved #Hyperkalemia - resolved -kayaxalate, albuterol, lasix and insulin given -ctm -nephrology consulted #Transaminitis likely 2/2 hepatic congestion 2/2 CHF - improving -cont lasix oral dose -GI consult appreciated -abd us with possible artifact per Dr. Muse ( surgery ) consultation for possible achalculous cholecystitis. - Hepatitis panel PENDING - Trend LFT's, etiology not found yet. CHF related, hepatic congestion vs intrinsic liver disease. Will defer final work up of HIDA to GI service if the LFT continue to be elevated. NEEDS FOLLOW UP. #COPD with mild exacerbation -pulmonary consult appreciated -duonebs Q4PRN for SOB #HTN -cont carvedilol and imdur - Suspect orthostatic hypotension as the patient is having lightheadedness after medications. - orthostatics q shift Code: Coding Auditor of note may not reflect time of encounter Discharge Medications New Medications: Apixaban (Eliquis) 5 Mg Tablet 5 MG ORAL BID for 30 Days, #60 TAB Carvedilol (Coreg) 12.5 Mg Tablet 12.5 MG ORAL EVERY 12 HOURS for 30 Days, #60 TAB Furosemide* (Lasix*) 40 Mg Tablet 40 MG ORAL DAILY for 60 Days, #60 TAB Hydralazine HCl (Hydralazine HCl) 10 Mg Tablet 20 MG ORAL Q8HR for 30 Days, #90 TAB Isosorbide Mononitrate (Isosorbide Mononitrate Er) 30 Mg Tab.er.24h 30 MG ORAL DAILY for 30 Days, #30 TAB Pantoprazole* (Pantoprazole*) 40 Mg Tablet.dr 40 MG ORAL DAILY for 30 Days, #30 TAB Discontinued Medications: Amoxicillin/Potassium Clav 875-125* (Augmentin 875-125 Tablet*) 1 Each Tablet 1 TAB ORAL TWICE A DAY for 10 Days, TAB Carvedilol* (Carvedilol*) 3.125 Mg Tablet 3.125 MG ORAL EVERY 12 HOURS, TAB Furosemide* (Lasix*) 20 Mg Tablet Unknown Dose ORAL DAILY, TAB No Known Medications* (NKM - No Known Medications*) . 0 ., 0 Refills Potassium Gluconate (Potassium) 99 Mg Tablet 25 MG PO DAILY, TAB Spironolactone* (Aldactone*) 25 Mg Tablet 25 MG ORAL DAILY, TAB Discharge Condition Upon Discharge: stable Discharge Disposition Patient was discharged to [facility] Discharge Diagnoses: (1) Acute CHF (2) Elevated LFTs (3) Cardiomyopathy (4) MARI (acute kidney injury) (5) Nonsustained ventricular tachycardia Ermias Epps MD May 14, 2019 17:49
--- NOTE | 2019-05-14 19:43 | NUR ---
NURSE NOTES: Paper Twister from [facility] called nurse's station. Authorization received to transport patient to [facility]. Face sheet and discharge order faxed to [facility] [phone]. Fransisca from admitting at [facility] called nurse's station with receiving bed [facility] 310. RN to RN report to be given at [phone]. Transportation arranged with [facility] [phone] with ETA [phone].
--- NOTE | 2019-05-14 19:54 | NUR ---
HAND-OFF: Report given to ANNA Moe.
--- NOTE | 2019-05-14 20:00 | NUR ---
patient received. patient awake alert and oriented x4. patient in no acute distress at this time. patient complains of no pain at this time. patient IV intact patient and asymptomatic urinal at bedside. bed in lowest position and locked. call light within reach. will continue to monitor
--- NOTE | 2019-05-14 20:40 | NUR ---
NURSE NOTES: patient was discharged to [facility] were he will be catheterized. he was taken by EMS on a gurney. his IV was removed and his heart monitor was removed. his vitals were stable upon discharge. he was released with discharge packet. report was given to ANNA HANNA at [facility]. he will be going to [facility] room 317.
--- NOTE | 2019-05-15 11:51 | NUR ---
INSURANCE UPDATED CLINICALS and REVIEW HAVE BEEN FAXED PLEASE FAX THE REVIEW AND CLINICAL TO: [facility] F:[phone]
--- NOTE | 2019-05-15 12:02 | NUR ---
*-* INSURANCE *-* DISCHARGE SUMMARY HAS BEEN FAXED TO: ZECHARIA[facility] Metcalf:[phone]
== END 2019-05-14 20:38 | disposition critical access hospital, planned readmission (94) | DRG 194 ==
LOC: EDBD 12:38 → EMR 14:10 → INTOOBSV 15:56 → 2E 15:56 → OBSVTOIN 16:33 → EDBEDREQ 17:05 → 2E 17:33
DX: I13.0 Hypertensive heart and chronic kidney disease with heart failure and stage 1 through stage 4 chronic kidney disease, or unspecified chronic kidney disease (principal); I47.2 Ventricular tachycardia; N17.9 Acute kidney failure, unspecified; I42.9 Cardiomyopathy, unspecified; I48.92 Unspecified atrial flutter; E87.5 Hyperkalemia; K76.1 Chronic passive congestion of liver; J44.1 Chronic obstructive pulmonary disease with (acute) exacerbation; I50.23 Acute on chronic systolic (congestive) heart failure; N18.9 Chronic kidney disease, unspecified; E66.9 Obesity, unspecified; K75.9 Inflammatory liver disease, unspecified
CPT/HCPCS: 36415; 36600; 71045; 76700; 76770; 80048; 80053; 80061; 80076; 81001; 82140; 82248; 82550; 82553; 82803; 82962; 82977; 83036; 83690; 83735; 83880; 84100; 84132; 84484; 84550; 85025; 86140; 86705; 86709; 86803; 87340; 89050; 93005; 93306; 94640; 94664; 96374; 99285; J2405; J2765; J7620

== ENCOUNTER 2019-07-20 09:05 | Inpatient (IN) | payer MEDICAID ==
[~2019-07-20] VITALS: Ht 180.3 cm; Wt 120.7 kg
[~2019-07-20 09:05] MED LIST changes: +APRESOLINE10 MG ORAL; +CARVEDILOL3.125 MG ORAL; +COREG12.5 MG ORAL; +FUROSEMIDE20 M1 ORAL; +FUROSEMIDE40 MG ORAL; +ISOSORBIDE MONO30 M1 ORAL; +PANTOPRAZOLE SO40 MG ORAL; +POTASSIUM99 M3 PO; +SPIRONOLACTONE25 MG ORAL
[2019-07-20 09:12] VITALS: BP 158/90
--- NOTE | 2019-07-20 09:12 | NUR ---
ED Nurse Note: pt brought by [facility] from home due to SOB since last night. 1 breathing tx given by EMS and pt took 1 breathing tx at home. tachycardia noted on heel painter. Dr. Uribe aware. labored breathing noted. wheezing on both. yellow phlegm noted with intermitten cough. pt able to clear the throat without any difficulty. AAO x4. respirations even. pt c/o chronic pain on right groin area. s/p heart sugery couple months ago. no active bleeding or swelling noted. skin warm to touch. no open wound noted. multiple scratches noted on both arms. on heel painter. RT called for breathing tx. will wait for the further order.
[2019-07-20] MEDS ORDERED: VENTOLIN HFA18 GM INH (09:13)
[2019-07-20] MEDS ORDERED: Ipratropium 0.02% Inh Soln 2.5ml UD HHN ONE (09:15)
[2019-07-20] MEDS ORDERED: Albuterol ud Inhalation HHN ONE ×2 (09:15→11:15)
--- NOTE | 2019-07-20 09:18 | Emergency Room Report ---
History of Present Illness General Source: Patient, EMS Present Illness HPI Patient is brought by paramedics. He started having shortness of breath last night with a cough with some thick yellow phlegm. He has congestive heart failure but also was a smoker. Paramedics found he was wheezing and gave the patient an albuterol treatment with some help. He does not know if he has had steroids in the past. He denies chest pain. A month ago the patient was hospitalized at [facility]. He says they did a catheterization where they might have burned a part of his heart because his heart rate was 30. His heart rate was increased to 50 after that. (This could be a ejection fraction.) They are evaluating whether he needs to have a pacemaker but he does not have one at this time. The patient does take a diuretic. He does have polyuria. He also has edema in his legs but denies any calf tenderness. The edema has improved recently. No dysuria or hematuria. No nausea, vomiting or diarrhea. He does have some itching of his skin in his lower legs. He denies headache or depression. The patient has chronic back pain. Admitted April of this year with these discharge diagnoses: #acute on chronic CHF systolic dysfunction (EF30%) #MARI - possible cardiorenal - improved #Hyperkalemia - resolved #Transaminitis likely 2/2 hepatic congestion 2/2 CHF - improving #COPD with mild exacerbation -#HTN - Allergies: Coded Allergies: SHELLFISH DERIVED (Verified Allergy, Unknown, 07/20/19) Patient History Past Medical History: see triage record Social History: Denies: smoking - Popped 2 years ago Social History Narrative From home Reviewed Nursing Documentation: PMH: Agreed; PSxH: Agreed Nursing Documentation-PMH Hx Cardiac Problems: Yes Hx Hypertension: Yes Hx COPD: Yes Hx Cancer: No Hx Gastrointestinal Problems: No Hx Neurological Problems: No Review of Systems All Other Systems: negative except mentioned in HPI Physical Exam Vital Signs Date Time Temp Pulse Resp B/P (MAP) Pulse Ox O2 Delivery O2 Flow Rate FiO2 07/20/19 09:09 98.6 107 28 158/90 (112) 98 Room Air 07/20/19 09:27 2.0 28 Sp02 EP Interpretation: reviewed, normal General Appearance: alert, GCS 15, non-toxic, mild distress - Minimal, obese, Chronically Ill Eyes: bilateral eye normal inspection, bilateral eye PERRL, bilateral eye EOMI ENT: normal pharynx, moist mucus membranes Neck: supple Respiratory: chest non-tender, no retraction, no accessory muscle use, respiratory distress - minimal, wheezing, expiration Cardiovascular #1: no JVD, tachycardia, edema - This bilaterally Cardiovascular #2: 2+ radial (R) Gastrointestinal: non tender, soft, decreased bowel sounds, overweight Genitourinary: no CVA tenderness Musculoskeletal: no calf tenderness, Jai's Sign negative Neurologic: alert, oriented x3, grossly normal Psychiatric: mood/affect normal Skin: warm/dry, other - Excoriations lower legs Medical Decision Making Diagnostic Impression: Primary Impression: COPD exacerbation Additional Impressions: Ventricular ectopy Cardiomyopathy Qualified Codes: I42.8 - Other cardiomyopathies Elevated brain natriuretic peptide (BNP) level ER Course Patient with a history of congestive heart failure presents with dyspnea and wheezing. Differential includes acute myocardial infarction, exacerbation of congestive heart failure, exacerbation of COPD, bronchitis, pneumonia amongst others. Clinically he does not have evidence of pulmonary embolus at this time although this is a consideration. Evaluation with EKG, chest x-ray and labs. He will be treated with breathing treatments. Also dose of Solu-Medrol might will be given. He was placed on a satellite project site monitor. EKG sinus tachycardia with occasional PVCs and fusion complexes with right axis deviation. No acute injury. Chest x-ray cardiomegaly no pulmonary edema. Labs with high and normal white count. Glucose minimally elevated. BNP elevated. Based on the x-ray Solu-Medrol will be given. Still with exp wheezes after Duoneb. Albuterol ordered. Still with wheezes and purulent sputum. BC and Rocephin ordered. Magnesium also ordered IV. Improved but still with wheezes exp. Patient with good urine output. Patient complains about back pain. [place] given. Examined by Dr. Hernandez in the ED. Patient admitted to the hospital for continued treatment. Laboratory Tests Test 07/20/19 09:10 07/20/19 09:56 White Blood Count 10.7 K/UL (4.8-10.8) Red Blood Count 5.58 M/UL (4.70-6.10) Hemoglobin 15.8 G/DL (14.2-18.0) Hematocrit 49.4 % (42.0-52.0) Mean Corpuscular Volume 89 FL (80-99) Mean Corpuscular Hemoglobin 28.4 PG (27.0-31.0) Mean Corpuscular Hemoglobin Concent 32.1 G/DL (32.0-36.0) Red Cell Distribution Width 14.9 % (11.6-14.8) H Platelet Count 260 K/UL (150-450) Mean Platelet Volume 7.1 FL (6.5-10.1) Neutrophils (%) (Auto) 81.3 % (45.0-75.0) H Lymphocytes (%) (Auto) 10.9 % (20.0-45.0) L Monocytes (%) (Auto) 6.2 % (1.0-10.0) Eosinophils (%) (Auto) 0.6 % (0.0-3.0) Basophils (%) (Auto) 1.0 % (0.0-2.0) Prothrombin Time 11.4 SEC (9.30-11.50) Prothrombin Time INR 1.1 (0.9-1.1) PTT 31 SEC (23-33) Sodium Level 137 MMOL/L (136-145) Potassium Level 4.5 MMOL/L (3.5-5.1) Chloride Level 103 MMOL/L (98-107) Carbon Dioxide Level 25 MMOL/L (21-32) Anion Gap 9 mmol/L (5-15) Blood Urea Nitrogen 13 mg/dL (7-18) Creatinine 1.1 MG/DL (0.55-1.30) Estimate Glomerular Filtration Rate > 60 mL/min (>60) Glucose Level 137 MG/DL (74-106) H Lactic Acid Level 1.00 mmol/L (0.4-2.0) Calcium Level 9.2 MG/DL (8.5-10.1) Total Bilirubin 2.6 MG/DL (0.2-1.0) H Direct Bilirubin 0.8 MG/DL (0.0-0.3) H Aspartate Amino Transferase (AST) 16 U/L (15-37) Alanine Aminotransferase (ALT) 16 U/L (12-78) Alkaline Phosphatase 86 U/L (46-116) Total Creatine Kinase 65 U/L (26-308) Troponin I 0.000 ng/mL (0.000-0.056) Pro-B-Type Natriuretic Peptide 1795 pg/mL (0-125) H Total Protein 8.0 G/DL (6.4-8.2) Albumin 3.8 G/DL (3.4-5.0) Globulin 4.2 g/dL Albumin/Globulin Ratio 0.9 (1.0-2.7) L Lipase 100 U/L (73-393) Urine Color Pale yellow Urine Appearance Clear Urine pH 5 (4.5-8.0) Urine Specific [place] 1.010 (1.005-1.035) Urine Protein 3+ (NEGATIVE) H Urine Glucose (UA) Negative (NEGATIVE) Urine Ketones Negative (NEGATIVE) Urine Blood Negative (NEGATIVE) Urine Nitrite Negative (NEGATIVE) Urine Bilirubin Negative (NEGATIVE) Urine Urobilinogen Normal MG/DL (0.0-1.0) Urine Leukocyte Esterase Negative (NEGATIVE) Urine RBC 0 /HPF (0 - 0) Urine WBC 0-2 /HPF (0 - 0) Urine Squamous Epithelial Cells Occasional /LPF Urine Bacteria Occasional /HPF (NONE) EKG Diagnostic Results Rate: tachycardiac Rhythm: NSR ST Segments: no acute changes Rhythm Strip Diag. Results EP Interpretation: yes Rhythm: other - Sinus tachycardia PVCs and fusion complexes Chest X-Ray Diagnostic Results Chest X-Ray Diagnostic Results : Chest X-Ray Ordered: Yes # of Views/Limited/Complete: 1 View Indication: Shortness of Breath EP Interpretation: Yes Interpretation: no consolidation, no effusion, no pneumothorax, other - Cardiomegaly Impression: Other Electronically Signed by: Electronically signed by Bryn Uribe MD Last Vital Signs Date Time Temp Pulse Resp B/P (MAP) Pulse Ox O2 Delivery O2 Flow Rate FiO2 07/20/19 19:20 89 24 98 Nasal Cannula 2.0 28 07/20/19 15:43 143/89 07/20/19 13:17 98.1 Status: improved Disposition: ADMITTED INPATIENT Condition: Serious Bryn Uribe MD Jul 20, 2019 09:18
--- NOTE | 2019-07-20 09:19 | NUR ---
ED Nurse Note: pt follow with Dr. 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
[2019-07-20] MEDS ORDERED: Solu-MEDROL 125mg Inj IVP ONE (09:30)
[2019-07-20 09:33] LABS: EOSINOPHILS % (AUTO) 0.6 % (0.0-3.0); HEMATOCRIT 49.4 % (42.0-52.0); HEMOGLOBIN 15.8 G/DL (14.2-18.0); LYMPHOCYTES % (AUTO) 10.9 % (20.0-45.0); MEAN CORPUSCULAR VOLUME 89 FL (80-99); MONOCYTES % (AUTO) 6.2 % (1.0-10.0); NEUTROPHILS % (AUTO) 81.3 % (45.0-75.0); PLATELET COUNT 260 K/UL (150-450); RED BLOOD COUNT 5.58 M/UL (4.70-6.10); RED CELL DISTRIBUTION WIDTH 14.9 % (11.6-14.8); WHITE BLOOD COUNT 10.7 K/UL (4.8-10.8)
[2019-07-20 09:38] LABS: INR 1.1 (0.9-1.1)
--- NOTE | 2019-07-20 09:48 | Diagnostic Imaging Report ---
EXAM: XR Chest, 1 View CLINICAL HISTORY: DYSPNEA TECHNIQUE: Frontal view of the chest. COMPARISON: No relevant prior studies available. FINDINGS: Lungs: No consolidation. Pleural space: Unremarkable. No pneumothorax. Heart: cardiomegaly. Mediastinum: Unremarkable. Bones joints: No acute fracture. IMPRESSION: No acute cardiopulmonary disease.
[2019-07-20] MEDS: Albuterol ud Inhalation HHN SCH ×10 (09:55→12:15)
[2019-07-20 10:00] VITALS: BP 138/86
[2019-07-20 10:06] LABS: ANION GAP 9 mmol/L (5-15); BLOOD UREA NITROGEN 13 mg/dL (7-18); CALCIUM 9.2 MG/DL (8.5-10.1); CARBON DIOXIDE 25 MMOL/L (21-32); CHLORIDE 103 MMOL/L (98-107); CREATININE 1.1 MG/DL (0.55-1.30); POTASSIUM 4.5 MMOL/L (3.5-5.1); SODIUM 137 MMOL/L (136-145)
[2019-07-20 10:16] LABS: APPEARANCE,URINE CLEAR; BILIRUBIN, URINE NEGATIVE (NEGATIVE); COLOR,URINE PALE YELLOW; GLUCOSE, URINE (UA) NEGATIVE (NEGATIVE); KETONES,URINE NEGATIVE (NEGATIVE); LEUKOCYTE ESTERASE ,URINE NEGATIVE (NEGATIVE); NITRITE,URINE NEGATIVE (NEGATIVE); PH,URINE 5 (4.5-8.0); PROTEIN,URINE 3+ (NEGATIVE); UROBILINOGEN,URINE NORMAL MG/DL (0.0-1.0)
[2019-07-20 10:17] LABS: ALANINE AMINOTRANSFERASE 16 U/L (12-78); ALBUMIN 3.8 G/DL (3.4-5.0); ALBUMIN/GLOBULIN RATIO 0.9 (1.0-2.7); ALKALINE PHOSPHATASE 86 U/L (46-116); ASPARTATE AMINO TRANSFERASE 16 U/L (15-37); BILIRUBIN,DIRECT 0.8 MG/DL (0.0-0.3); BILIRUBIN,TOTAL 2.6 MG/DL (0.2-1.0); CREATINE KINASE 65 U/L (26-308)
[2019-07-20 11:00] VITALS: BP 118/84
[2019-07-20] MEDS ORDERED: cefTRIAXone 1 GM in NS 55 ML IVPB ONE (11:30)
[2019-07-20 12:00] VITALS: BP 133/85
--- NOTE | 2019-07-20 12:00 | NUR ---
ED Nurse Note: IV removed on left hand due to malfunction.
--- NOTE | 2019-07-20 12:00 | NUR ---
ED Nurse Note: per pt, "I am having pain on by back, can I have some meds." Rn notified Dr. Uribe. will wait for the order.
--- NOTE | 2019-07-20 12:12 | NUR ---
ED Nurse Note: reports given to ANNA Munoz.
[2019-07-20] MEDS ORDERED: HYDROcodone/Acetamin 5/325 tab ORAL ONE (12:15)
[2019-07-20] MEDS ORDERED: Miralax 17gm pkt ORAL PRN (14:15)
[2019-07-20] MEDS ORDERED: Albuterol/Ipratropium 3ml neb HHN PRN ×2 (14:15→23:00)
[2019-07-20] MEDS: Albuterol/Ipratropium 3ml neb INH SCH ×2 (14:37→19:16)
[2019-07-20] MEDS: Carvedilol 12.5mg tab ORAL SCH ×2 (15:43→21:22)
[2019-07-20] MEDS: Oseltamivir 75mg cap ORAL SCH (16:01)
--- NOTE | 2019-07-20 19:50 | NUR ---
HAND-OFF: Report given to RN/Kinsey.
[2019-07-20 20:00] VITALS: BP 169/110
[2019-07-20] MEDS: Heparin 5000 units/ml inj SUBQ SCH (21:21)
[2019-07-20] MEDS: HydrALAZINE 10mg Tab ORAL SCH (21:22)
[2019-07-20 21:23] VITALS: BP 169/110
--- NOTE | 2019-07-20 21:50 | NUR ---
NURSE NOTES: Called and left a message with Dr. Chu regarding pts request for sleeping pill. She ordered the following: - Trazodone 50mg qhs prn Will input order and will continue to monitor.
[2019-07-20] MEDS: TraZODone 50mg tab ORAL PRN (22:04)
--- NOTE | 2019-07-20 23:03 | History and Physical ---
History of Present Illness General Date patient seen: Jul 20, 2019 Time patient seen: 14:00 Reason for Hospitalization: Acute Hypoxic Respiratory Failure 2/2 COPD exacerbation Present Illness HPI 58 year old male with PMHx COPD (not on home O2), Systolic heart failure ( recently diagnosed 04/2019 with EF 30%), hypertension, and GERD presenting with increased cough and SOB x 1 day. Last night went to sleep with productive cough of yellow sputum and woke up this morning with increased SOB and purulent cough. Sputum is yellow. No hemoptysis. No documented fevers, chills, muscle aches or myalgias. No rhinorrhea, sore throat, ear aches. No orthopnea or increased LE swelling. + sick contact from friend who had the "flu." Compliant with medications and diet. Denies chest pain. ED course: 98.6, BP 138-158/86-90, pulse 89-107, respirations 19-28, 96-100 on 2L (not on home O2). WBC 10.76, lactate 1.0, proBNP 1795. CXR negative for infiltrate. Troponin negative. EKG without ST elevations. Given Rocephin, solumedrol 125mg IV x1 and duonebs with improvement in symptoms FMhx Negative for DM or HTN Social Hx Tobacco: quite 2017, 7 pack years Etoh: 3 cans of beer per day for 10-12 years Drug use: none Allergies: Coded Allergies: SHELLFISH DERIVED (Verified Allergy, Unknown, 07/20/19) Medication History Scheduled Albuterol Sulfate (Ventolin Hfa), 2 PUFFS INH EVERY 6 HOURS, (Reported) Carvedilol (Coreg), 12.5 MG ORAL EVERY 12 HOURS Furosemide* (Lasix*), 40 MG ORAL DAILY Hydralazine HCl (Hydralazine HCl), 20 MG ORAL Q8HR Isosorbide Mononitrate (Isosorbide Mononitrate Er), 30 MG ORAL DAILY Pantoprazole* (Pantoprazole*), 40 MG ORAL DAILY Patient History Healthcare decision maker Resuscitation status Full Code Advanced Directive on File Past Medical/Surgical History Past Medical/Surgical History: (1) Hypertension (2) Systolic heart failure (3) Acute respiratory failure with hypoxia (4) Cardiomyopathy (5) COPD exacerbation (6) Acute CHF (7) Bite by animal (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 (9) Dyspnea (10) Respiratory distress Family History Family History: FH: diabetes mellitus Hypertension Review of Systems Constitutional: Reports: malaise; Denies: chills, sweats, fever, weakness Eye: Denies: eye pain, blurred vision, tearing, nose congestion, discharge, other ENT: Denies: ear pain, ear discharge, nose pain, nose congestion, throat pain, throat swelling, mouth pain Respiratory: Reports: cough, shortness of breath, ESCALERA, sputum, other; Denies: orthopnea, stridor, wheezing Cardiovascular: Denies: chest pain, edema, palpitations, syncope, PND, other Gastrointestinal: Denies: abdominal pain, constipation, diarrhea, nausea, vomiting, melena, hematemesis, other Genitourinary: Denies: discharge, dysuria, frequency, hematuria, pain, retention, incontinence, urgency, vag bleed/dc, other Musculoskeletal: Denies: back pain, gout, joint pain, joint swelling, muscle pain, muscle stiffness, other Skin: Reports: no symptoms; Denies: rash, change in color, change in hair/nails , dryness, lesions, other Psychiatric: Denies: prior hx, anxiety, depressed feelings, emotional problems , SI, HI, hallucinations, other Neurological: Denies: headache, numbness, paresthesia, seizure, tingling, tremors, focal weakness, syncope, dizziness, other Endocrine: Denies: excessive sweating, flushing, intolerance to temperature, increased thirst, increased urine, unexplained weight loss, other Hematologic/Lymphatic: Denies: anemia, blood clots, easy bleeding, easy bruising, swollen glands, diathesis, other Physical Exam General Appearance: WD/WN, no apparent distress, alert HEENT: normocephalic, atraumatic, anicteric, mucous membranes moist, PERRL, EOMI, no JVD Neck: non-tender, normal alignment Respiratory/Chest: chest wall non-tender, other - Coarse breath sounds with expiratory wheezing bilaterally. 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 grossly normal, no motor/sensory deficits, alert, oriented x 3 Musculoskeletal: normal muscle bulk, no effusion Last 24 Hour Vital Signs Date Time Temp Pulse Resp B/P (MAP) Pulse Ox O2 Delivery O2 Flow Rate FiO2 07/20/19 21:23 98.0 86 25 169/110 (129) 96 07/20/19 21:22 169/110 07/20/19 21:22 86 169/110 07/20/19 20:00 98.0 86 25 169/110 (129) 96 07/20/19 19:20 89 24 98 Nasal Cannula 2.0 28 07/20/19 19:16 89 22 97 Nasal Cannula 2.0 28 84 18 96 07/20/19 16:49 Nasal Cannula 1.0 Nasal Cannula 1.0 07/20/19 15:43 102 143/89 07/20/19 13:17 98.1 99 25 136/94 98 Nasal Cannula 1.0 28 07/20/19 12:00 96 20 133/85 98 Nasal Cannula 1.0 28 07/20/19 11:20 98 21 100 Nasal Cannula 2.0 96 19 96 07/20/19 11:00 98.3 93 25 118/84 96 Nasal Cannula 2.0 28 07/20/19 10:33 91 22 99 Nasal Cannula 2.0 94 24 99 07/20/19 10:00 90 23 138/86 100 Nasal Cannula 2.0 28 07/20/19 09:53 89 19 99 Nasal Cannula 2.0 91 21 98 07/20/19 09:28 96 19 100 Nasal Cannula 2.0 100 27 99 07/20/19 09:27 100 27 99 Nasal Cannula 2.0 28 07/20/19 09:12 105 26 158/90 100 Room Air 07/20/19 09:12 105 26 Room Air 07/20/19 09:09 98.6 107 28 158/90 (112) 98 Room Air Laboratory Tests Test 07/20/19 09:10 07/20/19 09:56 07/20/19 16:09 07/20/19 22:00 White Blood Count 10.7 K/UL (4.8-10.8) Red Blood Count 5.58 M/UL (4.70-6.10) Hemoglobin 15.8 G/DL (14.2-18.0) Hematocrit 49.4 % (42.0-52.0) Mean Corpuscular Volume 89 FL (80-99) Mean Corpuscular Hemoglobin 28.4 PG (27.0-31.0) Mean Corpuscular Hemoglobin Concent 32.1 G/DL (32.0-36.0) Red Cell Distribution Width 14.9 % (11.6-14.8) H Platelet Count 260 K/UL (150-450) Mean Platelet Volume 7.1 FL (6.5-10.1) Neutrophils (%) (Auto) 81.3 % (45.0-75.0) H Lymphocytes (%) (Auto) 10.9 % (20.0-45.0) L Monocytes (%) (Auto) 6.2 % (1.0-10.0) Eosinophils (%) (Auto) 0.6 % (0.0-3.0) Basophils (%) (Auto) 1.0 % (0.0-2.0) Prothrombin Time 11.4 SEC (9.30-11.50) Prothromb Time International Ratio 1.1 (0.9-1.1) Activated Partial Thromboplast Time 31 SEC (23-33) Sodium Level 137 MMOL/L (136-145) Potassium Level 4.5 MMOL/L (3.5-5.1) Chloride Level 103 MMOL/L (98-107) Carbon Dioxide Level 25 MMOL/L (21-32) Anion Gap 9 mmol/L (5-15) Blood Urea Nitrogen 13 mg/dL (7-18) Creatinine 1.1 MG/DL (0.55-1.30) Estimat Glomerular Filtration Rate > 60 mL/min (>60) Glucose Level 137 MG/DL (74-106) H Lactic Acid Level 1.00 mmol/L (0.4-2.0) Calcium Level 9.2 MG/DL (8.5-10.1) Total Bilirubin 2.6 MG/DL (0.2-1.0) H Direct Bilirubin 0.8 MG/DL (0.0-0.3) H Aspartate Amino Transf (AST/SGOT) 16 U/L (15-37) Alanine Aminotransferase (ALT/SGPT) 16 U/L (12-78) Alkaline Phosphatase 86 U/L (46-116) Total Creatine Kinase 65 U/L (26-308) Troponin I 0.000 ng/mL (0.000-0.056) 0.000 ng/mL (0.000-0.056) Pro-B-Type Natriuretic Peptide 1795 pg/mL (0-125) H Total Protein 8.0 G/DL (6.4-8.2) Albumin 3.8 G/DL (3.4-5.0) Globulin 4.2 g/dL Albumin/Globulin Ratio 0.9 (1.0-2.7) L Lipase 100 U/L (73-393) Urine Color Pale yellow Urine Appearance Clear Urine pH 5 (4.5-8.0) Urine Specific [place] 1.010 (1.005-1.035) Urine Protein 3+ (NEGATIVE) H Urine Glucose (UA) Negative (NEGATIVE) Urine Ketones Negative (NEGATIVE) Urine Blood Negative (NEGATIVE) Urine Nitrite Negative (NEGATIVE) Urine Bilirubin Negative (NEGATIVE) Urine Urobilinogen Normal MG/DL (0.0-1.0) Urine Leukocyte Esterase Negative (NEGATIVE) Urine RBC 0 /HPF (0 - 0) Urine WBC 0-2 /HPF (0 - 0) Urine Squamous Epithelial Cells Occasional /LPF Urine Bacteria Occasional /HPF (NONE) Urine Legionella Antigen Pending Microbiology Date/Time Source Procedure Growth Status 07/20/19 15:51 Nose - Final Complete 07/20/19 15:51 Nose - Final Complete Height (Feet): 5 Height (Inches): 11.00 Weight (Pounds): 269 Medications Current Medications Medications (Trade) Dose Ordered Sig/Chitra Route PRN Reason Start Time Stop Time Status Last Admin Dose Admin Acetaminophen (Tylenol) 650 mg Q4H PRN ORAL Mild Pain (Pain Scale 1-3) 07/20/19 14:15 08/19/19 14:14 Acetaminophen (Tylenol) 650 mg Q4H PRN ORAL fever 07/20/19 14:15 08/19/19 14:14 Albuterol Sulfate (Proventil) 5 mg Q15M HHN 07/20/19 10:00 07/25/19 09:59 07/20/19 10:33 Albuterol/ Ipratropium (Albuterol/ Ipratropium) 3 ml Q6H PRN HHN Shortness of Breath 07/20/19 14:15 07/25/19 14:14 Albuterol/ Ipratropium (Albuterol/ Ipratropium) 3 ml Q6HRT INH 07/20/19 14:37 07/25/19 14:36 07/20/19 19:16 Azithromycin (Zithromax) 500 mg DAILY ORAL 07/21/19 09:00 07/28/19 08:59 Carvedilol (Coreg) 12.5 mg EVERY 12 HOURS ORAL 07/20/19 14:37 08/19/19 14:36 07/20/19 21:22 Ceftriaxone Sodium 1 gm/ Dextrose 55 ml @ 110 mls/hr Q24H IVPB 07/21/19 09:00 07/28/19 08:59 Dextrose (Dextrose 50%) 25 ml Q30M PRN IV Hypoglycemia 07/20/19 14:15 08/19/19 14:14 Dextrose (Dextrose 50%) 50 ml Q30M PRN IV Hypoglycemia 07/20/19 14:15 08/19/19 14:14 Fluticasone Propionate (Flonase) 1 spray DAILY NASAL 07/21/19 09:00 08/20/19 08:59 Heparin Sodium (Porcine) (Heparin 5000 units/ml) 5,000 units EVERY 8 HOURS SUBQ 07/20/19 22:00 08/19/19 21:59 07/20/19 21:21 Hydralazine HCl (Apresoline) 10 mg Q4H PRN IV SBP >160 07/20/19 14:15 08/19/19 14:14 Hydralazine HCl (Apresoline) 20 mg Q8HR ORAL 07/20/19 22:00 08/19/19 21:59 07/20/19 21:22 Isosorbide Mononitrate (Imdur) 30 mg DAILY ORAL 07/21/19 09:00 08/20/19 08:59 Ondansetron HCl (Zofran) 4 mg Q6H PRN IVP Nausea & Vomiting 07/20/19 14:15 08/19/19 14:14 Oseltamivir Phosphate (Tamiflu) 75 mg DAILY ORAL 07/20/19 16:00 07/25/19 15:59 07/20/19 16:01 Pantoprazole (Protonix) 40 mg DAILY ORAL 07/21/19 09:00 08/20/19 08:59 Polyethylene Glycol (Miralax) 17 gm HSPRN PRN ORAL Constipation 07/20/19 14:15 08/19/19 14:14 Prednisone (predniSONE) 40 mg DAILY ORAL 07/20/19 14:37 08/19/19 14:36 07/20/19 15:46 Trazodone HCl (Desyrel) 50 mg BEDTIME PRN ORAL sleep aide 07/20/19 22:00 08/19/19 21:59 07/20/19 22:04 Assessment/Plan Problem List: (1) COPD exacerbation ICD Codes: J44.1 - Chronic obstructive pulmonary disease with (acute) exacerbation SNOMED: 498449205 (2) Hypertension ICD Codes: I10 - Essential (primary) hypertension SNOMED: 92263312 (3) Systolic heart failure ICD Codes: I50.20 - Unspecified systolic (congestive) heart failure SNOMED: 352414924 (4) Acute respiratory failure with hypoxia ICD Codes: J96.01 - Acute respiratory failure with hypoxia SNOMED: 61724362, 056934806 Status: stable Status Narrative 58 year old male with PMHx COPD, systolic heart failure, HTN, GERD p/w with acute hypoxic respiratory failure likely 2/2 COPD exacerbation from viral infection possible developing pneumonia Assessment/Plan: #Acute hypoxic respiratory failure 2/2 COPD exacerbation triggered by likely viral infection. Doubt pneumonia. No infiltrate on CXR but could still be developing. Less likely CHF exacerbation given patient has no orthopnea, LE swelling or JVD. Will need to monitor fluid status very closely #COPD exacerbation - monitor on telemetry - Duoneb Q6hr scheduled and PRN - Prednisone 40mg PO daily x 5 days - Ceftriaxone 1gm IV Q24hr for now - Azithromycin 500mg PO Qd for now - follow up on blood and sputum cultures - send for flu panel, legionella - will attempt to send procalcitonin if available - holding lasix for now. Daily fluid assessment - check troponin x 1 - negative #Systolic Heart Failure with EF 30% in 04/2019, newly diagnosed - holding lasix for now in the setting of possible infection. May need to restart tomorrow - Continue home Coreg 12.5mg PO BID - Continue Isosorbide 30mg PO daily - unclear why patient is not on GLORIA-I. Will need to investivate - Hydralazine 20mg PO Q8hr for afterload reduction #Hypertension, controlled - continue BP meds as above #GERD Continue home pantoprazole 40mg PO daily PPX DVT: Heparin SBQ PT/OT: Ordered, pending IV fluids: none Diet: Cardiac, 2L Fluid restriction Nikita Franco D.O. Jul 20, 2019 23:03
[2019-07-21] VITALS: BP 140/71
[2019-07-21] MEDS: Albuterol/Ipratropium 3ml neb INH SCH ×5 (00:41→20:01)
[2019-07-21 04:00] VITALS: BP 119/87
[2019-07-21] MEDS: HydrALAZINE 10mg Tab ORAL SCH ×3 (05:49→21:56)
[2019-07-21] MEDS: Heparin 5000 units/ml inj SUBQ SCH ×3 (05:51→21:45)
[2019-07-21 07:21] LABS: BASOPHILS % (AUTO) 0.8 % (0.0-2.0); HEMATOCRIT 45.8 % (42.0-52.0); LYMPHOCYTES % (AUTO) 8.5 % (20.0-45.0); MEAN CORPUSCULAR VOLUME 87 FL (80-99); NEUTROPHILS % (AUTO) 84.6 % (45.0-75.0); PLATELET COUNT 151 K/UL (150-450); RED BLOOD COUNT 5.23 M/UL (4.70-6.10); RED CELL DISTRIBUTION WIDTH 14.9 % (11.6-14.8); WHITE BLOOD COUNT 10.2 K/UL (4.8-10.8)
[2019-07-21 08:00] VITALS: BP 146/88
--- NOTE | 2019-07-21 08:09 | NUR ---
HAND-OFF: Report given to ANNA Perales. Pt stable.
[2019-07-21 08:13] LABS: ANION GAP 11 mmol/L (5-15); BLOOD UREA NITROGEN 17 mg/dL (7-18); CALCIUM 9.6 MG/DL (8.5-10.1); CARBON DIOXIDE 22 MMOL/L (21-32); CHLORIDE 104 MMOL/L (98-107); CREATININE 0.9 MG/DL (0.55-1.30); SODIUM 137 MMOL/L (136-145)
--- NOTE | 2019-07-21 08:48 | NUR ---
NURSE NOTES: pt alert and oriented X4. Pt on surveillance monitor no signs of cardiac distress. Pt on O2 @ 1L. Bed is locked and in lowest position. Call light within reach. Will continue to monitor pt and follow plan of care.
[2019-07-21] MEDS ORDERED: Azithromycin 250mg tab ORAL SCH (09:00)
[2019-07-21] MEDS: Guaifenesin/DM 10ml syrup ORAL PRN (09:41)
[2019-07-21] MEDS: Imdur 30mg tab ORAL SCH (09:43)
[2019-07-21] MEDS: Flonase Nasal Inhaler 16gm NASAL SCH (09:45)
[2019-07-21] MEDS: Oseltamivir 75mg cap ORAL SCH (09:45)
[2019-07-21] MEDS: Carvedilol 12.5mg tab ORAL SCH ×2 (09:45→21:00)
[2019-07-21] MEDS: cefTRIAXone 1gm/D5W 55ml IVPB SCH ×2 (09:46)
--- NOTE | 2019-07-21 11:10 | NUR ---
PT Note PT briana completed. Patient was instructed on proper pacing techniques and energy conservation techniques. He was also instructed on HEP. Patient demonstrated and verbalized his understanding. No further PT services needed at this time. Addendum: 07/21/19 at 1111 by DARLING HOOKER PT Amended: Links added.
[2019-07-21 12:00] VITALS: BP 116/78
[2019-07-21] MEDS: Furosemide 40mg tab ORAL SCH (14:08)
[2019-07-21 16:00] VITALS: BP 112/79
--- NOTE | 2019-07-21 17:22 | Cardiology Report ---
APPROVED REPORT EKG Measurement Heart [id number] Sinus tachycardia with occasional premature ventricular complexes and fusion complexes Rightward axis Borderline ECG
--- NOTE | 2019-07-21 18:26 | NUR ---
NURSE NOTES: L/M to report doctor pt has been having more frequent bigeminy and trigeminy PVC's.
--- NOTE | 2019-07-21 18:31 | NUR ---
NURSE NOTES: Dr. Beard is aware of more frequent PVC's only ordered to check electrolytes plus magnesium. Doctor is aware that there is no interlocker in the case.
--- NOTE | 2019-07-21 19:44 | NUR ---
HAND-OFF: Report given to Moy/ANNA.
--- NOTE | 2019-07-21 19:45 | NUR ---
NURSE NOTES: Got report from Angella CASTILLO. Pt in stable condition. Denies any pain. No s/s of distress or discomfort noted. Pt resting in bed comfortably. Bed in low and locked position, call light within reach, bedside table within reach. Continue to monitor.
[2019-07-21 19:47] LABS: ALANINE AMINOTRANSFERASE 10 U/L (12-78); ALBUMIN 3.4 G/DL (3.4-5.0); ALBUMIN/GLOBULIN RATIO 0.9 (1.0-2.7); ALKALINE PHOSPHATASE 63 U/L (46-116); ANION GAP 9 mmol/L (5-15); ASPARTATE AMINO TRANSFERASE 12 U/L (15-37); BILIRUBIN,TOTAL 1.1 MG/DL (0.2-1.0); BLOOD UREA NITROGEN 22 mg/dL (7-18); CALCIUM 9.3 MG/DL (8.5-10.1); CARBON DIOXIDE 25 MMOL/L (21-32); CHLORIDE 104 MMOL/L (98-107); CREATININE 1.3 MG/DL (0.55-1.30); POTASSIUM 4.3 MMOL/L (3.5-5.1); SODIUM 138 MMOL/L (136-145)
[2019-07-21 19:50] LABS: BILIRUBIN,DIRECT 0.4 MG/DL (0.0-0.3)
--- NOTE | 2019-07-21 19:57 | General Progress Note ---
Assessment/Plan Problem List: (1) COPD exacerbation ICD Codes: J44.1 - Chronic obstructive pulmonary disease with (acute) exacerbation SNOMED: 232169870 (2) Hypertension ICD Codes: I10 - Essential (primary) hypertension SNOMED: 43855707 (3) Systolic heart failure ICD Codes: I50.20 - Unspecified systolic (congestive) heart failure SNOMED: 362005008 (4) Acute respiratory failure with hypoxia ICD Codes: J96.01 - Acute respiratory failure with hypoxia SNOMED: 49278476, 984244525 Status: stable Assessment/Plan: 58 year old male with PMHx COPD, systolic heart failure, hypertension, obesity and GERD p/w with productive cough and SOB x 1 day. #Acute hypoxic respiratory failure 2/2 COPD exacerbation triggered by likely viral infection. Cannot rule out pneumonia. No infiltrate on CXR but could still be developing. Less likely CHF exacerbation given patient has no orthopnea , LE swelling or JVD. Will need to monitor fluid status very closely #COPD exacerbation > Flu negative. Sputum culture growing bacteria. +WBCs - labs and imaging reviewed - monitor on telemetry - Duoneb Q6hr scheduled and PRN - Continue Prednisone 40mg PO daily x 5 days - Continue Ceftriaxone 1gm IV Q24hr - Azithromycin 250mg PO Qd - De-escalate pending cultures - follow up on blood and sputum cultures - f/u legionella - restart home lasix #Systolic Heart Failure with EF 30% in 04/2019, newly diagnosed - restart home lasix 40mg PO daily - Continue home Coreg 12.5mg PO BID - Continue Isosorbide 30mg PO daily - unclear why patient is not on GLORIA-I. Will need to investivate - Hydralazine 20mg PO Q8hr for afterload reduction #Hypertension, controlled - continue BP meds as above #GERD Continue home pantoprazole 40mg PO daily #insomnia - discussed sleep hygeine with patient (turning off TV before sleep, etc.) - can give one time dose of benadryl tonight if needed PPX DVT: Heparin SBQ PT/OT: Ordered, pending IV fluids: none Diet: Cardiac, 2L Fluid restriction Subjective Date patient seen: Jul 21, 2019 Time patient seen: 12:50 Constitutional: Denies: chills, diaphoresis, fever, malaise, weakness, other HEENT: Denies: eye pain, blurred vision, tearing, double vision, ear pain, ear discharge, nose pain, nose congestion, throat pain, throat swelling, mouth pain , mouth swelling, other Cardiovascular: Denies: chest pain, edema, irregular heart rate, lightheadedness, palpitations, syncope, other Respiratory: Denies: cough, orthopnea, shortness of breath, SOB with excertion , SOB at rest, sputum, stridor, wheezing, other Gastrointestinal/Abdominal: Denies: abdomen distended, abdominal pain, black stools, tarry stools, blood in stool, constipated, diarrhea, difficulty swallowing, nausea, poor appetite, poor fluid intake, rectal bleeding, other Genitourinary: Denies: burning, discharge, frequency, flank pain, hematuria, incontinence, pain, urgency, other Neurologic/Psychiatric: Denies: anxiety, depressed, emotional problems, headache, numbness, paresthesia, pre-existing deficit, seizure, tingling, tremors, weakness, other Endocrine: Denies: excessive sweating, flushing, intolerance to cold, intolerance to heat, increased hunger, increased thirst, increased urine, unexplained weight gain, unexplained weight loss, other Hematologic/Lymphatic: Denies: anemia, easy bleeding, easy bruising, other Allergies: Coded Allergies: SHELLFISH DERIVED (Verified Allergy, Unknown, 07/20/19) Subjective Patient seen and examined. Breathing is much better today. No acute events overnight. Cough is still there, productive of yellow sputum, intermittent. No hemoptysis. On room air, able to ambulate around the unit Objective Last 24 Hour Vital Signs Date Time Temp Pulse Resp B/P (MAP) Pulse Ox O2 Delivery O2 Flow Rate FiO2 07/21/19 16:00 96.8 79 18 112/79 (90) 97 07/21/19 16:00 78 07/21/19 14:00 99/53 07/21/19 13:16 75 20 97 Room Air 21 73 20 97 07/21/19 12:00 96.3 82 18 116/78 (91) 98 07/21/19 12:00 82 07/21/19 09:45 90 146/88 07/21/19 09:43 146/88 07/21/19 09:19 80 20 97 Room Air 21 83 20 96 07/21/19 09:19 83 20 96 Room Air 21 07/21/19 09:00 Nasal Cannula 1.0 Nasal Cannula 1.0 07/21/19 08:00 87 07/21/19 08:00 98.3 90 20 146/88 (107) 96 07/21/19 05:49 119/87 07/21/19 04:00 98.0 78 20 119/87 (98) 97 07/21/19 04:00 80 07/21/19 01:19 82 18 98 21 80 20 94 07/21/19 00:00 98.1 83 20 140/71 (94) 96 07/21/19 00:00 89 07/20/19 21:23 98.0 86 25 169/110 (129) 96 07/20/19 21:22 169/110 07/20/19 21:22 86 169/110 07/20/19 21:00 Nasal Cannula 1.0 Nasal Cannula 1.0 07/20/19 20:00 92 07/20/19 20:00 98.0 86 25 169/110 (129) 96 Intake and Output 07/20/19 07/21/19 19:00 07:00 Intake Total 305 ml Output Total 700 ml Balance -395 ml Intake Oral 240 ml IV Total 65 ml Output Urine Total 700 ml # Voids 1 # Bowel Movements 1 Laboratory Tests 07/20/19 22:00: Urine Legionella Antigen [Pending] 07/21/19 06:53: White Blood Count 10.2, Red Blood Count 5.23, Hemoglobin 15.0, Hematocrit 45.8, Mean Corpuscular Volume 87, Mean Corpuscular Hemoglobin 28.7, Mean Corpuscular Hemoglobin Concent 32.7, Red Cell Distribution Width 14.9H, Platelet Count 151, Mean Platelet Volume 9.9, Neutrophils (%) (Auto) 84.6H, Lymphocytes (%) (Auto) 8.5L, Monocytes (%) (Auto) 6.0, Eosinophils (%) (Auto) 0.0, Basophils (%) (Auto ) 0.8, Sodium Level 137, Potassium Level 5.0, Chloride Level 104, Carbon Dioxide Level 22, Anion Gap 11, Blood Urea Nitrogen 17, Creatinine 0.9, Estimat Glomerular Filtration Rate > 60, Glucose Level 130H, Calcium Level 9.6 07/21/19 19:10: Sodium Level 138, Potassium Level 4.3, Chloride Level 104, Carbon Dioxide Level 25, Anion Gap 9, Blood Urea Nitrogen 22H, Creatinine 1.3, Estimat Glomerular Filtration Rate > 60, Glucose Level 176H, Calcium Level 9.3, Magnesium Level 2.1 , Total Bilirubin 1.1H, Direct Bilirubin [Pending], Aspartate Amino Transf (AST/ SGOT) 12L, Alanine Aminotransferase (ALT/SGPT) 10L, Alkaline Phosphatase 63, Total Protein 7.0, Albumin 3.4, Globulin 3.6, Albumin/Globulin Ratio 0.9L Height (Feet): 5 Height (Inches): 11.00 Weight (Pounds): 269 General Appearance: WD/WN, no apparent distress, alert EENT: PERRL/EOMI Neck: non-tender, normal alignment, supple Cardiovascular: normal peripheral pulses, normal rate, regular rhythm, regularly irregular, no JVD Respiratory/Chest: other - Course breath sounds bilaterally. Expiratory wheezing Abdomen: normal bowel sounds, non tender, soft Extremities: normal range of motion, non-tender, normal inspection, other - thickenened skin Edema: other - 1+ LE edema bilaterally Skin: normal pigmentation, warm/dry Nikita Franco D.O. Jul 21, 2019 19:57
[2019-07-21 20:00] VITALS: BP 112/86
[2019-07-22] VITALS: BP 124/89
[2019-07-22] MEDS: Albuterol/Ipratropium 3ml neb INH SCH ×4 (00:47→19:39)
[2019-07-22 04:00] VITALS: BP 105/73
[2019-07-22] MEDS: Guaifenesin/DM 10ml syrup ORAL PRN ×2 (05:07→10:20)
[2019-07-22] MEDS: HydrALAZINE 10mg Tab ORAL SCH ×2 (06:00→13:31)
[2019-07-22] MEDS: Heparin 5000 units/ml inj SUBQ SCH ×3 (06:52→21:52)
[2019-07-22 07:09] LABS: BASOPHILS % (AUTO) 0.8 % (0.0-2.0); EOSINOPHILS % (AUTO) 0.1 % (0.0-3.0); HEMATOCRIT 45.2 % (42.0-52.0); HEMOGLOBIN 14.6 G/DL (14.2-18.0); LYMPHOCYTES % (AUTO) 16.1 % (20.0-45.0); MEAN CORPUSCULAR VOLUME 88 FL (80-99); MONOCYTES % (AUTO) 7.7 % (1.0-10.0); NEUTROPHILS % (AUTO) 75.3 % (45.0-75.0); PLATELET COUNT 253 K/UL (150-450); RED BLOOD COUNT 5.13 M/UL (4.70-6.10); RED CELL DISTRIBUTION WIDTH 15.1 % (11.6-14.8); WHITE BLOOD COUNT 13.3 K/UL (4.8-10.8)
--- NOTE | 2019-07-22 07:30 | NUR ---
HAND-OFF: Report given to Herminio CASTILLO.
--- NOTE | 2019-07-22 07:31 | NUR ---
NURSE NOTES: Report received from ANNA Winter. Pt is sitting up in bed eating breakfast, with no signs of distress. A+Ox4, denies pain/SOB. Respirations are even and unlabored on 2 L NC. IV site is intact and saline locked. Bed is at lowest position, brakes engaged, siderails x2, bed alarm on, and call light within reach. Pt is in stable condition at this time; will continue to monitor.
[2019-07-22 07:43] LABS: ANION GAP 9 mmol/L (5-15); BLOOD UREA NITROGEN 22 mg/dL (7-18); CALCIUM 9.5 MG/DL (8.5-10.1); CARBON DIOXIDE 25 MMOL/L (21-32); CHLORIDE 106 MMOL/L (98-107); CREATININE 1.1 MG/DL (0.55-1.30); POTASSIUM 4.2 MMOL/L (3.5-5.1); SODIUM 140 MMOL/L (136-145)
[2019-07-22 08:00] VITALS: BP 117/58
[2019-07-22] MEDS: Furosemide 40mg tab ORAL SCH (08:37)
[2019-07-22] MEDS: cefTRIAXone 1gm/D5W 55ml IVPB SCH ×2 (08:37)
[2019-07-22] MEDS: Flonase Nasal Inhaler 16gm NASAL SCH (08:37)
[2019-07-22] MEDS: Oseltamivir 75mg cap ORAL SCH (08:37)
[2019-07-22] MEDS: Imdur 30mg tab ORAL SCH (08:39)
[2019-07-22] MEDS: Carvedilol 12.5mg tab ORAL SCH ×2 (08:39→21:50)
[2019-07-22] MEDS ORDERED: Azithromycin 250mg tab ORAL SCH (09:00)
--- NOTE | 2019-07-22 09:15 | NUR ---
NURSE NOTES: Dr. Singletary aware of patient's multiple PVCs. She consulted Dr. Stock.
--- NOTE | 2019-07-22 10:35 | NUR ---
NURSE NOTES: Patient having multiple PVCs. He also had some second degree AVB down to [address] Stock who ordered STAT tropnin, EKG, and echo. Echo already done. EKG done and blood drawn. EKG shows PACs and PVCs. Troponin pending.
--- NOTE | 2019-07-22 10:56 | General Progress Note ---
Assessment/Plan Status: stable Subjective Allergies: Coded Allergies: SHELLFISH DERIVED (Verified Allergy, Unknown, 07/20/19) Objective Last 24 Hour Vital Signs Date Time Temp Pulse Resp B/P (MAP) Pulse Ox O2 Delivery O2 Flow Rate FiO2 07/22/19 08:39 117/58 07/22/19 08:39 83 117/58 07/22/19 08:17 Nasal Cannula 2.0 Nasal Cannula 2.0 07/22/19 08:00 79 07/22/19 08:00 98.0 83 20 117/58 (77) 98 07/22/19 07:07 70 18 98 Room Air 21 68 18 97 07/22/19 06:43 98.6 07/22/19 06:00 105/73 07/22/19 04:00 86 07/22/19 04:00 98.4 79 20 105/73 (84) 97 07/22/19 00:00 98.6 85 20 124/89 (101) 98 07/22/19 00:00 80 07/21/19 21:56 112/86 07/21/19 21:00 86 112/86 07/21/19 21:00 Nasal Cannula 1.0 Nasal Cannula 1.0 07/21/19 20:00 78 20 98 Room Air 21 07/21/19 20:00 82 20 99 Room Air 21 78 20 98 07/21/19 20:00 98.4 86 20 112/86 (95) 97 07/21/19 20:00 84 07/21/19 16:00 96.8 79 18 112/79 (90) 97 07/21/19 16:00 78 07/21/19 14:00 99/53 07/21/19 13:16 75 20 97 Room Air 21 73 20 97 07/21/19 12:00 96.3 82 18 116/78 (91) 98 07/21/19 12:00 82 Intake and Output 07/21/19 07/22/19 18:59 06:59 Intake Total 140 ml 140 ml Output Total 100 ml Balance 140 ml 40 ml Intake Oral 140 ml 140 ml Output Urine Total 100 ml # Voids 7 3 # Bowel Movements 1 Laboratory Tests 07/21/19 19:10: Sodium Level 138, Potassium Level 4.3, Chloride Level 104, Carbon Dioxide Level 25, Anion Gap 9, Blood Urea Nitrogen 22H, Creatinine 1.3, Estimat Glomerular Filtration Rate > 60, Glucose Level 176H, Calcium Level 9.3, Magnesium Level 2.1 , Total Bilirubin 1.1H, Direct Bilirubin 0.4H, Aspartate Amino Transf (AST/SGOT ) 12L, Alanine Aminotransferase (ALT/SGPT) 10L, Alkaline Phosphatase 63, Total Protein 7.0, Albumin 3.4, Globulin 3.6, Albumin/Globulin Ratio 0.9L 07/22/19 06:53: Sodium Level 140, Potassium Level 4.2, Chloride Level 106, Carbon Dioxide Level 25, Anion Gap 9, Blood Urea Nitrogen 22H, Creatinine 1.1, Estimat Glomerular Filtration Rate > 60, Glucose Level 99, Calcium Level 9.5, White Blood Count 13.3H, Red Blood Count 5.13, Hemoglobin 14.6, Hematocrit 45.2, Mean Corpuscular Volume 88, Mean Corpuscular Hemoglobin 28.5, Mean Corpuscular Hemoglobin Concent 32.4, Red Cell Distribution Width 15.1H, Platelet Count 253#, Mean Platelet Volume 7.0, Neutrophils (%) (Auto) 75.3H, Lymphocytes (%) (Auto) 16.1L , Monocytes (%) (Auto) 7.7, Eosinophils (%) (Auto) 0.1, Basophils (%) (Auto) 0.8 Height (Feet): 5 Height (Inches): 11.00 Weight (Pounds): 269 Timmy Singletary M.D. Jul 22, 2019 10:56
--- NOTE | 2019-07-22 11:12 | General Progress Note ---
Assessment/Plan Status: stable Assessment/Plan: 58 year old male with PMHx COPD, systolic heart failure, hypertension, obesity and GERD p/w with productive cough and SOB x 1 day. He tells me today he wears a life vest. He has been having frequent PVCs on telemetry #Acute hypoxic respiratory failure 2/2 COPD exacerbation triggered by likely viral infection. Cannot rule out pneumonia. No infiltrate on CXR but could still be developing. Less likely CHF exacerbation given patient has no orthopnea , LE swelling or JVD. Will need to monitor fluid status very closely #COPD exacerbation > Flu negative. Sputum culture growing bacteria. +WBCs - labs and imaging reviewed - monitor on telemetry - Duoneb Q6hr scheduled and PRN - Continue Prednisone 40mg PO daily x 5 days - Continue Ceftriaxone 1gm IV Q24hr - Azithromycin 250mg PO Qd - De-escalate pending cultures - follow up on blood and sputum cultures - f/u legionella - restart home lasix #Systolic Heart Failure with EF 30% in 04/2019, newly diagnosed - restart home lasix 40mg PO daily - Continue home Coreg 12.5mg PO BID - Continue Isosorbide 30mg PO daily - unclear why patient is not on GLORIA-I. Will need to investigate - Hydralazine 20mg PO Q8hr for afterload reduction -Cardiology consult with Dr. chauhan -Repeat Echo -Monitor electrolytes #Hypertension, controlled - continue BP meds as above #GERD Continue home pantoprazole 40mg PO daily #insomnia - discussed sleep hygeine with patient (turning off TV before sleep, etc.) can give one time dose of benadryl tonight if needed PPX DVT: Heparin SBQ PT/OT: Ordered, pending IV fluids: none Diet: Cardiac, 2L Fluid restriction Subjective Date patient seen: Jul 22, 2019 ROS Limited/Unobtainable: No HEENT: Denies: no symptoms, eye pain, blurred vision, tearing, double vision, ear pain, ear discharge, nose pain, nose congestion, throat pain, throat swelling, mouth pain, mouth swelling, other Cardiovascular: Denies: no symptoms, chest pain, edema, irregular heart rate, lightheadedness, palpitations, syncope, other Respiratory: Reports: cough, shortness of breath; Denies: no symptoms, orthopnea, SOB with excertion, SOB at rest, sputum, stridor, wheezing, other Gastrointestinal/Abdominal: Denies: no symptoms, abdomen distended, abdominal pain, black stools, tarry stools, blood in stool, constipated, diarrhea, difficulty swallowing, nausea, poor appetite, poor fluid intake, rectal bleeding , vomiting, other Genitourinary: Denies: no symptoms, burning, discharge, frequency, flank pain, hematuria, incontinence, pain, urgency, other Neurologic/Psychiatric: Denies: no symptoms, anxiety, depressed, emotional problems, headache, numbness, paresthesia, pre-existing deficit, seizure, tingling, tremors, weakness, other Endocrine: Denies: no symptoms, excessive sweating, flushing, intolerance to cold, intolerance to heat, increased hunger, increased thirst, increased urine, unexplained weight gain, unexplained weight loss, other Hematologic/Lymphatic: Denies: no symptoms, anemia, easy bleeding, easy bruising, other Allergies: Coded Allergies: SHELLFISH DERIVED (Verified Allergy, Unknown, 07/20/19) Subjective Seen and examined cough and phlegm better Sees Dr. Chauhan outpatient, s/p cardioversion. Wears a life vest at home, however didn't put it on after shower immediately before coming to the hospital. A lot of PVCs on telemetry Denies chest pain Objective Last 24 Hour Vital Signs Date Time Temp Pulse Resp B/P (MAP) Pulse Ox O2 Delivery O2 Flow Rate FiO2 07/22/19 08:39 117/58 07/22/19 08:39 83 117/58 07/22/19 08:17 Nasal Cannula 2.0 Nasal Cannula 2.0 07/22/19 08:00 79 07/22/19 08:00 98.0 83 20 117/58 (77) 98 07/22/19 07:07 70 18 98 Room Air 21 68 18 97 07/22/19 06:43 98.6 07/22/19 06:00 105/73 07/22/19 04:00 86 07/22/19 04:00 98.4 79 20 105/73 (84) 97 07/22/19 00:00 98.6 85 20 124/89 (101) 98 07/22/19 00:00 80 07/21/19 21:56 112/86 07/21/19 21:00 86 112/86 07/21/19 21:00 Nasal Cannula 1.0 Nasal Cannula 1.0 07/21/19 20:00 78 20 98 Room Air 21 07/21/19 20:00 82 20 99 Room Air 21 78 20 98 07/21/19 20:00 98.4 86 20 112/86 (95) 97 07/21/19 20:00 84 07/21/19 16:00 96.8 79 18 112/79 (90) 97 07/21/19 16:00 78 07/21/19 14:00 99/53 07/21/19 13:16 75 20 97 Room Air 21 73 20 97 07/21/19 12:00 96.3 82 18 116/78 (91) 98 07/21/19 12:00 82 Intake and Output 07/21/19 07/22/19 18:59 06:59 Intake Total 140 ml 140 ml Output Total 100 ml Balance 140 ml 40 ml Intake Oral 140 ml 140 ml Output Urine Total 100 ml # Voids 7 3 # Bowel Movements 1 Laboratory Tests 07/21/19 19:10: Sodium Level 138, Potassium Level 4.3, Chloride Level 104, Carbon Dioxide Level 25, Anion Gap 9, Blood Urea Nitrogen 22H, Creatinine 1.3, Estimat Glomerular Filtration Rate > 60, Glucose Level 176H, Calcium Level 9.3, Magnesium Level 2.1 , Total Bilirubin 1.1H, Direct Bilirubin 0.4H, Aspartate Amino Transf (AST/SGOT ) 12L, Alanine Aminotransferase (ALT/SGPT) 10L, Alkaline Phosphatase 63, Total Protein 7.0, Albumin 3.4, Globulin 3.6, Albumin/Globulin Ratio 0.9L 07/22/19 06:53: Sodium Level 140, Potassium Level 4.2, Chloride Level 106, Carbon Dioxide Level 25, Anion Gap 9, Blood Urea Nitrogen 22H, Creatinine 1.1, Estimat Glomerular Filtration Rate > 60, Glucose Level 99, Calcium Level 9.5, White Blood Count 13.3H, Red Blood Count 5.13, Hemoglobin 14.6, Hematocrit 45.2, Mean Corpuscular Volume 88, Mean Corpuscular Hemoglobin 28.5, Mean Corpuscular Hemoglobin Concent 32.4, Red Cell Distribution Width 15.1H, Platelet Count 253#, Mean Platelet Volume 7.0, Neutrophils (%) (Auto) 75.3H, Lymphocytes (%) (Auto) 16.1L , Monocytes (%) (Auto) 7.7, Eosinophils (%) (Auto) 0.1, Basophils (%) (Auto) 0.8 07/22/19 10:50: Troponin I [Pending] Height (Feet): 5 Height (Inches): 11.00 Weight (Pounds): 269 Objective General Appearance: WD/WN, no apparent distress, alert, obese EENT: PERRL/EOMI Neck: non-tender, normal alignment, supple Cardiovascular: irregular rhythm , no m/r/g, no JVD Respiratory/Chest: Course breath sounds bilaterally. No wheezing, no rales Abdomen: normal bowel sounds, non tender, soft Extremities: normal range of motion, non-tender, normal inspection, other - thickenened skin Edema: 1+ LE edema bilaterally Skin: normal pigmentation, warm/dry Timmy Singletary M.D. Jul 22, 2019 11:12
--- NOTE | 2019-07-22 11:53 | NUR ---
NURSE NOTES: 2Decho 20 %/ troponin negative/ EKG showing PACs and PVCs. Dr. Stock aware; no new orders given.
[2019-07-22 12:00] VITALS: BP 104/55
--- NOTE | 2019-07-22 12:05 | NUR ---
*-* INSURANCE *-* ALL AVAILABLE CLINICALS FAXED TO: [facility] [phone] Work Fax Primary Work Fax Secondary DC PLANNING NEEDS Addendum: 07/23/19 at 1037 by BRICE MAYS CM [facility] Tracking#[id number] [employer]:: Cher Alexander#[phone]
--- NOTE | 2019-07-22 13:53 | Infectious Diseases Prog Note ---
Assessment/Plan Assessment/Plan Full consult to follow: A) 1) copd, uri/bronchitis, + sputum production, ? CAP 2) arrhythmia/heart block - ? azithromycin 3) pmh noted 4) allergies - shellfish P) 1) ceftriaxone, discontinue azithromycin 2) f/u chest x-ray and sputum culture 3) d/w Dr. Singletary 4) thank you Subjective Allergies: Coded Allergies: SHELLFISH DERIVED (Verified Allergy, Unknown, 07/20/19) Objective Vital Signs Last 24 Hour Vital Signs Date Time Temp Pulse Resp B/P (MAP) Pulse Ox O2 Delivery O2 Flow Rate FiO2 07/22/19 13:31 104/57 07/22/19 12:32 72 18 99 Room Air 21 70 18 98 07/22/19 12:00 78 07/22/19 12:00 98.5 79 20 104/55 (71) 98 07/22/19 08:39 117/58 07/22/19 08:39 83 117/58 07/22/19 08:17 Nasal Cannula 2.0 Nasal Cannula 2.0 07/22/19 08:00 79 07/22/19 08:00 98.0 83 20 117/58 (77) 98 07/22/19 07:07 70 18 98 Room Air 21 68 18 97 07/22/19 06:43 98.6 07/22/19 06:00 105/73 07/22/19 04:00 86 07/22/19 04:00 98.4 79 20 105/73 (84) 97 07/22/19 00:00 98.6 85 20 124/89 (101) 98 07/22/19 00:00 80 07/21/19 21:56 112/86 07/21/19 21:00 86 112/86 07/21/19 21:00 Nasal Cannula 1.0 Nasal Cannula 1.0 07/21/19 20:00 78 20 98 Room Air 21 07/21/19 20:00 82 20 99 Room Air 21 78 20 98 07/21/19 20:00 98.4 86 20 112/86 (95) 97 07/21/19 20:00 84 07/21/19 16:00 96.8 79 18 112/79 (90) 97 07/21/19 16:00 78 07/21/19 14:00 99/53 Height (Feet): 5 Height (Inches): 11.00 Weight (Pounds): 269 Microbiology Date/Time Source Procedure Growth Status 07/20/19 11:45 Blood Blood Culture - Preliminary NO GROWTH AFTER 24 HOURS Resulted 07/20/19 11:30 Blood Blood Culture - Preliminary NO GROWTH AFTER 24 HOURS Resulted 07/20/19 20:00 Sputum Expectorated Gram Stain - Final Complete 07/20/19 20:00 Sputum Expectorated Sputum Culture - Final NORMAL UPPER RESPIRATORY SANTOS PRESENT Complete 07/20/19 15:51 Nose - Final Complete 07/20/19 15:51 Nose - Final Complete Laboratory Tests Test 07/21/19 19:10 07/22/19 06:53 07/22/19 10:50 Sodium Level 138 MMOL/L (136-145) 140 MMOL/L (136-145) Potassium Level 4.3 MMOL/L (3.5-5.1) 4.2 MMOL/L (3.5-5.1) Chloride Level 104 MMOL/L (98-107) 106 MMOL/L (98-107) Carbon Dioxide Level 25 MMOL/L (21-32) 25 MMOL/L (21-32) Anion Gap 9 mmol/L (5-15) 9 mmol/L (5-15) Blood Urea Nitrogen 22 mg/dL (7-18) H 22 mg/dL (7-18) H Creatinine 1.3 MG/DL (0.55-1.30) 1.1 MG/DL (0.55-1.30) Estimat Glomerular Filtration Rate > 60 mL/min (>60) > 60 mL/min (>60) Glucose Level 176 MG/DL (74-106) H 99 MG/DL (74-106) Calcium Level 9.3 MG/DL (8.5-10.1) 9.5 MG/DL (8.5-10.1) Magnesium Level 2.1 MG/DL (1.8-2.4) Total Bilirubin 1.1 MG/DL (0.2-1.0) H Direct Bilirubin 0.4 MG/DL (0.0-0.3) H Aspartate Amino Transf (AST/SGOT) 12 U/L (15-37) L Alanine Aminotransferase (ALT/SGPT) 10 U/L (12-78) L Alkaline Phosphatase 63 U/L (46-116) Total Protein 7.0 G/DL (6.4-8.2) Albumin 3.4 G/DL (3.4-5.0) Globulin 3.6 g/dL Albumin/Globulin Ratio 0.9 (1.0-2.7) L White Blood Count 13.3 K/UL (4.8-10.8) H Red Blood Count 5.13 M/UL (4.70-6.10) Hemoglobin 14.6 G/DL (14.2-18.0) Hematocrit 45.2 % (42.0-52.0) Mean Corpuscular Volume 88 FL (80-99) Mean Corpuscular Hemoglobin 28.5 PG (27.0-31.0) Mean Corpuscular Hemoglobin Concent 32.4 G/DL (32.0-36.0) Red Cell Distribution Width 15.1 % (11.6-14.8) H Platelet Count 253 K/UL (150-450) # Mean Platelet Volume 7.0 FL (6.5-10.1) Neutrophils (%) (Auto) 75.3 % (45.0-75.0) H Lymphocytes (%) (Auto) 16.1 % (20.0-45.0) L Monocytes (%) (Auto) 7.7 % (1.0-10.0) Eosinophils (%) (Auto) 0.1 % (0.0-3.0) Basophils (%) (Auto) 0.8 % (0.0-2.0) Troponin I 0.000 ng/mL (0.000-0.056) Current Medications Medications (Trade) Dose Ordered Sig/Chitra Route PRN Reason Start Time Stop Time Status Last Admin Dose Admin Acetaminophen (Tylenol) 650 mg Q4H PRN ORAL Mild Pain (Pain Scale 1-3) 07/20/19 14:15 08/19/19 14:14 07/22/19 06:13 Acetaminophen (Tylenol) 650 mg Q4H PRN ORAL fever 07/20/19 14:15 08/19/19 14:14 Albuterol/ Ipratropium (Albuterol/ Ipratropium) 3 ml Q4HR PRN HHN Shortness of Breath 07/20/19 23:00 07/25/19 14:14 07/21/19 01:22 Albuterol/ Ipratropium (Albuterol/ Ipratropium) 3 ml Q6HRT INH 07/20/19 14:37 07/25/19 14:36 07/22/19 12:32 Azithromycin (Zithromax) 250 mg DAILY ORAL 07/22/19 09:00 07/24/19 08:59 07/22/19 08:36 Carvedilol (Coreg) 12.5 mg EVERY 12 HOURS ORAL 07/20/19 14:37 08/19/19 14:36 07/22/19 08:39 Ceftriaxone Sodium 1 gm/ Dextrose 55 ml @ 110 mls/hr Q24H IVPB 07/21/19 09:00 07/28/19 08:59 07/22/19 08:37 Dextrose (Dextrose 50%) 25 ml Q30M PRN IV Hypoglycemia 07/20/19 14:15 08/19/19 14:14 Dextrose (Dextrose 50%) 50 ml Q30M PRN IV Hypoglycemia 07/20/19 14:15 08/19/19 14:14 Fluticasone Propionate (Flonase) 1 spray DAILY NASAL 07/21/19 09:00 08/20/19 08:59 07/22/19 08:37 Furosemide (Lasix) 40 mg DAILY ORAL 07/21/19 13:45 08/20/19 13:44 07/22/19 08:37 Guaifenesin/ Dextromethorphan (Robitussin DM Syrup) 10 ml Q4H PRN ORAL For Cough 07/21/19 06:15 08/20/19 06:14 07/22/19 10:20 Heparin Sodium (Porcine) (Heparin 5000 units/ml) 5,000 units EVERY 8 HOURS SUBQ 07/20/19 22:00 08/19/19 21:59 07/22/19 13:46 Hydralazine HCl (Apresoline) 10 mg Q4H PRN IV SBP >160 07/20/19 14:15 08/19/19 14:14 Hydralazine HCl (Apresoline) 20 mg Q8HR ORAL 07/20/19 22:00 08/19/19 21:59 07/21/19 05:49 Isosorbide Mononitrate (Imdur) 30 mg DAILY ORAL 07/21/19 09:00 08/20/19 08:59 07/22/19 08:39 Ondansetron HCl (Zofran) 4 mg Q6H PRN IVP Nausea & Vomiting 07/20/19 14:15 08/19/19 14:14 Oseltamivir Phosphate (Tamiflu) 75 mg DAILY ORAL 07/20/19 16:00 07/25/19 15:59 07/22/19 08:37 Pantoprazole (Protonix) 40 mg DAILY ORAL 07/21/19 09:00 08/20/19 08:59 07/22/19 08:37 Polyethylene Glycol (Miralax) 17 gm HSPRN PRN ORAL Constipation 07/20/19 14:15 08/19/19 14:14 Prednisone (predniSONE) 40 mg DAILY ORAL 07/23/19 09:00 08/19/19 14:36 Trazodone HCl (Desyrel) 50 mg BEDTIME PRN ORAL sleep aide 07/20/19 22:00 08/19/19 21:59 07/20/19 22:04 Apoorva Ellington MD Jul 22, 2019 13:53
--- NOTE | 2019-07-22 14:02 | Cardiac Electrophysiology PN ---
Subjective Subjective 1933657 Objective Last 24 Hour Vital Signs Date Time Temp Pulse Resp B/P (MAP) Pulse Ox O2 Delivery O2 Flow Rate FiO2 07/22/19 13:31 104/57 07/22/19 12:32 72 18 99 Room Air 21 70 18 98 07/22/19 12:00 78 07/22/19 12:00 98.5 79 20 104/55 (71) 98 07/22/19 08:39 117/58 07/22/19 08:39 83 117/58 07/22/19 08:17 Nasal Cannula 2.0 Nasal Cannula 2.0 07/22/19 08:00 79 07/22/19 08:00 98.0 83 20 117/58 (77) 98 07/22/19 07:07 70 18 98 Room Air 21 68 18 97 07/22/19 06:43 98.6 07/22/19 06:00 105/73 07/22/19 04:00 86 07/22/19 04:00 98.4 79 20 105/73 (84) 97 07/22/19 00:00 98.6 85 20 124/89 (101) 98 07/22/19 00:00 80 07/21/19 21:56 112/86 07/21/19 21:00 86 112/86 07/21/19 21:00 Nasal Cannula 1.0 Nasal Cannula 1.0 07/21/19 20:00 78 20 98 Room Air 21 07/21/19 20:00 82 20 99 Room Air 21 78 20 98 07/21/19 20:00 98.4 86 20 112/86 (95) 97 07/21/19 20:00 84 07/21/19 16:00 96.8 79 18 112/79 (90) 97 07/21/19 16:00 78 Intake and Output 07/21/19 07/22/19 18:59 06:59 Intake Total 140 ml 140 ml Output Total 100 ml Balance 140 ml 40 ml Intake Oral 140 ml 140 ml Output Urine Total 100 ml # Voids 7 3 # Bowel Movements 1 Laboratory Tests Test 07/21/19 19:10 07/22/19 06:53 07/22/19 10:50 Sodium Level 138 MMOL/L (136-145) 140 MMOL/L (136-145) Potassium Level 4.3 MMOL/L (3.5-5.1) 4.2 MMOL/L (3.5-5.1) Chloride Level 104 MMOL/L (98-107) 106 MMOL/L (98-107) Carbon Dioxide Level 25 MMOL/L (21-32) 25 MMOL/L (21-32) Anion Gap 9 mmol/L (5-15) 9 mmol/L (5-15) Blood Urea Nitrogen 22 mg/dL (7-18) H 22 mg/dL (7-18) H Creatinine 1.3 MG/DL (0.55-1.30) 1.1 MG/DL (0.55-1.30) Estimat Glomerular Filtration Rate > 60 mL/min (>60) > 60 mL/min (>60) Glucose Level 176 MG/DL (74-106) H 99 MG/DL (74-106) Calcium Level 9.3 MG/DL (8.5-10.1) 9.5 MG/DL (8.5-10.1) Magnesium Level 2.1 MG/DL (1.8-2.4) Total Bilirubin 1.1 MG/DL (0.2-1.0) H Direct Bilirubin 0.4 MG/DL (0.0-0.3) H Aspartate Amino Transf (AST/SGOT) 12 U/L (15-37) L Alanine Aminotransferase (ALT/SGPT) 10 U/L (12-78) L Alkaline Phosphatase 63 U/L (46-116) Total Protein 7.0 G/DL (6.4-8.2) Albumin 3.4 G/DL (3.4-5.0) Globulin 3.6 g/dL Albumin/Globulin Ratio 0.9 (1.0-2.7) L White Blood Count 13.3 K/UL (4.8-10.8) H Red Blood Count 5.13 M/UL (4.70-6.10) Hemoglobin 14.6 G/DL (14.2-18.0) Hematocrit 45.2 % (42.0-52.0) Mean Corpuscular Volume 88 FL (80-99) Mean Corpuscular Hemoglobin 28.5 PG (27.0-31.0) Mean Corpuscular Hemoglobin Concent 32.4 G/DL (32.0-36.0) Red Cell Distribution Width 15.1 % (11.6-14.8) H Platelet Count 253 K/UL (150-450) # Mean Platelet Volume 7.0 FL (6.5-10.1) Neutrophils (%) (Auto) 75.3 % (45.0-75.0) H Lymphocytes (%) (Auto) 16.1 % (20.0-45.0) L Monocytes (%) (Auto) 7.7 % (1.0-10.0) Eosinophils (%) (Auto) 0.1 % (0.0-3.0) Basophils (%) (Auto) 0.8 % (0.0-2.0) Troponin I 0.000 ng/mL (0.000-0.056) Microbiology Date/Time Source Procedure Growth Status 07/20/19 11:45 Blood Blood Culture - Preliminary NO GROWTH AFTER 24 HOURS Resulted 07/20/19 11:30 Blood Blood Culture - Preliminary NO GROWTH AFTER 24 HOURS Resulted 07/20/19 20:00 Sputum Expectorated Gram Stain - Final Complete 07/20/19 20:00 Sputum Expectorated Sputum Culture - Final NORMAL UPPER RESPIRATORY SANTOS PRESENT Complete 07/20/19 15:51 Nose - Final Complete 07/20/19 15:51 Nose - Final Complete Vipul Stock MD Jul 22, 2019 14:02
--- NOTE | 2019-07-22 14:05 | NUR ---
SWALLOW SCREEN: REFERRED BY DR. RAND. PATIENT SEEN FOR SWALLOW SCREEN MOSTLY (NO INDICATION FOR SPEECH EVAL AND MD LIKELY CONCERNED ABOUT SWALLOWING SOME PT WITH COPD HAVE SWALLOW PROBLEMS RELATED TO RESPIRATORY ISSUES. CHART REVIEW REVEALED MOSTLY ACUTE ISSUES WITH COPD EXACERBATION AND HYPOXIC RESP FAILURE. H/O SMOKING AND ETOH AND ON GERD MEDS GIVEN SWALLOW SCREEN USING QUESTIONNAIRE EAT-10 AND PATIENT DENIED PROBLEMS WITH ALL QUESTIONS. INTAKE IS 100% ON REG TEXTURE AND THIN LIQUIDS W/O OVERT ASPIRATION PER RN. LUNGS ARE CLEAR PER CXR. PLAN: WILL D/C FROM SKILLED ROTARY SHEAR OPERATOR SERVICE AT THIS TIME SINCE PATIENT APPEARS TO HAVE A GROSSLY FUNCTIONAL SWALLOW AND NO NEURO DX (UNLIKELY SILENT ASP RISK). CONTINUE WITH CURRENT DIET/LIQUIDS WITH GENERAL REFLUX PRECAUTIONS HE IS ON GERD MEDS. CHART R
[2019-07-22 16:00] VITALS: BP 134/76
--- NOTE | 2019-07-22 19:19 | NUR ---
HAND-OFF: Report given to Levy RN. Patient stable. Endorsed that pt is SR with PVCs.
--- NOTE | 2019-07-22 19:49 | Cardiology Report ---
APPROVED REPORT EXAM: Two-dimensional and M-mode echocardiogram with Doppler and color Doppler. INDICATION Congestive Heart Failure M-Mode DIMENSIONS IVSd1.0 (0.7-1.1cm)Left Atrium (MM)4.3 (1.6-4.0cm) LVDd6.8 (3.5-5.6cm)Aortic Root2.7 (2.0-3.7cm) PWd1.1 (0.7-1.1cm)Aortic Cusp Exc.1.9 (1.5-2.0cm) LVDs6.1 (2.5-4.0cm) PWs1.4 cm Technically difficult study due to poor acoustic windows. Four chamber dilated cardiomyopathy. Severe global left ventricular hypokinesia with diastolic inward septal wall deviation or D-shaped septum s/o increased right ventricular pressure and/or volume overload. Left ventricular ejection fraction is estimated to be 20%. Anterior Echo-free space, may be due to pericardial fat or effusion. Severe left and right atrial enlargement. Moderate right ventricular enlargement with reduced RV systolic function. Focal aortic valve sclerosis with adequate cusp excursion. Mildly thickened mitral valve leaflets with normal excursion. Mild mitral annulus and aortic root calcification. Pulmonic valve not well visualized. Normal tricuspid valve structure. IVC dilated at 2.5 cm without physiological collapse, estimated RAP is 20 mmHg. A color flow and spectral Doppler study was performed and revealed: Trace aortic regurgitation. Mild mitral regurgitation. Left ventricular diastolic function could not be determined due to A-Fib, however elevated E/E' is suggestive of increased intracardiac filling pressure. Mild to moderate tricuspid regurgitation. Tricuspid systolic velocities suggests peak right ventricular systolic pressure of 48 mmHg, consistent with moderate pulmonary hypertension. No pulmonic regurgitation present.
[2019-07-22 20:00] VITALS: BP 125/90
--- NOTE | 2019-07-22 20:00 | Consultation ---
DATE OF CONSULTATION: 07/22/2019 CARDIOLOGY CONSULTATION CONSULTING PHYSICIAN: Vipul Stock M.D. REFERRING PHYSICIAN: Tobi Monte M.D. REASON FOR CONSULTATION: Management of congestive heart failure as well as ventricular tachycardia. HISTORY OF PRESENT ILLNESS: The patient is a very pleasant 58-year-old gentleman under my cardiology care with history of hypertension, severe nonischemic dilated cardiomyopathy, confirmed by cardiac catheterization at [facility]. The patient has history of atrial flutter, underwent successful HANNY and atrial flutter ablation by me on May 17, 2019 at [facility]. The patient also has ejection fraction of 15% and has a Life Vest and after August 05, 2019 he was supposed to be upgraded to a defibrillator if ejection fraction remains less than 35%. The patient came to the hospital with increasing shortness of breath of one-day duration as well as productive cough with yellowish sputum with purulent discharge. The patient denies any hemoptysis. Denies any orthopnea or lower extremity edema. The patient's BNP was also more than 1700. The patient received IV antibiotic and Solu-Medrol and was admitted. Of note, the patient has remained in sinus rhythm since the ablation also when saw him in the office. Repeat echocardiogram was performed and showed ejection fraction of only 20%. The patient also continues to have runs of nonsustained ventricular tachycardia up to 7 beats. REVIEW OF SYSTEMS: Review of systems was negative other than what was mentioned in the history of present illness. PAST MEDICAL HISTORY: As mentioned above. FAMILY HISTORY: Noncontributory. SOCIAL HISTORY: He lives at home, does smoke or drink alcohol. MEDICATIONS: Include Coreg, Lasix, hydralazine, Isordil, Protonix, and albuterol. PHYSICAL EXAMINATION: VITAL SIGNS: Show blood pressure of 104/57, pulse 72, respirations 18, and temperature is 98. HEAD AND NECK: Shows mild JVD. LUNGS: Coarse rhonchi. CARDIOVASCULAR: Regular S1 and S2 with no gallop or murmur. ABDOMEN: Soft. EXTREMITIES: Trace pitting edema. LABORATORY AND DIAGNOSTIC DATA: Labs show white count of 13.7, hemoglobin, 14.7, hematocrit of 45.5, and platelet count of 253. Sodium is 140, potassium 4.2, BUN of 22, creatinine 1.1, and glucose of 99. Troponin negative x2. ASSESSMENT AND PLAN: 1. Exacerbation of congestive heart failure in a patient with severe nonischemic dilated cardiomyopathy with ejection fraction of around 15 to 20%. Ejection fraction has not improved despite flutter ablation, despite antiarrhythmic therapy, and guideline directed medical therapy. Continue the patient on Isordil 30 mg daily, Lasix 40 mg daily, and hydralazine 20 mg every 8 hours as well as Coreg 12.5 mg. Please see medical therapy ablation was on May 17, 2019. If the ejection fraction does not improve after August 05, 2019 we will upgrade to a defibrillator in the meantime. 2. Frequent PVC and nonsustained ventricular tachycardia. The patient has a LifeVest on already. 3. Status post renal failure that has resolved. His creatinine now is 1.1. I would simplify his regimen with changing the hydralazine and nitrate to just lisinopril 10 mg daily and Aldactone to his medical regimen. 4. Cough and productive sputum. The patient is on prednisone and antibiotic. Further evaluation by Dr. Ellington. Thank you very much for allowing me to participate in the care of this patient. Please do not hesitate to contact me for any questions regarding my evaluation. Sincerely, Vipul Stock M.D. DR: Gael JOB#: [id number] CC:
--- NOTE | 2019-07-22 20:08 | NUR ---
NURSE NOTES: Received patient from Mikki CASTILLO, in stable condition, AOx4, denies pain at this time, sitting in chair by the bedside, watching tv, bed low&locked , call light within reach will continue to monitor and reassess.
--- NOTE | 2019-07-22 20:55 | NUR ---
CASE MANAGEMENT: REVIEW 58Y/MALE BIBA FROM HOME CC: SOB . S/P CARDIAC CATH AT [facility] / PACEMAKER EVAL SI: COPD EXACERBATION T 98.6 HR 107 RR 28 BP 158/90 SAT 99% NC/2L GLUCOSE 130 TROP 0.000 IS: ATROVENT HHN X1 ALBUTEROL HHN X1 SOLU MEDROL IV X1 CEFTRIAXONE IV X1 MAG SULFATE IM X1 CARDIO CONSULTED TELEMETRY UNIT STATUS DCP: PATIENT IS FROM HOME
[2019-07-22] MEDS: TraZODone 50mg tab ORAL PRN (22:55)
[2019-07-23] VITALS: BP 122/88
--- NOTE | 2019-07-23 00:38 | NUR ---
HAND-OFF: Report given to ANNA Gongora, patient in stable condition, plan of care endorsed.
--- NOTE | 2019-07-23 00:39 | NUR ---
NURSE NOTES: Received report from ANNA Leonard. Patient is asleep, lying in semi leach's; resting comfortably. No signs of acute cardiorespiratory distress noted. Checked IV site and flushed. No erythema, bleeding or infiltration noted. Bed at lowest position, brakes on, siderails x2. Call light within reach. Will continue to monitor.
[2019-07-23] MEDS: Albuterol/Ipratropium 3ml neb INH SCH ×5 (01:00→19:34)
[2019-07-23 04:00] VITALS: BP 116/88
--- NOTE | 2019-07-23 05:13 | NUR ---
NURSE NOTES: Resting throughout the night. No significant change of condition noted. Will continue to monitor.
[2019-07-23] MEDS: Heparin 5000 units/ml inj SUBQ SCH ×3 (06:31→21:07)
[2019-07-23 06:52] LABS: BASOPHILS % (AUTO) 1.5 % (0.0-2.0); EOSINOPHILS % (AUTO) 0.3 % (0.0-3.0); HEMATOCRIT 43.7 % (42.0-52.0); HEMOGLOBIN 14.1 G/DL (14.2-18.0); LYMPHOCYTES % (AUTO) 22.6 % (20.0-45.0); MEAN CORPUSCULAR VOLUME 88 FL (80-99); MONOCYTES % (AUTO) 9.2 % (1.0-10.0); NEUTROPHILS % (AUTO) 66.4 % (45.0-75.0); PLATELET COUNT 228 K/UL (150-450); RED BLOOD COUNT 4.98 M/UL (4.70-6.10); RED CELL DISTRIBUTION WIDTH 14.9 % (11.6-14.8); WHITE BLOOD COUNT 9.8 K/UL (4.8-10.8)
[2019-07-23 07:24] LABS: ANION GAP 8 mmol/L (5-15); BLOOD UREA NITROGEN 23 mg/dL (7-18); CALCIUM 8.9 MG/DL (8.5-10.1); CARBON DIOXIDE 25 MMOL/L (21-32); CHLORIDE 104 MMOL/L (98-107); SODIUM 137 MMOL/L (136-145)
--- NOTE | 2019-07-23 07:25 | NUR ---
HAND-OFF: Report given to ANNA Nieto. Plan of care endorsed.
--- NOTE | 2019-07-23 07:28 | NUR ---
NURSE NOTES: Report received from ANNA Gongora. Pt is lying comfortably in semi-fowlers. A+Ox4, denies pain/SOB. Respirations are even and unlabored on 2 L NC. IV site in intact and saline locked. Bed is at lowest position, brakes engaged, siderails x2, bed alarm on, and call light within reach. Pt is in stable condition at this time; will continue to monitor.
[2019-07-23 08:00] VITALS: BP 129/80
--- NOTE | 2019-07-23 08:28 | NUR ---
RADIOLOGY DEPT., CHEST X-RAY DONE.-P.DYE
[2019-07-23] MEDS: cefTRIAXone 1gm/D5W 55ml IVPB SCH ×2 (08:37)
[2019-07-23] MEDS: Flonase Nasal Inhaler 16gm NASAL SCH (08:37)
[2019-07-23] MEDS: Oseltamivir 75mg cap ORAL SCH (08:39)
[2019-07-23] MEDS: Lisinopril 10mg tab ORAL SCH (08:39)
[2019-07-23] MEDS: Carvedilol 12.5mg tab ORAL SCH ×2 (08:39→21:05)
[2019-07-23] MEDS: Spironolactone 25mg tab ORAL SCH (08:39)
--- NOTE | 2019-07-23 08:50 | General Progress Note ---
Assessment/Plan Status: stable Assessment/Plan: 58 year old male with PMHx COPD, systolic heart failure, hypertension, obesity and GERD p/w with productive cough and SOB x 1 day. He tells me today he wears a life vest. He has been having frequent PVCs on telemetry and 5 beats of non sustained v tach. #Acute hypoxic respiratory failure 2/2 COPD exacerbation triggered by likely viral infection. Cannot rule out pneumonia. No infiltrate on CXR but could still be developing. Less likely CHF exacerbation given patient has no orthopnea , mild LE swelling and mild JVD. #COPD exacerbation > Flu negative. Sputum culture normal respiratory jaswant. - labs and imaging reviewed - monitor on telemetry - Duoneb Q6hr scheduled and PRN - Continue Prednisone 40mg PO daily x 5 days - Continue Ceftriaxone 1gm IV Q24hr - Azithromycin 250mg PO Qd stopped as it's arrhythmogenic. ID consult appreciated. -Tamiflu - follow up on blood and sputum cultures - f/u legionella # Exacerbation of systolic congestive heart failure in a patient with severe nonischemic dilated cardiomyopathy with ejection fraction of around 15 to 20%. Ejection fraction has not improved despite flutter ablation (05/17), despite antiarrhythmic therapy, and guideline directed medical therapy. -Cardiology consult with Dr. Stock appreciated -Continue Isordil 30 mg daily -Lasix 40 mg daily, change to IV -DC hydralazine and nitrate to Lisinopril 10 and Aldactone. -Continue Coreg 12.5mg BID - If the ejection fraction does not improve after August 05, 2019 cardiology will upgrade to a defibrillator #Frequent PVC and nonsustained ventricular tachycardia. The patient has a LifeVest on already. I asked if a family member could bring his vest to the hsopital prior to discharge #MARI- resolved #Hypertension, controlled- continue BP meds as above #GERD. Continue home pantoprazole 40mg PO daily #insomnia - discussed sleep hygeine with patient (turning off TV before sleep, etc.) can give melatonin tonight if needed PPX DVT: Heparin SBQ PT/OT: Ordered, pending IV fluids: none Diet: Cardiac, 2L Fluid restriction plan of care discussed with Dr. Stock, patient and RN. I spent 40 minutes on this encounter. >50% spent on counselling and care coordination. Subjective Date patient seen: Jul 23, 2019 ROS Limited/Unobtainable: No Constitutional: Reports: other - insomnia ; Denies: no symptoms, chills, diaphoresis, fever, malaise, weakness HEENT: Denies: no symptoms, eye pain, blurred vision, tearing, double vision, ear pain, ear discharge, nose pain, nose congestion, throat pain, throat swelling, mouth pain, mouth swelling, other Cardiovascular: Reports: edema; Denies: no symptoms, chest pain, irregular heart rate, lightheadedness, palpitations, syncope, other Respiratory: Reports: cough, shortness of breath, sputum; Denies: no symptoms, orthopnea, SOB with excertion, SOB at rest, stridor, wheezing, other Gastrointestinal/Abdominal: Denies: no symptoms, abdomen distended, abdominal pain, black stools, tarry stools, blood in stool, constipated, diarrhea, difficulty swallowing, nausea, poor appetite, poor fluid intake, rectal bleeding , vomiting, other Genitourinary: Denies: no symptoms, burning, discharge, frequency, flank pain, hematuria, incontinence, pain, urgency, other Neurologic/Psychiatric: Denies: no symptoms, anxiety, depressed, emotional problems, headache, numbness, paresthesia, pre-existing deficit, seizure, tingling, tremors, weakness, other Endocrine: Denies: no symptoms, excessive sweating, flushing, intolerance to cold, intolerance to heat, increased hunger, increased thirst, increased urine, unexplained weight gain, unexplained weight loss, other Hematologic/Lymphatic: Denies: no symptoms, anemia, easy bleeding, easy bruising, other Allergies: Coded Allergies: SHELLFISH DERIVED (Verified Allergy, Unknown, 07/20/19) Subjective seen, sitting in chair insomnia due to phlegm, says no over sob or orthopnea tele; Frequent PVCs, also NSVT 5 beats Seen by cardiology. Objective Last 24 Hour Vital Signs Date Time Temp Pulse Resp B/P (MAP) Pulse Ox O2 Delivery O2 Flow Rate FiO2 07/23/19 08:00 98.3 94 20 129/80 (96) 98 07/23/19 07:44 84 18 99 Room Air 21 81 18 97 07/23/19 04:00 97.2 77 19 116/88 (97) 98 07/23/19 04:00 73 07/23/19 01:43 88 18 99 Room Air 21 85 18 98 07/23/19 00:00 97.9 64 18 122/88 (99) 98 07/23/19 00:00 74 07/22/19 21:50 61 125/90 07/22/19 21:00 Nasal Cannula 2.0 Nasal Cannula 2.0 07/22/19 20:00 84 07/22/19 20:00 97.5 61 19 125/90 (102) 97 07/22/19 19:39 84 18 98 Room Air 21 82 18 94 07/22/19 16:00 76 07/22/19 16:00 97.1 80 20 134/76 (95) 98 07/22/19 13:31 104/57 07/22/19 12:32 72 18 99 Room Air 21 70 18 98 07/22/19 12:00 78 07/22/19 12:00 98.5 79 20 104/55 (71) 98 07/22/19 08:39 117/58 07/22/19 08:39 83 117/58 Intake and Output 07/22/19 07/23/19 19:00 07:00 Intake Total 655 ml Balance 655 ml Intake Oral 600 ml IV Total 55 ml # Voids 2 2 Laboratory Tests 07/22/19 10:50: Troponin I 0.000 07/23/19 06:26: White Blood Count 9.8, Red Blood Count 4.98, Hemoglobin 14.1L, Hematocrit 43.7, Mean Corpuscular Volume 88, Mean Corpuscular Hemoglobin 28.4, Mean Corpuscular Hemoglobin Concent 32.3, Red Cell Distribution Width 14.9H, Platelet Count 228, Mean Platelet Volume 7.6, Neutrophils (%) (Auto) 66.4, Lymphocytes (%) (Auto) 22.6, Monocytes (%) (Auto) 9.2, Eosinophils (%) (Auto) 0.3, Basophils (%) (Auto ) 1.5, Sodium Level 137, Potassium Level 4.0, Chloride Level 104, Carbon Dioxide Level 25, Anion Gap 8, Blood Urea Nitrogen 23H, Creatinine 1.0, Estimat Glomerular Filtration Rate > 60, Glucose Level 95, Calcium Level 8.9 Height (Feet): 5 Height (Inches): 11.00 Weight (Pounds): 269 Objective General Appearance: WD/WN, no apparent distress, alert, obese EENT: PERRL/EOMI Neck: non-tender, normal alignment, supple Cardiovascular: irregular rhythm , no m/r/g, + JVD Respiratory/Chest: Course breath sounds bilaterally. No wheezing, no rales Abdomen: normal bowel sounds, non tender, soft Extremities: normal range of motion, non-tender, normal inspection, other - thickened skin Edema: Trace LE edema bilaterally Skin: normal pigmentation, warm/dry Timmy Singletary M.D. Jul 23, 2019 08:50
--- NOTE | 2019-07-23 11:11 | Cardiac Electrophysiology PN ---
Assessment/Plan Assessment/Plan 1. Exacerbation of congestive heart failure in a patient with severe nonischemic dilated cardiomyopathy with ejection fraction of around 15 to 20%. Ejection fraction has not improved despite flutter ablation and guideline directed medical therapy. Continue Lasix 40 mg iv daily, Coreg 12.5 mg, Lisinopril 10 and aldactone 25 daily. If the ejection fraction does not improve after August 05, 2019 we will upgrade to a defibrillator 2. Frequent PVC and nonsustained ventricular tachycardia. The patient has a LifeVest on already. 3. Status post renal failure that has resolved. His creatinine now is 1.1. Changed hydralazine and nitrate to just lisinopril 10 mg daily and Aldactone 4. Cough and productive sputum. The patient is on prednisone and antibiotic. Further evaluation by Dr. Ellington. Subjective Subjective Diuresing well. Feeling better Objective Last 24 Hour Vital Signs Date Time Temp Pulse Resp B/P (MAP) Pulse Ox O2 Delivery O2 Flow Rate FiO2 07/23/19 09:00 Nasal Cannula 2.0 Nasal Cannula 2.0 07/23/19 08:39 129/80 07/23/19 08:39 94 129/80 07/23/19 08:00 83 07/23/19 08:00 98.3 94 20 129/80 (96) 98 07/23/19 07:44 84 18 99 Room Air 21 81 18 97 07/23/19 04:00 97.2 77 19 116/88 (97) 98 07/23/19 04:00 73 07/23/19 01:43 88 18 99 Room Air 21 85 18 98 07/23/19 00:00 97.9 64 18 122/88 (99) 98 07/23/19 00:00 74 07/22/19 21:50 61 125/90 07/22/19 21:00 Nasal Cannula 2.0 Nasal Cannula 2.0 07/22/19 20:00 84 07/22/19 20:00 97.5 61 19 125/90 (102) 97 07/22/19 19:39 84 18 98 Room Air 21 82 18 94 07/22/19 16:00 76 07/22/19 16:00 97.1 80 20 134/76 (95) 98 07/22/19 13:31 104/57 07/22/19 12:32 72 18 99 Room Air 21 70 18 98 07/22/19 12:00 78 07/22/19 12:00 98.5 79 20 104/55 (71) 98 Intake and Output 07/22/19 07/23/19 19:00 07:00 Intake Total 655 ml Balance 655 ml Intake Oral 600 ml IV Total 55 ml # Voids 2 2 Laboratory Tests Test 07/23/19 06:26 White Blood Count 9.8 K/UL (4.8-10.8) Red Blood Count 4.98 M/UL (4.70-6.10) Hemoglobin 14.1 G/DL (14.2-18.0) L Hematocrit 43.7 % (42.0-52.0) Mean Corpuscular Volume 88 FL (80-99) Mean Corpuscular Hemoglobin 28.4 PG (27.0-31.0) Mean Corpuscular Hemoglobin Concent 32.3 G/DL (32.0-36.0) Red Cell Distribution Width 14.9 % (11.6-14.8) H Platelet Count 228 K/UL (150-450) Mean Platelet Volume 7.6 FL (6.5-10.1) Neutrophils (%) (Auto) 66.4 % (45.0-75.0) Lymphocytes (%) (Auto) 22.6 % (20.0-45.0) Monocytes (%) (Auto) 9.2 % (1.0-10.0) Eosinophils (%) (Auto) 0.3 % (0.0-3.0) Basophils (%) (Auto) 1.5 % (0.0-2.0) Sodium Level 137 MMOL/L (136-145) Potassium Level 4.0 MMOL/L (3.5-5.1) Chloride Level 104 MMOL/L (98-107) Carbon Dioxide Level 25 MMOL/L (21-32) Anion Gap 8 mmol/L (5-15) Blood Urea Nitrogen 23 mg/dL (7-18) H Creatinine 1.0 MG/DL (0.55-1.30) Estimat Glomerular Filtration Rate > 60 mL/min (>60) Glucose Level 95 MG/DL (74-106) Calcium Level 8.9 MG/DL (8.5-10.1) Microbiology Date/Time Source Procedure Growth Status 07/20/19 11:45 Blood Blood Culture - Preliminary NO GROWTH AFTER 48 HOURS Resulted 07/20/19 11:30 Blood Blood Culture - Preliminary NO GROWTH AFTER 48 HOURS Resulted 07/20/19 20:00 Sputum Expectorated Gram Stain - Final Complete 07/20/19 20:00 Sputum Expectorated Sputum Culture - Final NORMAL UPPER RESPIRATORY SANTOS PRESENT Complete 07/20/19 15:51 Nose - Final Complete 07/20/19 15:51 Nose - Final Complete Objective HEAD AND NECK: Shows mild JVD. LUNGS: Coarse rhonchi. CARDIOVASCULAR: Regular S1 and S2 with no gallop or murmur. ABDOMEN: Soft. EXTREMITIES: Trace pitting edema. Vipul Stock MD Jul 23, 2019 11:11
[2019-07-23] MEDS: Guaifenesin/DM 10ml syrup ORAL PRN ×3 (11:26→23:04)
--- NOTE | 2019-07-23 11:43 | Diagnostic Imaging Report ---
Indication: Dyspnea Comparison: 07/20/2019 A single view chest radiograph was obtained. Findings: No definite infiltrate or pulmonary vascular congestion identified. The heart is enlarged. The aorta is mildly enlarged consistent with atherosclerotic vascular disease. The bones are osteopenic. Impression: No acute disease
[2019-07-23 12:00] VITALS: BP 114/77
[2019-07-23 15:46] VITALS: BP 108/62
--- NOTE | 2019-07-23 16:25 | Infectious Diseases Prog Note ---
Assessment/Plan Assessment/Plan Full consult dictated: A) 1) copd, uri/bronchitis, + sputum production, chest x-ray negative 2) arrhythmia/heart block - ? azithromycin 3) pmh noted 4) allergies - shellfish P) 1) change to ceftin x 3 days more (discontinue ceftriaxone) 2) clinically better 3) will f/u Subjective Constitutional: Denies: fever HEENT: Reports: congestion - less Respiratory: Reports: shortness of breath - les Cardiovascular: Denies: chest pain Gastrointestinal/Abdominal: Denies: nausea, vomiting Allergies: Coded Allergies: SHELLFISH DERIVED (Verified Allergy, Unknown, 07/20/19) Objective Vital Signs Last 24 Hour Vital Signs Date Time Temp Pulse Resp B/P (MAP) Pulse Ox O2 Delivery O2 Flow Rate FiO2 07/23/19 16:00 80 07/23/19 15:46 98.7 78 20 108/62 (77) 98 07/23/19 13:48 80 18 99 Room Air 21 78 18 97 07/23/19 12:00 81 07/23/19 12:00 97.9 83 18 114/77 (89) 98 07/23/19 09:00 Nasal Cannula 2.0 Nasal Cannula 2.0 07/23/19 08:39 129/80 07/23/19 08:39 94 129/80 07/23/19 08:00 83 07/23/19 08:00 98.3 94 20 129/80 (96) 98 07/23/19 07:44 84 18 99 Room Air 21 81 18 97 07/23/19 04:00 97.2 77 19 116/88 (97) 98 07/23/19 04:00 73 07/23/19 01:43 88 18 99 Room Air 21 85 18 98 07/23/19 00:00 97.9 64 18 122/88 (99) 98 07/23/19 00:00 74 07/22/19 21:50 61 125/90 07/22/19 21:00 Nasal Cannula 2.0 Nasal Cannula 2.0 07/22/19 20:00 84 07/22/19 20:00 97.5 61 19 125/90 (102) 97 07/22/19 19:39 84 18 98 Room Air 21 82 18 94 Height (Feet): 5 Height (Inches): 11.00 Weight (Pounds): 269 General Appearance: no acute distress HEENT: normocephalic, atraumatic, anicteric Respiratory/Chest: lungs clear, rhonchi - bilaterally Cardiovascular: normal rate, regular rhythm Abdomen: normal bowel sounds, soft, non tender, no organomegaly Extremities: no cyanosis Microbiology Date/Time Source Procedure Growth Status 07/20/19 20:00 Sputum Expectorated Gram Stain - Final Complete 07/20/19 20:00 Sputum Expectorated Sputum Culture - Final NORMAL UPPER RESPIRATORY SANTOS PRESENT Complete Laboratory Tests Test 07/23/19 06:26 White Blood Count 9.8 K/UL (4.8-10.8) Red Blood Count 4.98 M/UL (4.70-6.10) Hemoglobin 14.1 G/DL (14.2-18.0) L Hematocrit 43.7 % (42.0-52.0) Mean Corpuscular Volume 88 FL (80-99) Mean Corpuscular Hemoglobin 28.4 PG (27.0-31.0) Mean Corpuscular Hemoglobin Concent 32.3 G/DL (32.0-36.0) Red Cell Distribution Width 14.9 % (11.6-14.8) H Platelet Count 228 K/UL (150-450) Mean Platelet Volume 7.6 FL (6.5-10.1) Neutrophils (%) (Auto) 66.4 % (45.0-75.0) Lymphocytes (%) (Auto) 22.6 % (20.0-45.0) Monocytes (%) (Auto) 9.2 % (1.0-10.0) Eosinophils (%) (Auto) 0.3 % (0.0-3.0) Basophils (%) (Auto) 1.5 % (0.0-2.0) Sodium Level 137 MMOL/L (136-145) Potassium Level 4.0 MMOL/L (3.5-5.1) Chloride Level 104 MMOL/L (98-107) Carbon Dioxide Level 25 MMOL/L (21-32) Anion Gap 8 mmol/L (5-15) Blood Urea Nitrogen 23 mg/dL (7-18) H Creatinine 1.0 MG/DL (0.55-1.30) Estimat Glomerular Filtration Rate > 60 mL/min (>60) Glucose Level 95 MG/DL (74-106) Calcium Level 8.9 MG/DL (8.5-10.1) Current Medications Medications (Trade) Dose Ordered Sig/Chitra Route PRN Reason Start Time Stop Time Status Last Admin Dose Admin Acetaminophen (Tylenol) 650 mg Q4H PRN ORAL Mild Pain (Pain Scale 1-3) 07/20/19 14:15 08/19/19 14:14 07/23/19 01:35 Acetaminophen (Tylenol) 650 mg Q4H PRN ORAL fever 07/20/19 14:15 08/19/19 14:14 Albuterol/ Ipratropium (Albuterol/ Ipratropium) 3 ml Q4HR PRN HHN Shortness of Breath 07/20/19 23:00 07/25/19 14:14 07/21/19 01:22 Albuterol/ Ipratropium (Albuterol/ Ipratropium) 3 ml Q6HRT INH 07/20/19 14:37 07/25/19 14:36 07/23/19 13:48 Carvedilol (Coreg) 12.5 mg EVERY 12 HOURS ORAL 07/20/19 14:37 08/19/19 14:36 07/23/19 08:39 Cefuroxime Axetil (Ceftin) 500 mg EVERY 12 HOURS ORAL 07/23/19 21:00 07/30/19 20:59 Dextrose (Dextrose 50%) 25 ml Q30M PRN IV Hypoglycemia 07/20/19 14:15 08/19/19 14:14 Dextrose (Dextrose 50%) 50 ml Q30M PRN IV Hypoglycemia 07/20/19 14:15 08/19/19 14:14 Fluticasone Propionate (Flonase) 1 spray DAILY NASAL 07/21/19 09:00 08/20/19 08:59 07/23/19 08:37 Furosemide (Lasix) 40 mg DAILY IV 07/23/19 09:00 08/22/19 08:59 07/23/19 08:38 Guaifenesin/ Dextromethorphan (Robitussin DM Syrup) 10 ml Q4H PRN ORAL For Cough 07/21/19 06:15 08/20/19 06:14 07/23/19 11:26 Heparin Sodium (Porcine) (Heparin 5000 units/ml) 5,000 units EVERY 8 HOURS SUBQ 07/20/19 22:00 08/19/19 21:59 07/23/19 13:27 Hydralazine HCl (Apresoline) 10 mg Q4H PRN IV SBP >160 07/20/19 14:15 08/19/19 14:14 Lisinopril (Zestril) 10 mg DAILY ORAL 07/23/19 09:00 08/22/19 08:59 07/23/19 08:39 Ondansetron HCl (Zofran) 4 mg Q6H PRN IVP Nausea & Vomiting 07/20/19 14:15 08/19/19 14:14 Oseltamivir Phosphate (Tamiflu) 75 mg DAILY ORAL 07/20/19 16:00 07/25/19 15:59 07/23/19 08:39 Pantoprazole (Protonix) 40 mg DAILY ORAL 07/21/19 09:00 08/20/19 08:59 07/23/19 08:38 Polyethylene Glycol (Miralax) 17 gm HSPRN PRN ORAL Constipation 07/20/19 14:15 08/19/19 14:14 Prednisone (predniSONE) 40 mg DAILY ORAL 07/23/19 09:00 08/19/19 14:36 07/23/19 08:38 Spironolactone (Aldactone) 25 mg DAILY ORAL 07/23/19 09:00 08/22/19 08:59 07/23/19 08:39 Trazodone HCl (Desyrel) 50 mg BEDTIME PRN ORAL sleep aide 07/20/19 22:00 08/19/19 21:59 07/22/19 22:55 Zolpidem Tartrate (Ambien) 5 mg HSPRN PRN ORAL Insomnia 07/23/19 15:15 07/30/19 15:14 Apoorva Ellington MD Jul 23, 2019 16:25
--- NOTE | 2019-07-23 19:08 | NUR ---
CASE MANAGEMENT: REVIEW SI: COPD EXACERBATION T 97.7 HR 81 RR 18 BP 114/77 SAT 97% NC/2L HGB 14.1 RDW 14.9 BUN 23 CXR -- NO ACUTE DISEASE IS: CEFTIN PO Q12HR PREDNISONE PO QD ALDACTONE PO QD LASIX IV QD ALBUTEROL HHN Q4HR PRN GUAIFENESIN PO Q4HR PRN TELEMETRY UNIT STATUS DCP: PATIENT IS FROM HOME
--- NOTE | 2019-07-23 19:20 | NUR ---
HAND-OFF: Report given to ANNA Juarez. Pt is sitting up eating a snack, in stable condition. Plan of care endorsed.
--- NOTE | 2019-07-23 19:48 | NUR ---
NURSE NOTES: Received patient from ANNA Nieto. Patient is sitting up in chair, alert and talkative. No signs of distress or pain noted. Patient is ambulatory, nonslip socks worn, and able to make needs known. IV site checked, patent and intact, no signs of erythema, redness, infiltration, or bleeding. Call light within reach. Will continue with plan of care.
[2019-07-23 20:00] VITALS: BP 125/79
[2019-07-23] MEDS: Zolpidem 5mg tab ORAL PRN (21:07)
--- NOTE | 2019-07-23 23:00 | Consultation ---
DATE OF CONSULTATION: 07/23/2019 INFECTIOUS DISEASE CONSULTATION CONSULTING PHYSICIAN: Apoorva Ellington M.D. REFERRING PHYSICIAN: Dr. Timmy Singletary. ATTENDING PHYSICIAN: Tobi Monte M.D. REASON FOR CONSULTATION: Respiratory infection, rule out pneumonia. CHIEF COMPLAINT: The patient's chief complaint coming in to the hospital is COPD exacerbation. HISTORY OF PRESENT ILLNESS: This is a very pleasant 58-year-old male, who comes in to [facility] with COPD exacerbation. There was a concern that the patient could have pneumonia. However, chest x-ray is negative. The patient was given azithromycin and Rocephin and developed what sounds like an arrhythmia and heart block. Infectious Disease consultation was requested. He is currently on IV Rocephin that he has had for at least 48 hours. I am going to change the patient to Ceftin. MAR was noted. Orders were noted. Notes and records were reviewed. The patient is on IV steroids for COPD. REVIEW OF SYSTEMS: CONSTITUTIONAL: He has no fever or chills. HEAD AND NECK: No head pain or neck pain. CARDIAC: No chest pain. GASTROINTESTINAL: No nausea, vomiting, or diarrhea. GENITOURINARY: No dysuria or frequency. PULMONARY: He has cough, congestion, and sputum production that is improved. SKIN: No rash. NEUROLOGIC: No seizures. PAST MEDICAL HISTORY: The patient's past medical history includes the following. The patient has a past medical history of COPD exacerbation. He has a past medical history of systolic heart failure, AV block, arrhythmia, hypertension, GERD, heart failure, COPD, hypertension, and GERD. No history of diabetes it looks like. He has history of systolic failure also and cardiomyopathy. ALLERGIES: Shellfish. No antibiotic allergies. SOCIAL HISTORY: Negative for smoking, alcohol, or drug abuse. FAMILY HISTORY: Noncontributory. Negative for exposure to tuberculosis or cancer. MEDICATIONS: Upon reviewing the MAR, he is on the following medications. He was on Rocephin. I put him on Ceftin 500 mg p.o. b.i.d. x3 more days. He is on zolpidem. He is on prednisone, Zestril, aldactone, Lasix, and Protonix. He was on cough syrup, albuterol treatments, and Tamiflu. He is on albuterol, carvedilol, acetaminophen, and Zofran. Outside medications were noted and reconciliated. PHYSICAL EXAMINATION: VITAL SIGNS: Temperature rate 98.7, pulse rate 78, respiratory rate 20, blood pressure is 108/62, and sats 98%. GENERAL: Alert and responsive, in no distress. HEAD AND NECK: Oral exam, no thrush. Eye exam, no icterus. Neck is supple. No JVD. Normocephalic. HEART: Regular. Possible gallop. No murmur. No friction rub. LUNGS: Few bilateral rhonchi. No definite rales. He has some wheezing. ABDOMEN: Soft. Positive bowel sounds. Nontender. SKIN: No rash. MUSCULOSKELETAL: No effusion. Legs are without cellulitis. PERIPHERAL VASCULAR: No cyanosis. GENITOURINARY: No Garcia. LINE SITES: Without phlebitis. NEUROLOGIC: Intact. Alert and oriented x3. LABORATORY DATA: Laboratory data is as follows. White count 9.8 and hemoglobin 14.1. White count yesterday was 13.3. Creatinine is 1.0. UA was leukocyte esterase negative. Sputum culture had normal jaswant. Chest x-ray is negative x2. No acute disease. Blood cultures and sputum cultures are negative. ASSESSMENT AND PLAN: 1. The patient has upper respiratory infection and bronchitis, rule out viral syndrome, influenza infection. Continue Tamiflu and Ceftin x3 more days. The patient did have an elevated white count, likely secondary to steroids. I doubt the patient is septic. The patient currently was on Rocephin. I switched him to Ceftin x3 more days until he will get a 5-day treatment for antibiotics for the upper respiratory infection and bronchitis and also Tamiflu x3 more days to finish course for possible influenza infection and viral syndrome. He is otherwise clinically stable from ID standpoint. 2. Hypertension. Blood pressure treatment per primary. 3. The patient has history of COPD. On steroids. 4. CHF. 5. Hypertension. 6. GERD. 7. heart failure hx 8. Cardiomyopathy. 9. No known drug allergies. 10. Family history is noncontributory. 11. Social history is positive for smoking in the past. 12. MAR is noted. 13. Case was discussed with RN. 14. Continue treatment per primary consultants. 15. Notes and records were noted. 16. Orders were entered. Apoorva Ellington M.D. DR: SWAPNIL JOB#: [id number] CC: ROSA
[2019-07-24] VITALS: BP 105/63
[2019-07-24] MEDS: Albuterol/Ipratropium 3ml neb INH SCH ×4 (01:00→20:16)
--- NOTE | 2019-07-24 03:15 | NUR ---
NURSE NOTES: Patient asleep and resting comfortably. No signs of distress or pain. Bed in lowest position, brakes on, call light within reach.
[2019-07-24 04:00] VITALS: BP 111/76
[2019-07-24] MEDS: Heparin 5000 units/ml inj SUBQ SCH ×3 (05:44→21:12)
[2019-07-24 06:28] LABS: BASOPHILS % (AUTO) 1.6 % (0.0-2.0); EOSINOPHILS % (AUTO) 0.2 % (0.0-3.0); HEMATOCRIT 43.6 % (42.0-52.0); HEMOGLOBIN 14.2 G/DL (14.2-18.0); LYMPHOCYTES % (AUTO) 21.7 % (20.0-45.0); MEAN CORPUSCULAR VOLUME 88 FL (80-99); MONOCYTES % (AUTO) 8.6 % (1.0-10.0); NEUTROPHILS % (AUTO) 67.9 % (45.0-75.0); PLATELET COUNT 222 K/UL (150-450); RED BLOOD COUNT 4.95 M/UL (4.70-6.10); RED CELL DISTRIBUTION WIDTH 15.1 % (11.6-14.8); WHITE BLOOD COUNT 9.8 K/UL (4.8-10.8)
[2019-07-24 06:42] LABS: ANION GAP 9 mmol/L (5-15); BLOOD UREA NITROGEN 25 mg/dL (7-18); CALCIUM 8.9 MG/DL (8.5-10.1); CARBON DIOXIDE 25 MMOL/L (21-32); CHLORIDE 104 MMOL/L (98-107); POTASSIUM 3.7 MMOL/L (3.5-5.1); SODIUM 138 MMOL/L (136-145)
--- NOTE | 2019-07-24 07:30 | NUR ---
NURSE NOTES: Nurse report given by Jasiel CASTILLO. Patient's awake and sitting on the side of the bed eating breakfast. AO x 4, denies pain, no s/s of distress or SOB, ambulates. Bed low and locked, call light within reach. IV is patent and flushed well. Will continue to monitor.
--- NOTE | 2019-07-24 07:34 | NUR ---
HAND-OFF: Report given to ANNA Kowalski. Patient is awake sitting on the edge of the bed eating breakfast. In stable condition.
[2019-07-24 08:00] VITALS: BP 109/82
[2019-07-24] MEDS: Oseltamivir 75mg cap ORAL SCH (08:33)
[2019-07-24] MEDS: Lisinopril 10mg tab ORAL SCH (08:34)
[2019-07-24] MEDS: Carvedilol 12.5mg tab ORAL SCH ×2 (08:34→21:06)
[2019-07-24] MEDS: Spironolactone 25mg tab ORAL SCH (08:34)
[2019-07-24] MEDS: Flonase Nasal Inhaler 16gm NASAL SCH (08:35)
--- NOTE | 2019-07-24 10:17 | General Progress Note ---
Assessment/Plan Status: stable Assessment/Plan: 58 year old male with PMHx COPD, systolic heart failure, hypertension, obesity and GERD p/w with productive cough and SOB x 1 day. He tells me today he wears a life vest. He has been having frequent PVCs on telemetry and 5 beats of non sustained v tach. #Acute hypoxic respiratory failure 2/2 COPD exacerbation triggered by likely viral infection. Cannot rule out pneumonia. No infiltrate on CXR but could still be developing. Less likely CHF exacerbation given patient has no orthopnea , mild LE swelling and mild JVD. #COPD exacerbation > Flu negative. Sputum culture normal respiratory jaswant. - labs and imaging reviewed - monitor on telemetry - Duoneb Q6hr scheduled and PRN - Continue Prednisone 40mg PO daily x 5 days - S/P Ceftriaxone 1gm IV Q24hr, changed to Ceftin by ID - Azithromycin 250mg PO Qd stopped as it's arrhythmogenic. ID consult appreciated. 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 Ejection fraction has not improved despite flutter ablation (05/17), despite antiarrhythmic therapy, and guideline directed medical therapy. -Cardiology consult with Dr. Stock appreciated -Continue Isordil 30 mg daily -Lasix 40 mg daily, change to IV -DC hydralazine and nitrate to Lisinopril 10 and Aldactone. -Continue Coreg 12.5mg BID - If the ejection fraction does not improve after August 05, 2019 cardiology will upgrade to a defibrillator #Frequent PVC and nonsustained ventricular tachycardia. The patient has a LifeVest on already. I asked if a family member could bring his vest to the [facility] prior to discharge #MARI- resolved #Hypertension, controlled- continue BP meds as above #GERD. Continue home pantoprazole 40mg PO daily #insomnia - discussed sleep hygeine with patient (turning off TV before sleep, etc.) can give melatonin tonight if needed PPX DVT: Heparin SBQ PT/OT: Ordered, pending IV fluids: none Diet: Cardiac, 2L Fluid restriction plan of care discussed with Dr. Stock, patient and RN. I spent 40 minutes on this encounter. >50% spent on counselling and care coordination. Subjective Date patient seen: Jul 24, 2019 ROS Limited/Unobtainable: No Constitutional: Denies: no symptoms, chills, diaphoresis, fever, malaise, weakness, other HEENT: Denies: no symptoms, eye pain, blurred vision, tearing, double vision, ear pain, ear discharge, nose pain, nose congestion, throat pain, throat swelling, mouth pain, mouth swelling, other Cardiovascular: Denies: no symptoms, chest pain, edema, irregular heart rate, lightheadedness, palpitations, syncope, other Respiratory: Reports: cough, shortness of breath; Denies: no symptoms, orthopnea, SOB with excertion, SOB at rest, sputum, stridor, wheezing, other Gastrointestinal/Abdominal: Denies: no symptoms, abdomen distended, abdominal pain, black stools, tarry stools, blood in stool, constipated, diarrhea, difficulty swallowing, nausea, poor appetite, poor fluid intake, rectal bleeding , vomiting, other Genitourinary: Denies: no symptoms, burning, discharge, frequency, flank pain, hematuria, incontinence, pain, urgency, other Neurologic/Psychiatric: Denies: no symptoms, anxiety, depressed, emotional problems, headache, numbness, paresthesia, pre-existing deficit, seizure, tingling, tremors, weakness, other Endocrine: Denies: no symptoms, excessive sweating, flushing, intolerance to cold, intolerance to heat, increased hunger, increased thirst, increased urine, unexplained weight gain, unexplained weight loss, other Allergies: Coded Allergies: SHELLFISH DERIVED (Verified Allergy, Unknown, 07/20/19) Subjective seen, sitting in chair feeling better phlegm reduced Objective Last 24 Hour Vital Signs Date Time Temp Pulse Resp B/P (MAP) Pulse Ox O2 Delivery O2 Flow Rate FiO2 07/24/19 08:34 109/82 07/24/19 08:34 89 109/82 07/24/19 06:59 72 18 98 Room Air 21 68 16 97 07/24/19 04:00 98.0 64 18 111/76 (88) 97 07/24/19 04:00 79 07/24/19 00:00 97.5 77 18 105/63 (77) 98 07/24/19 00:00 75 07/23/19 21:05 85 125/79 9/24/19 21:00 Room Air Room Air 07/23/19 20:00 89 07/23/19 20:00 97.0 85 18 125/79 (94) 98 07/23/19 19:34 79 18 99 Room Air 21 75 18 98 07/23/19 16:00 80 07/23/19 15:46 98.7 78 20 108/62 (77) 98 07/23/19 13:48 80 18 99 Room Air 21 78 18 97 07/23/19 12:00 81 07/23/19 12:00 97.9 83 18 114/77 (89) 98 Intake and Output 07/23/19 07/24/19 19:00 07:00 Intake Total 415 ml Balance 415 ml Intake Oral 360 ml IV Total 55 ml # Voids 5 2 Laboratory Tests 07/24/19 06:01: White Blood Count 9.8, Red Blood Count 4.95, Hemoglobin 14.2, Hematocrit 43.6, Mean Corpuscular Volume 88, Mean Corpuscular Hemoglobin 28.7, Mean Corpuscular Hemoglobin Concent 32.5, Red Cell Distribution Width 15.1H, Platelet Count 222, Mean Platelet Volume 7.3, Neutrophils (%) (Auto) 67.9, Lymphocytes (%) (Auto) 21.7, Monocytes (%) (Auto) 8.6, Eosinophils (%) (Auto) 0.2, Basophils (%) (Auto ) 1.6, Sodium Level 138, Potassium Level 3.7, Chloride Level 104, Carbon Dioxide Level 25, Anion Gap 9, Blood Urea Nitrogen 25H, Creatinine 1.0, Estimat Glomerular Filtration Rate > 60, Glucose Level 99, Calcium Level 8.9 Height (Feet): 5 Height (Inches): 11.00 Weight (Pounds): 266 Objective General Appearance: WD/WN, no apparent distress, alert, obese EENT: PERRL/EOMI Neck: non-tender, normal alignment, supple Cardiovascular: irregular rhythm , no m/r/g, + JVD Respiratory/Chest: Course breath sounds bilaterally. No wheezing, no rales Abdomen: normal bowel sounds, non tender, soft Extremities: normal range of motion, non-tender, normal inspection, other - thickened skin Edema: Trace LE edema bilaterally Skin: normal pigmentation, warm/dry Timmy Singletary M.D. Jul 24, 2019 10:17
[2019-07-24 12:00] VITALS: BP 113/81
--- NOTE | 2019-07-24 14:14 | Cardiac Electrophysiology PN ---
Assessment/Plan Assessment/Plan 1. 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 Ejection fraction has not improved despite flutter ablation and guideline directed medical therapy. Continue Lasix 40 mg iv daily, Coreg 12.5 mg, Lisinopril 10 and aldactone 25 daily. If the ejection fraction does not improve after August 05, 2019 we will upgrade to a defibrillator 2. Frequent PVC and nonsustained ventricular tachycardia. The patient has a LifeVest on already. 3. Status post renal failure that has resolved. On lisinopril 10 mg daily and Aldactone 4. Cough and productive sputum. The patient is on prednisone and antibiotic. Further evaluation by Dr. Ellington. DW RN Subjective Subjective Diuresing well.No CP. In SR with PVC and NSVT Objective Last 24 Hour Vital Signs Date Time Temp Pulse Resp B/P (MAP) Pulse Ox O2 Delivery O2 Flow Rate FiO2 07/24/19 12:47 74 18 98 Room Air 21 70 16 96 07/24/19 12:00 97.7 85 18 113/81 (92) 98 07/24/19 12:00 76 07/24/19 09:00 Room Air Room Air 07/24/19 08:34 109/82 07/24/19 08:34 89 109/82 07/24/19 08:00 86 07/24/19 08:00 98.9 81 20 109/82 (91) 100 07/24/19 06:59 72 18 98 Room Air 21 68 16 97 07/24/19 04:00 98.0 64 18 111/76 (88) 97 07/24/19 04:00 79 07/24/19 00:00 97.5 77 18 105/63 (77) 98 07/24/19 00:00 75 07/23/19 21:05 85 125/79 07/23/19 21:00 Room Air Room Air 07/23/19 20:00 89 07/23/19 20:00 97.0 85 18 125/79 (94) 98 07/23/19 19:34 79 18 99 Room Air 21 75 18 98 07/23/19 16:00 80 07/23/19 15:46 98.7 78 20 108/62 (77) 98 Intake and Output 07/23/19 07/24/19 19:00 07:00 Intake Total 415 ml Balance 415 ml Intake Oral 360 ml IV Total 55 ml # Voids 5 2 Laboratory Tests Test 07/24/19 06:01 White Blood Count 9.8 K/UL (4.8-10.8) Red Blood Count 4.95 M/UL (4.70-6.10) Hemoglobin 14.2 G/DL (14.2-18.0) Hematocrit 43.6 % (42.0-52.0) Mean Corpuscular Volume 88 FL (80-99) Mean Corpuscular Hemoglobin 28.7 PG (27.0-31.0) Mean Corpuscular Hemoglobin Concent 32.5 G/DL (32.0-36.0) Red Cell Distribution Width 15.1 % (11.6-14.8) H Platelet Count 222 K/UL (150-450) Mean Platelet Volume 7.3 FL (6.5-10.1) Neutrophils (%) (Auto) 67.9 % (45.0-75.0) Lymphocytes (%) (Auto) 21.7 % (20.0-45.0) Monocytes (%) (Auto) 8.6 % (1.0-10.0) Eosinophils (%) (Auto) 0.2 % (0.0-3.0) Basophils (%) (Auto) 1.6 % (0.0-2.0) Sodium Level 138 MMOL/L (136-145) Potassium Level 3.7 MMOL/L (3.5-5.1) Chloride Level 104 MMOL/L (98-107) Carbon Dioxide Level 25 MMOL/L (21-32) Anion Gap 9 mmol/L (5-15) Blood Urea Nitrogen 25 mg/dL (7-18) H Creatinine 1.0 MG/DL (0.55-1.30) Estimat Glomerular Filtration Rate > 60 mL/min (>60) Glucose Level 99 MG/DL (74-106) Calcium Level 8.9 MG/DL (8.5-10.1) Objective HEAD AND NECK: Shows mild JVD. LUNGS: Coarse rhonchi. CARDIOVASCULAR: Regular S1 and S2 with no gallop or murmur. ABDOMEN: Soft. EXTREMITIES: Trace pitting edema. Vipul Stock MD Jul 24, 2019 14:14
--- NOTE | 2019-07-24 15:22 | Cardiology Report ---
APPROVED REPORT EKG Measurement Heart [id number] Sinus rhythm with occasional premature ventricular complexes and premature atrial complexes Possible Lateral infarct, age undetermined Abnormal ECG
[2019-07-24] MEDS: Guaifenesin/DM 10ml syrup ORAL PRN ×2 (15:51→21:06)
[2019-07-24 16:00] VITALS: BP 134/79
--- NOTE | 2019-07-24 19:16 | NUR ---
HAND-OFF: Report given to Jasiel RN. Patient's stable condition. Plan of care endorsed.
--- NOTE | 2019-07-24 19:23 | NUR ---
CASE MANAGEMENT: REVIEW SI: COPD EXACERBATION T 98.6 HR 104 RR 20 BP 134/79 SAT 100% ROOM AIR RDW 15.1 BUN 25 IS: CEFTIN PO Q12HR PREDNISONE PO QD ALDACTONE PO QD LASIX IV QD ALBUTEROL HHN Q4HR PRN GUAIFENESIN PO Q4HR PRN TELEMETRY UNIT STATUS DCP: PATIENT IS FROM HOME
--- NOTE | 2019-07-24 19:56 | NUR ---
NURSE NOTES: Received patient from ANNA Kowalski. Patient alert, talkative, and sitting up in chair. No signs of distress or pain noted. Patient is ambulatory and able to make needs known. IV site checked, intact and patent, no signs of erythema, bleeding, redness, or infiltration. Bed in lowest position, brakes on, and call light within reach. Will continue plan of care.
[2019-07-24 20:00] VITALS: BP 139/93
[2019-07-24 20:10] LABS: ANION GAP 10 mmol/L (5-15); BLOOD UREA NITROGEN 24 mg/dL (7-18); CALCIUM 9.2 MG/DL (8.5-10.1); CARBON DIOXIDE 25 MMOL/L (21-32); CHLORIDE 102 MMOL/L (98-107); CREATININE 1.2 MG/DL (0.55-1.30); POTASSIUM 4.2 MMOL/L (3.5-5.1); SODIUM 136 MMOL/L (136-145)
--- NOTE | 2019-07-24 21:00 | NUR ---
NURSE NOTES: Patient prefers Ambien over Trazodone for sleep aid, so Ambien administered at bedtime. Will continue to monitor.
[2019-07-24] MEDS: Zolpidem 5mg tab ORAL PRN (21:06)
[2019-07-25] MEDS: Albuterol/Ipratropium 3ml neb INH SCH ×3 (01:00→13:00)
--- NOTE | 2019-07-25 03:29 | NUR ---
NURSE NOTES: Patient asleep in bed. No signs of distress or pain noted. Bed is in lowest position, brakes on, siderails up x2, and call light within reach.
[2019-07-25 04:00] VITALS: BP 127/71
[2019-07-25] MEDS: Heparin 5000 units/ml inj SUBQ SCH ×3 (05:29→21:15)
--- NOTE | 2019-07-25 07:18 | NUR ---
HAND-OFF: Report given to ANNA Jha. Patient awake, alert, and talkative. Patient resting comfortably in bed in stable condition. Plan of care endorsed.
--- NOTE | 2019-07-25 07:30 | NUR ---
NURSE NOTES: Received patient from Skyler Barragan. Patient awake and alert. Ambulatory with steady gait. Denies pain or discomfort. patient on continuous cardiac monitoring. Will continue to monitor.
[2019-07-25 08:00] VITALS: BP 135/76
--- NOTE | 2019-07-25 08:49 | General Progress Note ---
Assessment/Plan Status: stable Assessment/Plan: 58 year old male with PMHx COPD, systolic heart failure, hypertension, obesity and GERD p/w with productive cough and SOB x 1 day. He tells me today he wears a life vest. He has been having frequent PVCs on telemetry and 5 beats of non sustained v tach. #Acute hypoxic respiratory failure 2/2 COPD exacerbation triggered by likely viral infection. Cannot rule out pneumonia. No infiltrate on CXR but could still be developing. Less likely CHF exacerbation given patient has no orthopnea , mild LE swelling and mild JVD. #COPD exacerbation > Flu negative. Sputum culture normal respiratory jaswant. - labs and imaging reviewed - monitor on telemetry - Duoneb Q6hr scheduled and PRN - Continue Prednisone 40mg PO daily x 5 days - S/P Ceftriaxone 1gm IV Q24hr, changed to Ceftin by ID - Azithromycin 250mg PO Qd stopped as it's arrhythmogenic. ID consult appreciated. 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 Ejection fraction has not improved despite flutter ablation (05/17), despite antiarrhythmic therapy, and guideline directed medical therapy. -Cardiology consult with Dr. Stock appreciated -Continue Isordil 30 mg daily -Lasix 40 mg daily, change to IV -DC hydralazine and nitrate to Lisinopril 10 and Aldactone. -Continue Coreg 12.5mg BID - If the ejection fraction does not improve after August 05, 2019 cardiology will upgrade to a defibrillator #Frequent PVC and nonsustained ventricular tachycardia. The patient has a LifeVest on already. I asked if a family member could bring his vest to the [facility] prior to discharge #MARI- resolved #Hypertension, controlled- continue BP meds as above #GERD. Continue home pantoprazole 40mg PO daily #insomnia - discussed sleep hygeine with patient (turning off TV before sleep, etc.) can give melatonin tonight if needed PPX DVT: Heparin SBQ PT/OT: Ordered, pending IV fluids: none Diet: Cardiac, 2L Fluid restriction plan of care discussed with Dr. Stock, patient and RN. I spent 40 minutes on this encounter. >50% spent on counselling and care coordination. Subjective Allergies: Coded Allergies: SHELLFISH DERIVED (Verified Allergy, Unknown, 07/20/19) Subjective seen, sitting in chair feeling better phlegm reduced Objective Last 24 Hour Vital Signs Date Time Temp Pulse Resp B/P (MAP) Pulse Ox O2 Delivery O2 Flow Rate FiO2 07/25/19 08:17 72 20 99 Room Air 21 73 20 96 07/25/19 04:00 98.0 77 18 127/71 (89) 95 07/25/19 04:00 77 07/25/19 00:00 79 07/24/19 21:06 78 139/93 07/24/19 21:00 Room Air Room Air 07/24/19 20:00 78 07/24/19 20:00 80 20 99 Room Air 21 77 20 97 07/24/19 20:00 98.1 81 18 139/93 (108) 96 07/24/19 16:00 98.6 104 20 134/79 (97) 100 07/24/19 16:00 87 07/24/19 12:47 74 18 98 Room Air 21 70 16 96 07/24/19 12:00 97.7 85 18 113/81 (92) 98 07/24/19 12:00 76 07/24/19 09:00 Room Air Room Air Intake and Output 07/24/19 07/25/19 18:59 06:59 Intake Total 660 ml 120 ml Balance 660 ml 120 ml Intake Oral 660 ml 120 ml # Voids 3 1 # Bowel Movements 2 Laboratory Tests 07/24/19 19:45: Sodium Level 136, Potassium Level 4.2, Chloride Level 102, Carbon Dioxide Level 25, Anion Gap 10, Blood Urea Nitrogen 24H, Creatinine 1.2, Estimat Glomerular Filtration Rate > 60, Glucose Level 193H, Calcium Level 9.2 Height (Feet): 5 Height (Inches): 11.00 Weight (Pounds): 266 Objective General Appearance: WD/WN, no apparent distress, alert, obese EENT: PERRL/EOMI Neck: non-tender, normal alignment, supple Cardiovascular: irregular rhythm , no m/r/g, + JVD Respiratory/Chest: Course breath sounds bilaterally. No wheezing, no rales Abdomen: normal bowel sounds, non tender, soft Extremities: normal range of motion, non-tender, normal inspection, other - thickened skin Edema: Trace LE edema bilaterally Skin: normal pigmentation, warm/dry Timmy Singletary M.D. Jul 25, 2019 08:49
[2019-07-25] MEDS: Oseltamivir 75mg cap ORAL SCH (08:58)
[2019-07-25] MEDS: Lisinopril 10mg tab ORAL SCH (08:59)
[2019-07-25] MEDS: Carvedilol 12.5mg tab ORAL SCH ×2 (08:59→21:14)
[2019-07-25] MEDS: Spironolactone 25mg tab ORAL SCH (08:59)
[2019-07-25] MEDS: Guaifenesin/DM 10ml syrup ORAL PRN ×4 (09:03→22:34)
--- NOTE | 2019-07-25 09:15 | Cardiac Electrophysiology PN ---
Assessment/Plan Assessment/Plan 1. 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 Ejection fraction has not improved despite flutter ablation and guideline directed medical therapy. Continue Lasix 40 mg iv daily, Coreg 12.5 mg, Lisinopril 10 and aldactone 25 daily. If the ejection fraction does not improve after August 05, 2019 will upgrade to an ICD 2. Frequent PVC and nonsustained ventricular tachycardia. The patient has a LifeVest on already. 3. Status post renal failure that has resolved. On lisinopril 10 mg daily and Aldactone 4. Cough and productive sputum. The patient is on prednisone and antibiotic and now positive blood culture. Further evaluation by Dr. Ellington. DW RN Subjective Subjective Diuresing well.No CP. In SR with PVC . Blood culture was positive 1 out of 4 bottle Objective Last 24 Hour Vital Signs Date Time Temp Pulse Resp B/P (MAP) Pulse Ox O2 Delivery O2 Flow Rate FiO2 07/25/19 08:59 135/76 07/25/19 08:59 72 135/76 07/25/19 08:17 72 20 99 Room Air 21 73 20 96 07/25/19 08:00 97.7 89 20 135/76 (95) 96 07/25/19 04:00 98.0 77 18 127/71 (89) 95 07/25/19 04:00 77 07/25/19 00:00 79 07/24/19 21:06 78 139/93 07/24/19 21:00 Room Air Room Air 07/24/19 20:00 78 07/24/19 20:00 80 20 99 Room Air 21 77 20 97 07/24/19 20:00 98.1 81 18 139/93 (108) 96 07/24/19 16:00 98.6 104 20 134/79 (97) 100 07/24/19 16:00 87 07/24/19 12:47 74 18 98 Room Air 21 70 16 96 07/24/19 12:00 97.7 85 18 113/81 (92) 98 07/24/19 12:00 76 Intake and Output 07/24/19 07/25/19 18:59 06:59 Intake Total 660 ml 120 ml Balance 660 ml 120 ml Intake Oral 660 ml 120 ml # Voids 3 1 # Bowel Movements 2 Laboratory Tests Test 07/24/19 19:45 Sodium Level 136 MMOL/L (136-145) Potassium Level 4.2 MMOL/L (3.5-5.1) Chloride Level 102 MMOL/L (98-107) Carbon Dioxide Level 25 MMOL/L (21-32) Anion Gap 10 mmol/L (5-15) Blood Urea Nitrogen 24 mg/dL (7-18) H Creatinine 1.2 MG/DL (0.55-1.30) Estimat Glomerular Filtration Rate > 60 mL/min (>60) Glucose Level 193 MG/DL (74-106) H Calcium Level 9.2 MG/DL (8.5-10.1) Objective HEAD AND NECK: Shows mild JVD. LUNGS: Coarse rhonchi. CARDIOVASCULAR: Regular S1 and S2 with no gallop or murmur. ABDOMEN: Soft. EXTREMITIES: Trace pitting edema. Vipul Stock MD Jul 25, 2019 09:15
[2019-07-25] MEDS: Flonase Nasal Inhaler 16gm NASAL SCH (09:35)
--- NOTE | 2019-07-25 10:00 | NUR ---
NURSE NOTES: Call out to Dr. Baig re: opo
--- NOTE | 2019-07-25 10:14 | General Progress Note ---
Assessment/Plan Problem List: (1) Acute respiratory failure with hypoxia ICD Codes: J96.01 - Acute respiratory failure with hypoxia SNOMED: 13763650, 186278480 (2) MARI (acute kidney injury) ICD Codes: N17.9 - Acute kidney failure, unspecified SNOMED: 3780314, 91753309 (3) Nonsustained ventricular tachycardia ICD Codes: I47.2 - Ventricular tachycardia SNOMED: 828333979 (4) Systolic heart failure ICD Codes: I50.20 - Unspecified systolic (congestive) heart failure SNOMED: 506294983 Status: stable Assessment/Plan: 58 year old male with PMHx COPD, systolic heart failure, hypertension, obesity and GERD p/w with productive cough and SOB x 1 day. He tells me today he wears a life vest. He has been having frequent PVCs on telemetry and 5 beats of non sustained v tach. #Acute hypoxic respiratory failure 2/2 COPD exacerbation triggered by likely viral infection. Cannot rule out pneumonia. No infiltrate on CXR but could still be developing. Less likely CHF exacerbation given patient has no orthopnea , mild LE swelling and mild JVD. #COPD exacerbation > Flu negative. Sputum culture normal respiratory jaswant. - labs and imaging reviewed - monitor on telemetry - Duoneb Q6hr scheduled and PRN - Continue Prednisone 40mg PO daily. Stop today - S/P Ceftriaxone 1gm IV Q24hr, changed to Ceftin by ID - Azithromycin 250mg PO Qd stopped as it's arrhythmogenic. ID consult appreciated. -Tamiflu for 5 days - follow up on blood and sputum cultures. Blood culture one bottle with gram variable rods. Will follow up with ID/ - f/u legionella # Exacerbation of systolic congestive heart failure in a patient with severe nonischemic dilated cardiomyopathy with ejection fraction of around 15 to 20%. Ejection fraction has not improved despite flutter ablation (05/17), despite antiarrhythmic therapy, and guideline directed medical therapy. -Cardiology consult with Dr. Stock appreciated -Continue Isordil 30 mg daily -Lasix 40 mg daily, change to IV -DC hydralazine and nitrate to Lisinopril 10 and Aldactone. -Continue Coreg 12.5mg BID - If the ejection fraction does not improve after August 05, 2019 cardiology will upgrade to a defibrillator #Frequent PVC and nonsustained ventricular tachycardia. The patient has a LifeVest on already. I asked if a family member could bring his vest to the [facility] prior to discharge #MARI- resolved #Hypertension, controlled- continue BP meds as above #GERD. Continue home pantoprazole 40mg PO daily #insomnia - discussed sleep hygeine with patient (turning off TV before sleep, etc.) can give melatonin tonight if needed PPX DVT: Heparin SBQ PT/OT: Ordered, pending IV fluids: none Diet: Cardiac, 2L Fluid restriction plan of care discussed with Dr. Stock, patient and RN. I spent 40 minutes on this encounter. >50% spent on counselling and care coordination. Subjective Date patient seen: Jul 25, 2019 ROS Limited/Unobtainable: Yes Constitutional: Denies: no symptoms, chills, diaphoresis, fever, malaise, weakness, other HEENT: Denies: no symptoms, eye pain, blurred vision, tearing, double vision, ear pain, ear discharge, nose pain, nose congestion, throat pain, throat swelling, mouth pain, mouth swelling, other Cardiovascular: Denies: no symptoms, chest pain, edema, irregular heart rate, lightheadedness, palpitations, syncope, other Respiratory: Reports: shortness of breath; Denies: no symptoms, cough, orthopnea, SOB with excertion, SOB at rest, sputum, stridor, wheezing, other Gastrointestinal/Abdominal: Denies: no symptoms, abdomen distended, abdominal pain, black stools, tarry stools, blood in stool, constipated, diarrhea, difficulty swallowing, nausea, poor appetite, poor fluid intake, rectal bleeding , vomiting, other Genitourinary: Denies: no symptoms, burning, discharge, frequency, flank pain, hematuria, incontinence, pain, urgency, other Neurologic/Psychiatric: Denies: no symptoms, anxiety, depressed, emotional problems, headache, numbness, paresthesia, pre-existing deficit, seizure, tingling, tremors, weakness, other Endocrine: Denies: no symptoms, excessive sweating, flushing, intolerance to cold, intolerance to heat, increased hunger, increased thirst, increased urine, unexplained weight gain, unexplained weight loss, other Hematologic/Lymphatic: Denies: no symptoms, anemia, easy bleeding, easy bruising, other Allergies: Coded Allergies: SHELLFISH DERIVED (Verified Allergy, Unknown, 07/20/19) Subjective seen, sitting in chair feeling better phlegm reduced feeling better blood cultures one bottle: gram variable Objective Last 24 Hour Vital Signs Date Time Temp Pulse Resp B/P (MAP) Pulse Ox O2 Delivery O2 Flow Rate FiO2 07/25/19 08:59 135/76 07/25/19 08:59 72 135/76 07/25/19 08:17 72 20 99 Room Air 21 73 20 96 07/25/19 08:00 97.7 89 20 135/76 (95) 96 07/25/19 04:00 98.0 77 18 127/71 (89) 95 07/25/19 04:00 77 07/25/19 00:00 79 07/24/19 21:06 78 139/93 07/24/19 21:00 Room Air Room Air 07/24/19 20:00 78 07/24/19 20:00 80 20 99 Room Air 21 77 20 97 07/24/19 20:00 98.1 81 18 139/93 (108) 96 07/24/19 16:00 98.6 104 20 134/79 (97) 100 07/24/19 16:00 87 07/24/19 12:47 74 18 98 Room Air 21 70 16 96 07/24/19 12:00 97.7 85 18 113/81 (92) 98 07/24/19 12:00 76 Intake and Output 07/24/19 07/25/19 19:00 07:00 Intake Total 660 ml 120 ml Balance 660 ml 120 ml Intake Oral 660 ml 120 ml # Voids 3 1 # Bowel Movements 2 Laboratory Tests 07/24/19 19:45: Sodium Level 136, Potassium Level 4.2, Chloride Level 102, Carbon Dioxide Level 25, Anion Gap 10, Blood Urea Nitrogen 24H, Creatinine 1.2, Estimat Glomerular Filtration Rate > 60, Glucose Level 193H, Calcium Level 9.2 Height (Feet): 5 Height (Inches): 11.00 Weight (Pounds): 266 Objective General Appearance: WD/WN, no apparent distress, alert, obese EENT: PERRL/EOMI Neck: non-tender, normal alignment, supple Cardiovascular: irregular rhythm , no m/r/g, no jvd Respiratory/Chest: Course breath sounds bilaterally. No wheezing, no rales Abdomen: normal bowel sounds, non tender, soft Extremities: normal range of motion, non-tender, normal inspection, other - thickened skin Edema: Trace LE edema bilaterally Skin: normal pigmentation, warm/dry Timmy Singletary M.D. Jul 25, 2019 10:14
--- NOTE | 2019-07-25 10:39 | NUR ---
*-* INSURANCE *-* ALL AVAILABLE CLINICALS FAXED TO: [facility] Holcomb#[id number] Pilot Supervisor:: Cher
[2019-07-25 12:00] VITALS: BP 129/54
[2019-07-25 16:00] VITALS: BP 134/80
--- NOTE | 2019-07-25 17:40 | NUR ---
NURSE NOTES: Call out to Dr. Baig re; positive blood culture 1 bottle. left message to MD. awaiting call back. patient is afebrile. Will follow.
--- NOTE | 2019-07-25 19:53 | NUR ---
HAND-OFF: Report given to given to Laurel Aceves.Patient stable. Plan of care endorsed.
--- NOTE | 2019-07-25 19:55 | NUR ---
NURSE NOTES: Received report from ANNA Jha. Patient sitting in chair on bedside showing no signs of acute distress. AOx4. Respiration even and non labored on room air. No sob noted. IV noted on Left FA 20g SL patent and intact. Call button within reach. All needs attended and met. Will continue plan of care.
[2019-07-25 20:00] VITALS: BP 121/83
--- NOTE | 2019-07-25 21:19 | Infectious Diseases Prog Note ---
Assessment/Plan Assessment/Plan ASSESSMENT AND PLAN: 1. uri/bronchitis, viral panel negative, chest x-ray negative for pna - ceftin x 2 days - clinically better - stable from ID standpoint - 11/04 positive blood culture for GVR likely contaminant 2. Hypertension. Blood pressure treatment per primary. 3. The patient has history of COPD. On steroids. 4. CHF. 5. Hypertension. 6. GERD. 7. heart failure hx 8. Cardiomyopathy. 9. No known drug allergies. 10. Family history is noncontributory. 11. Social history is positive for smoking in the past. 12. MAR is noted. 13. Case was discussed with RN. 14. Continue treatment per primary consultants. 15. Notes and records were noted. 16. Orders were entered. Subjective Constitutional: Denies: fever, fatigue HEENT: Denies: congestion Respiratory: Reports: productive cough - less, other - sputum now clear ; Denies: shortness of breath Cardiovascular: Denies: chest pain Gastrointestinal/Abdominal: Denies: nausea, vomiting, diarrhea Neurologic: Denies: headache Psychiatric: Denies: depression Skin: Denies: rash Hematologic: Denies: bleeding Musculoskeletal: Denies: pain Allergies: Coded Allergies: SHELLFISH DERIVED (Verified Allergy, Unknown, 07/20/19) Objective Vital Signs Last 24 Hour Vital Signs Date Time Temp Pulse Resp B/P (MAP) Pulse Ox O2 Delivery O2 Flow Rate FiO2 07/25/19 20:00 99.1 74 18 121/83 (96) 98 07/25/19 16:00 80 07/25/19 16:00 99.0 81 18 134/80 (98) 97 07/25/19 14:04 75 20 99 Room Air 21 78 20 97 07/25/19 12:00 70 07/25/19 12:00 97.8 78 20 129/54 (79) 96 07/25/19 09:00 Room Air Room Air 07/25/19 08:59 135/76 07/25/19 08:59 72 135/76 07/25/19 08:17 72 20 99 Room Air 21 73 20 96 07/25/19 08:00 97.7 89 20 135/76 (95) 96 07/25/19 08:00 87 07/25/19 04:00 98.0 77 18 127/71 (89) 95 07/25/19 04:00 77 07/25/19 00:00 79 Height (Feet): 5 Height (Inches): 11.00 Weight (Pounds): 266 General Appearance: no acute distress HEENT: normocephalic, atraumatic, anicteric, mucous membranes moist Respiratory/Chest: rhonchi - bilaterally - less, other - clearer bilaterally Cardiovascular: normal rate, regular rhythm, no gallop/murmur, no JVD Abdomen: normal bowel sounds, soft, non tender, no organomegaly, non distended Genitourinary: other - no cao Extremities: no cyanosis Skin: no rash Neurologic/Psychiatric: tree doctor II-XII grossly normal, alert, oriented x 3, responsive Lymphatic: no neck adenopathy Musculoskeletal: normal muscle bulk Objective Chest x-ray - Procedure: XRAY Chest 1v Indication: Dyspnea Comparison: 07/20/2019 A single view chest radiograph was obtained. Findings: No definite infiltrate or pulmonary vascular congestion identified. The heart is enlarged. The aorta is mildly enlarged consistent with atherosclerotic vascular disease. The bones are osteopenic. Impression: No acute disease Microbiology Date/Time Source Procedure Growth Status 07/20/19 11:45 Blood Blood Culture - Preliminary NO GROWTH AFTER 4 DAYS Resulted 07/20/19 23:00 Nasopharynx Adenovirus Antigen (DEJON) - Final Complete 07/20/19 23:00 Nasopharynx Influenza Virus Type A Antigen - Final Complete 07/20/19 23:00 Nasopharynx Influenza Virus Type B Antigen - Final Complete 07/20/19 23:00 Nasopharynx Parainfluenza Type 1 Antigen (DEJON) - Final Complete 07/20/19 23:00 Nasopharynx Parainfluenza Type 2 Antigen (DEJON) - Final Complete 07/20/19 23:00 Nasopharynx Parainfluenza Type 3 Antigen (DEJON) - Final Complete 07/20/19 23:00 Nasopharynx Respiratory Syncytial Virus Ag - Final Complete sc - normal jaswant bc - 1/6 gvr Labs Test 07/23/19 06:26 07/24/19 06:01 07/24/19 19:45 White Blood Count 9.8 K/UL (4.8-10.8) 9.8 K/UL (4.8-10.8) Red Blood Count 4.98 M/UL (4.70-6.10) 4.95 M/UL (4.70-6.10) Hemoglobin 14.1 G/DL (14.2-18.0) 14.2 G/DL (14.2-18.0) Hematocrit 43.7 % (42.0-52.0) 43.6 % (42.0-52.0) Mean Corpuscular Volume 88 FL (80-99) 88 FL (80-99) Mean Corpuscular Hemoglobin 28.4 PG (27.0-31.0) 28.7 PG (27.0-31.0) Mean Corpuscular Hemoglobin Concent 32.3 G/DL (32.0-36.0) 32.5 G/DL (32.0-36.0) Red Cell Distribution Width 14.9 % (11.6-14.8) 15.1 % (11.6-14.8) Platelet Count 228 K/UL (150-450) 222 K/UL (150-450) Mean Platelet Volume 7.6 FL (6.5-10.1) 7.3 FL (6.5-10.1) Neutrophils (%) (Auto) 66.4 % (45.0-75.0) 67.9 % (45.0-75.0) Lymphocytes (%) (Auto) 22.6 % (20.0-45.0) 21.7 % (20.0-45.0) Monocytes (%) (Auto) 9.2 % (1.0-10.0) 8.6 % (1.0-10.0) Eosinophils (%) (Auto) 0.3 % (0.0-3.0) 0.2 % (0.0-3.0) Basophils (%) (Auto) 1.5 % (0.0-2.0) 1.6 % (0.0-2.0) Sodium Level 137 MMOL/L (136-145) 138 MMOL/L (136-145) 136 MMOL/L (136-145) Potassium Level 4.0 MMOL/L (3.5-5.1) 3.7 MMOL/L (3.5-5.1) 4.2 MMOL/L (3.5-5.1) Chloride Level 104 MMOL/L (98-107) 104 MMOL/L (98-107) 102 MMOL/L (98-107) Carbon Dioxide Level 25 MMOL/L (21-32) 25 MMOL/L (21-32) 25 MMOL/L (21-32) Anion Gap 8 mmol/L (5-15) 9 mmol/L (5-15) 10 mmol/L (5-15) Blood Urea Nitrogen 23 mg/dL (7-18) 25 mg/dL (7-18) 24 mg/dL (7-18) Creatinine 1.0 MG/DL (0.55-1.30) 1.0 MG/DL (0.55-1.30) 1.2 MG/DL (0.55-1.30) Estimat Glomerular Filtration Rate > 60 mL/min (>60) > 60 mL/min (>60) > 60 mL/min (>60) Glucose Level 95 MG/DL (74-106) 99 MG/DL (74-106) 193 MG/DL (74-106) Calcium Level 8.9 MG/DL (8.5-10.1) 8.9 MG/DL (8.5-10.1) 9.2 MG/DL (8.5-10.1) Current Medications Medications (Trade) Dose Ordered Sig/Chitra Route PRN Reason Start Time Stop Time Status Last Admin Dose Admin Acetaminophen (Tylenol) 650 mg Q4H PRN ORAL Mild Pain (Pain Scale 1-3) 07/20/19 14:15 08/19/19 14:14 07/23/19 01:35 Acetaminophen (Tylenol) 650 mg Q4H PRN ORAL fever 07/20/19 14:15 08/19/19 14:14 Carvedilol (Coreg) 12.5 mg EVERY 12 HOURS ORAL 07/20/19 14:37 08/19/19 14:36 07/25/19 08:59 Cefuroxime Axetil (Ceftin) 500 mg EVERY 12 HOURS ORAL 07/23/19 21:00 07/30/19 20:59 07/25/19 08:59 Dextrose (Dextrose 50%) 25 ml Q30M PRN IV Hypoglycemia 07/20/19 14:15 08/19/19 14:14 Dextrose (Dextrose 50%) 50 ml Q30M PRN IV Hypoglycemia 07/20/19 14:15 08/19/19 14:14 Fluticasone Propionate (Flonase) 1 spray DAILY NASAL 07/21/19 09:00 08/20/19 08:59 07/25/19 09:35 Furosemide (Lasix) 40 mg DAILY IV 07/23/19 09:00 08/22/19 08:59 07/25/19 08:58 Guaifenesin/ Dextromethorphan (Robitussin DM Syrup) 10 ml Q4H PRN ORAL For Cough 07/21/19 06:15 08/20/19 06:14 07/25/19 18:22 Heparin Sodium (Porcine) (Heparin 5000 units/ml) 5,000 units EVERY 8 HOURS SUBQ 07/20/19 22:00 08/19/19 21:59 07/25/19 13:20 Hydralazine HCl (Apresoline) 10 mg Q4H PRN IV SBP >160 07/20/19 14:15 08/19/19 14:14 Lisinopril (Zestril) 10 mg DAILY ORAL 07/23/19 09:00 08/22/19 08:59 07/25/19 08:59 Ondansetron HCl (Zofran) 4 mg Q6H PRN IVP Nausea & Vomiting 07/20/19 14:15 08/19/19 14:14 Pantoprazole (Protonix) 40 mg DAILY ORAL 07/21/19 09:00 08/20/19 08:59 07/25/19 08:59 Polyethylene Glycol (Miralax) 17 gm HSPRN PRN ORAL Constipation 07/20/19 14:15 08/19/19 14:14 Spironolactone (Aldactone) 25 mg DAILY ORAL 07/23/19 09:00 08/22/19 08:59 07/25/19 08:59 Trazodone HCl (Desyrel) 50 mg BEDTIME PRN ORAL sleep aide 07/20/19 22:00 08/19/19 21:59 07/22/19 22:55 Zolpidem Tartrate (Ambien) 5 mg HSPRN PRN ORAL Insomnia 07/23/19 15:15 07/30/19 15:14 07/24/19 21:06 Apoorva Ellington MD Jul 25, 2019 21:19
[2019-07-25] MEDS ORDERED: Albuterol/Ipratropium 3ml neb HHN PRN (22:30)
[2019-07-25] MEDS: Zolpidem 5mg tab ORAL PRN (22:34)
[2019-07-26] VITALS: BP 113/83
[2019-07-26] MEDS: Guaifenesin/DM 10ml syrup ORAL PRN ×2 (02:36→09:15)
[2019-07-26 04:00] VITALS: BP 120/86
[2019-07-26] MEDS: Heparin 5000 units/ml inj SUBQ SCH (06:16)
[2019-07-26 06:54] LABS: ANION GAP 9 mmol/L (5-15); BLOOD UREA NITROGEN 29 mg/dL (7-18); CALCIUM 9.3 MG/DL (8.5-10.1); CARBON DIOXIDE 26 MMOL/L (21-32); CHLORIDE 103 MMOL/L (98-107); POTASSIUM 4.1 MMOL/L (3.5-5.1); SODIUM 138 MMOL/L (136-145)
[2019-07-26 07:08] LABS: BASOPHILS % (AUTO) 1.9 % (0.0-2.0); EOSINOPHILS % (AUTO) 0.2 % (0.0-3.0); HEMATOCRIT 45.5 % (42.0-52.0); HEMOGLOBIN 15.1 G/DL (14.2-18.0); LYMPHOCYTES % (AUTO) 17.5 % (20.0-45.0); MEAN CORPUSCULAR VOLUME 87 FL (80-99); MONOCYTES % (AUTO) 7.8 % (1.0-10.0); NEUTROPHILS % (AUTO) 72.5 % (45.0-75.0); PLATELET COUNT 222 K/UL (150-450); RED BLOOD COUNT 5.21 M/UL (4.70-6.10); RED CELL DISTRIBUTION WIDTH 13.5 % (11.6-14.8); WHITE BLOOD COUNT 12.2 K/UL (4.8-10.8)
--- NOTE | 2019-07-26 07:31 | NUR ---
HAND-OFF: Report given to ANNA Jha.
--- NOTE | 2019-07-26 07:33 | NUR ---
NURSE NOTES: Received patient from Laurel Aceves. patient is awake and alert sitting up in chair.Patient ambulatory with steady gait. No complain of pain or discomfort. Will attend to patients needs and continue to monitor.
[2019-07-26 08:00] VITALS: BP 114/72
[2019-07-26 09:15] VITALS: BP 114/72
[2019-07-26] MEDS: Lisinopril 10mg tab ORAL SCH (09:15)
[2019-07-26] MEDS: Carvedilol 12.5mg tab ORAL SCH (09:15)
[2019-07-26] MEDS: Spironolactone 25mg tab ORAL SCH (09:15)
--- NOTE | 2019-07-26 09:17 | Discharge Instructions ---
Discharge Instructions Discharge Instructions Diet: 2 GM sodium (low sodium) Resume Normal Activity?: Yes Activity: as tolerated Follow Up Orders please follow up with PCP in one week Follow up with Dr. Stock (already has an appointment in July) For Congestive Heart Failure Reminder Report to your physician any weight gain of 5 pounds or more in one week. Timmy Singletary M.D. Jul 26, 2019 09:17
[2019-07-26] MEDS: Flonase Nasal Inhaler 16gm NASAL SCH (09:23)
--- NOTE | 2019-07-26 09:26 | Discharge Summary ---
Discharge Summary Hospital Course Date of Admission Jul 20, 2019 at 10:04 Date of Discharge 07/26/2019 Admitting Diagnosis systolic heart failure exacerbation HPI Jose Quinones is a 58 year old male who was admitted on Jul 20, 2019 at 10:04 for systolic heart failure exacerbation Consultations Cardiology: Dr. Stock ID: Dr. De Anda Procedures EKG Telemetry Echocardiogram Hospital Course 58 year old male with PMHx COPD, systolic heart failure, hypertension, obesity and GERD p/w with productive cough and SOB x 1 day. He tells me today he wears a life vest. He has been having frequent PVCs on telemetry and 5 beats of non sustained v tach. #Acute hypoxic respiratory failure 2/2 COPD exacerbation triggered by likely viral infection. Cannot rule out pneumonia. No infiltrate on CXR but could still be developing. Also has systolic CHF exacerbation. #COPD exacerbation > Flu negative. Sputum culture normal respiratory jaswant. - labs and imaging reviewed - monitored on telemetry, NSVT, frequent pvcs, already has lifeVest - Duoneb Q6hr scheduled and PRN - Prednisone 40mg PO daily. Received for 5 days - S/P Ceftriaxone 1gm IV Q24hr, changed to Ceftin by ID. Will take for 2 more days. Blood cultures: gram variable, /6 bottles. contaminant Per ID. - Azithromycin 250mg PO Qd stopped as it's arrhythmogenic. -Tamiflu for 5 days -ID consult appreciated. # Exacerbation of systolic congestive heart failure in a patient with severe nonischemic dilated cardiomyopathy with ejection fraction of around 15 to 20%. Ejection fraction has not improved despite flutter ablation (05/17), despite antiarrhythmic therapy, and guideline directed medical therapy. -Cardiology consult with Dr. Stock appreciated -Lasix 40 mg daily, changed to IV during hospitalization to achieve better diuresis. On discharge will continue 40mg daily per cardiology. -DCed hydralazine and nitrate and added Lisinopril 10 and Aldactone. -Continued Coreg 12.5mg BID - If the ejection fraction does not improve after August 05, 2019 cardiology will upgrade to a defibrillator #Frequent PVC and nonsustained ventricular tachycardia. The patient has a LifeVest on already. I asked if a family member could bring his vest to the hospital prior to discharge. #MARI- resolved #Hypertension, controlled- continue BP meds as above #GERD. Continue home pantoprazole 40mg PO daily #insomnia - discussed sleep hygeine with patient (turning off TV before sleep, etc.) can give melatonin tonight if needed PPX DVT: Heparin SBQ PT/OT: Ordered, pending IV fluids: none Diet: Cardiac, 2L Fluid restriction plan of care discussed with Dr. Stock, patient and RN. Today one exam. He is speaking full sentences. Lungs cta bl, ext: trace edema, neck no jvd. He has an appointment with Dr. Stock (cardiology) in July. I spent 35 minutes on this encounter. >50% spent on counselling and care coordination. Discharge Medications New Medications: Cefuroxime Axetil* (Cefuroxime*) 250 Mg Tablet 500 MG ORAL EVERY 12 HOURS for 2 Days, #4 TAB Lisinopril* (Zestril*) 10 Mg Tablet 10 MG ORAL DAILY for 30 Days, #30 TAB 1 Refill Spironolactone* (Aldactone*) 25 Mg Tablet 25 MG ORAL DAILY for 30 Days, #30 TAB 1 Refill Continued Medications: Albuterol Sulfate (Ventolin Hfa) 18 Gm Hfa.aer.ad 2 PUFFS INH EVERY 6 HOURS, #18 GM 0 Refills Carvedilol (Coreg) 12.5 Mg Tablet 12.5 MG ORAL EVERY 12 HOURS for 30 Days, #60 TAB 1 Refill (This prescription has been renewed) Furosemide* (Lasix*) 40 Mg Tablet 40 MG ORAL DAILY for 60 Days, #60 TAB 1 Refill (This prescription has been renewed) Pantoprazole* (Pantoprazole*) 40 Mg Tablet.dr 40 MG ORAL DAILY for 30 Days, #30 TAB 1 Refill (This prescription has been renewed) Discontinued Medications: Hydralazine HCl (Hydralazine HCl) 10 Mg Tablet 20 MG ORAL Q8HR for 30 Days, #90 TAB Isosorbide Mononitrate (Isosorbide Mononitrate Er) 30 Mg Tab.er.24h 30 MG ORAL DAILY for 30 Days, #30 TAB Discharge Condition Upon Discharge: stable Discharge Disposition Patient was discharged to home with self care Discharge Diagnoses: (1) Acute respiratory failure with hypoxia (2) Systolic heart failure (3) COPD exacerbation (4) Ventricular ectopy (5) Nonsustained ventricular tachycardia (6) MARI (acute kidney injury) (7) Cardiomyopathy (8) Hypertension Discharge Instructions Discharge Instructions Activity: as tolerated Kavian,Timmy M.D. Jul 26, 2019 09:26
[2019-07-26] MEDS ORDERED: SPIRONOLACTONE25 MG ORAL (10:00)
[2019-07-26] MEDS ORDERED: COREG12.5 MG ORAL (10:00)
[2019-07-26] MEDS ORDERED: CEFUROXIME250 MG ORAL (10:00)
[2019-07-26] MEDS ORDERED: FUROSEMIDE40 MG ORAL (10:00)
[2019-07-26] MEDS ORDERED: DUONEB 0.5-3(2.53 ML HHN (10:00)
[2019-07-26] MEDS ORDERED: ZESTRIL10 M1 ORAL (10:00)
[2019-07-26] MEDS ORDERED: PANTOPRAZOLE SO40 MG ORAL (10:00)
[2019-07-26] MEDS ORDERED: VENTOLIN HFA18 GM INH (10:00)
--- NOTE | 2019-07-26 11:00 | NUR ---
NURSE NOTES: Received order for discharge from Dr. Singletary. Medications faxed to [facility] and delivered to floor. Pts sister notified re: discharge. Taxi called to merchandise pickup/receiving associate patient. will follow.
--- NOTE | 2019-07-26 11:43 | NUR ---
NURSE NOTES: Patient discharge to home picked up by [email or web address]. Patient left floor stable, ambulated with steady gait. No complain of pain or discomfort. discharge instructions and medications discussed with patient. verbalizes understanding. All belongings and medications brought home by patient. IV and rn cardiac cath removed from patient.
--- NOTE | 2019-07-26 14:07 | Cardiac Electrophysiology PN ---
Assessment/Plan Assessment/Plan 1. 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 Ejection fraction has not improved despite flutter ablation and guideline directed medical therapy. Change Lasix to 40 mg po daily, Coreg 12.5 mg, Lisinopril 10 and aldactone 25 daily. If the ejection fraction does not improve after August 05, 2019 will upgrade to an ICD 2. Frequent PVC and nonsustained ventricular tachycardia. The patient has a LifeVest on already. 3. Status post renal failure that has resolved. On lisinopril 10 mg daily and Aldactone 4. Cough and productive sputum. Further evaluation by Dr. Ellington. KATY RN Subjective Subjective No CP. In SR with PVC . DC in progress Objective Last 24 Hour Vital Signs Date Time Temp Pulse Resp B/P (MAP) Pulse Ox O2 Delivery O2 Flow Rate FiO2 07/26/19 09:15 114/72 07/26/19 09:15 81 114/72 07/26/19 09:00 Room Air Room Air 07/26/19 08:00 98.5 81 23 114/72 (86) 96 07/26/19 08:00 66 07/26/19 06:55 79 19 97 Room Air 21 07/26/19 05:23 81 18 99 Room Air 21 71 18 98 07/26/19 04:00 97.7 82 18 120/86 (97) 98 07/26/19 04:00 60 07/26/19 00:00 97.7 65 18 113/83 (93) 97 07/26/19 00:00 71 07/25/19 23:42 99.1 07/25/19 21:14 74 121/83 07/25/19 21:00 Room Air Room Air 07/25/19 20:00 99.1 74 18 121/83 (96) 98 07/25/19 20:00 84 07/25/19 16:00 80 07/25/19 16:00 99.0 81 18 134/80 (98) 97 Intake and Output 07/25/19 07/26/19 19:00 07:00 Intake Total 320 ml 240 ml Balance 320 ml 240 ml Intake Oral 320 ml 240 ml # Voids 3 2 Laboratory Tests Test 07/26/19 06:05 White Blood Count 12.2 K/UL (4.8-10.8) H Red Blood Count 5.21 M/UL (4.70-6.10) Hemoglobin 15.1 G/DL (14.2-18.0) Hematocrit 45.5 % (42.0-52.0) Mean Corpuscular Volume 87 FL (80-99) Mean Corpuscular Hemoglobin 28.9 PG (27.0-31.0) Mean Corpuscular Hemoglobin Concent 33.1 G/DL (32.0-36.0) Red Cell Distribution Width 13.5 % (11.6-14.8) Platelet Count 222 K/UL (150-450) Mean Platelet Volume 7.1 FL (6.5-10.1) Neutrophils (%) (Auto) 72.5 % (45.0-75.0) Lymphocytes (%) (Auto) 17.5 % (20.0-45.0) L Monocytes (%) (Auto) 7.8 % (1.0-10.0) Eosinophils (%) (Auto) 0.2 % (0.0-3.0) Basophils (%) (Auto) 1.9 % (0.0-2.0) Sodium Level 138 MMOL/L (136-145) Potassium Level 4.1 MMOL/L (3.5-5.1) Chloride Level 103 MMOL/L (98-107) Carbon Dioxide Level 26 MMOL/L (21-32) Anion Gap 9 mmol/L (5-15) Blood Urea Nitrogen 29 mg/dL (7-18) H Creatinine 1.0 MG/DL (0.55-1.30) Estimat Glomerular Filtration Rate > 60 mL/min (>60) Glucose Level 101 MG/DL (74-106) Calcium Level 9.3 MG/DL (8.5-10.1) Objective HEAD AND NECK: mild JVD. LUNGS: Coarse rhonchi. CARDIOVASCULAR: Regular S1 and S2 with no gallop or murmur. ABDOMEN: Soft. EXTREMITIES: Trace pitting edema. Vipul Stock MD Jul 26, 2019 14:07
--- NOTE | 2019-07-29 16:26 | NUR ---
*-* INSURANCE *-* DISCHARGE INSTRUCTIONS FAXED NO DISCHARGE SUMMARY AVAILABLE: [facility]#[id number] Equipment Service Technician:: Cher #[phone]
== END 2019-07-26 11:34 | disposition home or self-care (01) | DRG 194 ==
LOC: EDBD 09:05 → EMR 09:25 → 2E 10:04 → EDBEDREQ 11:40 → 2E 16:17
DX: I11.0 Hypertensive heart disease with heart failure (principal); J96.01 Acute respiratory failure with hypoxia; J44.1 Chronic obstructive pulmonary disease with (acute) exacerbation; I42.8 Other cardiomyopathies; I47.2 Ventricular tachycardia; I50.23 Acute on chronic systolic (congestive) heart failure; K21.9 Gastro-esophageal reflux disease without esophagitis; N17.9 Acute kidney failure, unspecified; G47.00 Insomnia, unspecified; I49.3 Ventricular premature depolarization; Z87.891 Personal history of nicotine dependence; I70.0 Atherosclerosis of aorta; B34.9 Viral infection, unspecified; J40 Bronchitis, not specified as acute or chronic
CPT/HCPCS: 36415; 71045; 80048; 80053; 81003; 82164; 82248; 82550; 83605; 83690; 83735; 83880; 84484; 85025; 85610; 85730; 86710; 87040; 87070; 87205; 93005; 93306; 94640; 94664; 96365; 96367; 99285; J7620

== ENCOUNTER 2019-08-29 13:41 | Inpatient (IN) | payer MEDICAID ==
[~2019-08-29] VITALS: Ht 180.3 cm; Wt 123.4 kg
[~2019-08-29 13:41] MED LIST changes: +CEFUROXIME250 MG ORAL; +DUONEB 0.5-3(2.53 ML HHN; +VENTOLIN HFA18 GM INH; +ZESTRIL10 M1 ORAL
--- NOTE | 2019-08-29 13:53 | NUR ---
ED Nurse Note: Patient walked in ED from home c/o SOB. Placed on 2L O2 via NC, saturating 100%. Pt aox4. Placed on hospital gown, laboratory monitor, cont pulse ox. Denies pain at this time. ERMD at bedside. Blood collected and sent down to lab.
--- NOTE | 2019-08-29 13:57 | Emergency Room Report ---
History of Present Illness General Chief Complaint: Dyspnea/Respdistress Source: Patient Present Illness HPI Disclaimer: Please note that this report is being documented using [employer] technology. This can lead to erroneous entry secondary to incorrect interpretation by the dictating instrument. HPI: 58-year-old male with a history of non-oxygen dependent COPD, former smoker , hypertension, hyperlipidemia, systolic heart failure with reduced ejection fracture 15 to 20%, dilated cardiomyopathy presents for evaluation of shortness of breath and exertional dyspnea. Symptoms have been present approximately 5 days and worsening over time. He notes exertional shortness of breath and cough with white frothy sputum. Denies green or purulent sputum. Denies fevers , chills, vomiting, diarrhea, abdominal pain, chest pain, dysuria. Notes minimal swelling over the lower extremities and edema. He has been using his albuterol inhaler at home nebulizer treatments was given some relief though it is short-lived. No recent steroids use. He was recently admitted for a COPD and CHF exacerbation approximately 1 month ago. He has an appointment with a linen supervisor next week. PMH: Hypertension, hyperlipidemia, dilated cardiomyopathy, COPD PSH: See chart Allergies: See chart Social Hx: Stopped drinking and smoking 1 year ago Allergies: Coded Allergies: SHELLFISH DERIVED (Verified Allergy, Unknown, 07/20/19) Nursing Documentation-PMH Hx Cardiac Problems: Yes - CHF Hx Hypertension: Yes Hx Asthma: Yes Hx COPD: Yes Hx Cancer: No Hx Gastrointestinal Problems: No Hx Neurological Problems: No Review of Systems All Other Systems: negative except mentioned in HPI Physical Exam Vital Signs Date Time Temp Pulse Resp B/P (MAP) Pulse Ox O2 Delivery O2 Flow Rate FiO2 08/29/19 13:29 98.4 120 20 210/108 (142) 97 Room Air General: Awake and alert, no acute distress HEENT: NC/AT. EOMI. Cardiovascular: Tachycardic. S1 and S2 normal. No murmur appreciated Resp: On 2 L nasal cannula. Mild tachypnea. Normal work of breathing. No cough , wheezing or crackles appreciated Abdomen: Abdomen is soft, nondistended. Obese. Nontender Skin: Intact. No abrasions, laceration or rash over the exposed skin MSK: Normal tone and bulk. Moving all extremities. No obvious deformity. 2+ lower extremity pitting edema to the ankles bilaterally Neuro: Awake and alert. Mentating appropriately. Medical Decision Making Diagnostic Impression: Primary Impression: Systolic heart failure ER Course 58-year-old male presents for evaluation of exertional dyspnea and cough for 5 days duration without chest pain. Differential includes but is not limited to COPD exacerbation, pneumonia, bronchitis, CHF, ACS, pneumothorax, viral syndrome , influenza. We will start broad metabolic and infectious work-up. He is tachycardic and slightly tachypneic but feeling much better on nasal cannula. Will obtain EKG, BN peptide, cardiac markers, screening labs and treat the patient with nitroglycerin, Solu-Medrol, DuoNeb treatments Laboratory Tests Test 08/29/19 13:45 White Blood Count 9.5 K/UL (4.8-10.8) Red Blood Count 5.29 M/UL (4.70-6.10) Hemoglobin 14.8 G/DL (14.2-18.0) Hematocrit 46.4 % (42.0-52.0) Mean Corpuscular Volume 88 FL (80-99) Mean Corpuscular Hemoglobin 28.0 PG (27.0-31.0) Mean Corpuscular Hemoglobin Concent 31.9 G/DL (32.0-36.0) L Red Cell Distribution Width 15.5 % (11.6-14.8) H Platelet Count 274 K/UL (150-450) Mean Platelet Volume 5.8 FL (6.5-10.1) L Neutrophils (%) (Auto) 78.8 % (45.0-75.0) H Lymphocytes (%) (Auto) 10.1 % (20.0-45.0) L Monocytes (%) (Auto) 10.0 % (1.0-10.0) Eosinophils (%) (Auto) 0.0 % (0.0-3.0) Basophils (%) (Auto) 1.0 % (0.0-2.0) Sodium Level 138 MMOL/L (136-145) Potassium Level 4.8 MMOL/L (3.5-5.1) Chloride Level 105 MMOL/L (98-107) Carbon Dioxide Level 21 MMOL/L (21-32) Anion Gap 12 mmol/L (5-15) Blood Urea Nitrogen 21 mg/dL (7-18) H Creatinine 1.0 MG/DL (0.55-1.30) Estimate Glomerular Filtration Rate > 60 mL/min (>60) Glucose Level 156 MG/DL (74-106) H Calcium Level 9.3 MG/DL (8.5-10.1) Total Bilirubin 2.8 MG/DL (0.2-1.0) H Direct Bilirubin 0.9 MG/DL (0.0-0.3) H Aspartate Amino Transferase (AST) 23 U/L (15-37) Alanine Aminotransferase (ALT) 28 U/L (12-78) Alkaline Phosphatase 104 U/L (46-116) Troponin I 0.017 ng/mL (0.000-0.056) Pro-B-Type Natriuretic Peptide 3500 pg/mL (0-125) H Total Protein 7.5 G/DL (6.4-8.2) Albumin 3.8 G/DL (3.4-5.0) Globulin 3.7 g/dL Albumin/Globulin Ratio 1.0 (1.0-2.7) EKG Diagnostic Results EKG Time: 14:12 Rate: normal Rhythm: NSR ST Segments: no acute changes Other Impression Sinus rhythm, normal axis, normal intervals, no ST segment changes. Multiple PVCs Rhythm Strip Diag. Results Rhythm Strip Time: 14:12 EP Interpretation: yes Rate: 90s Rhythm: NSR, other - Multiple PVCs Chest X-Ray Diagnostic Results Chest X-Ray Diagnostic Results : Chest X-Ray Ordered: Yes # of Views/Limited/Complete: 1 View Indication: Shortness of Breath EP Interpretation: Yes Interpretation: other - Bilateral pulmonary vascular congestion and a right- sided pleural effusion Impression: Other - Pulmonary congestion and pleural effusion Electronically Signed by: Electronically signed by Dr. Jason Hawk Reevaluation Time: 16:57 Last Vital Signs Date Time Temp Pulse Resp B/P (MAP) Pulse Ox O2 Delivery O2 Flow Rate FiO2 08/29/19 13:29 98.4 120 20 210/108 (142) 97 Room Air Reevaluation Impression Labs show troponin within normal limits and an elevated BN peptide. Chest x- ray shows bilateral vascular congestion as well as a right-sided pleural effusion consistent with a CHF exacerbation. The patient was given nitroglycerin and is diuresing well after receiving Lasix. He reports feeling much better but still feels better on nasal cannula. Remains slightly tachycardic in the 110s. He is stable for admission to the telemetry service for further diuresis Disposition: ADMITTED INPATIENT Condition: Serious Jason Hawk MD Aug 29, 2019 13:57
[2019-08-29] MEDS ORDERED: Nitroglycerin 2% oint pkt TOPIC ONE (14:00)
[2019-08-29] MEDS ORDERED: Ipratropium 0.02% Inh Soln 2.5ml UD HHN ONE (14:00)
[2019-08-29] MEDS ORDERED: Solu-MEDROL 125mg Inj IVP ONE (14:00)
[2019-08-29] MEDS ORDERED: Albuterol ud Inhalation HHN SCH (14:00)
[2019-08-29] MEDS ORDERED: Nitroglycerin Subl 0.4mg tab SL PRN (14:00)
--- NOTE | 2019-08-29 14:05 | NUR ---
ED Nurse Note: RT at bedside for breathing treatment.
[2019-08-29 14:22] VITALS: BP 163/105
--- NOTE | 2019-08-29 14:31 | NUR ---
ED Nurse Note: Pt awake, alert, verbally responsive. Denies CP at this time. States he "feels better" at this time.
[2019-08-29 14:34] LABS: HEMATOCRIT 46.4 % (42.0-52.0); HEMOGLOBIN 14.8 G/DL (14.2-18.0); LYMPHOCYTES % (AUTO) 10.1 % (20.0-45.0); MEAN CORPUSCULAR VOLUME 88 FL (80-99); NEUTROPHILS % (AUTO) 78.8 % (45.0-75.0); PLATELET COUNT 274 K/UL (150-450); RED BLOOD COUNT 5.29 M/UL (4.70-6.10); RED CELL DISTRIBUTION WIDTH 15.5 % (11.6-14.8); WHITE BLOOD COUNT 9.5 K/UL (4.8-10.8)
--- NOTE | 2019-08-29 14:40 | NUR ---
ED Nurse Note: xray at bedside
[2019-08-29 14:41] LABS: ANION GAP 12 mmol/L (5-15); BLOOD UREA NITROGEN 21 mg/dL (7-18); CALCIUM 9.3 MG/DL (8.5-10.1); CARBON DIOXIDE 21 MMOL/L (21-32); CHLORIDE 105 MMOL/L (98-107); POTASSIUM 4.8 MMOL/L (3.5-5.1); SODIUM 138 MMOL/L (136-145)
[2019-08-29 14:55] LABS: ALANINE AMINOTRANSFERASE 28 U/L (12-78); ALBUMIN 3.8 G/DL (3.4-5.0); ALKALINE PHOSPHATASE 104 U/L (46-116); ASPARTATE AMINO TRANSFERASE 23 U/L (15-37); BILIRUBIN,DIRECT 0.9 MG/DL (0.0-0.3); BILIRUBIN,TOTAL 2.8 MG/DL (0.2-1.0)
[2019-08-29 15:27] VITALS: BP 159/102
--- NOTE | 2019-08-29 15:42 | Diagnostic Imaging Report ---
Indication: Dyspnea Comparison: 07/23/2019 A single view chest radiograph was obtained. Findings: Mild pulmonary vascular congestion suspected with the cardiomegaly, prominent pulmonary vessels and blunting of the right costophrenic angle. IMPRESSION: Suspected the right pleural effusion and mild CHF
--- NOTE | 2019-08-29 15:43 | NUR ---
SPOKE TO RAPID TRANSIT OPERATOR BRANDEE PATIENT WILL BE ADMITTED WILL CALL BACK
--- NOTE | 2019-08-29 16:45 | NUR ---
ED Nurse Note: Patient is feels relief in tripod position. SAtting at 100% and voiding frequently. will continue to monitor.
--- NOTE | 2019-08-29 17:00 | NUR ---
HAND-OFF: Report given to ANNA Mac. Patient in stable condition.
--- NOTE | 2019-08-29 17:44 | History and Physical ---
History of Present Illness General Date patient seen: Aug 29, 2019 Reason for Hospitalization: Acute hypoxic respiratory failure Present Illness HPI This raymundo 58-year-old gentleman with a past medical history of COPD, systolic heart failure with an EF of 15 to 20%, atrial flutter status post ablation in April 2019, hypertension, obesity, GERD presenting with 5-day history of shortness of breath, dyspnea on exertion, ~2 pillow orthopnea. Patient has been drinking more fluids than what he was told and not sure if he is taking his medications as prescribed. He has also had a productive cough of white sputum, and breathing improves with breathing treatments. Denies any fevers, chills, chest pain, palpitations, dizziness, lightheadedness, syncope, near syncope. In the ER temperature 98.4 pulse 120 respirations 20 blood pressure 210/108 improved to 163/105 treatment, 97% on 2 L. WBCs 9.5, creatinine 1.0, ABG showed 7.4, 35.6, 104, 21.4 on 2 L nasal cannula. T bili 2.8. proBNP 3500. Chest x-ray showed right pleural effusion and mild CHF. Initial troponin 0.017 EKG unremarkable. Allergies: Shellfish Medications: Reviewed PMhx: See HPI Surgical history: A flutter ablation 04/2019 Family history: Denies diabetes or hypertension Social history tobacco quit 2017, 7-pack-year history Alcohol: quit 2017 3 cans of beer per day for 10 to 12 years Drug: denies Allergies: Coded Allergies: SHELLFISH DERIVED (Verified Allergy, Unknown, 07/20/19) Medication History Scheduled Albuterol Sulfate (Ventolin Hfa), 2 PUFFS INH EVERY 6 HOURS Carvedilol (Coreg), 12.5 MG ORAL EVERY 12 HOURS Cefuroxime Axetil* (Cefuroxime*), 500 MG ORAL EVERY 12 HOURS Furosemide* (Lasix*), 40 MG ORAL DAILY Lisinopril* (Zestril*), 10 MG ORAL DAILY Pantoprazole* (Pantoprazole*), 40 MG ORAL DAILY Spironolactone* (Aldactone*), 25 MG ORAL DAILY Scheduled PRN Ipratropium/Albuterol Sulfate (DuoNeb 0.5-3(2.5)mg/3ml), 3 ML HHN Q4H PRN Patient History Healthcare decision maker N Resuscitation status Full Advanced Directive on File Family History Family History: FH: diabetes mellitus Hypertension Review of Systems Constitutional: Denies: see HPI, chills, sweats, fever, malaise, weakness, other Eye: Denies: see HPI, eye pain, blurred vision, tearing, double vision, nose pain, nose congestion, acuity changes, discharge, other ENT: Denies: see HPI, ear pain, ear discharge, nose pain, nose congestion, throat pain, throat swelling, mouth pain, hearing loss, nasal discharge, other Respiratory: Reports: cough, orthopnea, shortness of breath, wheezing, ESCALERA; Denies: see HPI, stridor, sputum, other Cardiovascular: Reports: edema; Denies: see HPI, chest pain, palpitations, syncope, PND, other Gastrointestinal: Denies: see HPI, abdominal pain, constipation, diarrhea, nausea, vomiting, melena, hematemesis, other Genitourinary: Denies: see HPI, discharge, dysuria, frequency, hematuria, pain , retention, incontinence, urgency, vag bleed/dc, other Musculoskeletal: Denies: see HPI, back pain, gout, joint pain, joint swelling, muscle pain, muscle stiffness, other Skin: Denies: see HPI, rash, change in color, change in hair/nails, dryness, lesions, other Psychiatric: Denies: see HPI, prior hx, anxiety, depressed feelings, emotional problems, SI, HI, hallucinations, other Neurological: Denies: see HPI, headache, numbness, paresthesia, seizure, tingling, tremors, focal weakness, syncope, dizziness, other Endocrine: Denies: see HPI, excessive sweating, flushing, intolerance to temperature, increased thirst, increased urine, unexplained weight loss, other Hematologic/Lymphatic: Denies: see HPI, anemia, blood clots, easy bleeding, easy bruising, swollen glands, diathesis, other Physical Exam General Appearance: WD/WN, no apparent distress, alert, mild distress Lines, tubes and drains: peripheral HEENT: normocephalic, atraumatic, anicteric Neck: non-tender, normal alignment, supple Respiratory/Chest: chest wall non-tender, other - decreased breath sounds. 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, no motor/sensory deficits, alert, oriented x 3, responsive Musculoskeletal: normal muscle bulk, no effusion Last 24 Hour Vital Signs Date Time Temp Pulse Resp B/P (MAP) Pulse Ox O2 Delivery O2 Flow Rate FiO2 08/29/19 15:27 98.4 99 17 159/102 99 Nasal Cannula 2.0 28 08/29/19 14:22 98.4 99 17 163/105 98 Nasal Cannula 2.0 28 08/29/19 14:22 99 17 Nasal Cannula 2.0 28 08/29/19 14:10 107 17 98 Nasal Cannula 2.0 28 08/29/19 14:10 107 17 98 Nasal Cannula 2.0 28 08/29/19 14:02 163/105 08/29/19 13:29 98.4 120 20 210/108 (142) 97 Room Air Laboratory Tests Test 08/29/19 13:45 08/29/19 16:50 White Blood Count 9.5 K/UL (4.8-10.8) Red Blood Count 5.29 M/UL (4.70-6.10) Hemoglobin 14.8 G/DL (14.2-18.0) Hematocrit 46.4 % (42.0-52.0) Mean Corpuscular Volume 88 FL (80-99) Mean Corpuscular Hemoglobin 28.0 PG (27.0-31.0) Mean Corpuscular Hemoglobin Concent 31.9 G/DL (32.0-36.0) L Red Cell Distribution Width 15.5 % (11.6-14.8) H Platelet Count 274 K/UL (150-450) Mean Platelet Volume 5.8 FL (6.5-10.1) L Neutrophils (%) (Auto) 78.8 % (45.0-75.0) H Lymphocytes (%) (Auto) 10.1 % (20.0-45.0) L Monocytes (%) (Auto) 10.0 % (1.0-10.0) Eosinophils (%) (Auto) 0.0 % (0.0-3.0) Basophils (%) (Auto) 1.0 % (0.0-2.0) Sodium Level 138 MMOL/L (136-145) Potassium Level 4.8 MMOL/L (3.5-5.1) Chloride Level 105 MMOL/L (98-107) Carbon Dioxide Level 21 MMOL/L (21-32) Anion Gap 12 mmol/L (5-15) Blood Urea Nitrogen 21 mg/dL (7-18) H Creatinine 1.0 MG/DL (0.55-1.30) Estimat Glomerular Filtration Rate > 60 mL/min (>60) Glucose Level 156 MG/DL (74-106) H Calcium Level 9.3 MG/DL (8.5-10.1) Total Bilirubin 2.8 MG/DL (0.2-1.0) H Direct Bilirubin 0.9 MG/DL (0.0-0.3) H Aspartate Amino Transf (AST/SGOT) 23 U/L (15-37) Alanine Aminotransferase (ALT/SGPT) 28 U/L (12-78) Alkaline Phosphatase 104 U/L (46-116) Troponin I 0.017 ng/mL (0.000-0.056) Pro-B-Type Natriuretic Peptide 3500 pg/mL (0-125) H Total Protein 7.5 G/DL (6.4-8.2) Albumin 3.8 G/DL (3.4-5.0) Globulin 3.7 g/dL Albumin/Globulin Ratio 1.0 (1.0-2.7) Arterial Blood pH 7.397 (7.350-7.450) Arterial Blood Partial Pressure CO2 35.6 mmHg (35.0-45.0) Arterial Blood Partial Pressure O2 104.0 mmHg (75.0-100.0) H Arterial Blood HCO3 21.4 mmol/L (22.0-26.0) L Arterial Blood Oxygen Saturation 97.5 % (95-100) Arterial Blood Base Excess -2.7 (-2-2) L Colin Test Positive Height (Feet): 5 Height (Inches): 11.00 Weight (Pounds): 225 Medications Current Medications Medications (Trade) Dose Ordered Sig/Chitra Route PRN Reason Start Time Stop Time Status Last Admin Dose Admin Nitroglycerin (Ntg) 0.4 mg Q5M PRN SL Prn Chest Pain 08/29/19 14:00 Assessment/Plan Problem List: (1) Acute respiratory failure with hypoxia ICD Codes: J96.01 - Acute respiratory failure with hypoxia SNOMED: 02076788, 909151694 (2) Acute exacerbation of CHF (congestive heart failure) ICD Codes: I50.9 - Heart failure, unspecified SNOMED: 089856674, 21360695463002 (3) COPD exacerbation ICD Codes: J44.1 - Chronic obstructive pulmonary disease with (acute) exacerbation SNOMED: 007248073 (4) Systolic heart failure ICD Codes: I50.20 - Unspecified systolic (congestive) heart failure SNOMED: 052109077 (5) Nonsustained ventricular tachycardia ICD Codes: I47.2 - Ventricular tachycardia SNOMED: 565708359 (6) Hypertension ICD Codes: I10 - Essential (primary) hypertension SNOMED: 78255984 (7) History of atrial flutter ICD Codes: Z86.79 - Personal history of other diseases of the circulatory system SNOMED: 978155969 (8) Status post ablation of atrial flutter ICD Codes: Z98.890 - Other specified postprocedural states; Z86.79 - Personal history of other diseases of the circulatory system SNOMED: 894594392, 765941908, 584774954, 143790243 Diagnosis Eldora I: Is a 58-year-old male with a history of systolic heart failure, COPD presenting with CHF and COPD exacerbation #Acute hypoxic respiratory failure 2/2 COPD/CHF exacerbation triggered by medication noncompliance and excessive fluid intake. #right pleural effusion # Exacerbation of systolic congestive heart failure in a patient with severe nonischemic dilated cardiomyopathy with ejection fraction of around 15 to 20%. Ejection fraction has not improved despite flutter ablation (05/17), despite antiarrhythmic therapy, and guideline directed medical therapy. #COPD exacerbation #COPD, not on home O2 - labs and imaging reviewed - monitored on telemetry, NSVT, frequent pvcs - Duoneb Q6hr scheduled and PRN - Prednisone 40mg PO daily for 5 days. - IV lasix 40mg IV Daily - Spironolactone 25mg PO daily - Coreg 12.5mg PO BID - Lisinopril 10mg PO daily - Appreciate cardiology recommendations: Dr. Stock - holding on antibiotics - recently started on advair? as outaptient. will confirm #Frequent PVC and nonsustained ventricular tachycardia. - monitor electrolytes - continue on telemetry - keep mag >2, potassium >4 #Hypertension, controlled- continue BP meds as above #GERD. Continue home pantoprazole 40mg PO daily #insomnia - discussed sleep hygeine with patient (turning off TV before sleep, etc.) can give melatonin FENPPX DVTPPX: lovenox GI PPX: None needed Fluids: none Diet: cardiac, 2L fluid restrict Lines: peripheral PT/OT: pending Code status: Full Dispo: Home with home health for medication management Reason for Continued Hospitalization: Acute respiratory failure 73 minutes spent on this encounter. Discussed with patient, RN. > 50% spent on counseling and care coordination. Extra 35 minutes spent reviewing medical records including prior hospitalization, computing consultant notes, prior labs and imaging. Time of note may not reflect time patient was seen. Nikita Franco D.O. Aug 29, 2019 17:44
[2019-08-29] MEDS ORDERED: Spironolactone 25mg tab ORAL SCH (18:00)
--- NOTE | 2019-08-29 18:04 | NUR ---
ED Nurse Note: Report rendered to lexus Higginbotham RN.
--- NOTE | 2019-08-29 18:30 | NUR ---
ED Nurse Note: Patient transported to floor without incident by RN.
[2019-08-29 18:35] LABS: PHOSPHORUS 4.3 MG/DL (2.5-4.9)
--- NOTE | 2019-08-29 18:45 | NUR ---
NURSE NOTES: Report received from SYDNIE Higginbotham. Pt. came in from ER via gurney. AOx4. Was able to walk to the bed 5 steps. IN 2L NC. 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 Traylor. No new orders at this time. night monitor applied, gown changed, made comfortable. Oriented to room. L AC 20g IV flushed, SL. Bed on lowest position, side rails upx2, brakes engaged. Call light within easy reach.
[2019-08-29] MEDS ORDERED: Miralax 17gm pkt ORAL PRN (19:15)
[2019-08-29] MEDS ORDERED: Mylanta II UD 30ml ORAL PRN (19:15)
--- NOTE | 2019-08-29 19:30 | NUR ---
NURSE NOTES: Received pt and report from ANNA Waters. Observed pt in bed and watching television. Pt is A/Ox4. teletypesetter monitor is in placed, IV site intact, asymptomatic, and patent. Bed is in the lowest position and locked. Call light within reach. No signs/symptoms of acute distress noted at this time. Will continue plan of care.
--- NOTE | 2019-08-29 19:40 | NUR ---
HAND-OFF: Report given to ANNA Ellison. Pt. with MD. Plan of care endorsed.
[2019-08-29 20:00] VITALS: BP 160/101
[2019-08-29] MEDS ORDERED: Azithromycin 250mg tab ORAL SCH (20:00)
[2019-08-29] MEDS: Albuterol/Ipratropium 3ml neb HHN PRN (20:04)
[2019-08-29] MEDS: Lisinopril 20mg tab ORAL SCH (20:20)
--- NOTE | 2019-08-29 21:05 | NUR ---
NURSE NOTES: Contacted Dr. Meraz for pain medication for pt. Received orders. Will note and carry out.
[2019-08-29] MEDS ORDERED: Acetaminophen 500mg (ES) tab ORAL PRN (21:15)
[2019-08-29] MEDS: HYDROcodone/Acetamin 10/325 tab ORAL PRN (21:32)
[2019-08-29] MEDS: Carvedilol 12.5mg tab ORAL SCH (21:33)
[2019-08-29] MEDS: Enoxaparin 40mg Inj SUBQ SCH (21:36)
[2019-08-30] VITALS (7 sets, daily range): BP systolic 130–160; BP diastolic 79–101
[2019-08-30] MEDS: Albuterol/Ipratropium 3ml neb HHN SCH ×4 (01:00→18:51)
[2019-08-30] MEDS: Albuterol/Ipratropium 3ml neb HHN PRN (04:35)
[2019-08-30 07:31] LABS: ANION GAP 4 mmol/L (5-15); BLOOD UREA NITROGEN 25 mg/dL (7-18); CALCIUM 9.5 MG/DL (8.5-10.1); CARBON DIOXIDE 30 MMOL/L (21-32); CHLORIDE 109 MMOL/L (98-107); CREATININE 1.2 MG/DL (0.55-1.30); PHOSPHORUS 4.2 MG/DL (2.5-4.9); POTASSIUM 5.7 MMOL/L (3.5-5.1); SODIUM 143 MMOL/L (136-145)
[2019-08-30 07:32] LABS: HEMATOCRIT 41.3 % (42.0-52.0); HEMOGLOBIN 13.5 G/DL (14.2-18.0); MEAN CORPUSCULAR VOLUME 88 FL (80-99); PLATELET COUNT 221 K/UL (150-450); RED BLOOD COUNT 4.69 M/UL (4.70-6.10); RED CELL DISTRIBUTION WIDTH 15.9 % (11.6-14.8); WHITE BLOOD COUNT 7.5 K/UL (4.8-10.8)
--- NOTE | 2019-08-30 07:35 | NUR ---
HAND-OFF: Report given to ANNA Jones. Plan of care endorsed.
--- NOTE | 2019-08-30 07:56 | NUR ---
NURSE NOTES: Received report from ANNA Ellison. Patient aox4 with calm, talkative and denies pain or dyspnea. Breathing well on NC. RT in room now with nebs treatement. Patient was eating breakfast with gusto. Bed in lowest, locked position with call de leon and urinal in reach. Will continue with strict I &Os and follow plan of care.
[2019-08-30] MEDS ORDERED: Azithromycin 250mg tab ORAL SCH (09:00)
[2019-08-30] MEDS: Carvedilol 12.5mg tab ORAL SCH ×2 (09:18→21:32)
[2019-08-30] MEDS: Lisinopril 20mg tab ORAL SCH (09:18)
--- NOTE | 2019-08-30 09:29 | NUR ---
CASE MANAGEMENT:REVIEW 58 YR OLD MALE BIBA FROM HOME CC: SOB AND WHEEZING SI: CHF 98.4 120 20 210/108 97% ON RA TBILI+2.8 DBILI+0.9 BNP+3500 IS: ATROVENT HHN X1 NITRO-BID 1" ALBUTEROL HHN Q15 IV SOLUMEDROL IV LASIX CXR : TO TELEMETRY INTERQUAL CRITERIA MET
[2019-08-30 10:00] LABS: ANION GAP 6 mmol/L (5-15); BLOOD UREA NITROGEN 25 mg/dL (7-18); CALCIUM 9.4 MG/DL (8.5-10.1); CARBON DIOXIDE 27 MMOL/L (21-32); CHLORIDE 104 MMOL/L (98-107); CREATININE 1.1 MG/DL (0.55-1.30); POTASSIUM 4.8 MMOL/L (3.5-5.1); SODIUM 137 MMOL/L (136-145)
--- NOTE | 2019-08-30 10:04 | NUR ---
*-* INSURANCE *-* ALL AVAILABLE CLINICALS AND REVIEW HAVE BEEN FAXED TO: [facility]# YET #[phone] FAX#[phone] REVIEWS/CLINICALS
[2019-08-30] MEDS: HYDROcodone/Acetamin 10/325 tab ORAL PRN ×2 (11:24→23:03)
[2019-08-30] MEDS: Acetaminophen 500mg (ES) tab ORAL PRN ×2 (11:25→21:32)
--- NOTE | 2019-08-30 11:41 | Cardiac Electrophysiology PN ---
Subjective Subjective [id number] Objective Last 24 Hour Vital Signs Date Time Temp Pulse Resp B/P (MAP) Pulse Ox O2 Delivery O2 Flow Rate FiO2 08/30/19 11:26 96.8 70 19 150/79 (102) 98 08/30/19 09:18 134/96 08/30/19 09:18 98 134/96 08/30/19 08:00 98 08/30/19 08:00 97.6 85 19 138/88 (105) 100 08/30/19 08:00 98 08/30/19 07:41 98 18 100 Room Air 21 96 20 99 08/30/19 04:36 83 18 99 Nasal Cannula 2.0 28 80 18 98 08/30/19 04:00 97.3 81 19 134/96 (109) 98 08/30/19 04:00 74 08/30/19 00:00 89 08/30/19 00:00 97.6 89 20 146/98 (114) 96 08/29/19 21:33 107 161/87 08/29/19 20:20 160/101 08/29/19 20:04 84 18 99 Nasal Cannula 2.0 87 18 97 08/29/19 20:00 107 08/29/19 20:00 98.1 107 21 160/101 (120) 97 08/29/19 19:10 Nasal Cannula 2.0 08/29/19 18:30 98.4 99 17 159/102 99 Nasal Cannula 2.0 08/29/19 15:27 98.4 99 17 159/102 99 Nasal Cannula 2.0 08/29/19 14:22 98.4 99 17 163/105 98 Nasal Cannula 2.0 08/29/19 14:22 99 17 Nasal Cannula 2.0 28 08/29/19 14:10 107 17 98 Nasal Cannula 2.0 28 08/29/19 14:10 107 17 98 Nasal Cannula 2.0 28 08/29/19 14:02 163/105 08/29/19 13:29 98.4 120 20 210/108 (142) 97 Room Air Intake and Output 08/29/19 08/30/19 19:00 07:00 Intake Total 0 ml 620 ml Output Total 1500 ml Balance 0 ml -880 ml Intake Oral 0 ml 620 ml Output Urine Total 1500 ml # Voids 3 # Bowel Movements 1 Laboratory Tests Test 08/29/19 13:45 08/29/19 16:50 08/30/19 05:47 08/30/19 08:28 White Blood Count 9.5 K/UL (4.8-10.8) 7.5 K/UL (4.8-10.8) Red Blood Count 5.29 M/UL (4.70-6.10) 4.69 M/UL (4.70-6.10) L Hemoglobin 14.8 G/DL (14.2-18.0) 13.5 G/DL (14.2-18.0) L Hematocrit 46.4 % (42.0-52.0) 41.3 % (42.0-52.0) L Mean Corpuscular Volume 88 FL (80-99) 88 FL (80-99) Mean Corpuscular Hemoglobin 28.0 PG (27.0-31.0) 28.7 PG (27.0-31.0) Mean Corpuscular Hemoglobin Concent 31.9 G/DL (32.0-36.0) L 32.6 G/DL (32.0-36.0) Red Cell Distribution Width 15.5 % (11.6-14.8) H 15.9 % (11.6-14.8) H Platelet Count 274 K/UL (150-450) 221 K/UL (150-450) Mean Platelet Volume 5.8 FL (6.5-10.1) L 6.3 FL (6.5-10.1) L Neutrophils (%) (Auto) 78.8 % (45.0-75.0) H % (45.0-75.0) Lymphocytes (%) (Auto) 10.1 % (20.0-45.0) L % (20.0-45.0) Monocytes (%) (Auto) 10.0 % (1.0-10.0) % (1.0-10.0) Eosinophils (%) (Auto) 0.0 % (0.0-3.0) % (0.0-3.0) Basophils (%) (Auto) 1.0 % (0.0-2.0) % (0.0-2.0) Sodium Level 138 MMOL/L (136-145) 143 MMOL/L (136-145) 137 MMOL/L (136-145) Potassium Level 4.8 MMOL/L (3.5-5.1) 5.7 MMOL/L (3.5-5.1) H 4.8 MMOL/L (3.5-5.1) Chloride Level 105 MMOL/L (98-107) 109 MMOL/L (98-107) H 104 MMOL/L (98-107) Carbon Dioxide Level 21 MMOL/L (21-32) 30 MMOL/L (21-32) 27 MMOL/L (21-32) Anion Gap 12 mmol/L (5-15) 4 mmol/L (5-15) L 6 mmol/L (5-15) Blood Urea Nitrogen 21 mg/dL (7-18) H 25 mg/dL (7-18) H 25 mg/dL (7-18) H Creatinine 1.0 MG/DL (0.55-1.30) 1.2 MG/DL (0.55-1.30) 1.1 MG/DL (0.55-1.30) Estimat Glomerular Filtration Rate > 60 mL/min (>60) > 60 mL/min (>60) > 60 mL/min (>60) Glucose Level 156 MG/DL (74-106) H 146 MG/DL (74-106) H 243 MG/DL (74-106) H Calcium Level 9.3 MG/DL (8.5-10.1) 9.5 MG/DL (8.5-10.1) 9.4 MG/DL (8.5-10.1) Phosphorus Level 4.3 MG/DL (2.5-4.9) 4.2 MG/DL (2.5-4.9) Magnesium Level 1.9 MG/DL (1.8-2.4) 2.1 MG/DL (1.8-2.4) Total Bilirubin 2.8 MG/DL (0.2-1.0) H Direct Bilirubin 0.9 MG/DL (0.0-0.3) H Aspartate Amino Transf (AST/SGOT) 23 U/L (15-37) Alanine Aminotransferase (ALT/SGPT) 28 U/L (12-78) Alkaline Phosphatase 104 U/L (46-116) Troponin I 0.017 ng/mL (0.000-0.056) 0.008 ng/mL (0.000-0.056) Pro-B-Type Natriuretic Peptide 3500 pg/mL (0-125) H Total Protein 7.5 G/DL (6.4-8.2) Albumin 3.8 G/DL (3.4-5.0) Globulin 3.7 g/dL Albumin/Globulin Ratio 1.0 (1.0-2.7) Arterial Blood pH 7.397 (7.350-7.450) Arterial Blood Partial Pressure CO2 35.6 mmHg (35.0-45.0) Arterial Blood Partial Pressure O2 104.0 mmHg (75.0-100.0) H Arterial Blood HCO3 21.4 mmol/L (22.0-26.0) L Arterial Blood Oxygen Saturation 97.5 % (95-100) Arterial Blood Base Excess -2.7 (-2-2) L Colin Test Positive Differential Total Cells Counted 100 Neutrophils % (Manual) 91 % (45-75) H Lymphocytes % (Manual) 6 % (20-45) L Monocytes % (Manual) 3 % (1-10) Eosinophils % (Manual) 0 % (0-3) Basophils % (Manual) 0 % (0-2) Band Neutrophils 0 % (0-8) Platelet Estimate Adequate Platelet Morphology Normal Anisocytosis 1+ Vipul Stock MD Aug 30, 2019 11:41
--- NOTE | 2019-08-30 13:05 | General Progress Note ---
Assessment/Plan Problem List: (1) Acute respiratory failure with hypoxia ICD Codes: J96.01 - Acute respiratory failure with hypoxia SNOMED: 68261493, 832717160 (2) Acute exacerbation of CHF (congestive heart failure) ICD Codes: I50.9 - Heart failure, unspecified SNOMED: 654797802, 38023363536600 (3) COPD exacerbation ICD Codes: J44.1 - Chronic obstructive pulmonary disease with (acute) exacerbation SNOMED: 997234393 (4) Systolic heart failure ICD Codes: I50.20 - Unspecified systolic (congestive) heart failure SNOMED: 357448637 (5) Nonsustained ventricular tachycardia ICD Codes: I47.2 - Ventricular tachycardia SNOMED: 372535984 (6) Hypertension ICD Codes: I10 - Essential (primary) hypertension SNOMED: 57065933 (7) History of atrial flutter ICD Codes: Z86.79 - Personal history of other diseases of the circulatory system SNOMED: 291508281 (8) Status post ablation of atrial flutter ICD Codes: Z98.890 - Other specified postprocedural states; Z86.79 - Personal history of other diseases of the circulatory system SNOMED: 421992363, 925096308, 791463733, 504238794 Assessment/Plan: Is a 58-year-old male with a history of systolic heart failure, COPD presenting with CHF and COPD exacerbation #Acute hypoxic respiratory failure 2/2 COPD/CHF exacerbation triggered by medication noncompliance and excessive fluid intake.-Improving #right pleural effusion # Exacerbation of systolic congestive heart failure in a patient with severe nonischemic dilated cardiomyopathy with ejection fraction of around 15 to 20%. Ejection fraction has not improved despite flutter ablation (05/17), despite antiarrhythmic therapy, and guideline directed medical therapy. #COPD exacerbation #COPD, not on home O2 - labs and imaging reviewed - monitored on telemetry, NSVT, frequent pvcs - Duoneb Q6hr scheduled and PRN - Prednisone 40mg PO daily for 5 days. - IV lasix 40mg IV Daily - Spironolactone 25mg PO daily - Coreg 12.5mg PO BID - Lisinopril 10mg PO daily - Appreciate cardiology recommendations: Dr. Stock: Repeat TTE. If EF less than 35% then will upgrade to ICD - holding on antibiotics - recently started on advair? as outaptient. will confirm #Frequent PVC and nonsustained ventricular tachycardia. - monitor electrolytes - continue on telemetry - keep mag >2, potassium >4 #Hypertension, controlled- continue BP meds as above #GERD. Continue home pantoprazole 40mg PO daily #insomnia - discussed sleep hygeine with patient (turning off TV before sleep, etc.) can give melatonin #Hyperkalemia -Repeat BMP, resolved -Continue to monitor FENPPX DVTPPX: lovenox GI PPX: None needed Fluids: none Diet: cardiac, 2L fluid restrict Lines: peripheral PT/OT: pending Code status: Full Dispo: Home with home health for medication management Reason for Continued Hospitalization: Acute respiratory failure 38 minutes spent on this encounter. Discussed with patient, RN and Cardiology. > 50% spent on counseling and care coordination. Low, and 2, and Time of note may not reflect time patient was seen. Subjective Date patient seen: Aug 30, 2019 Constitutional: Denies: chills, diaphoresis, fever, malaise, weakness, other HEENT: Denies: eye pain, blurred vision, tearing, double vision, ear pain, ear discharge, nose pain, nose congestion, throat pain, throat swelling, mouth pain , mouth swelling, other Cardiovascular: Denies: chest pain, edema, irregular heart rate, lightheadedness, palpitations, syncope, other Respiratory: Reports: cough, shortness of breath, SOB with excertion; Denies: orthopnea, SOB at rest, sputum, stridor, wheezing, other Gastrointestinal/Abdominal: Denies: abdomen distended, abdominal pain, black stools, tarry stools, blood in stool, constipated, diarrhea, difficulty swallowing, nausea, poor appetite, poor fluid intake, rectal bleeding, vomiting , other Genitourinary: Denies: burning, discharge, frequency, flank pain, hematuria, incontinence, pain, urgency, other Neurologic/Psychiatric: Denies: anxiety, depressed, emotional problems, headache, numbness, paresthesia, pre-existing deficit, seizure, tingling, tremors, weakness, other Endocrine: Denies: excessive sweating, flushing, intolerance to cold, intolerance to heat, increased hunger, increased thirst, increased urine, unexplained weight gain, unexplained weight loss, other Hematologic/Lymphatic: Denies: anemia, easy bleeding, easy bruising, other Allergies: Coded Allergies: SHELLFISH DERIVED (Verified Allergy, Unknown, 07/20/19) Subjective No acute events overnight per nursing. Patient with occasional PVCs normal sinus rhythm on telemetry. Patient feels much better overall with but still with dyspnea on exertion and shortness of breath at rest. Titrated off of nasal cannula on room air. Denies chest pain, cough, fever, chills. Objective Last 24 Hour Vital Signs Date Time Temp Pulse Resp B/P (MAP) Pulse Ox O2 Delivery O2 Flow Rate FiO2 08/30/19 12:00 90 08/30/19 11:59 96.8 08/30/19 11:59 96.8 08/30/19 11:26 96.8 70 19 150/79 (102) 98 08/30/19 09:18 134/96 08/30/19 09:18 98 134/96 08/30/19 09:00 Nasal Cannula 2.0 08/30/19 08:00 98 08/30/19 08:00 97.6 85 19 138/88 (105) 100 08/30/19 08:00 98 08/30/19 07:41 98 18 100 Room Air 21 96 20 99 08/30/19 04:36 83 18 99 Nasal Cannula 2.0 80 18 98 08/30/19 04:00 97.3 81 19 134/96 (109) 98 08/30/19 04:00 74 08/30/19 00:00 89 08/30/19 00:00 97.6 89 20 146/98 (114) 96 08/29/19 21:33 107 161/87 08/29/19 20:20 160/101 08/29/19 20:04 84 18 99 Nasal Cannula 2.0 87 18 97 08/29/19 20:00 107 08/29/19 20:00 98.1 107 21 160/101 (120) 97 08/29/19 19:10 Nasal Cannula 2.0 08/29/19 18:30 98.4 99 17 159/102 99 Nasal Cannula 2.0 08/29/19 15:27 98.4 99 17 159/102 99 Nasal Cannula 2.0 28 08/29/19 14:22 98.4 99 17 163/105 98 Nasal Cannula 2.0 08/29/19 14:22 99 17 Nasal Cannula 2.0 28 08/29/19 14:10 107 17 98 Nasal Cannula 2.0 28 08/29/19 14:10 107 17 98 Nasal Cannula 2.0 28 08/29/19 14:02 163/105 08/29/19 13:29 98.4 120 20 210/108 (142) 97 Room Air Intake and Output 08/29/19 08/30/19 19:00 07:00 Intake Total 0 ml 620 ml Output Total 1500 ml Balance 0 ml -880 ml Intake Oral 0 ml 620 ml Output Urine Total 1500 ml # Voids 3 # Bowel Movements 1 Laboratory Tests 08/29/19 13:45: White Blood Count 9.5, Red Blood Count 5.29, Hemoglobin 14.8, Hematocrit 46.4, Mean Corpuscular Volume 88, Mean Corpuscular Hemoglobin 28.0, Mean Corpuscular Hemoglobin Concent 31.9L, Red Cell Distribution Width 15.5H, Platelet Count 274 , Mean Platelet Volume 5.8L, Neutrophils (%) (Auto) 78.8H, Lymphocytes (%) (Auto ) 10.1L, Monocytes (%) (Auto) 10.0, Eosinophils (%) (Auto) 0.0, Basophils (%) ( Auto) 1.0, Sodium Level 138, Potassium Level 4.8, Chloride Level 105, Carbon Dioxide Level 21, Anion Gap 12, Blood Urea Nitrogen 21H, Creatinine 1.0, Estimat Glomerular Filtration Rate > 60, Glucose Level 156H, Calcium Level 9.3, Phosphorus Level 4.3, Magnesium Level 1.9, Total Bilirubin 2.8H, Direct Bilirubin 0.9H, Aspartate Amino Transf (AST/SGOT) 23, Alanine Aminotransferase ( ALT/SGPT) 28, Alkaline Phosphatase 104, Troponin I 0.017, Pro-B-Type Natriuretic Peptide 3500H, Total Protein 7.5, Albumin 3.8, Globulin 3.7, Albumin /Globulin Ratio 1.0 08/29/19 16:50: Arterial Blood pH 7.397, Arterial Blood Partial Pressure CO2 35.6, Arterial Blood Partial Pressure O2 104.0H, Arterial Blood HCO3 21.4L, Arterial Blood Oxygen Saturation 97.5, Arterial Blood Base Excess -2.7L, Colin Test Positive 08/30/19 05:47: White Blood Count 7.5, Red Blood Count 4.69L, Hemoglobin 13.5L, Hematocrit 41.3L , Mean Corpuscular Volume 88, Mean Corpuscular Hemoglobin 28.7, Mean Corpuscular Hemoglobin Concent 32.6, Red Cell Distribution Width 15.9H, Platelet Count 221, Mean Platelet Volume 6.3L, Neutrophils (%) (Auto) , Lymphocytes (%) (Auto) , Monocytes (%) (Auto) , Eosinophils (%) (Auto) , Basophils (%) (Auto) , Sodium Level 143, Potassium Level 5.7H, Chloride Level 109H, Carbon Dioxide Level 30, Anion Gap 4L, Blood Urea Nitrogen 25H, Creatinine 1.2, Estimat Glomerular Filtration Rate > 60, Glucose Level 146H, Calcium Level 9.5, Phosphorus Level 4.2, Magnesium Level 2.1, Troponin I 0.008, Differential Total Cells Counted 100, Neutrophils % (Manual) 91H, Lymphocytes % (Manual) 6L, Monocytes % (Manual) 3, Eosinophils % (Manual) 0, Basophils % ( Manual) 0, Band Neutrophils 0, Platelet Estimate Adequate, Platelet Morphology Normal, Anisocytosis 1+ 08/30/19 08:28: Sodium Level 137, Potassium Level 4.8, Chloride Level 104, Carbon Dioxide Level 27, Anion Gap 6, Blood Urea Nitrogen 25H, Creatinine 1.1, Estimat Glomerular Filtration Rate > 60, Glucose Level 243H, Calcium Level 9.4 Height (Feet): 5 Height (Inches): 11.00 Weight (Pounds): 280 General Appearance: WD/WN, no apparent distress, alert EENT: PERRL/EOMI, normal ENT inspection Neck: non-tender, normal alignment, supple Cardiovascular: normal peripheral pulses, normal rate, regular rhythm Respiratory/Chest: chest wall non-tender, lungs clear, normal breath sounds Abdomen: normal bowel sounds, non tender, soft, no organomegaly, no mass Extremities: other - 2+ pitting edema bilaterally in lower extremity Neurologic: leave manager II-XII grossly normal, no motor/sensory deficits, alert, oriented x 3, responsive Skin: normal pigmentation, warm/dry Nikita Franco D.O. Aug 30, 2019 13:05
--- NOTE | 2019-08-30 17:45 | Consultation ---
DATE OF CONSULTATION: 08/30/2019 CARDIOLOGY CONSULTATION CONSULTING PHYSICIAN: Vipul Stock M.D. REFERRING PHYSICIAN: Tobi Monte M.D. REASON FOR CONSULTATION: CHF exacerbation. HISTORY OF PRESENT ILLNESS: The patient is a 58-year-old gentleman, under my cardiology care with history of hypertension and severe cardiomyopathy EF of around 15% to 20% as well as history of atrial flutter ablation by me in April 2019, who was wearing a LifeVest for last 4 months. The patient also has history of gastroesophageal reflux disease and obesity presented to the hospital for 5 days of increasing shortness of breath and dyspnea on exertion as well as 2+ pillow orthopnea. The patient also had lower extremity edema. In the ER, heart rate was 120, blood pressure was 210/108. The patient is started on Lasix and was diuresing heavily. Cardiac electrophysiology consultation was obtained for further evaluation and management. REVIEW OF SYSTEMS: Negative other than what was mentioned in history of present illness. PAST MEDICAL HISTORY: As mentioned above. FAMILY HISTORY: Noncontributory. SOCIAL HISTORY: He lives at home. Does not smoke or drink alcohol. PHYSICAL EXAMINATION: VITAL SIGNS: Show a blood pressure of 150/79, pulse 70, respirations 18, temperature 96.8. HEAD AND NECK: Positive JVD. LUNGS: Decreased breath sounds. CARDIOVASCULAR: Regular S1 and S2 with no gallop. ABDOMEN: Soft. EXTREMITIES: 2+ pitting edema. LABORATORY DATA: White count 7.5, hemoglobin 13.5, hematocrit of 41, and platelet count is 221. Sodium is 137, potassium 4.8, BUN of 24, creatinine 1.1, glucose of 243. Troponin is negative. ASSESSMENT AND PLAN: 1. Exacerbation of congestive heart failure in a patient with EF of only 15 to 20%. The patient's ejection fraction has not improved despite atrial flutter ablation despite guideline-directed medical therapy. Ablation was done on 05/17/2019. I will repeat the echocardiogram. The original plan was to upgrade the LifeVest to a defibrillator if the ejection fraction is still less than 35% after 08/05/2019. In the meantime, continue the patient on Coreg, lisinopril, Aldactone, and Lasix since the creatinine is normal 1.1. 2. History of successful atrial flutter ablation without recurrence. 3. Frequent PVCs and nonsustained ventricular tachycardia. Again, the patient would need defibrillator. Discussed with the patient again. 4. History of renal failure was resolved. 5. COPD. Antibiotics and prednisone. Thank you very much for allowing me to participate in the care of this patient. Please do not hesitate to contact me for any questions regarding my evaluation. Vipul Stock M.D. DR: DAYLIN JOB#: [id number] CC:
--- NOTE | 2019-08-30 19:50 | NUR ---
NURSE NOTES: Report given to Aisha. Patient aox4 with calm, cooperative affect. Sitting up in chair and talkative. Wearing NC 2@L with no SOB and no sign of cardiac distress.
--- NOTE | 2019-08-30 20:21 | NUR ---
NURSE NOTES: Received patient from ANNA Jones, in stable condition, AOx3, sitting in chair, talkative, IV site on left AC g20, asymptomatic, intact, patent , denies pain at this time, will continue to monitor and reassess
[2019-08-30] MEDS ORDERED: ELIQUIS5 MG PO (20:52)
[2019-08-30] MEDS ORDERED: GABAPENTIN100 MG ORAL (20:52)
[2019-08-30] MEDS ORDERED: HYDRALAZINE HCL25 M1 ORAL (20:52)
[2019-08-30] MEDS ORDERED: ISOSORBIDE MONO30 M1 PO (20:52)
[2019-08-30] MEDS ORDERED: ATROVENT HFA12.9 GM IH (20:52)
[2019-08-30] MEDS ORDERED: ADVAIR 250-501 EACH INH (20:52)
[2019-08-30] MEDS: Enoxaparin 40mg Inj SUBQ SCH (21:30)
[2019-08-31 00:07] VITALS: BP 145/70
[2019-08-31] MEDS: Albuterol/Ipratropium 3ml neb HHN SCH ×4 (00:43→19:07)
[2019-08-31 04:00] VITALS: BP 131/81
[2019-08-31] MEDS: HYDROcodone/Acetamin 10/325 tab ORAL PRN (05:10)
[2019-08-31] MEDS: Acetaminophen 500mg (ES) tab ORAL PRN ×3 (06:30→22:08)
[2019-08-31 07:00] LABS: HEMATOCRIT 42.5 % (42.0-52.0); LYMPHOCYTES % (AUTO) 8.5 % (20.0-45.0); MEAN CORPUSCULAR VOLUME 87 FL (80-99); MONOCYTES % (AUTO) 8.8 % (1.0-10.0); NEUTROPHILS % (AUTO) 81.6 % (45.0-75.0); PLATELET COUNT 231 K/UL (150-450); RED BLOOD COUNT 4.87 M/UL (4.70-6.10); RED CELL DISTRIBUTION WIDTH 15.6 % (11.6-14.8); WHITE BLOOD COUNT 12.1 K/UL (4.8-10.8)
--- NOTE | 2019-08-31 07:20 | NUR ---
NURSE NOTES: Report received from Nabil Lockett RN. AOx4. IN RA. Denies pain. L H 24g IV SL. Sitting on a chair. Bed on lowest position, side rails upx2, brakes engaged. Plan of care communicated. Call light within easy reach.
[2019-08-31 07:37] LABS: ANION GAP 9 mmol/L (5-15); BLOOD UREA NITROGEN 32 mg/dL (7-18); CALCIUM 9.7 MG/DL (8.5-10.1); CARBON DIOXIDE 26 MMOL/L (21-32); CHLORIDE 103 MMOL/L (98-107); CREATININE 1.2 MG/DL (0.55-1.30); PHOSPHORUS 4.5 MG/DL (2.5-4.9); POTASSIUM 4.6 MMOL/L (3.5-5.1); SODIUM 138 MMOL/L (136-145)
--- NOTE | 2019-08-31 07:50 | NUR ---
HAND-OFF: Report given to ANNA Waters, patient in stable condition, plan of care endorsed.
[2019-08-31] MEDS: Albuterol/Ipratropium 3ml neb HHN PRN (07:56)
[2019-08-31 08:00] VITALS: BP 107/74
[2019-08-31] MEDS: Lisinopril 20mg tab ORAL SCH (08:50)
[2019-08-31] MEDS: Spironolactone 25mg tab ORAL SCH (08:50)
[2019-08-31] MEDS: Carvedilol 12.5mg tab ORAL SCH ×2 (08:50→20:21)
[2019-08-31] MEDS: Guaifenesin/DM 10ml syrup ORAL PRN ×2 (11:26→22:04)
[2019-08-31 12:00] VITALS: BP 118/76
[2019-08-31] MEDS ORDERED: ALBUTEROL SULF8.5 GM INH (12:38)
[2019-08-31] MEDS ORDERED: AEROCHAMBER1 EACH MC (12:39)
--- NOTE | 2019-08-31 12:40 | General Progress Note ---
Assessment/Plan Problem List: (1) Acute respiratory failure with hypoxia ICD Codes: J96.01 - Acute respiratory failure with hypoxia SNOMED: 32132794, 748574226 (2) Acute exacerbation of CHF (congestive heart failure) ICD Codes: I50.9 - Heart failure, unspecified SNOMED: 939796590, 81983102652188 (3) COPD exacerbation ICD Codes: J44.1 - Chronic obstructive pulmonary disease with (acute) exacerbation SNOMED: 636994825 (4) Systolic heart failure ICD Codes: I50.20 - Unspecified systolic (congestive) heart failure SNOMED: 980717040 (5) Nonsustained ventricular tachycardia ICD Codes: I47.2 - Ventricular tachycardia SNOMED: 271689270 (6) Hypertension ICD Codes: I10 - Essential (primary) hypertension SNOMED: 51924367 (7) History of atrial flutter ICD Codes: Z86.79 - Personal history of other diseases of the circulatory system SNOMED: 618523785 (8) Status post ablation of atrial flutter ICD Codes: Z98.890 - Other specified postprocedural states; Z86.79 - Personal history of other diseases of the circulatory system SNOMED: 054137204, 375613280, 184032048, 873622359 Assessment/Plan: Is a 58-year-old male with a history of systolic heart failure, COPD presenting with CHF and COPD exacerbation #Acute hypoxic respiratory failure 2/2 COPD/CHF exacerbation triggered by medication noncompliance and excessive fluid intake.-Improving #right pleural effusion # Exacerbation of systolic congestive heart failure in a patient with severe nonischemic dilated cardiomyopathy with ejection fraction of around 15 to 20%. Ejection fraction has not improved despite flutter ablation (05/17), despite antiarrhythmic therapy, and guideline directed medical therapy. #COPD exacerbation #COPD, not on home O2 - labs and imaging reviewed - monitored on telemetry, NSVT, frequent pvcs - Duoneb Q6hr scheduled and PRN - Prednisone 40mg PO daily for 5 days. - IV lasix 40mg IV Daily - Spironolactone 25mg PO daily - Coreg 12.5mg PO BID - Lisinopril 10mg PO daily - Appreciate cardiology recommendations: Dr. Stock: Repeat TTE. If EF less than 35% then will upgrade to ICD - holding on antibiotics - recently started on advair? as outaptient. will confirm #Frequent PVC and nonsustained ventricular tachycardia. - monitor electrolytes - continue on telemetry - keep mag >2, potassium >4 #Hypertension, controlled- continue BP meds as above #GERD. Continue home pantoprazole 40mg PO daily #insomnia - discussed sleep hygeine with patient (turning off TV before sleep, etc.) can give melatonin #Hyperkalemia -Repeat BMP, resolved -Continue to monitor FENPPX DVTPPX: lovenox GI PPX: None needed Fluids: none Diet: cardiac, 2L fluid restrict Lines: peripheral PT/OT: pending Code status: Full Dispo: Home with home health for medication management Reason for Continued Hospitalization: Acute respiratory failure 38 minutes spent on this encounter. Discussed with patient, RN and Cardiology. > 50% spent on counseling and care coordination. Low, and 2, and Time of note may not reflect time patient was seen. Subjective Allergies: Coded Allergies: SHELLFISH DERIVED (Verified Allergy, Unknown, 07/20/19) Subjective No acute events overnight per nursing. Patient with occasional PVCs normal sinus rhythm on telemetry. Patient feels much better overall with but still with dyspnea on exertion and shortness of breath at rest. Titrated off of nasal cannula on room air. Denies chest pain, cough, fever, chills. Objective Last 24 Hour Vital Signs Date Time Temp Pulse Resp B/P (MAP) Pulse Ox O2 Delivery O2 Flow Rate FiO2 08/31/19 12:00 74 08/31/19 12:00 98.0 78 20 118/76 (90) 97 08/31/19 09:00 Nasal Cannula 2.0 08/31/19 08:50 107/74 08/31/19 08:50 85 107/74 08/31/19 08:00 79 08/31/19 08:00 97.4 85 20 107/74 (85) 99 08/31/19 07:52 89 20 99 Nasal Cannula 2.0 28 87 20 98 08/31/19 04:12 90 20 99 Nasal Cannula 2.0 28 88 20 98 08/31/19 04:00 97.7 81 20 131/81 (98) 96 08/31/19 04:00 79 08/31/19 00:07 98.4 80 18 145/70 (95) 99 08/31/19 00:00 75 08/30/19 21:32 87 130/88 08/30/19 21:00 Nasal Cannula 2.0 08/30/19 20:00 98.2 89 18 130/88 (102) 99 08/30/19 20:00 87 08/30/19 18:52 86 20 99 Nasal Cannula 2.0 28 82 18 98 08/30/19 16:00 90 08/30/19 16:00 97.7 88 18 135/88 (104) 98 08/30/19 12:43 86 21 100 Nasal Cannula 2.0 28 88 24 99 Intake and Output 08/30/19 08/31/19 19:00 07:00 Intake Total 580 ml Output Total 2450 ml 1000 ml Balance -1870 ml -1000 ml Intake Oral 580 ml Output Urine Total 2450 ml 1000 ml # Voids 13 # Bowel Movements 1 1 Laboratory Tests 08/31/19 06:08: White Blood Count 12.1#H, Red Blood Count 4.87, Hemoglobin 14.0L, Hematocrit 42.5, Mean Corpuscular Volume 87, Mean Corpuscular Hemoglobin 28.8, Mean Corpuscular Hemoglobin Concent 33.1, Red Cell Distribution Width 15.6H, Platelet Count 231, Mean Platelet Volume 6.7, Neutrophils (%) (Auto) 81.6H, Lymphocytes (%) (Auto) 8.5L, Monocytes (%) (Auto) 8.8, Eosinophils (%) (Auto) 0.0, Basophils (%) (Auto) 1.0, Sodium Level 138, Potassium Level 4.6, Chloride Level 103, Carbon Dioxide Level 26, Anion Gap 9, Blood Urea Nitrogen 32H, Creatinine 1.2, Estimat Glomerular Filtration Rate > 60, Glucose Level 125#H, Calcium Level 9.7, Phosphorus Level 4.5, Magnesium Level 2.1 Height (Feet): 5 Height (Inches): 11.00 Weight (Pounds): 280 Nikita Franco D.O. Aug 31, 2019 12:40
--- NOTE | 2019-08-31 12:49 | Cardiology Report ---
APPROVED REPORT EKG Measurement Heart [id number] Sinus rhythm with VPCs. Left posterior fascicular block Cannot rule out Inferior infarct, age undetermined Abnormal ECG
--- NOTE | 2019-08-31 12:57 | Cardiology Report ---
APPROVED REPORT EXAM: Two-dimensional and M-mode echocardiogram with Doppler and color Doppler. INDICATION Congestive Heart Failure M-Mode DIMENSIONS IVSd1.2 (0.7-1.1cm)Left Atrium (MM)4.8 (1.6-4.0cm) LVDd6.4 (3.5-5.6cm)Aortic Root2.9 (2.0-3.7cm) PWd1.1 (0.7-1.1cm)Aortic Cusp Exc.1.9 (1.5-2.0cm) LVDs5.2 (2.5-4.0cm) PWs1.2 cm Technically difficult study due to poor acoustic windows. Mild left ventricular enlargement with global left ventricular hypokinesia, calculated LVEF is at 38% Left ventricle D-shape pattern, suggestive of right ventricle pressure overload. Mild right ventricular enlargement with normal right ventricular systolic function. Moderate right atrial enlargement. Anterior Echo-free space, may be due to pericardial fat or effusion. Focal aortic valve sclerosis with adequate cusp excursion. Mildly thickened mitral valve leaflets with normal excursion. Mild mitral annulus and aortic root calcification. Pulmonic valve not well visualized. Normal tricuspid valve structure. IVC dilated at 2.5 cm without physiological collapse, suggestive of increased RA pressure. A color flow and spectral Doppler study was performed and revealed: Trace aortic regurgitation. Mild mitral regurgitation. Left ventricular diastolic function could not be determined due to arrhythmia. Mild to moderate tricuspid regurgitation. Tricuspid systolic velocities suggests peak right ventricular systolic pressure of 39 mmHg, consistent with mild pulmonary hypertension.
[2019-08-31] MEDS: Doxycycline Monohydrate 100mg ORAL SCH ×2 (13:04→20:21)
--- NOTE | 2019-08-31 14:59 | Cardiac Electrophysiology PN ---
Assessment/Plan Assessment/Plan 1. Exacerbation of congestive heart failure in a patient with EF of only 15 to 20%. The patient's ejection fraction has not improved despite atrial flutter ablation despite guideline-directed medical therapy. Ablation was done on 05/17/2019. Its more than 3 mopnths that patient has been on GDMT and EF still 15-20. Meets [employer]reia for ICD implant but he wants to wait and FU with me in office. Continue Coreg, lisinopril, Aldactone, and Lasix 2. History of successful atrial flutter ablation without recurrence. 3. Frequent PVCs and nonsustained ventricular tachycardia. Again, the patient would need defibrillator. 4. History of renal failure was resolved. 5. COPD. Antibiotics and prednisone. KATY RN Subjective Subjective Alert in NAD. Echo came back EF still 15-20%. Objective Last 24 Hour Vital Signs Date Time Temp Pulse Resp B/P (MAP) Pulse Ox O2 Delivery O2 Flow Rate FiO2 08/31/19 13:11 85 20 99 Nasal Cannula 2.0 28 86 20 98 08/31/19 12:00 74 08/31/19 12:00 98.0 78 20 118/76 (90) 97 08/31/19 09:00 Nasal Cannula 2.0 08/31/19 08:50 107/74 08/31/19 08:50 85 107/74 08/31/19 08:00 79 08/31/19 08:00 97.4 85 20 107/74 (85) 99 08/31/19 07:52 89 20 99 Nasal Cannula 2.0 28 87 20 98 08/31/19 04:12 90 20 99 Nasal Cannula 2.0 28 88 20 98 08/31/19 04:00 97.7 81 20 131/81 (98) 96 08/31/19 04:00 79 08/31/19 00:07 98.4 80 18 145/70 (95) 99 08/31/19 00:00 75 08/30/19 21:32 87 130/88 08/30/19 21:00 Nasal Cannula 2.0 08/30/19 20:00 98.2 89 18 130/88 (102) 99 08/30/19 20:00 87 08/30/19 18:52 86 20 99 Nasal Cannula 2.0 28 82 18 98 08/30/19 16:00 90 08/30/19 16:00 97.7 88 18 135/88 (104) 98 Intake and Output 08/30/19 08/31/19 19:00 07:00 Intake Total 580 ml Output Total 2450 ml 1000 ml Balance -1870 ml -1000 ml Intake Oral 580 ml Output Urine Total 2450 ml 1000 ml # Voids 13 # Bowel Movements 1 1 Laboratory Tests Test 08/31/19 06:08 White Blood Count 12.1 K/UL (4.8-10.8) #H Red Blood Count 4.87 M/UL (4.70-6.10) Hemoglobin 14.0 G/DL (14.2-18.0) L Hematocrit 42.5 % (42.0-52.0) Mean Corpuscular Volume 87 FL (80-99) Mean Corpuscular Hemoglobin 28.8 PG (27.0-31.0) Mean Corpuscular Hemoglobin Concent 33.1 G/DL (32.0-36.0) Red Cell Distribution Width 15.6 % (11.6-14.8) H Platelet Count 231 K/UL (150-450) Mean Platelet Volume 6.7 FL (6.5-10.1) Neutrophils (%) (Auto) 81.6 % (45.0-75.0) H Lymphocytes (%) (Auto) 8.5 % (20.0-45.0) L Monocytes (%) (Auto) 8.8 % (1.0-10.0) Eosinophils (%) (Auto) 0.0 % (0.0-3.0) Basophils (%) (Auto) 1.0 % (0.0-2.0) Sodium Level 138 MMOL/L (136-145) Potassium Level 4.6 MMOL/L (3.5-5.1) Chloride Level 103 MMOL/L (98-107) Carbon Dioxide Level 26 MMOL/L (21-32) Anion Gap 9 mmol/L (5-15) Blood Urea Nitrogen 32 mg/dL (7-18) H Creatinine 1.2 MG/DL (0.55-1.30) Estimat Glomerular Filtration Rate > 60 mL/min (>60) Glucose Level 125 MG/DL (74-106) #H Calcium Level 9.7 MG/DL (8.5-10.1) Phosphorus Level 4.5 MG/DL (2.5-4.9) Magnesium Level 2.1 MG/DL (1.8-2.4) Objective HEAD AND NECK: Positive JVD. LUNGS: Decreased breath sounds. CARDIOVASCULAR: Regular S1 and S2 with no gallop. ABDOMEN: Soft. EXTREMITIES: 2+ pitting edema. Vipul Stock MD Aug 31, 2019 14:59
[2019-08-31 16:00] VITALS: BP 121/90
--- NOTE | 2019-08-31 19:05 | NUR ---
NURSE NOTES: Pt report received from Jt CASTILLO. pt remains stable. pt is alert and oriented times 4, able to follow commands. pt has a cnc manager placed showing NSR, no distress noted. pt is on 2L NC, able to sat at 99%, no distress noted. will follow plan of care. Addendum: 09/01/19 at 0517 by EROS YOON RN NURSE NOTES: Pt report received from Jt CASTILLO. pt remains stable. pt is alert and oriented times 4, able to follow commands. pt has a cnc manager placed showing NSR, no distress noted. pt is on 2L NC, able to sat at 99%, no distress noted. Pt bed is low, locked, armed, call light within reach. bed rails up times 2. will follow plan of care.
--- NOTE | 2019-08-31 19:20 | NUR ---
HAND-OFF: Report given to ANNA Pelayo. Pt. in stable condition. Plan of care endorsed.
[2019-08-31 20:00] VITALS: BP 159/88
--- NOTE | 2019-08-31 20:15 | General Progress Note ---
Assessment/Plan Problem List: (1) Acute respiratory failure with hypoxia ICD Codes: J96.01 - Acute respiratory failure with hypoxia SNOMED: 91473138, 943888498 (2) Acute exacerbation of CHF (congestive heart failure) ICD Codes: I50.9 - Heart failure, unspecified SNOMED: 417450704, 81751377525350 (3) COPD exacerbation ICD Codes: J44.1 - Chronic obstructive pulmonary disease with (acute) exacerbation SNOMED: 775206428 (4) Systolic heart failure ICD Codes: I50.20 - Unspecified systolic (congestive) heart failure SNOMED: 602136193 (5) Nonsustained ventricular tachycardia ICD Codes: I47.2 - Ventricular tachycardia SNOMED: 653150945 (6) Hypertension ICD Codes: I10 - Essential (primary) hypertension SNOMED: 79585296 (7) History of atrial flutter ICD Codes: Z86.79 - Personal history of other diseases of the circulatory system SNOMED: 366586751 (8) Status post ablation of atrial flutter ICD Codes: Z98.890 - Other specified postprocedural states; Z86.79 - Personal history of other diseases of the circulatory system SNOMED: 871346065, 710778260, 479925849, 295231887 Assessment/Plan: Is a 58-year-old male with a history of systolic heart failure, COPD presenting with CHF and COPD exacerbation #Acute hypoxic respiratory failure 2/2 COPD/CHF exacerbation triggered by medication noncompliance and excessive fluid intake.-Improving #right pleural effusion # Exacerbation of systolic congestive heart failure in a patient with severe nonischemic dilated cardiomyopathy with ejection fraction of around 15 to 20%. Ejection fraction has not improved despite flutter ablation (05/17), despite antiarrhythmic therapy, and guideline directed medical therapy. Repeat 2D echocardiogram shows Persistent low ejection fraction of 15-20% #COPD exacerbation #COPD, not on home O2 - labs and imaging reviewed - monitored on telemetry, NSVT, frequent pvcs - Duoneb Q6hr scheduled and PRN - Prednisone 40mg PO daily for 5 days. - IV lasix 40mg IV Daily - Spironolactone 25mg PO daily - Coreg 12.5mg PO BID - Lisinopril 10mg PO daily - Appreciate cardiology recommendations: Dr. Stock: If EF less than 35% then will upgrade to ICD -We will start doxycycline 100 mg p.o. every 12 hours given that the patient has had a worsening cough (08/31/19 - ) - recently started on advair? as outaptient. will confirm #Frequent PVC and nonsustained ventricular tachycardia. - monitor electrolytes - continue on telemetry - keep mag >2, potassium >4 #Hypertension, controlled- continue BP meds as above #GERD. Continue home pantoprazole 40mg PO daily #insomnia - discussed sleep hygeine with patient (turning off TV before sleep, etc.) can give melatonin #Hyperkalemia -Repeat BMP, resolved -Continue to monitor FENPPX DVTPPX: lovenox GI PPX: None needed Fluids: none Diet: cardiac, 2L fluid restrict Lines: peripheral PT/OT: pending Code status: Full Dispo: Home with home health for medication management Reason for Continued Hospitalization: Acute respiratory failure 39 minutes spent on this encounter. Discussed with patient, RN and Cardiology. > 50% spent on counseling and care coordination. Low, and 2, and Time of note may not reflect time patient was seen. Subjective Date patient seen: Aug 31, 2019 Constitutional: Denies: no symptoms, chills, diaphoresis, fever, malaise, weakness, other HEENT: Denies: no symptoms, eye pain, blurred vision, tearing, double vision, ear pain, ear discharge, nose pain, nose congestion, throat pain, throat swelling, mouth pain, mouth swelling, other Cardiovascular: Denies: chest pain, edema, irregular heart rate, lightheadedness, palpitations, syncope, other Respiratory: Reports: cough, shortness of breath; Denies: orthopnea, SOB with excertion, SOB at rest, sputum, stridor, wheezing, other Gastrointestinal/Abdominal: Denies: abdomen distended, abdominal pain, black stools, tarry stools, blood in stool, constipated, diarrhea, difficulty swallowing, nausea, poor appetite, poor fluid intake, rectal bleeding, vomiting , other Genitourinary: Denies: burning, discharge, frequency, flank pain, hematuria, incontinence, pain, urgency, other Neurologic/Psychiatric: Denies: anxiety, depressed, emotional problems, headache, numbness, paresthesia, pre-existing deficit, seizure, tingling, tremors, weakness, other Endocrine: Denies: excessive sweating, flushing, intolerance to cold, intolerance to heat, increased hunger, increased thirst, increased urine, unexplained weight gain, unexplained weight loss, other Hematologic/Lymphatic: Denies: anemia, easy bleeding, easy bruising, other Allergies: Coded Allergies: SHELLFISH DERIVED (Verified Allergy, Unknown, 07/20/19) Subjective No acute events overnight per nursing. Patient states that overall his shortness of breath is much improved. He does state that a cough has become worse that is productive. Denies any fevers or chills. Continues to have occasional PVCs normal sinus rhythm on telemetry. Repeat 2D echocardiogram shows a persistent low ejection fraction 15 to 20%. Continues to be on 2 L nasal cannula patient feels much better overall with but still with dyspnea on exertion and shortness of breath at rest. Titrated off of nasal cannula on room air. Denies chest pain, cough, fever, chills. Objective Last 24 Hour Vital Signs Date Time Temp Pulse Resp B/P (MAP) Pulse Ox O2 Delivery O2 Flow Rate FiO2 08/31/19 19:07 95 20 99 Room Air 21 100 20 97 08/31/19 16:00 81 08/31/19 16:00 98.3 84 20 121/90 (100) 96 08/31/19 13:11 85 20 99 Nasal Cannula 2.0 28 86 20 98 08/31/19 12:00 74 08/31/19 12:00 98.0 78 20 118/76 (90) 97 08/31/19 09:00 Nasal Cannula 2.0 08/31/19 08:50 107/74 08/31/19 08:50 85 107/74 08/31/19 08:00 79 08/31/19 08:00 97.4 85 20 107/74 (85) 99 08/31/19 07:52 89 20 99 Nasal Cannula 2.0 28 87 20 98 08/31/19 04:12 90 20 99 Nasal Cannula 2.0 28 88 20 98 08/31/19 04:00 97.7 81 20 131/81 (98) 96 08/31/19 04:00 79 08/31/19 00:07 98.4 80 18 145/70 (95) 99 08/31/19 00:00 75 08/30/19 21:32 87 130/88 08/30/19 21:00 Nasal Cannula 2.0 Intake and Output 08/30/19 08/31/19 18:59 06:59 Intake Total 700 ml Output Total 2450 ml 1000 ml Balance -1750 ml -1000 ml Intake Oral 700 ml Output Urine Total 2450 ml 1000 ml # Voids 13 # Bowel Movements 1 1 Laboratory Tests 08/31/19 06:08: White Blood Count 12.1#H, Red Blood Count 4.87, Hemoglobin 14.0L, Hematocrit 42.5, Mean Corpuscular Volume 87, Mean Corpuscular Hemoglobin 28.8, Mean Corpuscular Hemoglobin Concent 33.1, Red Cell Distribution Width 15.6H, Platelet Count 231, Mean Platelet Volume 6.7, Neutrophils (%) (Auto) 81.6H, Lymphocytes (%) (Auto) 8.5L, Monocytes (%) (Auto) 8.8, Eosinophils (%) (Auto) 0.0, Basophils (%) (Auto) 1.0, Sodium Level 138, Potassium Level 4.6, Chloride Level 103, Carbon Dioxide Level 26, Anion Gap 9, Blood Urea Nitrogen 32H, Creatinine 1.2, Estimat Glomerular Filtration Rate > 60, Glucose Level 125#H, Calcium Level 9.7, Phosphorus Level 4.5, Magnesium Level 2.1 Height (Feet): 5 Height (Inches): 11.00 Weight (Pounds): 280 General Appearance: WD/WN, no apparent distress, alert EENT: PERRL/EOMI, normal ENT inspection Neck: non-tender, normal alignment, supple Cardiovascular: normal peripheral pulses, normal rate, regular rhythm, no JVD Respiratory/Chest: chest wall non-tender, lungs clear, normal breath sounds Abdomen: normal bowel sounds, non tender, soft, no organomegaly Extremities: normal range of motion, non-tender, normal inspection Edema: other - No lower extremity edema bilaterally 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 Aug 31, 2019 20:15
[2019-08-31] MEDS: Enoxaparin 40mg Inj SUBQ SCH (20:23)
[2019-09-01] VITALS: BP 129/88
[2019-09-01] MEDS: HYDROcodone/Acetamin 10/325 tab ORAL PRN (01:18)
[2019-09-01] MEDS: Albuterol/Ipratropium 3ml neb HHN SCH ×4 (01:37→19:15)
[2019-09-01 04:00] VITALS: BP 132/80
[2019-09-01] MEDS: Guaifenesin/DM 10ml syrup ORAL PRN ×2 (05:35→21:07)
[2019-09-01] MEDS: Acetaminophen 500mg (ES) tab ORAL PRN ×3 (05:35→21:07)
[2019-09-01 06:48] LABS: BASOPHILS % (AUTO) 0.8 % (0.0-2.0); EOSINOPHILS % (AUTO) 0.1 % (0.0-3.0); HEMATOCRIT 42.4 % (42.0-52.0); HEMOGLOBIN 13.9 G/DL (14.2-18.0); LYMPHOCYTES % (AUTO) 12.6 % (20.0-45.0); MEAN CORPUSCULAR VOLUME 87 FL (80-99); MONOCYTES % (AUTO) 11.8 % (1.0-10.0); NEUTROPHILS % (AUTO) 74.7 % (45.0-75.0); PLATELET COUNT 226 K/UL (150-450); RED BLOOD COUNT 4.87 M/UL (4.70-6.10); RED CELL DISTRIBUTION WIDTH 15.3 % (11.6-14.8); WHITE BLOOD COUNT 10.9 K/UL (4.8-10.8)
[2019-09-01 07:14] LABS: ANION GAP 5 mmol/L (5-15); BLOOD UREA NITROGEN 35 mg/dL (7-18); CALCIUM 9.3 MG/DL (8.5-10.1); CARBON DIOXIDE 30 MMOL/L (21-32); CHLORIDE 102 MMOL/L (98-107); CREATININE 1.2 MG/DL (0.55-1.30); PHOSPHORUS 4.4 MG/DL (2.5-4.9); SODIUM 137 MMOL/L (136-145)
--- NOTE | 2019-09-01 07:20 | NUR ---
HAND-OFF: Report given to Jt CASTILLO. Pt remains stable.
--- NOTE | 2019-09-01 07:20 | NUR ---
NURSE NOTES: Report received from ANNA Pelayo. Pt. AOx4. On 2L NC. Denies any pain or SOB. Bed on lowest position, side rails upx2, brakes engaged. Call light within easy reach. Called kitchen if there is anything special. Patient turning 59 this morning!
[2019-09-01 08:00] VITALS: BP 119/87
[2019-09-01] MEDS: Carvedilol 12.5mg tab ORAL SCH ×2 (08:49→21:05)
[2019-09-01] MEDS: Spironolactone 25mg tab ORAL SCH (08:49)
[2019-09-01] MEDS: Doxycycline Monohydrate 100mg ORAL SCH ×2 (08:50→21:05)
[2019-09-01] MEDS: Lisinopril 20mg tab ORAL SCH (08:50)
--- NOTE | 2019-09-01 11:50 | NUR ---
PT Note PT eval completed; patient is independent in all mobility and gait. Noted mild SOB during gait assessment. Patient was instructed on PLB and energy conservation techniques to minimize SOB. Patient was able to demonstrate good understanding of instructions. No f/u PT treatments needed at this time.
[2019-09-01 12:00] VITALS: BP 128/64
--- NOTE | 2019-09-01 13:25 | General Progress Note ---
Assessment/Plan Problem List: (1) Acute respiratory failure with hypoxia ICD Codes: J96.01 - Acute respiratory failure with hypoxia SNOMED: 67511023, 161778166 (2) Acute exacerbation of CHF (congestive heart failure) ICD Codes: I50.9 - Heart failure, unspecified SNOMED: 076648535, 73059277926713 (3) COPD exacerbation ICD Codes: J44.1 - Chronic obstructive pulmonary disease with (acute) exacerbation SNOMED: 612470131 (4) Systolic heart failure ICD Codes: I50.20 - Unspecified systolic (congestive) heart failure SNOMED: 614778140 (5) Nonsustained ventricular tachycardia ICD Codes: I47.2 - Ventricular tachycardia SNOMED: 573909723 (6) Hypertension ICD Codes: I10 - Essential (primary) hypertension SNOMED: 18079217 (7) History of atrial flutter ICD Codes: Z86.79 - Personal history of other diseases of the circulatory system SNOMED: 828825092 (8) Status post ablation of atrial flutter ICD Codes: Z98.890 - Other specified postprocedural states; Z86.79 - Personal history of other diseases of the circulatory system SNOMED: 462292663, 862650441, 722099005, 426997084 Assessment/Plan: Is a 58-year-old male with a history of systolic heart failure, COPD presenting with CHF and COPD exacerbation #Acute hypoxic respiratory failure 2/2 COPD/CHF exacerbation triggered by medication noncompliance and excessive fluid intake.-Improving #right pleural effusion # Exacerbation of systolic congestive heart failure in a patient with severe nonischemic dilated cardiomyopathy with ejection fraction of around 15 to 20%. Ejection fraction has not improved despite flutter ablation (05/17), despite antiarrhythmic therapy, and guideline directed medical therapy. Repeat 2D echocardiogram shows Persistent low ejection fraction of 15-20%. Patient will need an upgrade to ICD. #COPD exacerbation #COPD, not on home O2 - labs and imaging reviewed - monitored on telemetry, NSVT, frequent pvcs - Duoneb Q6hr scheduled and PRN - Prednisone 40mg PO daily for 5 days. - Doxycycline 100mg PO Q12hr (08/31 - ). Plan for 5-7 days - IV lasix 40mg IV Daily - Spironolactone 25mg PO daily - Coreg 12.5mg PO BID - Lisinopril 10mg PO daily - Appreciate cardiology recommendations: Dr. Stock: If EF less than 35% then will upgrade to ICD -We will start doxycycline 100 mg p.o. every 12 hours given that the patient has had a worsening cough (08/31/19 - ) - recently started on advair? as outpatient. Will need this on discharge. #Frequent PVC and nonsustained ventricular tachycardia. - monitor electrolytes - continue on telemetry - keep mag >2, potassium >4 #Hypertension, controlled- continue BP meds as above #GERD. Continue home pantoprazole 40mg PO daily #insomnia - discussed sleep hygeine with patient (turning off TV before sleep, etc.) can give melatonin #Hyperkalemia -Repeat BMP, resolved -Continue to monitor FENPPX DVTPPX: lovenox GI PPX: None needed Fluids: none Diet: cardiac, 2L fluid restrict Lines: peripheral PT/OT: pending Code status: Full Dispo: Home with home health for medication management Reason for Continued Hospitalization: Acute respiratory failure 37 minutes spent on this encounter. Discussed with patient, RN and Cardiology. > 50% spent on counseling and care coordination. Low, and 2, and Time of note may not reflect time patient was seen. Subjective Date patient seen: Sep 01, 2019 Constitutional: Denies: chills, diaphoresis, fever, malaise, weakness, other HEENT: Denies: eye pain, blurred vision, tearing, double vision, ear pain, ear discharge, nose pain, nose congestion, throat pain, throat swelling, mouth pain , mouth swelling, other Cardiovascular: Denies: chest pain, edema, irregular heart rate, lightheadedness, palpitations, syncope, other Respiratory: Denies: cough, orthopnea, shortness of breath, SOB with excertion , SOB at rest, sputum, stridor, wheezing, other Gastrointestinal/Abdominal: Denies: abdomen distended, abdominal pain, black stools, tarry stools, blood in stool, constipated, diarrhea, difficulty swallowing, nausea, poor appetite, poor fluid intake, rectal bleeding, vomiting , other Genitourinary: Denies: burning, discharge, frequency, flank pain, hematuria, incontinence, pain, urgency, other Neurologic/Psychiatric: Denies: anxiety, depressed, emotional problems, headache, numbness, paresthesia, pre-existing deficit, seizure, tingling, tremors, weakness, other Endocrine: Denies: excessive sweating, flushing, intolerance to cold, intolerance to heat, increased hunger, increased thirst, increased urine, unexplained weight gain, unexplained weight loss, other Hematologic/Lymphatic: Denies: anemia, easy bleeding, easy bruising, other Allergies: Coded Allergies: SHELLFISH DERIVED (Verified Allergy, Unknown, 07/20/19) Subjective No acute events overnight per nursing. Patient's breathing is much better. His cough is improved. He states that his breathing is about a 5 out of 10. Yesterday it was 6 out of 10. Denies any fevers or chills. Titrated off of nasal cannula on room air. Denies chest pain, cough, fever, chills. Objective Last 24 Hour Vital Signs Date Time Temp Pulse Resp B/P (MAP) Pulse Ox O2 Delivery O2 Flow Rate FiO2 09/01/19 13:10 88 18 99 Room Air 21 86 24 97 09/01/19 09:00 Nasal Cannula 2.0 09/01/19 08:50 119/87 09/01/19 08:49 85 119/87 09/01/19 08:00 85 09/01/19 08:00 97.2 85 18 119/87 (98) 96 09/01/19 07:04 80 20 99 Room Air 21 79 21 97 09/01/19 04:00 97.6 85 20 132/80 (97) 96 09/01/19 04:00 79 09/01/19 01:37 90 20 99 Room Air 21 87 20 97 09/01/19 00:00 97.8 82 20 129/88 (102) 96 09/01/19 00:00 81 08/31/19 21:00 Nasal Cannula 2.0 08/31/19 20:21 92 159/92 08/31/19 20:00 97.7 92 20 159/88 (111) 98 08/31/19 20:00 105 08/31/19 19:07 95 20 99 Room Air 21 100 20 97 08/31/19 16:00 81 08/31/19 16:00 98.3 84 20 121/90 (100) 96 Intake and Output 08/31/19 09/01/19 19:00 07:00 Intake Total 900 ml Output Total 2000 ml Balance -1100 ml Intake Oral 900 ml Output Urine Total 2000 ml # Bowel Movements 1 Laboratory Tests 09/01/19 06:15: White Blood Count 10.9H, Red Blood Count 4.87, Hemoglobin 13.9L, Hematocrit 42.4 , Mean Corpuscular Volume 87, Mean Corpuscular Hemoglobin 28.6, Mean Corpuscular Hemoglobin Concent 32.9, Red Cell Distribution Width 15.3H, Platelet Count 226, Mean Platelet Volume 6.9, Neutrophils (%) (Auto) 74.7, Lymphocytes (%) (Auto) 12.6L, Monocytes (%) (Auto) 11.8H, Eosinophils (%) (Auto ) 0.1, Basophils (%) (Auto) 0.8, Sodium Level 137, Potassium Level 4.0, Chloride Level 102, Carbon Dioxide Level 30, Anion Gap 5, Blood Urea Nitrogen 35H, Creatinine 1.2, Estimat Glomerular Filtration Rate > 60, Glucose Level 115H , Calcium Level 9.3, Phosphorus Level 4.4, Magnesium Level 1.7L Height (Feet): 5 Height (Inches): 11.00 Weight (Pounds): 280 General Appearance: WD/WN, no apparent distress, alert EENT: PERRL/EOMI, normal ENT inspection Neck: non-tender, normal alignment, supple Cardiovascular: normal peripheral pulses, normal rate, regular rhythm, no JVD Respiratory/Chest: chest wall non-tender, lungs clear, normal breath sounds Abdomen: normal bowel sounds, non tender, soft, no organomegaly, no mass Extremities: normal range of motion, non-tender, normal inspection Edema: other - 1+ lower extremity edema bilaterally 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 Sep 01, 2019 13:25
[2019-09-01 16:00] VITALS: BP 129/64
--- NOTE | 2019-09-01 17:36 | Cardiac Electrophysiology PN ---
Assessment/Plan Assessment/Plan 1. Exacerbation of CHF and EF of only 15 to 20%. The patient's ejection fraction has not improved despite atrial flutter ablation despite guideline-directed medical therapy. Ablation was done on 05/17/2019. Its more than 3 mopnths that patient has been on GDMT and EF still 15-20. Meets [employer]reia for ICD implant but he wants to wait. Continue Coreg, lisinopril, Aldactone, and Lasix 2. History of successful atrial flutter ablation without recurrence. 3. Frequent PVCs and nonsustained ventricular tachycardia. Again, the patient would need defibrillator. 4. History of renal failure was resolved. 5. COPD. Antibiotics and prednisone. KATY RN Subjective Subjective Alert in NAD. EF still 15-20%. Wants to wait on ICD placement Objective Last 24 Hour Vital Signs Date Time Temp Pulse Resp B/P (MAP) Pulse Ox O2 Delivery O2 Flow Rate FiO2 09/01/19 13:10 88 18 99 Room Air 21 86 24 97 09/01/19 12:00 80 09/01/19 12:00 98.4 77 18 128/64 (85) 98 09/01/19 09:00 Nasal Cannula 2.0 09/01/19 08:50 119/87 09/01/19 08:49 85 119/87 09/01/19 08:00 85 09/01/19 08:00 97.2 85 18 119/87 (98) 96 09/01/19 07:04 80 20 99 Room Air 21 79 21 97 09/01/19 04:00 97.6 85 20 132/80 (97) 96 09/01/19 04:00 79 09/01/19 01:37 90 20 99 Room Air 21 87 20 97 09/01/19 00:00 97.8 82 20 129/88 (102) 96 09/01/19 00:00 81 08/31/19 21:00 Nasal Cannula 2.0 08/31/19 20:21 92 159/92 08/31/19 20:00 97.7 92 20 159/88 (111) 98 08/31/19 20:00 105 08/31/19 19:07 95 20 99 Room Air 21 100 20 97 Intake and Output 08/31/19 09/01/19 19:00 07:00 Intake Total 900 ml Output Total 2000 ml Balance -1100 ml Intake Oral 900 ml Output Urine Total 2000 ml # Bowel Movements 1 Laboratory Tests Test 09/01/19 06:15 White Blood Count 10.9 K/UL (4.8-10.8) H Red Blood Count 4.87 M/UL (4.70-6.10) Hemoglobin 13.9 G/DL (14.2-18.0) L Hematocrit 42.4 % (42.0-52.0) Mean Corpuscular Volume 87 FL (80-99) Mean Corpuscular Hemoglobin 28.6 PG (27.0-31.0) Mean Corpuscular Hemoglobin Concent 32.9 G/DL (32.0-36.0) Red Cell Distribution Width 15.3 % (11.6-14.8) H Platelet Count 226 K/UL (150-450) Mean Platelet Volume 6.9 FL (6.5-10.1) Neutrophils (%) (Auto) 74.7 % (45.0-75.0) Lymphocytes (%) (Auto) 12.6 % (20.0-45.0) L Monocytes (%) (Auto) 11.8 % (1.0-10.0) H Eosinophils (%) (Auto) 0.1 % (0.0-3.0) Basophils (%) (Auto) 0.8 % (0.0-2.0) Sodium Level 137 MMOL/L (136-145) Potassium Level 4.0 MMOL/L (3.5-5.1) Chloride Level 102 MMOL/L (98-107) Carbon Dioxide Level 30 MMOL/L (21-32) Anion Gap 5 mmol/L (5-15) Blood Urea Nitrogen 35 mg/dL (7-18) H Creatinine 1.2 MG/DL (0.55-1.30) Estimat Glomerular Filtration Rate > 60 mL/min (>60) Glucose Level 115 MG/DL (74-106) H Calcium Level 9.3 MG/DL (8.5-10.1) Phosphorus Level 4.4 MG/DL (2.5-4.9) Magnesium Level 1.7 MG/DL (1.8-2.4) L Objective HEAD AND NECK: Positive JVD. LUNGS: Decreased breath sounds. CARDIOVASCULAR: Regular S1 and S2 with no gallop. ABDOMEN: Soft. EXTREMITIES: 2+ pitting edema. Vipul Stock MD Sep 01, 2019 17:36
--- NOTE | 2019-09-01 17:48 | NUR ---
CASE MANAGEMENT: REVIEW 08/31/2019 SI: CHF T 98 HR 74 RR 20 B/P 118/76 SATS 97% ON 2L/NC WBC 12.1 BUN 32 GLU 125 IS: COREG PO Q12H DOXYCYCLINE PO Q12H LASIX IV BID PREDNISONE PO QD LOVENOX SUBQ Q24H : TO TELEMETRY 09/01/2019 SI: CHF T 98.4 HR 77 RR 18 B/P 128/64 SATS 98% ON 2L/NC LABS: WBC 10.9 BUN 35 GLU 115 MG 1.7 IS: COREG PO Q12H DOXYCYCLINE PO Q12H LASIX IV BID PREDNISONE PO QD LOVENOX SUBQ Q24H : TO TELEMETRY PLAN OF CARE: PT EVAL 2D ECHO
--- NOTE | 2019-09-01 19:35 | NUR ---
HAND-OFF: Report given to ANNA Tipton. Pt. in stable conditon. Plan of care endorsed.
[2019-09-01 20:00] VITALS: BP 119/70
--- NOTE | 2019-09-01 20:09 | NUR ---
NURSE NOTES: RECEIVED PATIENT SITTING IN BED, NO COMPLAINTS OF PAIN AT THIS TIME. FALL PRECAUTIONS IN PLACE: CALL LIGHT, BEDSIDE TABLE AND URINAL WITHIN REACH, BED IN LOW POSITION. PLAN OF CARE REVIEWED.
[2019-09-01] MEDS: Enoxaparin 40mg Inj SUBQ SCH (21:06)
[2019-09-02] VITALS: BP 122/68
[2019-09-02] MEDS: HYDROcodone/Acetamin 5/325 tab ORAL PRN (00:27)
[2019-09-02] MEDS: Albuterol/Ipratropium 3ml neb HHN SCH ×4 (01:00→20:05)
[2019-09-02 04:00] VITALS: BP 128/77
--- NOTE | 2019-09-02 07:30 | NUR ---
NURSE NOTES: Received report from ANNA Tipton. The patient is resting on the bed without acute distress or shortness of breath. The patient's bed in the lowest position, call light in reach, and fall and aspiration precaution reinforced. IV site intact and patent. The patient is on 2L NC and 98% saturation. Will continue plan of care.
[2019-09-02 07:34] LABS: BASOPHILS % (AUTO) 1.6 % (0.0-2.0); EOSINOPHILS % (AUTO) 0.1 % (0.0-3.0); HEMATOCRIT 43.9 % (42.0-52.0); HEMOGLOBIN 14.6 G/DL (14.2-18.0); LYMPHOCYTES % (AUTO) 11.6 % (20.0-45.0); MEAN CORPUSCULAR VOLUME 87 FL (80-99); MONOCYTES % (AUTO) 10.2 % (1.0-10.0); NEUTROPHILS % (AUTO) 76.6 % (45.0-75.0); PLATELET COUNT 228 K/UL (150-450); RED BLOOD COUNT 5.07 M/UL (4.70-6.10); WHITE BLOOD COUNT 10.7 K/UL (4.8-10.8)
--- NOTE | 2019-09-02 07:38 | NUR ---
HAND-OFF: Report given to Tona MCCALL RN. PATIENT HAVING BREAKFAST, NO SIGNS OF DISTRESS NOTED.
[2019-09-02 08:00] VITALS: BP 111/69
[2019-09-02 08:12] LABS: ANION GAP 5 mmol/L (5-15); BLOOD UREA NITROGEN 31 mg/dL (7-18); CALCIUM 9.6 MG/DL (8.5-10.1); CARBON DIOXIDE 31 MMOL/L (21-32); CHLORIDE 103 MMOL/L (98-107); CREATININE 1.1 MG/DL (0.55-1.30); PHOSPHORUS 4.4 MG/DL (2.5-4.9); POTASSIUM 4.4 MMOL/L (3.5-5.1); SODIUM 139 MMOL/L (136-145)
[2019-09-02] MEDS: Doxycycline Monohydrate 100mg ORAL SCH ×2 (08:32→21:00)
[2019-09-02] MEDS: Spironolactone 25mg tab ORAL SCH (08:32)
[2019-09-02] MEDS: Carvedilol 12.5mg tab ORAL SCH ×2 (08:32→21:00)
[2019-09-02] MEDS: Lisinopril 20mg tab ORAL SCH (08:33)
[2019-09-02] MEDS: Acetaminophen 500mg (ES) tab ORAL PRN ×2 (08:51→21:35)
--- NOTE | 2019-09-02 09:00 | NUR ---
NURSE NOTES: Dr. Singletary at the bedside assessed the patient. Notified Dr. Singletary regarding regarding abnormal lab result including BUN. Will notifiy Dr. Stock regarding the patient's condition as soon as the physician arrives to the unit since there is no acute distress or shortness of breath. The patient is stable without acute distress or shortness of breath. Will continue plan of care.
--- NOTE | 2019-09-02 11:12 | NUR ---
CASE MANAGEMENT:REVIEW 09/02/19 SI: CHF W/EF 15-20% RESP FAILURE S/P ABLATION FOR AFLUTTER 97.9 84 18 111/69 98% ON RA IS: DOXYCYCLINE PO Q12 ALDACTONE PO QD IV LASIX BID PROTONIX PO QD DUONEB HHN Q6HRS RTC COREG PO Q12 LOVENOX SQ Q24 PREDNISONE PO QD LISINOPRIL PO QD : TELEMETRY STATUS DCP: FROM HOME PLAN: PATIENT HAS A PACEMAKER THAT NEEDS TO BE UPDATED TO TO A AICD ~ IF HE AGREES
--- NOTE | 2019-09-02 11:46 | NUR ---
*-* INSURANCE *-* ALL AVAILABLE CLINICALS AND REVIEW HAVE BEEN FAXED TO: [facility] OR [facility]ACKING# YET #[phone] FAX#[phone] REVIEWS/CLINICALS
[2019-09-02 12:00] VITALS: BP 123/79
--- NOTE | 2019-09-02 12:02 | NUR ---
NURSE NOTES: The patient is stable without acute distress or shortness of breath. Will continue plan of care.
--- NOTE | 2019-09-02 13:22 | Cardiac Electrophysiology PN ---
Assessment/Plan Assessment/Plan 1. Exacerbation of CHF and EF of only 15 to 20% despite atrial flutter ablation and guideline-directed medical therapy. Ablation was done on 05/17/2019. Its more than 3 mopnths Meets crireia for ICD implant but he wants to wait. Continue Coreg, lisinopril, Aldactone, and Lasix 2. History of successful atrial flutter ablation without recurrence. 3. Frequent PVCs and nonsustained ventricular tachycardia. Again, the patient would need defibrillator. 4. History of renal failure was resolved. 5. COPD. Antibiotics and prednisone. KATY RN Subjective Subjective Alert in NAD. EF still 15-20% despite medical therapy> 3 months. Wants to wait on ICD placement Objective Last 24 Hour Vital Signs Date Time Temp Pulse Resp B/P (MAP) Pulse Ox O2 Delivery O2 Flow Rate FiO2 09/02/19 12:00 98.1 79 18 123/79 (94) 98 09/02/19 09:00 Nasal Cannula 2.0 09/02/19 08:33 111/69 09/02/19 08:32 84 111/69 09/02/19 08:00 78 09/02/19 08:00 97.9 84 18 111/69 (83) 98 09/02/19 06:46 94 18 100 Room Air 21 95 20 97 09/02/19 04:00 97.9 75 17 128/77 (94) 97 09/02/19 04:00 70 09/02/19 01:18 Room Air 09/02/19 00:00 81 09/02/19 00:00 98.6 74 20 122/68 (86) 94 09/01/19 21:05 77 119/70 09/01/19 21:00 Nasal Cannula 2.0 09/01/19 20:00 101 09/01/19 20:00 98.6 77 19 119/70 (86) 94 09/01/19 19:15 92 20 100 Room Air 21 90 22 99 09/01/19 16:00 71 09/01/19 16:00 98.4 86 18 129/64 (85) 99 Intake and Output 09/01/19 09/02/19 19:00 07:00 Intake Total 720 ml 360 ml Output Total 800 ml 400 ml Balance -80 ml -40 ml Intake Oral 720 ml 360 ml Output Urine Total 800 ml 400 ml # Voids 3 1 Laboratory Tests Test 09/02/19 05:40 White Blood Count 10.7 K/UL (4.8-10.8) Red Blood Count 5.07 M/UL (4.70-6.10) Hemoglobin 14.6 G/DL (14.2-18.0) Hematocrit 43.9 % (42.0-52.0) Mean Corpuscular Volume 87 FL (80-99) Mean Corpuscular Hemoglobin 28.8 PG (27.0-31.0) Mean Corpuscular Hemoglobin Concent 33.3 G/DL (32.0-36.0) Red Cell Distribution Width 15.0 % (11.6-14.8) H Platelet Count 228 K/UL (150-450) Mean Platelet Volume 6.4 FL (6.5-10.1) L Neutrophils (%) (Auto) 76.6 % (45.0-75.0) H Lymphocytes (%) (Auto) 11.6 % (20.0-45.0) L Monocytes (%) (Auto) 10.2 % (1.0-10.0) H Eosinophils (%) (Auto) 0.1 % (0.0-3.0) Basophils (%) (Auto) 1.6 % (0.0-2.0) Sodium Level 139 MMOL/L (136-145) Potassium Level 4.4 MMOL/L (3.5-5.1) Chloride Level 103 MMOL/L (98-107) Carbon Dioxide Level 31 MMOL/L (21-32) Anion Gap 5 mmol/L (5-15) Blood Urea Nitrogen 31 mg/dL (7-18) H Creatinine 1.1 MG/DL (0.55-1.30) Estimat Glomerular Filtration Rate > 60 mL/min (>60) Glucose Level 116 MG/DL (74-106) H Calcium Level 9.6 MG/DL (8.5-10.1) Phosphorus Level 4.4 MG/DL (2.5-4.9) Magnesium Level 2.2 MG/DL (1.8-2.4) Objective HEAD AND NECK: Positive JVD. LUNGS: Decreased breath sounds. CARDIOVASCULAR: Regular S1 and S2 with no gallop. ABDOMEN: Soft. EXTREMITIES: 2+ pitting edema. Vipul Stock MD Sep 02, 2019 13:22
--- NOTE | 2019-09-02 13:58 | General Progress Note ---
Assessment/Plan Problem List: (1) Cardiomyopathy ICD Codes: I42.9 - Cardiomyopathy, unspecified SNOMED: 05268840 (2) Systolic heart failure ICD Codes: I50.20 - Unspecified systolic (congestive) heart failure SNOMED: 622831674 (3) Acute exacerbation of CHF (congestive heart failure) ICD Codes: I50.9 - Heart failure, unspecified SNOMED: 285835434, 43468572516283 (4) Nonsustained ventricular tachycardia ICD Codes: I47.2 - Ventricular tachycardia SNOMED: 446724278 (5) Acute respiratory failure with hypoxia ICD Codes: J96.01 - Acute respiratory failure with hypoxia SNOMED: 72573667, 587053934 (6) History of atrial flutter ICD Codes: Z86.79 - Personal history of other diseases of the circulatory system SNOMED: 398352100 (7) Hypertension ICD Codes: I10 - Essential (primary) hypertension SNOMED: 34117895 (8) COPD exacerbation ICD Codes: J44.1 - Chronic obstructive pulmonary disease with (acute) exacerbation SNOMED: 672388334 Status: progressing Assessment/Plan: 58-year-old male with a history of systolic heart failure, COPD presenting with CHF and COPD exacerbation #Acute hypoxic respiratory failure 2/2 COPD/ systolic CHF exacerbation triggered by medication noncompliance and excessive fluid intake.-Improving #right pleural effusion # Exacerbation of systolic congestive heart failure in a patient with severe nonischemic dilated cardiomyopathy with ejection fraction of around 15 to 20%. Ejection fraction has not improved despite flutter ablation (05/17), despite antiarrhythmic therapy, and guideline directed medical therapy. Repeat 2D echocardiogram shows Persistent low ejection fraction of 15-20%. Patient will need an upgrade to ICD. says he wants to see lung doctor first #COPD exacerbation #COPD, not on home O2 - labs and imaging reviewed - monitored on telemetry, NSVT, frequent pvcs - Duoneb Q6hr scheduled and PRN - Prednisone 40mg PO daily for 5 days. - Doxycycline 100mg PO Q12hr (08/31 - ). Plan for 5-7 days - IV lasix 40mg IV Daily - Spironolactone 25mg PO daily - Coreg 12.5mg PO BID - Lisinopril 10mg PO daily - Appreciate cardiology recommendations: Dr. Stock: If EF less than 35% then will upgrade to ICD -doxycycline 100 mg p.o. every 12 hours given that the patient has had a worsening cough (08/31/19 - ) - recently started on advair? as outpatient. Will need this on discharge. #Frequent PVC and nonsustained ventricular tachycardia. - monitor electrolytes - continue on telemetry - keep mag >2, potassium >4 -needs ICD, patient was counselled regarding the importance of this #Hypertension, controlled- continue BP meds as above #GERD. Continue home pantoprazole 40mg PO daily #insomnia - discussed sleep hygeine with patient (turning off TV before sleep, etc.) can give melatonin #Hyperkalemia -Repeat BMP, resolved -Continue to monitor FENPPX DVTPPX: lovenox GI PPX: None needed Fluids: none Diet: cardiac, 2L fluid restrict Lines: peripheral PT/OT: pending Code status: Full Dispo: Home with home health for medication management Reason for Continued Hospitalization: Acute respiratory failure 37 minutes spent on this encounter. Discussed with patient, RN and Cardiology. > 50% spent on counseling and care coordination. Time of note may not reflect time patient was seen. Subjective Date patient seen: Sep 02, 2019 ROS Limited/Unobtainable: No Constitutional: Denies: no symptoms, chills, diaphoresis, fever, malaise, weakness, other HEENT: Denies: no symptoms, eye pain, blurred vision, tearing, double vision, ear pain, ear discharge, nose pain, nose congestion, throat pain, throat swelling, mouth pain, mouth swelling, other Cardiovascular: Denies: no symptoms, chest pain, edema, irregular heart rate, lightheadedness, palpitations, syncope, other Respiratory: Reports: no symptoms, cough, SOB with excertion, SOB at rest, sputum, stridor, wheezing, other Gastrointestinal/Abdominal: Denies: no symptoms, abdomen distended, abdominal pain, black stools, tarry stools, blood in stool, constipated, diarrhea, difficulty swallowing, nausea, poor appetite, poor fluid intake, rectal bleeding , vomiting, other Genitourinary: Denies: no symptoms, burning, discharge, frequency, flank pain, hematuria, incontinence, pain, urgency, other Neurologic/Psychiatric: Denies: no symptoms, anxiety, depressed, emotional problems, headache, numbness, paresthesia, pre-existing deficit, seizure, tingling, tremors, weakness, other Endocrine: Denies: no symptoms, excessive sweating, flushing, intolerance to cold, intolerance to heat, increased hunger, increased thirst, increased urine, unexplained weight gain, unexplained weight loss, other Hematologic/Lymphatic: Denies: no symptoms, anemia, easy bleeding, easy bruising, other Allergies: Coded Allergies: SHELLFISH DERIVED (Verified Allergy, Unknown, 07/20/19) Subjective Seen and examined. feels better. Very eager to see glove stitcher even though retail reset merchandiser told him he needs an AICD Objective Last 24 Hour Vital Signs Date Time Temp Pulse Resp B/P (MAP) Pulse Ox O2 Delivery O2 Flow Rate FiO2 09/02/19 13:48 89 20 99 Room Air 21 87 22 98 09/02/19 12:00 75 09/02/19 12:00 98.1 79 18 123/79 (94) 98 09/02/19 09:00 Nasal Cannula 2.0 09/02/19 08:33 111/69 09/02/19 08:32 84 111/69 09/02/19 08:00 78 09/02/19 08:00 97.9 84 18 111/69 (83) 98 09/02/19 06:46 94 18 100 Room Air 21 95 20 97 09/02/19 04:00 97.9 75 17 128/77 (94) 97 09/02/19 04:00 70 09/02/19 01:18 Room Air 09/02/19 00:00 81 09/02/19 00:00 98.6 74 20 122/68 (86) 94 09/01/19 21:05 77 119/70 09/01/19 21:00 Nasal Cannula 2.0 09/01/19 20:00 101 09/01/19 20:00 98.6 77 19 119/70 (86) 94 09/01/19 19:15 92 20 100 Room Air 21 90 22 99 09/01/19 16:00 71 09/01/19 16:00 98.4 86 18 129/64 (85) 99 Intake and Output 09/01/19 09/02/19 19:00 07:00 Intake Total 720 ml 360 ml Output Total 800 ml 400 ml Balance -80 ml -40 ml Intake Oral 720 ml 360 ml Output Urine Total 800 ml 400 ml # Voids 3 1 Laboratory Tests 09/02/19 05:40: White Blood Count 10.7, Red Blood Count 5.07, Hemoglobin 14.6, Hematocrit 43.9, Mean Corpuscular Volume 87, Mean Corpuscular Hemoglobin 28.8, Mean Corpuscular Hemoglobin Concent 33.3, Red Cell Distribution Width 15.0H, Platelet Count 228, Mean Platelet Volume 6.4L, Neutrophils (%) (Auto) 76.6H, Lymphocytes (%) (Auto) 11.6L, Monocytes (%) (Auto) 10.2H, Eosinophils (%) (Auto) 0.1, Basophils (%) ( Auto) 1.6, Sodium Level 139, Potassium Level 4.4, Chloride Level 103, Carbon Dioxide Level 31, Anion Gap 5, Blood Urea Nitrogen 31H, Creatinine 1.1, Estimat Glomerular Filtration Rate > 60, Glucose Level 116H, Calcium Level 9.6, Phosphorus Level 4.4, Magnesium Level 2.2 Height (Feet): 5 Height (Inches): 11.00 Weight (Pounds): 280 Objective General Appearance: WD/WN, no apparent distress, alert EENT: PERRL/EOMI, normal ENT inspection Neck: non-tender, normal alignment, supple Cardiovascular: normal peripheral pulses, normal rate, regular rhythm, no JVD Respiratory/Chest: chest wall non-tender, lungs clear, normal breath sounds Abdomen: normal bowel sounds, non tender, soft, no organomegaly, no mass Extremities: normal range of motion, non-tender, normal inspection Edema: other - 1+ lower extremity edema bilaterally Neurologic: station manager II-XII grossly normal, no motor/sensory deficits, alert, oriented x 3, responsive Skin: normal pigmentation, warm/dry Timmy Singletary M.D. Sep 02, 2019 13:58
[2019-09-02 16:00] VITALS: BP 141/95
--- NOTE | 2019-09-02 18:09 | NUR ---
NURSE NOTES: The patient is stable without acute distress or shortness of breath. Will continue plan of care.
--- NOTE | 2019-09-02 19:27 | NUR ---
HAND-OFF: Report given to ANNA Euceda. The patient is resting on the bed without acute distress or shortness of breath. The patient's bed in the lowest position, call light in reach, and fall and aspiration precaution reinforced. IV site intact and patent. Endorsed plan of care.
[2019-09-02 20:00] VITALS: BP 129/66
--- NOTE | 2019-09-02 20:00 | NUR ---
NURSE NOTES: Received pt from ANNA Topete. Pt awake, alert, and talkative. Bed in lowest position. Call light within reach. Will continue to monitor.
[2019-09-02] MEDS: Enoxaparin 40mg Inj SUBQ SCH (21:00)
[2019-09-02] MEDS: Guaifenesin/DM 10ml syrup ORAL PRN (21:35)
[2019-09-02] MEDS: HYDROcodone/Acetamin 10/325 tab ORAL PRN (23:55)
[2019-09-03] VITALS: BP 128/68
[2019-09-03] MEDS: Albuterol/Ipratropium 3ml neb HHN SCH ×4 (00:30→19:26)
[2019-09-03 04:00] VITALS: BP 143/97
--- NOTE | 2019-09-03 07:20 | NUR ---
NURSE NOTES: Received report from ANNA Euceda. The patient is resting on the bed without acute distress or shortness of breath. The patient's bed in the lowest position, call light in reach, and fall and aspiration precaution reinforced. IV site intact and patent. The patient is on 2L NC as ordered. Will continue plan of care.
--- NOTE | 2019-09-03 07:25 | NUR ---
HAND-OFF: Report given to ANNA Topete. Pt stable.
[2019-09-03 08:00] VITALS: BP 131/89
[2019-09-03] MEDS: Spironolactone 25mg tab ORAL SCH (09:08)
[2019-09-03] MEDS: Doxycycline Monohydrate 100mg ORAL SCH ×2 (09:09→20:41)
[2019-09-03] MEDS: Carvedilol 12.5mg tab ORAL SCH ×2 (09:09→20:42)
[2019-09-03] MEDS: Lisinopril 20mg tab ORAL SCH (09:09)
[2019-09-03 09:21] LABS: ANION GAP 5 mmol/L (5-15); BLOOD UREA NITROGEN 29 mg/dL (7-18); CALCIUM 9.4 MG/DL (8.5-10.1); CARBON DIOXIDE 34 MMOL/L (21-32); CHLORIDE 102 MMOL/L (98-107); CREATININE 1.1 MG/DL (0.55-1.30); POTASSIUM 3.9 MMOL/L (3.5-5.1); SODIUM 141 MMOL/L (136-145)
--- NOTE | 2019-09-03 10:30 | NUR ---
NURSE NOTES: Dr. Singletary at the bedside assessed the patient. The patient is stable without acute distress or shortness of breath. Will continue plan of care.
--- NOTE | 2019-09-03 11:04 | NUR ---
CASE MANAGEMENT:REVIEW 09/03/19 SI: CHF W/EF 15-20% RESP FAILURE S/P ABLATION FOR AFLUTTER 98.2 84 19 131/89 97% ON RA IS: DOXYCYCLINE PO Q12 ALDACTONE PO QD IV LASIX BID PROTONIX PO QD DUONEB HHN Q6HRS RTC COREG PO Q12 LOVENOX SQ Q24 PREDNISONE PO QD LISINOPRIL PO QD : TELEMETRY STATUS DCP: FROM HOME PLAN: HAS NOT AGREED TO AICD AT THIS TIME
--- NOTE | 2019-09-03 11:28 | NUR ---
NURSE NOTES: Dr. Singletary ordered Methocarbamol 500mg 1tab PO Qhs PRN for muscle spasm. Will carry out the order now.
[2019-09-03] MEDS ORDERED: Methocarbamol 500mg tab ORAL PRN (11:30)
[2019-09-03 12:00] VITALS: BP 135/73
--- NOTE | 2019-09-03 12:29 | NUR ---
RD ASSESSMENT & RECOMMENDATIONS SEE CARE ACTIVITY FOR COMPLETE ASSESSMENT DAILY ESTIMATED NEEDS: Needs based on cardiac 91kg abw 20-23 kcals/kg 9756-1876 total kcals 1-1.2 g protein/kg 91-109 g total protein Fluid per MD, on diuretics mL/kg total fluid mLs NUTRITION DIAGNOSIS: Altered nutrition related lab values R/T CHF, clinical condition, on steroidal med as evidenced by elev BNP (1346), on diuretics, BG 246 upon adm -> now wnl, pt on prednisone, A1C of 6.2 on 05/11/19. CURRENT DIET:LOW NA PO DIET RECOMMENDATIONS: CARDIAC, CCHO MED/ texture as tolerated ADDITIONAL RECOMMENDATIONS: 1) DAILY STANDING WTS- CHF dx, on diuretics 2) Check lytes daily on diuretics, replete as needed 3) Check updated A1C for eval of glycemic control -> A1C on 05/11/19= 6.2
--- NOTE | 2019-09-03 12:39 | NUR ---
NURSE NOTES: The patient is stable without acute distress or shortness of breath. Will continue plan of care.
[2019-09-03] MEDS: Acetaminophen 500mg (ES) tab ORAL PRN ×2 (13:57→20:42)
--- NOTE | 2019-09-03 14:25 | NUR ---
*-* INSURANCE *-* ALL AVAILABLE CLINICALS AND REVIEW HAVE BEEN FAXED TO: [facility] CM OR TRACKING# TRACY #[phone] FAX#[phone] REVIEWS/CLINICALS Addendum: 09/04/19 at 1305 by BRICE MAYS CM Yasmani Ref#[id number] CARMEN; Cher #[phone] fax#[phone]
--- NOTE | 2019-09-03 15:45 | General Progress Note ---
Assessment/Plan Problem List: (1) Cardiomyopathy ICD Codes: I42.9 - Cardiomyopathy, unspecified SNOMED: 22105271 (2) Systolic heart failure ICD Codes: I50.20 - Unspecified systolic (congestive) heart failure SNOMED: 647764755 (3) Acute exacerbation of CHF (congestive heart failure) ICD Codes: I50.9 - Heart failure, unspecified SNOMED: 085173910, 31555177926591 (4) Nonsustained ventricular tachycardia ICD Codes: I47.2 - Ventricular tachycardia SNOMED: 181152159 (5) Acute respiratory failure with hypoxia ICD Codes: J96.01 - Acute respiratory failure with hypoxia SNOMED: 04611094, 857353366 (6) History of atrial flutter ICD Codes: Z86.79 - Personal history of other diseases of the circulatory system SNOMED: 390539990 (7) Hypertension ICD Codes: I10 - Essential (primary) hypertension SNOMED: 25030531 (8) COPD exacerbation ICD Codes: J44.1 - Chronic obstructive pulmonary disease with (acute) exacerbation SNOMED: 389592039 Status: progressing Assessment/Plan: 58-year-old male with a history of systolic heart failure, COPD presenting with CHF and COPD exacerbation #Acute hypoxic respiratory failure 2/2 COPD/ systolic CHF exacerbation triggered by medication noncompliance and excessive fluid intake.-Improving #right pleural effusion # Exacerbation of systolic congestive heart failure in a patient with severe nonischemic dilated cardiomyopathy with ejection fraction of around 15 to 20%. Ejection fraction has not improved despite flutter ablation (05/17), despite antiarrhythmic therapy, and guideline directed medical therapy. Repeat 2D echocardiogram shows Persistent low ejection fraction of 15-20%. Patient will need an upgrade to ICD. says he wants to see lung doctor first #COPD exacerbation #COPD, not on home O2 - labs and imaging reviewed - monitored on telemetry, NSVT, frequent pvcs - Duoneb Q6hr scheduled and PRN - Prednisone 40mg PO daily for 5 days. - Doxycycline 100mg PO Q12hr (08/31 - ). Plan for 5-7 days - IV lasix 40mg IV Daily, will switch to PO today 09/03 - Spironolactone 25mg PO daily - Coreg 12.5mg PO BID - Lisinopril 10mg PO daily - Appreciate cardiology recommendations: Dr. Stock: If EF less than 35% then will upgrade to ICD -doxycycline 100 mg p.o. every 12 hours given that the patient has had a worsening cough (08/31/19 - ) - recently started on advair? as outpatient. Will need this on discharge. #Frequent PVC and nonsustained ventricular tachycardia. - monitor electrolytes - continue on telemetry - keep mag >2, potassium >4 -needs ICD, patient was counselled regarding the importance of this #Hypertension, controlled- continue BP meds as above #GERD. Continue home pantoprazole 40mg PO daily #insomnia - discussed sleep hygeine with patient (turning off TV before sleep, etc.) can give melatonin #Hyperkalemia -Repeat BMP, resolved -Continue to monitor FENPPX DVTPPX: lovenox GI PPX: None needed Fluids: none Diet: cardiac, 2L fluid restrict Lines: peripheral PT/OT: pending Code status: Full Dispo: Home with home health for medication management Reason for Continued Hospitalization: Acute respiratory failure 37 minutes spent on this encounter. Discussed with patient, RN and Cardiology. > 50% spent on counseling and care coordination. Time of note may not reflect time patient was seen. Subjective Date patient seen: Sep 03, 2019 ROS Limited/Unobtainable: No Constitutional: Reports: no symptoms, chills, diaphoresis, fever, malaise, weakness, other - lower back muscle spasm HEENT: Denies: no symptoms, eye pain, blurred vision, tearing, double vision, ear pain, ear discharge, nose pain, nose congestion, throat pain, throat swelling, mouth pain, mouth swelling, other Cardiovascular: Denies: no symptoms, chest pain, edema, irregular heart rate, lightheadedness, palpitations, syncope, other Respiratory: Denies: no symptoms, cough, orthopnea, SOB with excertion, SOB at rest, sputum, stridor, wheezing, other Gastrointestinal/Abdominal: Denies: no symptoms, abdomen distended, abdominal pain, black stools, tarry stools, blood in stool, constipated, diarrhea, difficulty swallowing, nausea, poor appetite, poor fluid intake, rectal bleeding , vomiting, other Genitourinary: Denies: no symptoms, burning, discharge, frequency, flank pain, hematuria, incontinence, pain, urgency, other Neurologic/Psychiatric: Denies: no symptoms, anxiety, depressed, emotional problems, headache, numbness, paresthesia, pre-existing deficit, seizure, tingling, tremors, weakness, other Endocrine: Denies: no symptoms, excessive sweating, flushing, intolerance to cold, intolerance to heat, increased hunger, increased thirst, increased urine, unexplained weight gain, unexplained weight loss, other Hematologic/Lymphatic: Denies: no symptoms, anemia, easy bleeding, easy bruising, other Allergies: Coded Allergies: SHELLFISH DERIVED (Verified Allergy, Unknown, 07/20/19) Subjective Seen and examined. feels better. Very eager to see feed management advisor even though image scientist told him he needs an AICD, says has an appt with lung doctor on the . breathing better Objective Last 24 Hour Vital Signs Date Time Temp Pulse Resp B/P (MAP) Pulse Ox O2 Delivery O2 Flow Rate FiO2 09/03/19 12:53 89 18 97 Nasal Cannula 2.0 28 09/03/19 12:00 64 09/03/19 12:00 97.9 82 18 135/73 (93) 98 09/03/19 11:53 80 20 99 Room Air 21 78 18 96 09/03/19 09:09 131/89 09/03/19 09:09 84 131/89 09/03/19 09:00 Nasal Cannula 2.0 09/03/19 08:00 98.2 84 19 131/89 (103) 97 09/03/19 08:00 82 09/03/19 07:17 Room Air 09/03/19 04:00 74 09/03/19 04:00 96.9 76 19 143/97 (112) 95 09/03/19 00:30 Room Air 09/03/19 00:00 79 09/03/19 00:00 97.9 75 19 128/68 (88) 98 09/02/19 21:00 Room Air 09/02/19 21:00 73 129/66 09/02/19 20:06 87 20 98 Room Air 21 84 20 94 09/02/19 20:00 76 09/02/19 20:00 97.7 73 19 129/66 (87) 95 09/02/19 16:00 71 09/02/19 16:00 98.2 86 18 141/95 (110) 95 Intake and Output 09/02/19 09/03/19 19:00 07:00 Intake Total 920 ml Balance 920 ml Intake Oral 920 ml # Voids 8 12 # Bowel Movements 2 Laboratory Tests 09/03/19 06:25: Sodium Level 141, Potassium Level 3.9, Chloride Level 102, Carbon Dioxide Level 34H, Anion Gap 5, Blood Urea Nitrogen 29H, Creatinine 1.1, Estimat Glomerular Filtration Rate > 60, Glucose Level 103, Calcium Level 9.4, Pro-B-Type Natriuretic Peptide 1346H Height (Feet): 5 Height (Inches): 11.00 Weight (Pounds): 280 Objective General Appearance: WD/WN, no apparent distress, alert EENT: PERRL/EOMI, normal ENT inspection Neck: non-tender, normal alignment, supple Cardiovascular: normal peripheral pulses, normal rate, regular rhythm, no JVD Respiratory/Chest: chest wall non-tender, lungs clear, normal breath sounds Abdomen: normal bowel sounds, non tender, soft, no organomegaly, no mass Extremities: normal range of motion, non-tender, normal inspection Edema: other - 1+ lower extremity edema bilaterally Neurologic: match marker II-XII grossly normal, no motor/sensory deficits, alert, oriented x 3, responsive Skin: normal pigmentation, warm/dry Timmy Singletary M.D. Sep 03, 2019 15:45
[2019-09-03 16:00] VITALS: BP 138/86
--- NOTE | 2019-09-03 18:00 | NUR ---
NURSE NOTES: The patient is stable without acute distress or shortness of breath. Will continue plan of care.
--- NOTE | 2019-09-03 19:01 | Cardiac Electrophysiology PN ---
Assessment/Plan Assessment/Plan 1. Exacerbation of CHF and EF of only 15 to 20% despite atrial flutter ablation and guideline-directed medical therapy. Ablation was done on 05/17/2019. Its more than 3 months Meets criteria for ICD implant but he wants to wait. Continue Coreg, lisinopril, Aldactone, and Lasix 2. History of successful atrial flutter ablation without recurrence. 3. Frequent PVCs and nonsustained ventricular tachycardia. Again, the patient would need defibrillator but wants to get it done as out patient. 4. History of renal failure was resolved. 5. COPD. Antibiotics and prednisone. KATY RN Subjective Subjective Alert in NAD. EF 15-20% despite medical therapy> 3 months. No CP Objective Last 24 Hour Vital Signs Date Time Temp Pulse Resp B/P (MAP) Pulse Ox O2 Delivery O2 Flow Rate FiO2 09/03/19 16:00 63 09/03/19 16:00 98.4 77 18 138/86 (103) 95 09/03/19 12:53 89 18 97 Nasal Cannula 2.0 28 09/03/19 12:00 64 09/03/19 12:00 97.9 82 18 135/73 (93) 98 09/03/19 11:53 80 20 99 Room Air 21 78 18 96 09/03/19 09:09 131/89 09/03/19 09:09 84 131/89 09/03/19 09:00 Nasal Cannula 2.0 09/03/19 08:00 98.2 84 19 131/89 (103) 97 09/03/19 08:00 82 09/03/19 07:17 Room Air 09/03/19 04:00 74 09/03/19 04:00 96.9 76 19 143/97 (112) 95 09/03/19 00:30 Room Air 09/03/19 00:00 79 09/03/19 00:00 97.9 75 19 128/68 (88) 98 09/02/19 21:00 Room Air 09/02/19 21:00 73 129/66 09/02/19 20:06 87 20 98 Room Air 21 84 20 94 09/02/19 20:00 76 09/02/19 20:00 97.7 73 19 129/66 (87) 95 Intake and Output 09/02/19 09/03/19 19:00 07:00 Intake Total 920 ml Balance 920 ml Intake Oral 920 ml # Voids 8 12 # Bowel Movements 2 Laboratory Tests Test 09/03/19 06:25 Sodium Level 141 MMOL/L (136-145) Potassium Level 3.9 MMOL/L (3.5-5.1) Chloride Level 102 MMOL/L (98-107) Carbon Dioxide Level 34 MMOL/L (21-32) H Anion Gap 5 mmol/L (5-15) Blood Urea Nitrogen 29 mg/dL (7-18) H Creatinine 1.1 MG/DL (0.55-1.30) Estimat Glomerular Filtration Rate > 60 mL/min (>60) Glucose Level 103 MG/DL (74-106) Calcium Level 9.4 MG/DL (8.5-10.1) Pro-B-Type Natriuretic Peptide 1346 pg/mL (0-125) H Objective HEAD AND NECK: Positive JVD. LUNGS: Decreased breath sounds. CARDIOVASCULAR: Regular S1 and S2 with no gallop. ABDOMEN: Soft. EXTREMITIES: 2+ pitting edema. Vipul Stock MD Sep 03, 2019 19:01
--- NOTE | 2019-09-03 19:17 | NUR ---
HAND-OFF: Report given to ANNA Euceda. The patient is resting on the chair without acute distress or shortness of breath. The patient's bed in the lowest position, call light in reach, and fall and aspiration precaution reinforced. IV site intact and patent. Dr. Stock at the bedside assessed the patient. No new order at this time. Endorsed plan of care.
--- NOTE | 2019-09-03 19:18 | NUR ---
NURSE NOTES: Received pt from ANNA Topete. Pt awake, alert, and talkative. Bed in lowest position. Call light within reach. Will continue to monitor.
[2019-09-03 20:00] VITALS: BP 137/64
[2019-09-03] MEDS: Guaifenesin/DM 10ml syrup ORAL PRN (20:41)
[2019-09-03] MEDS: Enoxaparin 40mg Inj SUBQ SCH (20:46)
[2019-09-03] MEDS: HYDROcodone/Acetamin 10/325 tab ORAL PRN (23:14)
[2019-09-04] VITALS: BP 142/72
[2019-09-04] MEDS: Acetaminophen 500mg (ES) tab ORAL PRN ×2 (03:42→09:25)
[2019-09-04 04:00] VITALS: BP 138/75
--- NOTE | 2019-09-04 07:21 | NUR ---
HAND-OFF: Report given to ANNA Jones. Pt stable.
[2019-09-04 07:33] LABS: ANION GAP 7 mmol/L (5-15); BLOOD UREA NITROGEN 27 mg/dL (7-18); CALCIUM 9.2 MG/DL (8.5-10.1); CARBON DIOXIDE 31 MMOL/L (21-32); CHLORIDE 104 MMOL/L (98-107); CREATININE 0.9 MG/DL (0.55-1.30); POTASSIUM 4.2 MMOL/L (3.5-5.1); SODIUM 141 MMOL/L (136-145)
--- NOTE | 2019-09-04 07:59 | NUR ---
NURSE NOTES: Received report from ANNA Euceda. Pt sitting at edge of bed, awake, talkative, eating breakfast, no complaints of pain, no apparent distress noted, pt is A/Ox4, bed in lowest position, call light within reach.
[2019-09-04 08:00] VITALS: BP 136/77
[2019-09-04] MEDS ORDERED: Furosemide 40mg tab ORAL SCH (09:00)
[2019-09-04] MEDS: Spironolactone 25mg tab ORAL SCH (09:20)
[2019-09-04] MEDS: Carvedilol 12.5mg tab ORAL SCH (09:20)
[2019-09-04] MEDS: Lisinopril 20mg tab ORAL SCH (09:20)
[2019-09-04] MEDS: Doxycycline Monohydrate 100mg ORAL SCH (09:21)
--- NOTE | 2019-09-04 10:29 | NUR ---
CASE MANAGEMENT:REVIEW 09/04/19 SI: CHF W/EF 15-20% RESP FAILURE S/P ABLATION FOR AFLUTTER 98.2 87 20 136/77 95% ON RA IS: DOXYCYCLINE PO Q12 ALDACTONE PO QD LASIX PO QD PROTONIX PO QD DUONEB HHN Q6HRS RTC COREG PO Q12 LOVENOX SQ Q24 PREDNISONE PO QD LISINOPRIL PO QD : TELEMETRY STATUS DCP: FROM HOME PLAN: CONVERT LASIX TO PO...CONTINUE TO DIURESIS
--- NOTE | 2019-09-04 10:30 | NUR ---
NURSE NOTES: Dr. Singletary spoke with pt about discharge and stated she will call in all the pt's medications to the pharmacy Addendum: 09/04/19 at 1107 by TRENT DURHAM RN NURSE NOTES: RN updated pt's pharmacy in system to pt's stated used pharmacy, [facility] on [address]
[2019-09-04] MEDS: HYDROcodone/Acetamin 5/325 tab ORAL PRN (10:50)
--- NOTE | 2019-09-04 11:01 | Discharge Summary ---
Discharge Summary Hospital Course Date of Admission Aug 29, 2019 at 15:45 Date of Discharge 09/04/2019 Admitting Diagnosis CONGESTIVE HEART FAILURE HPI Jose Quinones is a 59 year old male who was admitted on Aug 29, 2019 at 15:45 for Congestive Heart Failure Consultations cardiology: Dr. De La Paz Procedures Echocardiogram, Telemetry Hospital Course 58-year-old male with a history of systolic heart failure, COPD presenting with CHF and COPD exacerbation due to dietary indiscretion and medication non compliance. #Acute hypoxic respiratory failure 2/2 COPD/ systolic CHF exacerbation triggered by medication noncompliance and excessive fluid intake.-Improved. #right pleural effusion # Exacerbation of systolic congestive heart failure in a patient with severe nonischemic dilated cardiomyopathy with ejection fraction of around 15 to 20%. Ejection fraction has not improved despite flutter ablation (05/17), despite antiarrhythmic therapy, and guideline directed medical therapy. Repeat 2D echocardiogram shows Persistent low ejection fraction of 15-20%. Patient will need an upgrade to ICD. says he wants to see lung doctor first. He wants to wait. #COPD exacerbation #COPD, not on home O2 - labs and imaging reviewed - monitored on telemetry, NSVT, frequent pvcs - Duoneb Q6hr scheduled and PRN - Prednisone 40mg PO daily for 5 days. - Doxycycline 100mg PO Q12hr (08/31 - 09/07). Plan for 7 days - IV lasix 40mg IV Daily, will switch to PO 09/03 - Spironolactone 25mg PO daily - Coreg 12.5mg PO BID - Lisinopril 10mg PO daily - Appreciate cardiology recommendations: Dr. Stock: If EF less than 35% then will upgrade to ICD09/07 ) - recently started on advair? as outpatient. Prescribed this on discharge. #Frequent PVC and nonsustained ventricular tachycardia. - monitor electrolytes - continue on telemetry - keep mag >2, potassium >4 -needs ICD, patient was counselled regarding the importance of this #Hypertension, controlled- continue BP meds as above #GERD. Continue home pantoprazole 40mg PO daily #insomnia - discussed sleep hygeine with patient (turning off TV before sleep, etc.) can give melatonin #Hyperkalemia -Repeat BMP, resolved -Continue to monitor FENPPX DVTPPX: lovenox GI PPX: None needed Fluids: none Diet: cardiac, 2L fluid restrict Code status: Full Dispo: Home with home health for medication management Today on exam he is alert, awake and oriented x3. Lung CTA BL, CVS: s1s2, 1+ edema to bl LE. 35 minutes spent on this encounter. Discussed with patient, RN and Cardiology. > 50% spent on counseling and care coordination. Time of note may not reflect time patient was seen. Discharge Medications New Medications: Albuterol Sulfate* (Albuterol Sulfate Mdi*) 8.5 Gm Hfa.aer.ad 2 PUFF INH Q6H for 30 Days, #2 EA 2 Refills Diphenhyd/Phenyleph/Acetaminop (Robitussin Cold-Flu Night Liq) 237 Ml Liquid 237 ML PO QHS PRN for 10 Days, #1 ML 0 Refills Inhaler, Assist Devices (Aerochamber) 1 Each Spacer EACH MC, #1 Doxycycline Hyclate (Doxycycline Hyclate) 100 Mg Capsule 100 MG ORAL EVERY 12 HOURS for 3 Days, #6 CAP Continued Medications: Albuterol Sulfate (Ventolin Hfa) 18 Gm Hfa.aer.ad 2 PUFFS INH EVERY 6 HOURS for 30 Days, #18 GM 0 Refills Apixaban (Eliquis) 5 Mg Tablet 5 MG PO BID, TAB Carvedilol (Coreg) 12.5 Mg Tablet 12.5 MG ORAL EVERY 12 HOURS for 30 Days, #60 TAB 1 Refill Fluticasone/Salmeterol (Advair 250-50 Diskus) 1 Each Blst.w.dev 1 PUFF INH EVERY 12 HOURS, EA Furosemide* (Lasix*) 40 Mg Tablet 40 MG ORAL DAILY for 60 Days, #60 TAB 1 Refill Gabapentin* (Gabapentin*) 100 Mg Capsule 100 MG ORAL BEDTIME, CAP Hydralazine Hcl* (Hydralazine Hcl*) 25 Mg Tablet 25 MG ORAL EVERY 8 HOURS, TAB 0 Refills Ipratropium [place] (Atrovent Hfa) 12.9 Gm Hfa.aer.ad 2 PUFF IH FOUR TIMES A DAY Ipratropium/Albuterol Sulfate (DuoNeb 0.5-3(2.5)mg/3ml) 3 Ml Ampul.neb 3 ML HHN Q4H PRN for 30 Days, #20 EA Isosorbide Mononitrate (Isosorbide Mononitrate Er) 30 Mg Tab.er.24h 30 MG PO DAILY, TAB Lisinopril* (Zestril*) 10 Mg Tablet 10 MG ORAL DAILY for 30 Days, #30 TAB 1 Refill Pantoprazole* (Pantoprazole*) 40 Mg Tablet.dr 40 MG ORAL DAILY for 30 Days, #30 TAB 1 Refill Spironolactone* (Aldactone*) 25 Mg Tablet 25 MG ORAL DAILY for 30 Days, #30 TAB 1 Refill Discontinued Medications: Cefuroxime Axetil* (Cefuroxime*) 250 Mg Tablet 500 MG ORAL EVERY 12 HOURS for 2 Days, #4 TAB Discharge Condition Upon Discharge: stable Discharge Disposition Patient was discharged to home Discharge Diagnoses: (1) MARI (acute kidney injury) (2) Acute exacerbation of CHF (congestive heart failure) (3) Acute respiratory failure with hypoxia (4) Nonsustained ventricular tachycardia (5) History of atrial flutter (6) Cardiomyopathy (7) Hypertension (8) Hyperkalemia Timmy Singletary M.D. Sep 04, 2019 11:01
[2019-09-04] MEDS ORDERED: ROBITUSSIN COL237 ML PO (11:06)
[2019-09-04] MEDS ORDERED: DOXYCYCLINE HY100 M2 ORAL (11:06)
--- NOTE | 2019-09-04 11:10 | Discharge Instructions ---
Discharge Instructions Discharge Instructions Diet: 2 GM sodium (low sodium), cardiac 2 GM Na, low fat - fluid restriction to 1.5 L per day Special Instructions Don't lift any heavy stuff. Fluid restriction to 1.5L a day. See cardiology as soon as possible for ICD placement For Congestive Heart Failure Reminder Report to your physician any weight gain of 5 pounds or more in one week. Timmy Singletary M.D. Sep 04, 2019 11:10
[2019-09-04 12:00] VITALS: BP 137/91
--- NOTE | 2019-09-04 13:21 | NUR ---
NURSE NOTES: Called Dr. Parra to notify of MRI Brain results are negative, ordered DC of pt, stated he gave pt a hand-written Rx and to continue home medications Addendum: 09/04/19 at 1346 by TRENT DURHAM RN NURSE NOTES: Wrong pt, this note is for another pt
--- NOTE | 2019-09-04 13:46 | NUR ---
NURSE NOTES: Pt discharge home with all belongings, Pt signed all DC paperwork and is aware to picking machine operator refills of medications at his preferred pharmacy, IV removed intact, ID band removed, tele box returned to Joiners Supervisor Cindy, pt is ambulatory going home via taxi service, stable for discharge.
--- NOTE | 2019-09-05 15:31 | NUR ---
*-* INSURANCE *-* ALL AVAILABLE CLINICALS AND REVIEW HAVE BEEN FAXED TO: [facility] CM OR TRACKING# TRACY #[phone] FAX#[phone] REVIEWS/CLINICALS & [place] Ref#[id number] CM; Cher #[phone] fax#[phone] Addendum: 09/05/19 at 1534 by BRICE MAYS CM DISCHARGE SUMMARY HAS BEEN FAXED
== END 2019-09-04 13:46 | disposition home or self-care (01) | DRG 194 ==
LOC: EDBD 13:41 → EMR 14:27 → 2E 15:45 → OBSVTOIN 15:45 → INTOOBSV 15:45 → EDBEDREQ 17:24 → 2E 08-30 21:07
DX: I11.0 Hypertensive heart disease with heart failure (principal); I50.23 Acute on chronic systolic (congestive) heart failure; J96.01 Acute respiratory failure with hypoxia; J44.1 Chronic obstructive pulmonary disease with (acute) exacerbation; I47.2 Ventricular tachycardia; I49.3 Ventricular premature depolarization; K21.9 Gastro-esophageal reflux disease without esophagitis; G47.00 Insomnia, unspecified; E87.5 Hyperkalemia; N17.9 Acute kidney failure, unspecified; Z91.14 Patient's other noncompliance with medication regimen
CPT/HCPCS: 36415; 36600; 71045; 80048; 80053; 82248; 82803; 83735; 83880; 84100; 84484; 85007; 85025; 93005; 93306; 94640; 94664; 96374; 96375; 99285; J7030; J7620

== ENCOUNTER 2019-12-06 07:10 | Inpatient (IN) | payer MEDICAID ==
[~2019-12-06] VITALS: Ht 185.4 cm; Wt 95.7 kg
[~2019-12-06 07:10] MED LIST changes: +ADVAIR 250-501 EACH INH; +AEROCHAMBER1 EACH MC; +ALBUTEROL SULF8.5 GM INH; +ATROVENT HFA12.9 GM IH; +DOXYCYCLINE HY100 M2 ORAL; +ELIQUIS5 MG PO; +GABAPENTIN100 MG ORAL; +HYDRALAZINE HCL25 M1 ORAL; +ISOSORBIDE MONO30 M1 PO; +ROBITUSSIN COL237 ML PO
--- NOTE | 2019-12-06 07:10 | NUR ---
ED Nurse Note: Patient BIBA d/t shortness of breath x 3 days. Patient has hx of COPD and CHF, states that he has only been taking water pill every 3 days. Patient o2 sat was 89% in the field. EMS put him on non-rebreather. Currently 98% on RA. No s/s of acute distress. Patient AxO x 4, skin intact.
[2019-12-06 07:15] VITALS: BP 128/89
[2019-12-06] MEDS ORDERED: Ipratropium 0.02% Inh Soln 2.5ml UD HHN ONE (07:15)
[2019-12-06] MEDS ORDERED: Albuterol ud Inhalation HHN ONE (07:15)
[2019-12-06] MEDS ORDERED: Aspirin Baby 81mg ORAL ONE (07:15)
[2019-12-06] MEDS ORDERED: Solu-MEDROL 125mg Inj IVP ONE (07:15)
--- NOTE | 2019-12-06 07:22 | Emergency Room Report ---
History of Present Illness General Chief Complaint: Dyspnea/Respdistress Source: Patient, Medical Record, EMS Present Illness HPI Patient is a 59-year-old male past medical history of hypertension, atrial fibrillation, CHF, on Eliquis, COPD former smoker who presents to the ER for shortness of breath. Patient complains of shortness of breath and cough for the past 5 days. He states that he went to see his doctor on Monday. He complains of worsening of symptoms. He denies any fever or chills. He complains of chest wall pain when coughing but not at baseline. He denies any recent travel. He states that he walks around every day. He does not know if he got his influenza vaccine this year. He denies any abdominal pain, nausea or vomiting. Per EMS patient was hypoxic in the mid 80s when they arrived. They have placed him on a nonrebreather. Patient states that he has nebulizer treatments at home but is not on baseline oxygen daily. Allergies: Coded Allergies: SHELLFISH DERIVED (Verified Allergy, Unknown, 07/20/19) Patient History Past Medical History: HTN, CAD, CHF, AFib, arrhyth, COPD Social History Narrative Former Smoker Reviewed Nursing Documentation: PMH: Agreed; PSxH: Agreed Nursing Documentation-PMH Hx Cardiac Problems: Yes Hx Hypertension: Yes Hx Asthma: Yes Hx COPD: Yes Hx Cancer: No Hx Gastrointestinal Problems: No Hx Neurological Problems: No Review of Systems All Other Systems: negative except mentioned in HPI Physical Exam Vital Signs Date Time Temp Pulse Resp B/P (MAP) Pulse Ox O2 Delivery O2 Flow Rate FiO2 12/06/19 07:01 98.8 115 20 175/105 (128) 100 Non-Rebreather 15.0 Sp02 EP Interpretation: reviewed, abnormal - hypoxic General Appearance: normal inspection, GCS 15, mild distress, obese Head: normocephalic, atraumatic Eyes: bilateral eye normal inspection, bilateral eye PERRL ENT: hearing grossly normal, normal pharynx, no angioedema, normal voice Neck: full range of motion, supple/symm/no masses Respiratory: decreased breath sounds, accessory muscle use, rhonchi, wheezing Cardiovascular #1: irregularly irregular Gastrointestinal: normal inspection, normal bowel sounds, non tender, soft, no mass Rectal: deferred Musculoskeletal: back normal, normal range of motion, calf tenderness, gait/ station normal, non-tender Neurologic: alert, motor strength/tone normal, oriented x3, sensory intact, responsive, speech normal Psychiatric: judgement/insight normal, memory normal, mood/affect normal, no suicidal/homicidal ideation Skin: no rash, warm/dry Medical Decision Making Diagnostic Impression: Primary Impression: COPD exacerbation Additional Impressions: Nonsustained ventricular tachycardia Respiratory distress Acute exacerbation of CHF (congestive heart failure) ER Course Patient reevaluated at 0757am. I have started him on nebulizer treatments. He is satting 100% on his treatment. No acute respiratory distress. Patient reevaluated at 8:52 AM. Patient reports improvement of symptoms. Patient had several episode of nonsustained ventricular tachycardia which resolved without intervention. Patient is now satting 97% on room air. Patient was given nebulizer treatments as well as 125 mg of IV Solu-Medrol. Patient also given 750 mg of IV Levaquin all of this was to treat his COPD exacerbation. Patient also given 162 mg of aspirin p.o. as well as 40 mg of IV Lasix for his CHF exacerbation. Patient's BNP almost 1500. EKG Diagnostic Results EKG Time: 07:38 Rate: normal Rhythm: other - aflutter ST Segments: no acute changes ASA given to the pt in ED: Yes Rhythm Strip Diag. Results Rhythm Strip Time: 07:48 EP Interpretation: yes Rate: 95 Rhythm: no ectopy, other - aflutter with PVCs Last Vital Signs Date Time Temp Pulse Resp B/P (MAP) Pulse Ox O2 Delivery O2 Flow Rate FiO2 12/06/20 07:01 98.8 115 20 175/105 (128) 100 Non-Rebreather 15.0 Status: improved Disposition: ADMITTED INPATIENT Condition: Critical Physician Consult: Carmella Henry M.D. Dec 06, 2019 07:22
--- NOTE | 2019-12-06 07:25 | NUR ---
ED Nurse Note: Dr. Aviles and RT at bedside.
[2019-12-06 08:07] LABS: HEMATOCRIT 48.8 % (42.0-52.0); HEMOGLOBIN 16.9 G/DL (14.2-18.0); MEAN CORPUSCULAR VOLUME 86 FL (80-99); PLATELET COUNT 225 K/UL (150-450); RED BLOOD COUNT 5.65 M/UL (4.70-6.10); RED CELL DISTRIBUTION WIDTH 14.9 % (11.6-14.8); WHITE BLOOD COUNT 5.5 K/UL (4.8-10.8)
[2019-12-06] MEDS ORDERED: Benzonatate 100mg Perles ORAL ONE (08:15)
[2019-12-06] MEDS ORDERED: Magnesium Sulfate 2ml Inj IM ONE (08:15)
[2019-12-06 08:19] LABS: ANION GAP 9 mmol/L (5-15); BLOOD UREA NITROGEN 12 mg/dL (7-18); CARBON DIOXIDE 27 MMOL/L (21-32); CHLORIDE 104 MMOL/L (98-107); CREATININE 0.8 MG/DL (0.55-1.30); POTASSIUM 4.3 MMOL/L (3.5-5.1); SODIUM 140 MMOL/L (136-145)
[2019-12-06 08:20] LABS: APPEARANCE,URINE CLEAR; BILIRUBIN, URINE NEGATIVE (NEGATIVE); GLUCOSE, URINE (UA) NEGATIVE (NEGATIVE); KETONES,URINE NEGATIVE (NEGATIVE); LEUKOCYTE ESTERASE ,URINE 1+ (NEGATIVE); NITRITE,URINE NEGATIVE (NEGATIVE); PH,URINE 5 (4.5-8.0); PROTEIN,URINE 3+ (NEGATIVE); UROBILINOGEN,URINE 1 MG/DL (0.0-1.0)
[2019-12-06 08:22] LABS: COLOR,URINE YELLOW
[2019-12-06 08:39] LABS: ALANINE AMINOTRANSFERASE 29 U/L (12-78); ALBUMIN 3.6 G/DL (3.4-5.0); ALBUMIN/GLOBULIN RATIO 0.9 (1.0-2.7); ALKALINE PHOSPHATASE 65 U/L (46-116); ASPARTATE AMINO TRANSFERASE 22 U/L (15-37); BILIRUBIN,TOTAL 0.8 MG/DL (0.2-1.0)
--- NOTE | 2019-12-06 08:53 | NUR ---
ED Nurse Note: Patient resting in bed, VSS. Patient states he can breathe much better after breathing treatment.
[2019-12-06 09:30] VITALS: BP 134/87
--- NOTE | 2019-12-06 10:06 | NUR ---
ED Nurse Note: Report given to Meghana CASTILLO
[2019-12-06] MEDS ORDERED: FUROSEMIDE40 MG ORAL (10:09)
[2019-12-06] MEDS ORDERED: ENTRESTO 49 MG1 EACH PO (10:09)
--- NOTE | 2019-12-06 10:30 | NUR ---
NURSE NOTES: Nurse report given by ANNA Grimes from ER. Patient's admitted and transferred to telemetry by david with assistance of RN and ER master sonar technician. Patient's in stable condition, no s/s of distress or SOB, denies pain, ambulates well, AO x4, eyes open spontaneously, breathing is unlabored but irregular, complains of unproductive cough. Patient's on room air and o2 Saturation at 95%. IV is saline locked, flushed well, patent and asymptomatic. Skin's intact. A-flutter rhythm noted, asymptomatic. campus monitor applied, ID band checked, patient's belonging list went over with patient and ER nurse at bedside and signed by both nurses. Spoke with Dr. Edouard regarding new admission. MD ordered continue home meds, full code, eliquis for DVT, cardiac diet. Orders acknowledged and carried out. Will continue to monitor
[2019-12-06] MEDS ORDERED: Albuterol 90mcg Inhaler 8gm INH SCH ×2 (11:00→12:00)
--- NOTE | 2019-12-06 11:22 | Diagnostic Imaging Report ---
Indication: Dyspnea Comparison: 08/29/2019 A single view chest radiograph was obtained. Findings: Cardiomediastinal appearance is within normal limits for age. The lungs are clear. Pulmonary vascularity is appropriate. The diaphragmatic contour is smooth and costophrenic angles are sharp. No pleural effusions are identified. The bones are unremarkable. Impression: No acute findings
[2019-12-06] MEDS: Albuterol/Ipratropium 3ml neb HHN SCH ×4 (11:30→23:00)
--- NOTE | 2019-12-06 11:30 | NUR ---
RESPIRATORY NOTE: 1130 neb tx non admin due to higher pt acuity in ED. Will continue tx's as ordered next round. Pt in bed, Sat >92% on RA; no distress noted whatsoever.
[2019-12-06 11:57] VITALS: BP 137/77
[2019-12-06] MEDS ORDERED: cefTRIAXone 1 GM in D5W 55 ML IVPB SCH (12:00)
[2019-12-06] MEDS: Carvedilol 12.5mg tab ORAL SCH ×2 (12:10→21:00)
[2019-12-06] MEDS: Solu-MEDROL 125mg Inj IVP SCH ×2 (13:41→21:22)
[2019-12-06] MEDS: Imdur 30mg tab ORAL SCH (13:41)
[2019-12-06] MEDS: HydrALAZINE 25mg tab ORAL SCH ×2 (13:41→22:00)
[2019-12-06] MEDS: Lisinopril 10mg tab ORAL SCH (13:41)
[2019-12-06] MEDS: Guaifenesin/DM 10ml syrup ORAL PRN ×2 (14:47→21:23)
[2019-12-06 16:00] VITALS: BP 136/80
[2019-12-06] MEDS: Eliquis 5mg tablet ORAL SCH (17:28)
--- NOTE | 2019-12-06 19:40 | NUR ---
HAND-OFF: Report given to ANNA Leonard. Patient's stable, plan of care endorsed .
--- NOTE | 2019-12-06 19:40 | NUR ---
NURSE NOTES: Received report from Meghana CASTILLO, patient stable, AOx4, denies pain at this time, coughing, , VSS, IV site asymptomatic, intact, patient had 11 beats of PVCs in a row, Dr Edouard was informed. Patient is ambulatory, call light within reach, will continue to monitor and reassess
--- NOTE | 2019-12-06 19:41 | NUR ---
NURSE NOTES: Notified that patient was having 11 beats of PVC's and went back to normal sinus rhythm. Patient was laying in bed, talking on the phone and showed no sign of distress. Awaiting for response.
[2019-12-06 20:00] VITALS: BP 111/59
[2019-12-06] MEDS: Wixela 250/50 Inhaler - 60 dose INH SCH (21:42)
[2019-12-07] VITALS: BP 115/62
[2019-12-07] MEDS: Guaifenesin/DM 10ml syrup ORAL PRN ×3 (03:55→20:03)
[2019-12-07 04:00] VITALS: BP 105/51
[2019-12-07] MEDS: Albuterol/Ipratropium 3ml neb HHN SCH ×6 (04:29→23:03)
[2019-12-07] MEDS: Solu-MEDROL 125mg Inj IVP SCH ×3 (05:45→21:28)
[2019-12-07] MEDS: HydrALAZINE 25mg tab ORAL SCH ×3 (05:46→22:00)
--- NOTE | 2019-12-07 07:00 | History and Physical Report ---
DATE OF ADMISSION: 12/06/2019 CHIEF COMPLAINT: COPD exacerbation. HISTORY OF PRESENT ILLNESS: The patient is a 59-year-old male. He has a history of COPD, congestive heart failure, paroxysmal atrial fibrillation, who presented with complaints of shortness of breath. According to the patient, he was well until three to four days prior to admission, when he developed cold and cough. He has had some runny nose, mild subjective fevers and chills. He presented to the emergency room because the symptoms did not improve. On evaluation there, he was afebrile. His x-ray was clear, but he had diffuse wheezing. He has been diagnosed with COPD exacerbation. He is now admitted for further evaluation and care. PAST MEDICAL HISTORY: As above. PAST SURGICAL HISTORY: None. CURRENT MEDICATIONS: Reconciled and reviewed. ALLERGIES: Include shellfish. FAMILY HISTORY: Noncontributory. SOCIAL HISTORY: The patient is a prior smoker. No alcohol. No drugs. REVIEW OF SYSTEMS: Negative except for cough, shortness of breath, and wheezing. PHYSICAL EXAMINATION: VITAL SIGNS: Temperature 98 degrees, pulse 60, respirations 18, and blood pressure 105/51. GENERAL: The patient well-developed, no apparent distress. HEART: Regular rate and rhythm. LUNGS: Significant wheezes. ABDOMEN: Soft, nontender, nondistended. EXTREMITIES: Without clubbing, cyanosis, or edema. LABORATORY DATA: Sodium 140, potassium 4.3, creatinine is 0.8. Natriuretic peptide level was 1300. Troponin was 0.02. ASSESSMENT: This is a pleasant male, admitted with complaints of shortness of breath secondary to COPD exacerbation. PROBLEM LIST: 1. COPD exacerbation. 2. History of hypertension. 3. History of AFib. PLAN: 1. IV steroids. 2. Respiratory treatments. 3. Empiric antibiotic therapy for bronchitis. Masood Edouard M.D. DR: DARIO JOB#: [id number] CC:
--- NOTE | 2019-12-07 07:47 | NUR ---
HAND-OFF: Report given to ANNA Jha patient in stable condition,plan of care endorsed.
[2019-12-07 08:00] VITALS: BP 124/55
--- NOTE | 2019-12-07 08:09 | NUR ---
NURSE NOTES: Received patient from Laurel Leonard. Patient is awake sitting up in bed eating breakfast. Denies pain or discomfort at this time. Reminded patient re:fall precautions and the use of call de leon. will follow.
[2019-12-07] MEDS: Wixela 250/50 Inhaler - 60 dose INH SCH ×2 (08:14→20:09)
[2019-12-07] MEDS: Lisinopril 10mg tab ORAL SCH (09:13)
[2019-12-07] MEDS: Carvedilol 12.5mg tab ORAL SCH ×2 (09:13→21:29)
[2019-12-07] MEDS: Imdur 30mg tab ORAL SCH (09:14)
[2019-12-07] MEDS: Spironolactone 25mg tab ORAL SCH (09:14)
[2019-12-07] MEDS: Eliquis 5mg tablet ORAL SCH ×2 (09:14→17:27)
[2019-12-07 12:00] VITALS: BP 91/62
[2019-12-07] MEDS ORDERED: Levofloxacin 500mg tab ORAL SCH (14:00)
[2019-12-07 16:00] VITALS: BP 101/67
--- NOTE | 2019-12-07 17:04 | NUR ---
CASE MANAGEMENT: INITIAL REVIEW 59 YO M PRESENTED TO ED FROM HOME CC: 80% ON RA PMHx: COPD. CHF. PAROXYSMAL A FIB. SI:HYPOXIA T 98.8 HR 115 RR 20 B/P 175/105 SATS 100% ON 15L/NRB MG 1.6 BNP 1337 ABGs PH 7.465 PCO2 33.7 PO2 163.3 IS: SOLU MEDROL IV X1 DUO NEB HHN X1 LEVAQUIN IV X1 ASA PO X1 MAG SULFATE IM X1 BENZONATATE PO X1 LASIX IV X1 PATIENT ADMITTED TO TELE 12/06/2019 @ 0850 DCP: PATIENT TO BE DISCHARGED TO HOME ONCE MEDICALLY CLEARED. PLAN OF CARE: 1. IV steroids. 2. Respiratory treatments. 3. Empiric antibiotic therapy for bronchitis. Addendum: 12/07/19 at 1717 by Fransisca Santiago CM INTERAL MET
--- NOTE | 2019-12-07 19:27 | NUR ---
NURSE NOTES: Received report from ANNA Jha, patient stable, AOx4, denies pain at this time, coughing, , VSS, IV site asymptomatic, intact, Patient is ambulatory, call light within reach, will continue to monitor and reassess
--- NOTE | 2019-12-07 19:27 | NUR ---
HAND-OFF: Report given to Laurel Leonard. PLan of care endorsed.
[2019-12-07 20:00] VITALS: BP 103/55
[2019-12-08] VITALS: BP_SYST 111; BP_SYST 65; BP_DIAS 55
[2019-12-08] MEDS: Albuterol/Ipratropium 3ml neb HHN SCH ×6 (02:53→23:41)
[2019-12-08 04:00] VITALS: BP 117/66
--- NOTE | 2019-12-08 04:32 | NUR ---
NURSE NOTES: Patient had A flutter with 8 beats of Vtach and episodes of ventricular bigemini
[2019-12-08] MEDS: HydrALAZINE 25mg tab ORAL SCH ×3 (05:47→22:00)
[2019-12-08] MEDS: Solu-MEDROL 125mg Inj IVP SCH (05:49)
--- NOTE | 2019-12-08 07:20 | NUR ---
HAND-OFF: Report given to ANNA Jha patient in stable condition, plan of care endorsed.
--- NOTE | 2019-12-08 07:44 | NUR ---
NURSE NOTES: Received patient from Laurel Leonard. Patient is awake sitting up in chair. NO complain of pain or discomfort at this time.PAtient verbaluizes he slept through the night. Reminded patient re: Safety precautions. Call de leon within patients reached will follow.
[2019-12-08 08:00] VITALS: BP 112/79
[2019-12-08] MEDS: Wixela 250/50 Inhaler - 60 dose INH SCH ×2 (08:54→21:37)
[2019-12-08 09:01] LABS: ALANINE AMINOTRANSFERASE 27 U/L (12-78); ALBUMIN 3.6 G/DL (3.4-5.0); ALBUMIN/GLOBULIN RATIO 0.9 (1.0-2.7); ALKALINE PHOSPHATASE 55 U/L (46-116); ANION GAP 8 mmol/L (5-15); ASPARTATE AMINO TRANSFERASE 17 U/L (15-37); BILIRUBIN,TOTAL 0.5 MG/DL (0.2-1.0); BLOOD UREA NITROGEN 34 mg/dL (7-18); CALCIUM 9.5 MG/DL (8.5-10.1); CARBON DIOXIDE 27 MMOL/L (21-32); CHLORIDE 104 MMOL/L (98-107); POTASSIUM 4.9 MMOL/L (3.5-5.1); SODIUM 139 MMOL/L (136-145)
[2019-12-08] MEDS: Carvedilol 12.5mg tab ORAL SCH ×2 (09:23→21:22)
[2019-12-08] MEDS: Levofloxacin 500mg tab ORAL SCH (09:23)
[2019-12-08] MEDS: Spironolactone 25mg tab ORAL SCH (09:23)
[2019-12-08] MEDS: Imdur 30mg tab ORAL SCH (09:23)
[2019-12-08] MEDS: Guaifenesin/DM 10ml syrup ORAL PRN ×2 (09:23→21:30)
[2019-12-08] MEDS: Eliquis 5mg tablet ORAL SCH ×2 (09:24→17:23)
[2019-12-08] MEDS: Lisinopril 10mg tab ORAL SCH (09:24)
[2019-12-08 12:00] VITALS: BP 103/65
--- NOTE | 2019-12-08 13:39 | General Progress Note ---
Assessment/Plan Problem List: (1) Systolic heart failure ICD Codes: I50.20 - Unspecified systolic (congestive) heart failure SNOMED: 645034814 (2) Hypertension ICD Codes: I10 - Essential (primary) hypertension SNOMED: 43332528 (3) Acute respiratory failure with hypoxia ICD Codes: J96.01 - Acute respiratory failure with hypoxia SNOMED: 15095719, 705587976 (4) History of atrial flutter ICD Codes: Z86.79 - Personal history of other diseases of the circulatory system SNOMED: 338113558 (5) Respiratory distress ICD Codes: R06.03 - Acute respiratory distress SNOMED: 505992705 (6) COPD exacerbation ICD Codes: J44.1 - Chronic obstructive pulmonary disease with (acute) exacerbation SNOMED: 810684412 (7) Acute exacerbation of CHF (congestive heart failure) ICD Codes: I50.9 - Heart failure, unspecified SNOMED: 886129344, 92372860655558 (8) Nonsustained ventricular tachycardia ICD Codes: I47.2 - Ventricular tachycardia SNOMED: 485987306 Status: stable Assessment/Plan: wean steroids iv abx resp rx replace lytes refusing cardiology eval. 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 mild back pain. decreased sob. no fever or chills. decreased wheezing. wants sleeping pill Objective Last 24 Hour Vital Signs Date Time Temp Pulse Resp B/P (MAP) Pulse Ox O2 Delivery O2 Flow Rate FiO2 12/08/19 12:00 98.2 65 19 103/65 (78) 93 12/08/19 11:12 52 20 99 Room Air 21 50 20 98 12/08/19 09:24 112/79 12/08/19 09:23 112/79 12/08/19 09:23 82 112/79 12/08/19 09:00 Room Air 12/08/19 08:58 63 20 96 Room Air 21 12/08/19 08:56 62 24 96 Room Air 21 12/08/19 08:05 67 20 99 Room Air 21 54 20 96 12/08/19 08:00 65 12/08/19 08:00 97.9 82 19 112/79 (90) 96 12/08/19 05:47 109/79 12/08/19 04:00 69 12/08/19 04:00 98.7 64 18 117/66 (83) 96 12/08/19 00:00 83 12/08/19 00:00 98.6 90 18 111/55 (73) 96 12/07/19 23:04 83 20 99 Room Air 21 81 20 96 12/07/19 22:00 109/54 12/07/19 21:29 86 117/76 12/07/19 21:00 Room Air 12/07/19 20:13 62 20 96 Room Air 21 12/07/19 20:13 62 20 96 Room Air 21 12/07/19 20:00 98.2 86 20 103/55 (71) 95 12/07/19 20:00 72 12/07/19 19:25 67 20 99 Room Air 21 67 20 95 12/07/19 18:00 70 12/07/19 16:00 97.2 76 20 101/67 (78) 97 Intake and Output 12/07/19 12/08/19 19:00 07:00 Intake Total 1440 ml 200 ml Balance 1440 ml 200 ml Intake Oral 1440 ml 200 ml # Voids 4 2 # Bowel Movements 2 2 Laboratory Tests 12/08/19 06:40: Sodium Level 139, Potassium Level 4.9, Chloride Level 104, Carbon Dioxide Level 27, Anion Gap 8, Blood Urea Nitrogen 34H, Creatinine 1.0, Estimat Glomerular Filtration Rate > 60, Glucose Level 143H, Calcium Level 9.5, Magnesium Level 2.0 , Total Bilirubin 0.5, Aspartate Amino Transf (AST/SGOT) 17, Alanine Aminotransferase (ALT/SGPT) 27, Alkaline Phosphatase 55, Total Protein 7.6, Albumin 3.6, Globulin 4.0, Albumin/Globulin Ratio 0.9L Height (Feet): 6 Height (Inches): 1.00 Weight (Pounds): 211 General Appearance: WD/WN, alert Neck: supple Cardiovascular: regular rhythm Respiratory/Chest: rhonchi - bilaterally, expiratory wheezing Abdomen: normal bowel sounds, non tender, soft, no organomegaly Edema: no edema noted Arm (L), no edema noted Arm (R), no edema noted Leg (L), no edema noted Leg (R), no edema noted Pedal (L), no edema noted Pedal (R), no edema noted Generalized Neurologic: donor floor technician II-XII grossly normal, alert, oriented x 3 Masood Edouard MD Dec 08, 2019 13:39
[2019-12-08 16:00] VITALS: BP 114/77
--- NOTE | 2019-12-08 19:12 | NUR ---
HAND-OFF: Report given to Laurel Leonard. Plan of care endorsed.
[2019-12-08 20:00] VITALS: BP 115/60
[2019-12-09] VITALS: BP 96/52
[2019-12-09] MEDS: Albuterol/Ipratropium 3ml neb HHN SCH ×3 (03:00→10:52)
[2019-12-09 04:00] VITALS: BP 107/63
[2019-12-09] MEDS: HydrALAZINE 25mg tab ORAL SCH (06:00)
[2019-12-09] MEDS: Guaifenesin/DM 10ml syrup ORAL PRN (06:28)
--- NOTE | 2019-12-09 07:00 | NUR ---
NURSE NOTES: Received report from ANNA Leonard. Pt in bed, awake, talkative no c/o pain, no respiratory distress, pt on RA, plan for DC this am after breakfast per pt request, pt requesting flu shot, RN notified MD Javan MD ordered, pt will need taxi vouch, Urgent Care Nurse Practitioner notified, bed in lowest position, call light within reach.
--- NOTE | 2019-12-09 07:04 | NUR ---
HAND-OFF: Report given to ANNA Jones, patient in stable condition, plan of care endorsed.
[2019-12-09 07:56] LABS: ALANINE AMINOTRANSFERASE 34 U/L (12-78); ALBUMIN 3.5 G/DL (3.4-5.0); ALKALINE PHOSPHATASE 57 U/L (46-116); ANION GAP 7 mmol/L (5-15); ASPARTATE AMINO TRANSFERASE 16 U/L (15-37); BILIRUBIN,TOTAL 0.5 MG/DL (0.2-1.0); BLOOD UREA NITROGEN 37 mg/dL (7-18); CALCIUM 9.3 MG/DL (8.5-10.1); CARBON DIOXIDE 27 MMOL/L (21-32); CHLORIDE 107 MMOL/L (98-107); POTASSIUM 4.3 MMOL/L (3.5-5.1); SODIUM 141 MMOL/L (136-145)
[2019-12-09 08:00] VITALS: BP 123/60
[2019-12-09] MEDS: Wixela 250/50 Inhaler - 60 dose INH SCH (08:09)
--- NOTE | 2019-12-09 08:15 | Discharge Summary ---
DATE OF ADMISSION: 12/06/2019 DATE OF DISCHARGE: 12/09/2019 ADMISSION DIAGNOSES: 1. COPD exacerbation. 2. Bronchitis. 3. Hypertension. 4. History of ventricular tachycardia. DISCHARGE DIAGNOSES: 1. COPD exacerbation. 2. Bronchitis. 3. Hypertension. 4. History of ventricular tachycardia. HOSPITAL COURSE: The patient was admitted with complaints of shortness of breath secondary to COPD exacerbation and bronchitis. He received intravenous steroids and IV antibiotics. He improved with conservative treatment. He was noted to have several episodes of PVCs and V-tach. It was recommended that he be seen by Cardiology, but the patient refused stating that he had already been scheduled to see a car worker helper as an outpatient. On discharge, he was stable to be discharged on a prednisone taper as well as oral antibiotics. He has been instructed to follow up with his PMD later this week. DISCHARGE MEDICATIONS: Please see discharge medication list for discharge medications. DIET: Cardiac diet. ACTIVITIES: Ad nydia. Masood Edouard M.D. DR: RITESH JOB#: [id number] CC:
[2019-12-09] MEDS: Eliquis 5mg tablet ORAL SCH (08:29)
[2019-12-09 08:30] VITALS: BP 116/40
[2019-12-09] MEDS: Imdur 30mg tab ORAL SCH (08:30)
[2019-12-09] MEDS: Lisinopril 10mg tab ORAL SCH (08:30)
[2019-12-09] MEDS: Levofloxacin 500mg tab ORAL SCH (08:30)
[2019-12-09] MEDS: Spironolactone 25mg tab ORAL SCH (08:30)
[2019-12-09] MEDS: Carvedilol 12.5mg tab ORAL SCH (08:30)
--- NOTE | 2019-12-09 08:59 | NUR ---
NURSE NOTES: Reviewed all DC paperwork with pt including all DC medication, diagnosis info, follow up information, pt signed all paperwork has all belongings in hand, IV removed intact, tele box returned, flu shot provided to pt, [employer] cab called for machine pecan picker, pt has voucher and hand written Rx
[2019-12-09] MEDS ORDERED: Solu-MEDROL 125mg Inj IVP SCH (09:00)
--- NOTE | 2019-12-09 09:10 | NUR ---
CASE MANAGEMENT:REVIEW 12/08/19 SI: COPD EXACERBATION. BRONCHITIS 97.9 82 19 112/79 96% ON RA IS: IV SOLUMEDROL Q8HRS LEVAQUIN PO QD ALDACTONE PO QD IV LASIX QD DISKUS ING Q12 ELIQUIS PO BID HYDRALAZINE PO Q8HRS IMDUR PO QD LISINOPRIL PO QD COREG PO Q12 DUONEB HHN Q4HRS RTC : TELEMETRY STATUS 12/09/19 DISCHARGE HOME WITH PRESCRIPTION
--- NOTE | 2019-12-09 09:15 | NUR ---
NURSE NOTES: pt discharged home with all belongings, via taxi, with voucher and rx in hand, pt ambulatory and stable for discharge
[2019-12-09] MEDS ORDERED: NS 275ml ONE (14:31)
[2019-12-09] MEDS ORDERED: Tubing IV Secondary IV ONE (14:31)
--- NOTE | 2019-12-10 13:32 | NUR ---
*-* INSURANCE *-* ALL CLINICALS AND REVIEWS HAVE BEEN FAXED TO: [employer] Ref# [id number] CM: Cher ext [phone] fax# [phone]
== END 2019-12-09 14:32 | disposition home or self-care (01) | DRG 133 ==
LOC: EDBD 07:10 → EMR 07:23 → EDBEDREQ 09:51 → 2E 10:15
DX: J96.01 Acute respiratory failure with hypoxia (principal); I50.23 Acute on chronic systolic (congestive) heart failure; I11.0 Hypertensive heart disease with heart failure; J44.1 Chronic obstructive pulmonary disease with (acute) exacerbation; Z79.01 Long term (current) use of anticoagulants; I48.0 Paroxysmal atrial fibrillation; Z87.891 Personal history of nicotine dependence; J40 Bronchitis, not specified as acute or chronic; I47.2 Ventricular tachycardia
CPT/HCPCS: 36415; 36600; 71045; 80053; 81003; 82803; 83605; 83735; 83880; 84484; 85007; 85025; 85610; 85730; 86710; 87040; 90689; 93005; 94640; 96365; 96372; 96375; 99285; J7620

== ENCOUNTER 2020-09-06 16:07 | Inpatient (IN) | payer MEDICAID ==
[~2020-09-06] VITALS: Ht 175.3 cm; Wt 108.9 kg
[~2020-09-06 16:07] MED LIST changes: +ENTRESTO 49 MG1 EACH PO
--- NOTE | 2020-09-06 16:09 | Emergency Room Report ---
History of Present Illness General Chief Complaint: Dyspnea/Respdistress Source: Patient, EMS Present Illness HPI Patient is a 60-year-old male presents for increased chest discomfort. Patient was noted to have increased's of breath and diminished oxygen saturation by paramedics. He was started on supplemental oxygen. Had O2 saturation on room air in the 80s. Had not been having any recent use of his diuretics.Patient has medical history of hypertension, atrial fibrillation, CHF, on Eliquis, COPD former smoker who presents to the ER for shortness of breath. He complains of worsening of symptoms. He denies any fever or chills. He denies any recent travel. He states that he walks around every day. He does not know if he got his influenza vaccine this year. He denies any abdominal pain, nausea or vomiting. They have placed him on a nonrebreather. Patient states that he has nebulizer treatments at home but is not on baseline oxygen daily. Allergies: Coded Allergies: SHELLFISH DERIVED (Verified Allergy, Unknown, 07/20/19) COVID-19 Screening Contact w/high risk pt: No Experienced COVID-19 symptoms?: Yes COVID-19 Testing performed SCALP SPECIALIST: No Patient History Past Medical History: see triage record Reviewed Nursing Documentation: PMH: Agreed; PSxH: Agreed Review of Systems All Other Systems: negative except mentioned in HPI Physical Exam Sp02 EP Interpretation: reviewed, normal General Appearance: normal inspection, well appearing, alert, obese, Chronically Ill Head: atraumatic ENT: normal ENT inspection, hearing grossly normal, normal voice Neck: normal inspection, full range of motion, supple, no bony tend Respiratory: no retraction, decreased breath sounds, other - Tachypnea Cardiovascular #1: regular rate, rhythm, edema - biLateral lower extremity edema Gastrointestinal: normal inspection, normal bowel sounds, non tender, soft, no guarding, no hernia Genitourinary: no CVA tenderness Musculoskeletal: normal inspection, back normal, normal range of motion Neurologic: alert, motor strength/tone normal, obstetrics nurse III-XII nml as tested, responsive, speech normal, normal inspection Psychiatric: normal inspection, judgement/insight normal, mood/affect normal Medical Decision Making Diagnostic Impression: Primary Impression: Acute exacerbation of CHF (congestive heart failure) Additional Impression: COPD exacerbation ER Course Patient presented for shortness of breath. Differential included but was not limited to coronavirus, anemia, pneumonia, pneumothorax, myocardial infarction, pericardial effusion, congestive heart failure, acidosis because of complexity of patient's case laboratory tests and imaging studies were ordered. Patient was noted to have prior history of cardiac disease and had previous episodes of nonsustained ventricular tachycardia.. Patient was placed on a leather grainer. He was started on IV steroids as well as IV Lasix. Coronavirus testing was negative. Patient was discussed with Dr. Cristian goodman who agreed with admission for further management of congestive heart failure. This medical record is generated with [employer] rail maintenance worker software. There may be some rail maintenance worker discrepancies related to use of this software Labs Test 09/06/20 16:25 09/06/20 18:20 White Blood Count 7.6 K/UL (4.8-10.8) Red Blood Count 5.86 M/UL (4.70-6.10) Hemoglobin 17.4 G/DL (14.2-18.0) Hematocrit 54.0 % (42.0-52.0) Mean Corpuscular Volume 92 FL (80-99) Mean Corpuscular Hemoglobin 29.8 PG (27.0-31.0) Mean Corpuscular Hemoglobin Concent 32.3 G/DL (32.0-36.0) Red Cell Distribution Width 14.9 % (11.6-14.8) Platelet Count 273 K/UL (150-450) Mean Platelet Volume 6.2 FL (6.5-10.1) Neutrophils (%) (Auto) 63.8 % (45.0-75.0) Lymphocytes (%) (Auto) 20.0 % (20.0-45.0) Monocytes (%) (Auto) 9.4 % (1.0-10.0) Eosinophils (%) (Auto) 3.5 % (0.0-3.0) Basophils (%) (Auto) 3.2 % (0.0-2.0) Prothrombin Time 11.2 SEC (9.30-11.50) Prothromb Time International Ratio 1.0 (0.9-1.1) Activated Partial Thromboplast Time 25 SEC (23-33) D-Dimer 0.28 mg/L FEU (0.00-0.49) Sodium Level 137 MMOL/L (136-145) Potassium Level 4.6 MMOL/L (3.5-5.1) Chloride Level 103 MMOL/L (98-107) Carbon Dioxide Level 27 MMOL/L (21-32) Blood Urea Nitrogen 24 mg/dL (7-18) Creatinine 1.4 MG/DL (0.55-1.30) Estimat Glomerular Filtration Rate > 60 mL/min (>60) Glucose Level 170 MG/DL (74-106) Lactic Acid Level 1.20 mmol/L (0.4-2.0) Calcium Level 8.5 MG/DL (8.5-10.1) Phosphorus Level 5.2 MG/DL (2.5-4.9) Magnesium Level 2.0 MG/DL (1.8-2.4) Ferritin 100 NG/ML (8-388) Total Bilirubin 0.8 MG/DL (0.2-1.0) Aspartate Amino Transf (AST/SGOT) 13 U/L (15-37) Alanine Aminotransferase (ALT/SGPT) 16 U/L (12-78) Alkaline Phosphatase 91 U/L (46-116) Lactate Dehydrogenase 141 U/L (81-234) Total Creatine Kinase 48 U/L (26-308) Creatine Kinase MB 4.2 NG/ML (0.0-3.6) Creatine Kinase MB Relative Index 8.7 Troponin I 0.008 ng/mL (0.000-0.056) C-Reactive Protein, Quantitative 0.7 mg/dL (0.00-0.90) Pro-B-Type Natriuretic Peptide 1030 pg/mL (0-125) Total Protein 7.6 G/DL (6.4-8.2) Albumin 3.7 G/DL (3.4-5.0) Globulin 3.9 g/dL Albumin/Globulin Ratio 0.9 (1.0-2.7) Lipase 187 U/L (73-393) EKG Diagnostic Results Rate: normal Rhythm: NSR ST Segments: no acute changes Status: unchanged Disposition: ADMITTED INPATIENT Condition: Stable Abel Salas MD Sep 06, 2020 16:09
[2020-09-06 16:37] VITALS: BP 159/97
[2020-09-06] MEDS ORDERED: Solu-MEDROL 125mg Inj IVP ONE (16:45)
[2020-09-06] MEDS ORDERED: HYDROcodone/Acetamin 5/325 tab ORAL ONE (17:00)
[2020-09-06 17:11] LABS: BASOPHILS % (AUTO) 3.2 % (0.0-2.0); EOSINOPHILS % (AUTO) 3.5 % (0.0-3.0); HEMOGLOBIN 17.4 G/DL (14.2-18.0); MEAN CORPUSCULAR VOLUME 92 FL (80-99); MONOCYTES % (AUTO) 9.4 % (1.0-10.0); NEUTROPHILS % (AUTO) 63.8 % (45.0-75.0); PLATELET COUNT 273 K/UL (150-450); RED BLOOD COUNT 5.86 M/UL (4.70-6.10); RED CELL DISTRIBUTION WIDTH 14.9 % (11.6-14.8); WHITE BLOOD COUNT 7.6 K/UL (4.8-10.8)
[2020-09-06 17:24] LABS: ALANINE AMINOTRANSFERASE 16 U/L (12-78); ALBUMIN 3.7 G/DL (3.4-5.0); ALBUMIN/GLOBULIN RATIO 0.9 (1.0-2.7); ALKALINE PHOSPHATASE 91 U/L (46-116); ASPARTATE AMINO TRANSFERASE 13 U/L (15-37); BILIRUBIN,TOTAL 0.8 MG/DL (0.2-1.0); BLOOD UREA NITROGEN 24 mg/dL (7-18); CALCIUM 8.5 MG/DL (8.5-10.1); CARBON DIOXIDE 27 MMOL/L (21-32); CHLORIDE 103 MMOL/L (98-107); CKMB 4.2 NG/ML (0.0-3.6); CREATINE KINASE 48 U/L (26-308); CREATININE 1.4 MG/DL (0.55-1.30); FERRITIN 100 NG/ML (8-388); LACTATE DEHYDROGENASE 141 U/L (81-234); PHOSPHORUS 5.2 MG/DL (2.5-4.9); POTASSIUM 4.6 MMOL/L (3.5-5.1); SODIUM 137 MMOL/L (136-145)
--- NOTE | 2020-09-06 17:46 | Diagnostic Imaging Report ---
EXAM: XR Chest, 1 View CLINICAL HISTORY: SOB TECHNIQUE: Frontal view of the chest. COMPARISON: 12/06/2019. FINDINGS: Lungs: The lungs are well aerated. Pleural space: Minimal blunting of the left CP angle most likely in the basis of very small left pleural No pneumothorax. Heart: Cardiomegaly. Mediastinum: Unremarkable. Bones/joints: Osteopenia. Soft tissues: Soft tissues are within normal limits. IMPRESSION: 1. Cardiomegaly. 2. Very small left pleural effusion is suggested. 3. Osteopenia. 4. Clinical correlation is advised.
[2020-09-06] MEDS: Albuterol ud Inhalation HHN PRN ×2 (18:00→18:01)
[2020-09-06 18:15] VITALS: BP 143/78
[2020-09-06 19:21] LABS: APPEARANCE,URINE SLIGHTLY CLOUDY; BILIRUBIN, URINE NEGATIVE (NEGATIVE); GLUCOSE, URINE (UA) NEGATIVE (NEGATIVE); KETONES,URINE NEGATIVE (NEGATIVE); LEUKOCYTE ESTERASE ,URINE 1+ (NEGATIVE); NITRITE,URINE NEGATIVE (NEGATIVE); PH,URINE 5 (4.5-8.0); PROTEIN,URINE 2+ (NEGATIVE); UROBILINOGEN,URINE 1 MG/DL (0.0-1.0)
[2020-09-06 19:23] LABS: COLOR,URINE YELLOW
--- NOTE | 2020-09-06 19:26 | History and Physical ---
History of Present Illness General Reason for Hospitalization: Dyspnea/Respdistress Present Illness HPI Mr. Quinones is a 61-year-old male with past medical history of atrial fibrillation on Eliquis, HFrEF, hypertension, and COPD who presents for worsening shortness of breath. Patient reports over the last few days experiencing worsening exertional dyspnea, orthopnea, paroxysmal nocturnal dyspnea, and lower extremity edema. Patient reports longstanding history of CHF and atrial fibrillation and he has not seen a physician in a few years. Patient reports m edical compliance with his home cardiac medications, however he has run out of a few of his cardiac meds over the last week. He admits to a high salt diet and increased fluid intake over the last week. Denies any chest pain, presyncope. No history of cardiac arrest. No other recent illnesses, sick contacts, travels. In the ED, patient hemodynamically stable however required O2 supplementation with nasal cannula. EKG showed atrial fibrillation. Troponin x1 negative. BNP greater than thousand. Chest x-ray showed cardiomegaly with mild left-sided pleural effusion. He was started on Lasix in the ED. He was admitted for acute on chronic decompensated CHF. Past medical history: Atrial fibrillation on Eliquis, HFrEF, hypertension, COPD Past surgical history: None Past family history Father had heart disease Social history: Half pack smoker per month, social drinker, denies drug use Allergies: Coded Allergies: SHELLFISH DERIVED (Verified Allergy, Unknown, 07/20/19) COVID-19 Screening Contact w/high risk pt: No Experienced COVID-19 symptoms?: Yes Coronavirus symptoms experienc: Shortness of Breath Medication History Scheduled Albuterol Sulfate (Ventolin Hfa), 2 PUFFS INH EVERY 6 HOURS Albuterol Sulfate* (Albuterol Sulfate Mdi*), 2 PUFF INH Q6H Apixaban (Eliquis*), 5 MG PO BID, (Reported) Carvedilol (Coreg), 12.5 MG ORAL EVERY 12 HOURS Fluticasone/Salmeterol (Advair 250-50 Diskus), 1 PUFF INH EVERY 12 HOURS, (Reported) Furosemide* (Lasix*), 40 MG ORAL DAILY Furosemide* (Lasix*), 40 MG ORAL DAILY, (Reported) Gabapentin* (Gabapentin*), 100 MG ORAL BEDTIME, (Reported) Hydralazine Hcl* (Hydralazine Hcl*), 25 MG ORAL EVERY 8 HOURS, (Reported) Ipratropium [place] (Atrovent Hfa), 2 PUFF IH FOUR TIMES A DAY, (Reported) Isosorbide Mononitrate (Isosorbide Mononitrate Er), 30 MG PO DAILY, (Reported) Lisinopril* (Zestril*), 10 MG ORAL DAILY Pantoprazole* (Pantoprazole*), 40 MG ORAL DAILY Sacubitril/Valsartan (Entresto 49 mg-51 mg Tablet), 1 EACH PO QD, (Reported) Spironolactone* (Aldactone*), 25 MG ORAL DAILY Scheduled PRN Diphenhyd/Phenyleph/Acetaminop (Robitussin Cold-Flu Night Liq), 237 ML PO QHS PRN Ipratropium/Albuterol Sulfate (DuoNeb 0.5-3(2.5)mg/3ml), 3 ML HHN Q4H PRN Durable Medical Equipment Inhaler, Assist Devices (Aerochamber), EACH , (DME) Patient History Healthcare decision maker Resuscitation status Advanced Directive on File Family History Family History: FH: diabetes mellitus Hypertension Review of Systems Constitutional: Denies: no symptoms, see HPI, chills, sweats, fever, malaise, weakness, other ENT: Denies: no symptoms, see HPI, ear pain, ear discharge, nose pain, nose congestion, throat pain, throat swelling, mouth pain, hearing loss, nasal discharge, other Respiratory: Reports: orthopnea, shortness of breath; Denies: no symptoms, see HPI, cough, stridor, wheezing, ESCALERA, sputum, other Cardiovascular: Reports: edema, PND; Denies: no symptoms, see HPI, chest pain, palpitations, syncope, other Gastrointestinal: Denies: no symptoms, see HPI, abdominal pain, constipation, diarrhea, nausea, vomiting, melena, hematemesis, other Genitourinary: Denies: no symptoms, see HPI, discharge, dysuria, frequency, hematuria, pain, retention, incontinence, urgency, vag bleed/dc, other Musculoskeletal: Denies: no symptoms, see HPI, back pain, gout, joint pain, joint swelling, muscle pain, muscle stiffness, other Skin: Denies: no symptoms, see HPI, rash, change in color, change in hair/nails, dryness, lesions, other Psychiatric: Denies: no symptoms, see HPI, prior hx, anxiety, depressed feelings, emotional problems, SI, HI, hallucinations, other Neurological: Denies: no symptoms, see HPI, headache, numbness, paresthesia, seizure, tingling, tremors, focal weakness, syncope, dizziness, other Endocrine: Denies: no symptoms, see HPI, excessive sweating, flushing, intolerance to temperature, increased thirst, increased urine, unexplained weight loss, other Hematologic/Lymphatic: Denies: no symptoms, see HPI, anemia, blood clots, easy bleeding, easy bruising, swollen glands, diathesis, other Physical Exam General Appearance: no apparent distress, alert, obese, alert oriented x3 Lines, tubes and drains: peripheral HEENT: normocephalic, atraumatic, PERRL Neck: non-tender, supple Respiratory/Chest: lungs clear, normal breath sounds, no respiratory distress Cardiovascular/Chest: normal rate, regularly irregular, JVD Abdomen: normal bowel sounds, non tender, soft Extremities: normal range of motion, non-tender Neurologic: shift coordinator II-XII grossly normal, oriented x 3 Musculoskeletal: normal muscle bulk Last 24 Hour Vital Signs Date Time Temp Pulse Resp B/P (MAP) Pulse Ox O2 Delivery O2 Flow Rate FiO2 09/06/20 18:15 98.9 96 16 143/78 98 Non-Rebreather 15.0 09/06/20 18:02 101 20 96 Non-Rebreather 15.0 100 87 26 87 09/06/20 17:31 98.9 09/06/20 16:37 98.9 102 19 159/97 99 Non-Rebreather 15.0 09/06/20 16:37 102 19 Non-Rebreather 15.0 99 09/06/20 16:04 120 18 163/110 (127) 100 Non-Rebreather 15.0 Laboratory Tests Test 09/06/20 16:25 09/06/20 18:20 White Blood Count 7.6 K/UL (4.8-10.8) Red Blood Count 5.86 M/UL (4.70-6.10) Hemoglobin 17.4 G/DL (14.2-18.0) Hematocrit 54.0 % (42.0-52.0) H Mean Corpuscular Volume 92 FL (80-99) Mean Corpuscular Hemoglobin 29.8 PG (27.0-31.0) Mean Corpuscular Hemoglobin Concent 32.3 G/DL (32.0-36.0) Red Cell Distribution Width 14.9 % (11.6-14.8) H Platelet Count 273 K/UL (150-450) Mean Platelet Volume 6.2 FL (6.5-10.1) L Neutrophils (%) (Auto) 63.8 % (45.0-75.0) Lymphocytes (%) (Auto) 20.0 % (20.0-45.0) Monocytes (%) (Auto) 9.4 % (1.0-10.0) Eosinophils (%) (Auto) 3.5 % (0.0-3.0) H Basophils (%) (Auto) 3.2 % (0.0-2.0) H Prothrombin Time 11.2 SEC (9.30-11.50) Prothromb Time International Ratio 1.0 (0.9-1.1) Activated Partial Thromboplast Time 25 SEC (23-33) D-Dimer 0.28 mg/L FEU (0.00-0.49) Sodium Level 137 MMOL/L (136-145) Potassium Level 4.6 MMOL/L (3.5-5.1) Chloride Level 103 MMOL/L (98-107) Carbon Dioxide Level 27 MMOL/L (21-32) Blood Urea Nitrogen 24 mg/dL (7-18) H Creatinine 1.4 MG/DL (0.55-1.30) H Estimat Glomerular Filtration Rate > 60 mL/min (>60) Glucose Level 170 MG/DL (74-106) H Lactic Acid Level 1.20 mmol/L (0.4-2.0) Calcium Level 8.5 MG/DL (8.5-10.1) Phosphorus Level 5.2 MG/DL (2.5-4.9) H Magnesium Level 2.0 MG/DL (1.8-2.4) Ferritin 100 NG/ML (8-388) Total Bilirubin 0.8 MG/DL (0.2-1.0) Aspartate Amino Transf (AST/SGOT) 13 U/L (15-37) L Alanine Aminotransferase (ALT/SGPT) 16 U/L (12-78) Alkaline Phosphatase 91 U/L (46-116) Lactate Dehydrogenase 141 U/L (81-234) Total Creatine Kinase 48 U/L (26-308) Creatine Kinase MB 4.2 NG/ML (0.0-3.6) H Creatine Kinase MB Relative Index 8.7 Troponin I 0.008 ng/mL (0.000-0.056) C-Reactive Protein, Quantitative 0.7 mg/dL (0.00-0.90) Pro-B-Type Natriuretic Peptide 1030 pg/mL (0-125) H Total Protein 7.6 G/DL (6.4-8.2) Albumin 3.7 G/DL (3.4-5.0) Globulin 3.9 g/dL Albumin/Globulin Ratio 0.9 (1.0-2.7) L Lipase 187 U/L (73-393) Urine Color Yellow Urine Appearance Slightly cloudy Urine pH 5 (4.5-8.0) Urine Specific [place] 1.020 (1.005-1.035) Urine Protein 2+ (NEGATIVE) H Urine Glucose (UA) Negative (NEGATIVE) Urine Ketones Negative (NEGATIVE) Urine Blood Negative (NEGATIVE) Urine Nitrite Negative (NEGATIVE) Urine Bilirubin Negative (NEGATIVE) Urine Urobilinogen 1 MG/DL (0.0-1.0) H Urine Leukocyte Esterase 1+ (NEGATIVE) H Urine RBC Pending Urine WBC Pending Urine Squamous Epithelial Cells Pending Urine Bacteria Pending Microbiology Date/Time Source Procedure Growth Status 09/06/20 16:25 Nasopharynx SARS-CoV-2 RdRp Gene Assay - Final Complete Height (Feet): 5 Height (Inches): 11.00 Weight (Pounds): 250 Assessment/Plan Assessment/Plan: Mr. Quinones is a 58-year-old male with past medical history of atrial fibrillation, HFrEF, hypertension, COPD who presents for worsening dyspnea. A: # Acute on chronic decompensated HFrEF 2/2 medical noncompliance hypervolemic # Acute hypoxic respiratory failure 2/2 CHF decompensation # Paroxysmal atrial fibrillation on Eliquis # MARI 2/2 cardiorenal syndrome, prerenal azotemia # ?Central sleep apnea # Essential hypertension # COPD # Obesity class I # Polycythemia 2/2 COPD # Hyperglycemia P: Hemodynamically stable Saturating well on Nasal cannula, keep O2 saturation greater than 88% Tomásbs as needed Continue home Advair Troponin negative EKG: Atrial fibrillation, no ST changes Chest x-ray reviewed: Cardiomegaly with pleural effusion left side. Follow-up echo for heart function, valvular function, wall motion abnormalities, pulmonary pressures. Previous echo on chart review showed a EF of 15 to 20%. Fluid restriction to 1500 mL. Low-salt diet Monitor strict I's and O's Continue Lasix 40 mg IV twice daily Continue home Coreg 12.5 mg twice daily Continue home hydralazine 25 mg every 8 hours No Entresto at [facility], will hold on starting GLORIA/ARB and resume Arni on the discharge Hold home spironolactone for now given MARI Monitor renal function, electrolytes Keep potassium greater than 4 magnesium greater than 2 UA reviewed showed leukocytosis however patient denies any dysuria or urinary symptoms Continue home Eliquis 5 mg twice daily - f/u A1c, Lipid panel Consulted Dr. Stock, cardiology, recs appreciated CODE: Full GI: Home Protonix DVT prophylaxis: Eliquis Diet: Low-salt diet Dispo: Pending stabilization of CHF exacerbation In addition to the usual care above I spent additional time reviewing records in the EMR and paper charts including physician documentation, nursing documentation, lab results, imaging and clinical documentation. Total time included was 25 min. Advanced care planning 17 minutes was spent which included discussion of both acute and chronic medical illnesses, code status, goals of care and advanced directives and POLST. Time spent on this encounter was 45 minutes which included 25 minutes of counseling and care coordination. I discussed with the nurse at bedside. Time of note may not reflect time patient was seen. Wolf Florez D.O Sep 06, 2020 19:26
[2020-09-06] MEDS ORDERED: Nitroglycerin Subl 0.4mg tab SL PRN (20:00)
[2020-09-06] MEDS ORDERED: Mylanta II UD 30ml ORAL PRN (20:00)
--- NOTE | 2020-09-06 20:32 | General Progress Note ---
Advance Care Planning Advance Care Planning Advance Care Planning [facility] An independent Hospitalist group, where every patient is our [facility] Internal Medicine Hospitalist Advanced Care Planning Note Please contact us at Date of Discussion: A [id number] discussion with the patient regarding the patient's advanced care planning took place during this hospitalization on the above date. The discussion included the explanation and discussion of advance directives and associated forms/documents, as well as the patient's current code status. We also discussed at length the patient's medical conditions (both acute and chroni c), general prognosis, treatment options, and goals of care. The following summarizes the discussion: Advance Care Planning/Goals of Care: - Will attempt to fill out an AD and/or POLST with the patient prior to discharge, if not already completed - Continue current evaluation and management of any acute and chronic medical issues - Will continue to support the patient/family - Will continue to discuss both short- and long-term goals of care DPOA-HC/Surrogate Decision Maker: None currently appointed Code Status: Full Code Advanced Care Planning Forms/Documents Completed: Deferred until later encounter/visit A total of 18 minutes was spent on this discussion, including counseling, answering questions, and completing, if any, pertinent advanced care planning forms/documents. Time of note may not reflect time of encounter. Wolf Florez D.O Sep 06, 2020 20:32
[2020-09-06 20:54] VITALS: BP 135/70
[2020-09-06] MEDS ORDERED: Heparin 5000 units/ml inj SUBQ SCH (21:00)
[2020-09-06 21:15] VITALS: BP 140/84
[2020-09-06] MEDS: HydrALAZINE 25mg tab ORAL SCH (21:54)
[2020-09-06] MEDS: Carvedilol 12.5mg tab ORAL SCH (21:54)
[2020-09-06] MEDS: Wixela 250/50 Inhaler - 60 dose INH SCH (22:14)
[2020-09-07] VITALS: BP 118/78
[2020-09-07 04:00] VITALS: BP 120/75
[2020-09-07] MEDS: HydrALAZINE 25mg tab ORAL SCH ×2 (06:00→12:57)
[2020-09-07 07:36] LABS: HEMATOCRIT 55.5 % (42.0-52.0); HEMOGLOBIN 17.8 G/DL (14.2-18.0); MEAN CORPUSCULAR VOLUME 92 FL (80-99); PLATELET COUNT 234 K/UL (150-450); WHITE BLOOD COUNT 8.8 K/UL (4.8-10.8)
[2020-09-07 08:00] VITALS: BP 121/76
[2020-09-07 08:22] LABS: BLOOD UREA NITROGEN 19 mg/dL (7-18); CARBON DIOXIDE 27 MMOL/L (21-32); CHLORIDE 105 MMOL/L (98-107); CHOLESTEROL 183 MG/DL (< 200); CREATININE 1.1 MG/DL (0.55-1.30); HDL CHOLESTEROL 84 MG/DL (40-60); PHOSPHORUS 2.5 MG/DL (2.5-4.9); POTASSIUM 4.2 MMOL/L (3.5-5.1); SODIUM 141 MMOL/L (136-145); TRIGLYCERIDES 49 MG/DL (30-150)
[2020-09-07] MEDS: Wixela 250/50 Inhaler - 60 dose INH SCH ×2 (08:39→20:24)
--- NOTE | 2020-09-07 08:53 | General Progress Note ---
Subjective Constitutional: Denies: no symptoms, chills, diaphoresis, fever, malaise, weakness, other HEENT: Denies: no symptoms, eye pain, blurred vision, tearing, double vision, ear pain, ear discharge, nose pain, nose congestion, throat pain, throat swelling, mouth pain, mouth swelling, other Cardiovascular: Denies: no symptoms, chest pain, edema, irregular heart rate, lightheadedness, palpitations, syncope, other Respiratory: Denies: no symptoms, cough, orthopnea, shortness of breath, SOB with excertion, SOB at rest, sputum, stridor, wheezing, other Gastrointestinal/Abdominal: Denies: no symptoms, abdomen distended, abdominal pain, black stools, tarry stools, blood in stool, constipated, diarrhea, difficulty swallowing, nausea, poor appetite, poor fluid intake, rectal bleeding, vomiting, other Genitourinary: Denies: no symptoms, burning, discharge, frequency, flank pain, hematuria, incontinence, pain, urgency, other Neurologic/Psychiatric: Denies: no symptoms, anxiety, depressed, emotional problems, headache, numbness, paresthesia, pre-existing deficit, seizure, tingling, tremors, weakness, other Endocrine: Denies: no symptoms, excessive sweating, flushing, intolerance to cold, intolerance to heat, increased hunger, increased thirst, increased urine, unexplained weight gain, unexplained weight loss, other Hematologic/Lymphatic: Denies: no symptoms, anemia, easy bleeding, easy bruising, other Allergies: Coded Allergies: SHELLFISH DERIVED (Verified Allergy, Unknown, 07/20/19) Subjective No acute events overnight. Patient feels much better this morning. Shortness of breath drastically improved. Still has some wheezing on exam. No chest pain. Slept well Objective Last 24 Hour Vital Signs Date Time Temp Pulse Resp B/P (MAP) Pulse Ox O2 Delivery O2 Flow Rate FiO2 09/07/20 06:00 120/75 09/07/20 04:00 72 09/07/20 04:00 98.1 82 20 120/75 (90) 98 09/07/20 00:00 80 09/07/20 00:00 98.2 73 20 118/78 (91) 95 09/06/20 22:26 64 20 98 Nasal Cannula 4.0 36 09/06/20 22:24 62 20 96 4.0 36 09/06/20 22:07 Nasal Cannula 6.0 09/06/20 21:54 140/84 09/06/20 21:54 84 140/84 09/06/20 21:15 98.0 84 20 140/84 (102) 98 09/06/20 21:05 98.7 90 18 135/70 98 Nasal Cannula 6.0 100 09/06/20 20:54 98.7 90 18 135/70 98 Nasal Cannula 6.0 100 09/06/20 18:15 98.9 96 16 143/78 98 Non-Rebreather 15.0 09/06/20 18:02 101 20 96 Non-Rebreather 15.0 100 87 26 87 09/06/20 17:31 98.9 09/06/20 16:37 98.9 102 19 159/97 99 Non-Rebreather 15.0 09/06/20 16:37 102 19 Non-Rebreather 15.0 99 09/06/20 16:04 120 18 163/110 (127) 100 Non-Rebreather 15.0 Intake and Output 09/06/20 09/07/20 19:00 07:00 Intake Total 0 ml 360 ml Output Total 1600 ml Balance 0 ml -1240 ml Intake Oral 0 ml 360 ml Output Urine Total 1600 ml Laboratory Tests 09/06/20 16:25: White Blood Count 7.6, Red Blood Count 5.86, Hemoglobin 17.4, Hematocrit 54.0H, Mean Corpuscular Volume 92, Mean Corpuscular Hemoglobin 29.8, Mean Corpuscular Hemoglobin Concent 32.3, Red Cell Distribution Width 14.9H, Platelet Count 273, Mean Platelet Volume 6.2L, Neutrophils (%) (Auto) 63.8, Lymphocytes (%) (Auto) 20.0, Monocytes (%) (Auto) 9.4, Eosinophils (%) (Auto) 3.5H, Basophils (%) (Auto) 3.2H, Prothrombin Time 11.2, Prothromb Time International Ratio 1.0, Activated Partial Thromboplast Time 25, D-Dimer 0.28, Sodium Level 137, Potassium Level 4.6, Chloride Level 103, Carbon Dioxide Level 27, Blood Urea Nitrogen 24H, Creatinine 1.4H, Estimat Glomerular Filtration Rate > 60, Glucose Level 170H, Lactic Acid Level 1.20, Calcium Level 8.5, Phosphorus Level 5.2H, Magnesium Level 2.0, Ferritin 100, Total Bilirubin 0.8, Aspartate Amino Transf (AST/SGOT) 13L, Alanine Aminotransferase (ALT/SGPT) 16, Alkaline Phosphatase 91, Lactate Dehydrogenase 141, Total Creatine Kinase 48, Creatine Kinase MB 4.2H, Creatine Kinase MB Relative Index 8.7, Troponin I 0.008, C-Reactive Protein, Quantitative 0.7, Pro-B-Type Natriuretic Peptide 1030H, Total Protein 7.6, Albumin 3.7, Globulin 3.9, Albumin/Globulin Ratio 0.9L, Lipase 187 09/06/20 18:20: Urine Color Yellow, Urine Appearance Slightly cloudy, Urine pH 5, Urine Specific [place] 1.020, Urine Protein 2+H, Urine Glucose (UA) Negative, Urine Ketones Negative, Urine Blood Negative, Urine Nitrite Negative, Urine Bilirubin Negative, Urine Urobilinogen 1H, Urine Leukocyte Esterase 1+H, Urine RBC 0, Urine WBC 20-30H, Urine Squamous Epithelial Cells Few, Urine Bacteria ModerateH 09/07/20 07:05: White Blood Count 8.8, Red Blood Count 6.00, Hemoglobin 17.8, Hematocrit 55.5H, Mean Corpuscular Volume 92, Mean Corpuscular Hemoglobin 29.6, Mean Corpuscular Hemoglobin Concent 32.1, Red Cell Distribution Width 15.0H, Platelet Count 234, Mean Platelet Volume 7.0, Neutrophils (%) (Auto) , Lymphocytes (%) (Auto) , Monocytes (%) (Auto) , Eosinophils (%) (Auto) , Basophils (%) (Auto) , Sodium Level 141, Potassium Level 4.2, Chloride Level 105, Carbon Dioxide Level 27, Blood Urea Nitrogen 19H, Creatinine 1.1, Estimat Glomerular Filtration Rate > 60, Glucose Level 156H, Calcium Level 9.0, Phosphorus Level 2.5, Magnesium Level 2.1, Neutrophils % (Manual) [Pending], Lymphocytes % (Manual) [Pending], Platelet Estimate [Pending], Platelet Morphology [Pending], Hemoglobin A1c 6.4H, Triglycerides Level 49, Cholesterol Level 183, LDL Cholesterol 87, HDL Cholesterol 84H, Cholesterol/HDL Ratio 2.2L, Thyroid Stimulating Hormone (TSH) 0.814 Height (Feet): 5 Height (Inches): 9.00 Weight (Pounds): 240 General Appearance: no apparent distress, alert, alert oriented x3 EENT: PERRL/EOMI Neck: non-tender, normal alignment Cardiovascular: normal rate, regular rhythm, regularly irregular Respiratory/Chest: lungs clear, expiratory wheezing Abdomen: normal bowel sounds, non tender, soft Extremities: normal range of motion Edema: no edema noted Arm (L), no edema noted Arm (R), no edema noted Leg (L), no edema noted Leg (R), no edema noted Pedal (L), no edema noted Pedal (R), no edema noted Generalized Edema: trace edema Neurologic: rod pointer II-XII grossly normal, alert, oriented x 3 Assessment/Plan Assessment/Plan: Mr. Quinones is a 58-year-old male with past medical history of atrial fibrillation, HFrEF, hypertension, COPD who presents for worsening dyspnea. A: # Acute on chronic decompensated HFrEF 2/2 medical noncompliance hypervolemic # Acute hypoxic respiratory failure 2/2 CHF decompensation, COPD exacerbation # Mild COPD exacerbation # Paroxysmal atrial fibrillation on Eliquis # MARI 2/2 cardiorenal syndrome, prerenal azotemiaimproved # ?Central sleep apnea # Essential hypertension # COPD # Obesity class I # Polycythemia 2/2 COPD # Hyperglycemia # Prediabetes P: Hemodynamically stable Saturating well on Nasal cannula, keep O2 saturation greater than 88% DuoNebs as needed Continue home Advair - continue prednisone for 5-day course, no indication for antibiotics Troponin negative EKG: Atrial fibrillation, no ST changes Chest x-ray reviewed: Cardiomegaly with pleural effusion left side. Follow-up echo for heart function, valvular function, wall motion abnormalities, pulmonary pressures. Previous echo on chart review showed a EF of 15 to 20%. Fluid restriction to 1500 mL. Low-salt diet Monitor strict I's and O's Continue Lasix 40 mg IV twice daily Continue home Coreg 12.5 mg twice daily Continue home hydralazine 25 mg every 8 hours No Entresto at [facility], will hold on starting GLORIA/ARB and resume Arni on the discharge Hold home spironolactone for now given MARI Monitor renal function, electrolytes Keep potassium greater than 4 magnesium greater than 2 UA reviewed showed leukocytosis however patient denies any dysuria or urinary symptoms Continue home Eliquis 5 mg twice daily Consulted Dr. Stock, cardiology, recs appreciated CODE: Full GI: Home Protonix DVT prophylaxis: Eliquis Diet: Low-salt diet Dispo: Pending stabilization of CHF exacerbation, DC in 1 to 2 days Time spent on this encounter was 35 minutes which included 21 minutes of counseling and care coordination. I discussed with the nurse at bedside. Time of note may not reflect time patient was seen. Wolf Florez D.O Sep 07, 2020 08:53
[2020-09-07] MEDS: Carvedilol 12.5mg tab ORAL SCH ×2 (09:11→20:48)
[2020-09-07] MEDS: Eliquis 5mg tablet ORAL SCH ×2 (09:11→18:04)
[2020-09-07 11:41] VITALS: BP 107/80
--- NOTE | 2020-09-07 14:43 | Cardiac Electrophysiology PN ---
Subjective Subjective [id number] Objective Last 24 Hour Vital Signs Date Time Temp Pulse Resp B/P (MAP) Pulse Ox O2 Delivery O2 Flow Rate FiO2 09/07/20 12:57 107/80 09/07/20 12:00 71 09/07/20 11:41 97.9 76 18 107/80 (89) 97 09/07/20 09:11 72 120/75 09/07/20 09:00 Room Air 09/07/20 08:00 67 09/07/20 08:00 97.7 83 20 121/76 (91) 96 09/07/20 06:00 120/75 09/07/20 04:00 72 09/07/20 04:00 98.1 82 20 120/75 (90) 98 09/07/20 00:00 80 09/07/20 00:00 98.2 73 20 118/78 (91) 95 09/06/20 22:26 64 20 98 Nasal Cannula 4.0 36 09/06/20 22:24 62 20 96 4.0 36 09/06/20 22:07 Nasal Cannula 6.0 09/06/20 21:54 140/84 09/06/20 21:54 84 140/84 09/06/20 21:15 98.0 84 20 140/84 (102) 98 09/06/20 21:05 98.7 90 18 135/70 98 Nasal Cannula 6.0 100 09/06/20 20:54 98.7 90 18 135/70 98 Nasal Cannula 6.0 100 09/06/20 18:15 98.9 96 16 143/78 98 Non-Rebreather 15.0 09/06/20 18:02 101 20 96 Non-Rebreather 15.0 100 87 26 87 09/06/20 17:31 98.9 09/06/20 16:37 98.9 102 19 159/97 99 Non-Rebreather 15.0 09/06/20 16:37 102 19 Non-Rebreather 15.0 99 09/06/20 16:04 120 18 163/110 (127) 100 Non-Rebreather 15.0 Intake and Output 09/06/20 09/07/20 19:00 07:00 Intake Total 0 ml 360 ml Output Total 1600 ml Balance 0 ml -1240 ml Intake Oral 0 ml 360 ml Output Urine Total 1600 ml Laboratory Tests Test 09/06/20 16:25 09/06/20 18:20 09/07/20 07:05 White Blood Count 7.6 K/UL (4.8-10.8) 8.8 K/UL (4.8-10.8) Red Blood Count 5.86 M/UL (4.70-6.10) 6.00 M/UL (4.70-6.10) Hemoglobin 17.4 G/DL (14.2-18.0) 17.8 G/DL (14.2-18.0) Hematocrit 54.0 % (42.0-52.0) H 55.5 % (42.0-52.0) H Mean Corpuscular Volume 92 FL (80-99) 92 FL (80-99) Mean Corpuscular Hemoglobin 29.8 PG (27.0-31.0) 29.6 PG (27.0-31.0) Mean Corpuscular Hemoglobin Concent 32.3 G/DL (32.0-36.0) 32.1 G/DL (32.0-36.0) Red Cell Distribution Width 14.9 % (11.6-14.8) H 15.0 % (11.6-14.8) H Platelet Count 273 K/UL (150-450) 234 K/UL (150-450) Mean Platelet Volume 6.2 FL (6.5-10.1) L 7.0 FL (6.5-10.1) Neutrophils (%) (Auto) 63.8 % (45.0-75.0) % (45.0-75.0) Lymphocytes (%) (Auto) 20.0 % (20.0-45.0) % (20.0-45.0) Monocytes (%) (Auto) 9.4 % (1.0-10.0) % (1.0-10.0) Eosinophils (%) (Auto) 3.5 % (0.0-3.0) H % (0.0-3.0) Basophils (%) (Auto) 3.2 % (0.0-2.0) H % (0.0-2.0) Prothrombin Time 11.2 SEC (9.30-11.50) Prothromb Time International Ratio 1.0 (0.9-1.1) Activated Partial Thromboplast Time 25 SEC (23-33) D-Dimer 0.28 mg/L FEU (0.00-0.49) Sodium Level 137 MMOL/L (136-145) 141 MMOL/L (136-145) Potassium Level 4.6 MMOL/L (3.5-5.1) 4.2 MMOL/L (3.5-5.1) Chloride Level 103 MMOL/L (98-107) 105 MMOL/L (98-107) Carbon Dioxide Level 27 MMOL/L (21-32) 27 MMOL/L (21-32) Blood Urea Nitrogen 24 mg/dL (7-18) H 19 mg/dL (7-18) H Creatinine 1.4 MG/DL (0.55-1.30) H 1.1 MG/DL (0.55-1.30) Estimat Glomerular Filtration Rate > 60 mL/min (>60) > 60 mL/min (>60) Glucose Level 170 MG/DL (74-106) H 156 MG/DL (74-106) H Lactic Acid Level 1.20 mmol/L (0.4-2.0) Calcium Level 8.5 MG/DL (8.5-10.1) 9.0 MG/DL (8.5-10.1) Phosphorus Level 5.2 MG/DL (2.5-4.9) H 2.5 MG/DL (2.5-4.9) Magnesium Level 2.0 MG/DL (1.8-2.4) 2.1 MG/DL (1.8-2.4) Ferritin 100 NG/ML (8-388) Total Bilirubin 0.8 MG/DL (0.2-1.0) Aspartate Amino Transf (AST/SGOT) 13 U/L (15-37) L Alanine Aminotransferase (ALT/SGPT) 16 U/L (12-78) Alkaline Phosphatase 91 U/L (46-116) Lactate Dehydrogenase 141 U/L (81-234) Total Creatine Kinase 48 U/L (26-308) Creatine Kinase MB 4.2 NG/ML (0.0-3.6) H Creatine Kinase MB Relative Index 8.7 Troponin I 0.008 ng/mL (0.000-0.056) C-Reactive Protein, Quantitative 0.7 mg/dL (0.00-0.90) Pro-B-Type Natriuretic Peptide 1030 pg/mL (0-125) H Total Protein 7.6 G/DL (6.4-8.2) Albumin 3.7 G/DL (3.4-5.0) Globulin 3.9 g/dL Albumin/Globulin Ratio 0.9 (1.0-2.7) L Lipase 187 U/L (73-393) Urine Color Yellow Urine Appearance Slightly cloudy Urine pH 5 (4.5-8.0) Urine Specific [place] 1.020 (1.005-1.035) Urine Protein 2+ (NEGATIVE) H Urine Glucose (UA) Negative (NEGATIVE) Urine Ketones Negative (NEGATIVE) Urine Blood Negative (NEGATIVE) Urine Nitrite Negative (NEGATIVE) Urine Bilirubin Negative (NEGATIVE) Urine Urobilinogen 1 MG/DL (0.0-1.0) H Urine Leukocyte Esterase 1+ (NEGATIVE) H Urine RBC 0 /HPF (0 - 0) Urine WBC 20-30 /HPF (0 - 0) H Urine Squamous Epithelial Cells Few /LPF (NONE/OCC) Urine Bacteria Moderate /HPF (NONE) H Differential Total Cells Counted 100 Neutrophils % (Manual) 88 % (45-75) H Lymphocytes % (Manual) 11 % (20-45) L Monocytes % (Manual) 1 % (1-10) Eosinophils % (Manual) 0 % (0-3) Basophils % (Manual) 0 % (0-2) Band Neutrophils 0 % (0-8) Platelet Estimate Adequate Platelet Morphology Normal Anisocytosis 1+ Hemoglobin A1c 6.4 % (4.3-6.0) H Triglycerides Level 49 MG/DL (30-150) Cholesterol Level 183 MG/DL (< 200) LDL Cholesterol 87 mg/dL (<100) HDL Cholesterol 84 MG/DL (40-60) H Cholesterol/HDL Ratio 2.2 (3.3-4.4) L Thyroid Stimulating Hormone (TSH) 0.814 uiU/mL (0.358-3.740) Microbiology Date/Time Source Procedure Growth Status 09/06/20 16:25 Nasopharynx SARS-CoV-2 RdRp Gene Assay - Final Complete Vipul Stock MD Sep 07, 2020 14:43
[2020-09-07] MEDS: Albuterol/Ipratropium 3ml neb HHN PRN ×2 (15:15→20:25)
[2020-09-07 16:00] VITALS: BP 112/76
--- NOTE | 2020-09-07 16:30 | Consultation ---
DATE OF CONSULTATION: 09/07/2020 CARDIOLOGY CONSULTATION REASON FOR CONSULTATION: Management of congestive heart failure in a patient with history of atrial flutter ablation. HISTORY OF PRESENT ILLNESS: The patient is a 60-year-old gentleman whom I am quite familiar with from multiple previous hospitalizations. The patient has a history of severe nonischemic cardiomyopathy with ejection fraction of 15-20%, who also has history of typical flutter, who underwent atrial flutter ablation by me in April 2019. The patient also has history of nonsustained ventricular tachycardia. At that time, the patient refused defibrillator implantation. The patient also has COPD, on prednisone. The patient presented to the emergency room with increasing shortness of breath, but it is getting worse over the last few days. The patient was admitted and cardiac electrophysiology consultation was obtained for further evaluation and management. REVIEW OF SYSTEMS: Negative other than what was mentioned in history of present illness. PAST MEDICAL HISTORY: As mentioned above. FAMILY HISTORY: Noncontributory. SOCIAL HISTORY: He lives at home. Denies smoking or drinking alcohol. PHYSICAL EXAMINATION: VITAL SIGNS: Blood pressure 107/80, pulse 71, respirations 18, and temperature 97.9. HEAD AND NECK: Positive JVD. LUNGS: Decreased breath sounds. CARDIOVASCULAR: Regular S1 and S2 with no gallop or murmur. ABDOMEN: Soft. EXTREMITIES: No pitting edema. LABORATORY AND DIAGNOSTIC DATA: Labs show white count of 8.8, hemoglobin 17.9, hematocrit 35.5, platelet count 234. Sodium 141, potassium 4.2, BUN of 19, creatinine 1.1, and glucose of 156. His troponin is negative and his BNP is 1000. His echocardiogram in August 2019 showed ejection fraction of 38%. His echocardiogram in June 2019 showed ejection fraction of 20% and his echocardiogram from yesterday showed ejection fraction of 55%. ASSESSMENT AND PLAN: 1. History of severe nonischemic cardiomyopathy. ejection fraction was 20%, was likely due to atrial flutter, rapid ventricular response. After flutter ablation, ejection fraction has gradually improved from 20% to 38% to 55%. However, continue the patient's current medical therapy including Lasix 40 mg IV b.i.d. and Coreg 12.5 mg b.i.d. The patient is on Entresto 49/51 mg daily and that will be resumed. Since his renal function essentially has normalized, I would discontinue hydralazine and nitrate and continue Entresto and add Aldactone to his medical regimen. 2. History of atrial flutter, ablation, without recurrence. 3. Paroxysmal atrial fibrillation. Continue Coreg and Eliquis 5 mg b.i.d. 4. COPD, on prednisone 40 mg daily and Advair. Thank you very much for allowing me to participate in the care of this patient. Please do not hesitate to contact me for any questions regarding my evaluation. Vipul Stock M.D. DR: STEPHANIE JOB#: [id number] CC:
[2020-09-07 20:00] VITALS: BP 121/75
[2020-09-07] MEDS: Flonase Nasal Inhaler 16gm NASAL SCH (21:03)
[2020-09-08] VITALS: BP 108/83
[2020-09-08 04:00] VITALS: BP 133/88
[2020-09-08 07:08] LABS: ANION GAP 7 mmol/L (5-15); BLOOD UREA NITROGEN 20 mg/dL (7-18); CALCIUM 8.8 MG/DL (8.5-10.1); CARBON DIOXIDE 29 MMOL/L (21-32); CHLORIDE 105 MMOL/L (98-107); CREATININE 1.1 MG/DL (0.55-1.30); SODIUM 141 MMOL/L (136-145)
[2020-09-08 08:00] VITALS: BP 110/78
[2020-09-08] MEDS: Albuterol/Ipratropium 3ml neb HHN PRN ×2 (08:47→14:37)
[2020-09-08] MEDS: Carvedilol 12.5mg tab ORAL SCH (09:12)
[2020-09-08] MEDS: Eliquis 5mg tablet ORAL SCH (09:12)
[2020-09-08] MEDS: Flonase Nasal Inhaler 16gm NASAL SCH (09:13)
[2020-09-08] MEDS: Wixela 250/50 Inhaler - 60 dose INH SCH (09:14)
--- NOTE | 2020-09-08 11:42 | Cardiac Electrophysiology PN ---
Assessment/Plan Assessment/Plan 1. History of severe nonischemic cardiomyopathy. With ejection fraction was 20%, was likely due to atrial flutter, rapid ventricular response. After flutter ablation, ejection fraction has gradually improved from 20% to 38% to 55%. Continue Lasix 40 mg IV b.i.d. and Coreg 12.5 mg bid. Entresto 49/51 mg daily and Aldactone 2. History of atrial flutter, ablation, without recurrence. 3. Paroxysmal atrial fibrillation. Continue Coreg and Eliquis 5 mg b.i.d. 4. COPD, on prednisone 40 mg daily and Advair. Subjective Subjective Alert in NAD. No CP or SOB. Objective Last 24 Hour Vital Signs Date Time Temp Pulse Resp B/P (MAP) Pulse Ox O2 Delivery O2 Flow Rate FiO2 09/08/20 09:14 Nasal Cannula 3.0 32 09/08/20 09:14 Nasal Cannula 3.0 32 09/08/20 09:12 84 110/78 09/08/20 08:47 84 18 98 Nasal Cannula 3.0 32 62 14 97 09/08/20 08:00 98.4 65 17 110/78 (89) 99 09/08/20 07:50 67 16 97 Nasal Cannula 3.0 32 09/08/20 04:00 97.5 81 19 133/88 (103) 97 09/08/20 04:00 61 09/08/20 00:00 71 09/08/20 00:00 96.1 75 19 108/83 (91) 96 09/07/20 21:00 Room Air 09/07/20 20:48 92 128/75 09/07/20 20:28 94 18 99 Nasal Cannula 2.0 28 96 18 95 09/07/20 20:26 96 18 95 Nasal Cannula 2.0 28 09/07/20 20:25 96 18 95 Nasal Cannula 2.0 28 09/07/20 20:00 98.1 91 20 121/75 (90) 95 09/07/20 20:00 84 09/07/20 18:36 98.1 09/07/20 16:00 98.1 80 20 112/76 (88) 98 09/07/20 16:00 79 09/07/20 15:25 81 18 99 Nasal Cannula 2.0 28 76 18 96 09/07/20 12:57 107/80 09/07/20 12:00 71 09/07/20 11:41 97.9 76 18 107/80 (89) 97 Intake and Output 09/07/20 09/08/20 19:00 07:00 Intake Total 360 ml 200 ml Balance 360 ml 200 ml Intake Oral 360 ml 200 ml # Voids 3 2 Laboratory Tests Test 09/08/20 06:05 Sodium Level 141 MMOL/L (136-145) Potassium Level 4.0 MMOL/L (3.5-5.1) Chloride Level 105 MMOL/L (98-107) Carbon Dioxide Level 29 MMOL/L (21-32) Anion Gap 7 mmol/L (5-15) Blood Urea Nitrogen 20 mg/dL (7-18) H Creatinine 1.1 MG/DL (0.55-1.30) Estimat Glomerular Filtration Rate > 60 mL/min (>60) Glucose Level 113 MG/DL (74-106) H Calcium Level 8.8 MG/DL (8.5-10.1) Magnesium Level 2.0 MG/DL (1.8-2.4) Troponin I 0.011 ng/mL (0.000-0.056) Pro-B-Type Natriuretic Peptide 1277 pg/mL (0-125) H Thyroid Stimulating Hormone (TSH) 1.189 uiU/mL (0.358-3.740) Free Thyroxine 0.84 NG/DL (0.76-1.46) Microbiology Date/Time Source Procedure Growth Status 09/06/20 18:20 Urine,Clean Catch Urine Culture - Preliminary NO GROWTH AFTER 24 HOURS Resulted 09/06/20 16:25 Nasopharynx SARS-CoV-2 RdRp Gene Assay - Final Complete Objective HEAD AND NECK: Positive JVD. LUNGS: Decreased breath sounds. CARDIOVASCULAR: Regular S1 and S2 with no gallop or murmur. ABDOMEN: Soft. EXTREMITIES: No pitting edema. Vipul Stock MD Sep 08, 2020 11:42
[2020-09-08 12:00] VITALS: BP 119/82
--- NOTE | 2020-09-08 13:35 | Discharge Instructions ---
Discharge Instructions Discharge Instructions Call MD/Return to Hospital if: having consecutive days of weight gain or shortness of breath Diet: cardiac 2 GM Na, low fat Resume Normal Activity?: Yes Activity: resume normal activities Follow Up Orders Follow up with your primary care physicians and sales representative meats within 7-10 days. For Congestive Heart Failure Reminder Report to your physician any weight gain of 5 pounds or more in one week. Hector Bryant M.D. Sep 08, 2020 13:35
[2020-09-08] MEDS ORDERED: DUONEB 0.5-3(2.53 ML HHN (13:39)
[2020-09-08] MEDS ORDERED: ENTRESTO 49 MG1 EACH PO (13:39)
[2020-09-08] MEDS ORDERED: Flu Vaccine Quadrivalent IM ONE (16:00)
--- NOTE | 2020-09-08 16:26 | Discharge Summary ---
Discharge Summary Hospital Course Date of Admission Sep 06, 2020 at 18:18 Date of Discharge Sep 08, 2020 Admitting Diagnosis copd exacerbation/CHF exacerbation HPI Jose Quinones is a 60 year old male who was admitted on Sep 06, 2020 at 18:18 for Chronic Obstructive Pulmonary Disease Exacerbation Consultations Cardiology Dr. Stock Discharge Medications Continued Medications: Albuterol Sulfate (Ventolin Hfa) 18 Gm Hfa.aer.ad 2 PUFFS INH EVERY 6 HOURS for 30 Days, #18 GM 0 Refills Apixaban (Eliquis*) 5 Mg Tablet 5 MG PO BID, TAB Carvedilol (Coreg) 12.5 Mg Tablet 12.5 MG ORAL EVERY 12 HOURS for 30 Days, #60 TAB 1 Refill Diphenhyd/Phenyleph/Acetaminop (Robitussin Cold-Flu Night Liq) 237 Ml Liquid 237 ML PO QHS PRN for 10 Days, #1 ML 0 Refills Fluticasone/Salmeterol (Advair 250-50 Diskus) 1 Each Blst.w.dev 1 PUFF INH EVERY 12 HOURS, EA Furosemide* (Lasix*) 40 Mg Tablet 40 MG ORAL DAILY for 60 Days, #60 TAB 1 Refill Furosemide* (Lasix*) 40 Mg Tablet 40 MG ORAL DAILY for , TAB Gabapentin* (Gabapentin*) 100 Mg Capsule 100 MG ORAL BEDTIME, CAP Hydralazine Hcl* (Hydralazine Hcl*) 25 Mg Tablet 25 MG ORAL EVERY 8 HOURS, TAB 0 Refills Ipratropium [place] (Atrovent Hfa) 12.9 Gm Hfa.aer.ad 2 PUFF IH FOUR TIMES A DAY Ipratropium/Albuterol Sulfate (DuoNeb 0.5-3(2.5)mg/3ml) 3 Ml Ampul.neb 3 ML HHN Q4H PRN for 30 Days, #20 EA (This prescription has been renewed) Isosorbide Mononitrate (Isosorbide Mononitrate Er) 30 Mg Tab.er.24h 30 MG PO DAILY, TAB Pantoprazole* (Pantoprazole*) 40 Mg Tablet.dr 40 MG ORAL DAILY for 30 Days, #30 TAB 1 Refill Sacubitril/Valsartan (Entresto 49 mg-51 mg Tablet) 1 Each Tablet 1 EACH PO QD for for 14 Days, #14 TAB (This prescription has been renewed) Spironolactone* (Aldactone*) 25 Mg Tablet 25 MG ORAL DAILY for 30 Days, #30 TAB 1 Refill Discontinued Medications: Lisinopril* (Zestril*) 10 Mg Tablet 10 MG ORAL DAILY for 30 Days, #30 TAB 1 Refill Discharge Condition Upon Discharge: improving Discharge Vital Signs Last Vital Signs Date Time Temp Pulse Resp B/P (MAP) Pulse Ox O2 Delivery O2 Flow Rate FiO2 09/08/20 14:47 88 18 98 Room Air 21 88 18 95 09/08/20 12:00 98.1 119/82 (94) 09/08/20 09:14 3.0 Discharge Disposition Patient was discharged to home Discharge Diagnoses: (1) Acute exacerbation of CHF (congestive heart failure) (2) COPD exacerbation (3) Hypertension Discharge Instructions Discharge Instructions Call MD/Return to Hospital if: having consecutive days of weight gain or shortness of breath Activity: resume normal activities Hector Bryant M.D. Sep 08, 2020 16:26
--- NOTE | 2020-09-09 08:28 | Cardiology Report ---
APPROVED REPORT EXAM: Two-dimensional and M-mode echocardiogram with Doppler and color Doppler. INDICATION Congestive Heart Failure M-Mode DIMENSIONS IVSd1.2 (0.7-1.1cm)Left Atrium (MM)5.4 (1.6-4.0cm) LVDd5.0 (3.5-5.6cm)Aortic Root2.8 (2.0-3.7cm) PWd1.3 (0.7-1.1cm)Aortic Cusp Exc.1.9 (1.5-2.0cm) IVSs1.4 cmEPSS0.4 (>1.0cm) LVDs4.4 (2.5-4.0cm) PWs1.4 cm Other Information Technically limited study due to poor acoustic windows & pt's body habitus. <Conclusion> Normal left ventricular chamber size, systolic function and wall motion to extent visualized. Left ventricular ejection fraction estimated to be 55 %. Study quality precludes accurate assessment of regional wall motion. No left ventricular hypertrophy. Anterior Echo-free space, may be due to pericardial fat or effusion. No evidence of pericardial effusion. Moderate bi-atrial enlargement. Moderate right ventricular enlargement. Focal aortic valve sclerosis with adequate cusp excursion. Thickened mitral valve leaflets with normal excursion. Mitral annulus and aortic root calcification. Pulmonic valve not well visualized. Normal tricuspid valve structure. IVC dilated at 2.5 cm and non-collapsing with respiration suggestive of increased RA pressure. A color flow and spectral Doppler study was performed and revealed: No aortic insufficiency. Trace mitral regurgitation. Can not determine left ventricular diastolic function by mitral diastolic velocities due to atrial fibrillation. Mild tricuspid regurgitation. Tricuspid systolic velocities suggests peak right ventricular systolic pressure of 35 mmHg, consistent with borderline mild pulmonary hypertension. No pulmonic regurgitation present.
[2020-09-09] MEDS ORDERED: Spironolactone 25mg tab ORAL SCH (09:00)
== END 2020-09-08 17:45 | disposition home or self-care (01) | DRG 194 ==
LOC: EDBD 16:07 → EMR 16:33 → 2E 18:18 → EDBEDREQ 20:14 → 2E 21:25
DX: I11.0 Hypertensive heart disease with heart failure (principal); J96.01 Acute respiratory failure with hypoxia; N17.9 Acute kidney failure, unspecified; J44.1 Chronic obstructive pulmonary disease with (acute) exacerbation; I48.0 Paroxysmal atrial fibrillation; I50.23 Acute on chronic systolic (congestive) heart failure; F17.200 Nicotine dependence, unspecified, uncomplicated; Z79.01 Long term (current) use of anticoagulants; Z91.19 Patient's noncompliance with other medical treatment and regimen; D75.1 Secondary polycythemia; E66.9 Obesity, unspecified; Z23 Encounter for immunization; R73.9 Hyperglycemia, unspecified; I42.8 Other cardiomyopathies; R73.03 Prediabetes; Z68.35 Body mass index [BMI] 35.0-35.9, adult
CPT/HCPCS: 36415; 71045; 80048; 80053; 80061; 81003; 82550; 82553; 82728; 83036; 83605; 83615; 83690; 83735; 83880; 84100; 84439; 84443; 84484; 85007; 85025; 85379; 85610; 85730; 86140; 87040; 87086; 90689; 93005; 93306; 94640; 94664; 96374; 96375; 99285; J7620; U0002